=== PATIENT | male | born 1950 | race Caucasian/White ===

== ENCOUNTER → 2020-04-28 10:26 | Outpatient (BNVA) | payer MEDICARE, SELFPAY | PROVIDERS: PCP Internal Medicine; Visit Provider Internal Medicine Cardiovascular Disease | DX: Z76.89 Persons encountering health services in other specified circumstances (principal) ==

== ENCOUNTER 2020-04-28 11:07 | Emergency (ER) | payer MEDICARE, SELFPAY ==
--- NOTE | 2020-04-28 | ECG_ITS ---
Test Reason : REPEAT Blood Pressure : / mmHG Vent. Rate : 051 BPM Atrial Rate : 051 BPM P-R Int : 236 ms QRS Dur : 102 ms QT Int : 494 ms P-R-T Axes : 040 -09 049 degrees QTc Int : 455 ms Sinus bradycardia with 1st degree A-V block Moderate voltage criteria for LVH, may be normal variant ST & T wave abnormality, consider anterior ischemia Abnormal ECG When compared with ECG of 28-APR-2020 11:14, No significant change was found Referred By: Lisa Castellon Electronically Signed By:LOUIS MENON MD
[2020-04-28 11:13] VITALS: BP 152/71; PULSE 58; RESP 15; TEMP 36.4; O2SAT 96; BMI 37.1
--- NOTE | 2020-04-28 11:17 | CA_ITS ---
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 Mildly depressed LV systolic function with distal septal akinesis Findings Procedure Information Contrast agent, definity, is being given per protocol without apparent complications. Left Ventricle Normal left ventricular cavity size. There is normal left ventricular wall thickness. The left ventricular systolic function is mildly decreased. The visually estimated ejection fraction is between 45-50%. There is paradoxical septal motion consistent with post-operative status. Diastolic function is indeterminate on the basis of available data. Wall Motion Rest Echo Findings The apical septum and mid anteroseptal segments are akinetic. All other scored wall segments showed normal motion. Pericardium/Pleural There is no evidence of pericardial effusion. Prior Study Comparison Changes noted compared to prior study dated: 06/26/2019. overall compared to prior study LV systolic function is depressed. Measurements 2D Systolic Function EF 4C: 43.80 >55% Updated in Other Vendor System with Status of Final Gustavo Cano MD electronically signed on 04/28/2020 2:16:35 PM with status of Final
--- NOTE | 2020-04-28 11:38 | ED_ITS ---
HPI - Chest Pain General Chief Complaint: Chest Pain Stated Complaint: chest pain Time Seen by Provider: 04/28/20 11:17 Source: patient Mode of arrival: ambulatory Limitations: no limitations History of Present Illness HPI narrative: patient comes to the emergency room complaining of chest pain. Patient was seen this morning in the cardiology office by Dr. Stephens. patient reports that yesterday he had a 1 time episode of chest pain lasting approximately 2nd, then self resolved. This morning when he was seen in the Cardiology Clinic, new T-wave inversions were noted. At this time, patient denies shortness of breath or chest pain. Per Dr. Stephens, patient needs a stat echocardiogram MD complaint: chest pain Related Data Home Medications Medication Instructions Recorded Confirmed aspirin 81 mg tablet,delayed 81 mg PO DAILY 04/28/20 04/28/20 release atorvastatin 80 mg tablet 80 mg PO BEDTIME 04/28/20 04/28/20 famotidine 20 mg tablet 20 mg PO DAILY 04/28/20 04/28/20 furosemide 40 mg tablet 40 mg PO DAILY 04/28/20 04/28/20 levothyroxine 125 mcg tablet 125 mcg PO DAILY 04/28/20 04/28/20 metoprolol tartrate 25 mg tablet 25 mg PO BID 04/28/20 04/28/20 potassium chloride 20 mEq 20 meq PO DAILY 04/28/20 04/28/20 tablet,extended release Previous Rx's Medication Instructions Recorded clopidogrel [Plavix] 150 mg PO DAILY 6 Days #12 tab 04/28/20 Allergies Allergy/AdvReac Type Severity Reaction Status Date / Time No Known Allergies Allergy Verified 04/28/20 10:35 [No Known Allergies*] Review of Systems Review of Systems: Constitutional : No Weight loss, No Fever, No Chills, No Night Sweats, No Fatigue, No Malaise ENT/Mouth : No Hearing loss, No Ear Pain, No Nasal Congestion, No Sinus Pain, No Hoarseness, No sore throat, No Rhinorrhea, No Swallowing Difficulty Eyes: No Eye Pain, No Swelling, No Redness, No Foreign Body, No Discharge, No Vision Changes Cardiovascular : 1 time episode of chest pain, self resolved at this time no chest pain. No SOB, No Dyspnea on Exertion, No Orthopnea, No Edema, No Palpitations Respiratory : No Cough, No Sputum, No Wheezing, No Smoke Exposure, No Dyspnea Gastrointestinal : No Nausea, No Vomiting, No Diarrhea, No Constipation, No abdominal Pain, No Hematochezia, No Melena Genitourinary : no irregular bleeding, No Dysuria, No Urinary Frequency, No Hematuria, No Urinary Incontinence, No Urgency, No Flank Pain, No Urinary Flow Changes, No Hesitancy Musculoskeletal : No joint pain, No Myalgias, No Joint Swelling Skin : No Skin Lesions, No rash Neuro : No Weakness, No Numbness, No Paresthesias, No Loss of Consciousness, No Dizziness, No Headache Psych : No Anxiety/Panic, No Depression, No SI/HI/AH/VH, No Social Issues, Heme/Lymph: No Bruising, No Bleeding,No Lymphadenopathy Endocrine : No Polyuria, No Polydipsia, No Temperature Intolerance [facility] Past Medical History Medical History CAD (coronary artery disease) Nystagmus Surgical History History of cardiac cath (~06/20/19) History of coronary artery bypass graft x 3 (~07/24/19) History of knee replacement S/P CABG (coronary artery bypass graft) Family History Family History Father Cardiovascular disease Mother Gastrointestinal malignancy Social History Social History Smoking Status: Former smoker Smoked in Last 30 Days: No Use of substances other than those prescribed or required for medical reasons: No Advance Directives: No Advance Directives Information Provided: No Physical Exam Vital Signs: Vital Signs: Vital Signs Temp Pulse Resp BP Pulse Ox 04/28/20 16:07 54 18 144/118 H 96 04/28/20 14:34 97.7 F 51 18 142/66 H 95 04/28/20 12:56 54 18 126/69 95 04/28/20 11:13 97.6 F 58 15 152/71 H 96 Body Mass Index 37.1 Appearance: Alert. Oriented X3. No acute distress. Eyes: Pupils equal, round and reactive to light. horizontal nystagmus ( chronic) ENT: Pharynx normal. Neck: Normal inspection. Neck supple. No lymph nodes noted. No crepitus CVS: Normal heart rate and rhythm. Pulses normal. Normal S1 and S2 Respiratory: No respiratory distress. Breath sounds normal. No Wheezing. No rales Abdomen: Soft and nontender. No rigidity. No distention. good BS x4 Skin: Skin warm and dry. Normal skin color. Normal skin turgor. Extremities: No lower extremity edema. No lower extremity edema. No Lacerations. No Rash Neuro: Oriented X 3. No motor deficit. No sensory deficit. Moving all extermities. No slurred speech. Course Course Course Narrative: at this time, patient is asymptomatic, discussed with the sophy carrillo that he will get lab work at this time, troponin will be repeated in 3 hours, and we will get an echocardiogram as well per Dr. Stephens's request MDM - Chest Pain MDM Narrative Medical decision making narrative: I discussed the EKGs, troponins, and echocardiogram with Dr. Stephens. Patient will need a cardiac catheterization. Per Dr. Stephens recommendations, patient may be admitted to the hospital and transfer to [facility] tomorrow for a cardiac arrest versus discharging the patient on Plavix and planning for a cardiac catheterization on Sunday. I discussed the 2 options with the patient, patient states he wants to go home, because he needs to prepare his for the news of the upcoming cardiac catheterization. As mentioned above, patient remains asymptomatic. patient will be tested for COVID, in house test will be obtained to facilitate the admission for the cardiac catheterization Lab Data Result diagrams: 04/28/20 11:42 04/28/20 11:42 Labs: Lab Results 04/28/20 04/28/20 04/28/20 Range/Units 11:42 11:42 11:42 WBC 7.6 (4.8-10.8) X10*3/uL RBC 5.05 (4.60-5.80) X10*6/uL Hgb 14.2 (14.0-18.0) g/dl Hct 44.4 (42-52) % MCV 87.9 (80-98) fL MCH 28.1 (27.0-33.0) pg MCHC 32.0 (31.0-36.0) g/dl RDW 14.0 (11.0-16.0) % Plt Count 191 (160-400) X10*3/uL MPV 10.1 (9.4-12.4) fL Immature Gran % (Auto) 0.4 (0.0-0.4) % Neut % (Auto) 60.6 (45-73) % Lymph % (Auto) 27.0 (20-40) % [place] % (Auto) 8.7 (2-11) % Eos % (Auto) 3.0 (0-4) % Baso % (Auto) 0.3 (0-2) % Lymph # (Auto) 2.1 (1.2-4.9) X10*3/uL [place] # (Auto) 0.7 (0.1-1.2) X10*3/uL Eos # (Auto) 0.2 (0.0-0.4) X10*3/uL Baso # (Auto) 0.0 (0.0-0.2) X10*3/uL Abs Immat Gran (auto) 0.03 (0.00-0.03) X10*3/uL Absolute Neuts (auto) 4.6 (2.0-8.3) X10*3/uL Absolute Nucleated RBC 0.000 (0.0-0.012) X10*3/uL Nucleated RBC % (auto) 0.0 (0.0-0.2) /100WBC Sodium 140 (135-145) mmol/L Potassium 4.1 (3.3-5.1) mmol/l Chloride 105 (96-108) mmol/L Carbon Dioxide 26 (22-29) mmol/L Anion Gap 13 (12-20) BUN 18 H (9-16) mg/dL Creatinine 1.06 (0.5-1.4) mg/dL Estim Creat Clear Calc 72.3 Estimated GFR > 60 Random Glucose 84 (60-115) mg/dL Calcium 9.1 (8.4-10.2) mg/dL Troponin I High Sens < 3.5 (<3.5-35.0) ng/L B-Natriuretic Peptide 31 (<100) pg/mL 04/28/20 Range/Units 14:46 WBC (4.8-10.8) X10*3/uL RBC (4.60-5.80) X10*6/uL Hgb (14.0-18.0) g/dl Hct (42-52) % MCV (80-98) fL MCH (27.0-33.0) pg MCHC (31.0-36.0) g/dl RDW (11.0-16.0) % Plt Count (160-400) X10*3/uL MPV (9.4-12.4) fL Immature Gran % (Auto) (0.0-0.4) % Neut % (Auto) (45-73) % Lymph % (Auto) (20-40) % [place] % (Auto) (2-11) % Eos % (Auto) (0-4) % Baso % (Auto) (0-2) % Lymph # (Auto) (1.2-4.9) X10*3/uL [place] # (Auto) (0.1-1.2) X10*3/uL Eos # (Auto) (0.0-0.4) X10*3/uL Baso # (Auto) (0.0-0.2) X10*3/uL Abs Immat Gran (auto) (0.00-0.03) X10*3/uL Absolute Neuts (auto) (2.0-8.3) X10*3/uL Absolute Nucleated RBC (0.0-0.012) X10*3/uL Nucleated RBC % (auto) (0.0-0.2) /100WBC Sodium (135-145) mmol/L Potassium (3.3-5.1) mmol/l Chloride (96-108) mmol/L Carbon Dioxide (22-29) mmol/L Anion Gap (12-20) BUN (9-16) mg/dL Creatinine (0.5-1.4) mg/dL Estim Creat Clear Calc Estimated GFR Random Glucose (60-115) mg/dL Calcium (8.4-10.2) mg/dL Troponin I High Sens < 3.5 (<3.5-35.0) ng/L B-Natriuretic Peptide (<100) pg/mL Discharge Plan Discharge Clinical Impression: Abnormal electrocardiography Patient Disposition: Home, Self-Care Additional Instructions: your electrocardiogram on your echocardiogram (heart ultrasound) are both abnormal. Dr. Stephens recommends a cardiac catheterization for this week. Please start taking Plavix. Dr. Stephens will contact you with further information. If you have any chest pain, any new symptoms, please return to the emergency room or call 911 Prescriptions: New clopidogrel [Plavix] 75 mg tablet 150 mg PO DAILY 6 Days Qty: 12 RF: 0 No Action aspirin 81 mg tablet,delayed release (DR/EC) 81 mg PO DAILY RF: 0 atorvastatin 80 mg tablet 80 mg PO BEDTIME RF: 0 metoprolol tartrate 25 mg tablet 25 mg PO BID RF: 0 famotidine [Pepcid] 20 mg tablet 20 mg PO DAILY RF: 0 furosemide [Lasix] 40 mg tablet 40 mg PO DAILY RF: 0 potassium chloride 20 mEq tablet extended release 20 meq PO DAILY RF: 0 levothyroxine 125 mcg tablet 125 mcg PO DAILY RF: 0
[2020-04-28 11:47] LABS: MANUAL DIFF FLAG NO
[2020-04-28 11:49] LABS: Basophils Percent Auto 0.3 % (0-2); Eosinophils Absolute Auto 0.2 X10*3/uL (0.0-0.4); Hematocrit 44.4 % (42-52); Hemoglobin 14.2 g/dl (14.0-18.0); Imm Gran Abs Auto 0.03 X10*3/uL (0.00-0.03); Imm Gran Pct Auto 0.4 % (0.0-0.4); Lymphocytes Absolute Auto 2.1 X10*3/uL (1.2-4.9); Mean Corpuscular Hemoglobin 28.1 pg (27.0-33.0); Mean Corpuscular Volume 87.9 fL (80-98); Mean Platelet Volume 10.1 fL (9.4-12.4); Monocytes Absolute Auto 0.7 X10*3/uL (0.1-1.2); Monocytes Percent Auto 8.7 % (2-11); Neutrophils Absolute Auto 4.6 X10*3/uL (2.0-8.3); Neutrophils Percent Auto 60.6 % (45-73); Platelet Count 191 X10*3/uL (160-400); Red Blood Count 5.05 X10*6/uL (4.60-5.80); White Blood Count 7.6 X10*3/uL (4.8-10.8)
[2020-04-28 12:25] LABS: Anion Gap 13 (12-20); Blood Urea Nitrogen 18 mg/dL (9-16); Calcium 9.1 mg/dL (8.4-10.2); Carbon Dioxide 26 mmol/L (22-29); Chloride 105 mmol/L (96-108); Creatinine Clr Calc Pharmacy 72.3; Estimated Glomerular Filt Rate > 60; Glucose Random 84 mg/dL (60-115); Potassium 4.1 mmol/l (3.3-5.1); Sodium 140 mmol/L (135-145)
[2020-04-28 12:32] LABS: B Type Natriuretic Peptide 31 pg/mL (<100); Troponin-I High Sensitivity < 3.5 ng/L (<3.5-35.0)
[2020-04-28 12:56] VITALS: BP 126/69; PULSE 54; RESP 18; O2SAT 95
--- NOTE | 2020-04-28 14:21 | PC.NURSE ---
pt is currently resting, sinus román on the monitor, denies chest pain/sob at this time. pt awaiting repeat trop
[2020-04-28 14:34] VITALS: BP 142/66; PULSE 51; RESP 18; TEMP 36.5; O2SAT 95
--- NOTE | 2020-04-28 15:02 | ECG_ITS ---
Test Reason : CP Blood Pressure : / mmHG Vent. Rate : 059 BPM Atrial Rate : 059 BPM P-R Int : 250 ms QRS Dur : 106 ms QT Int : 440 ms P-R-T Axes : 056 -08 070 degrees QTc Int : 435 ms Sinus bradycardia with 1st degree A-V block Left axis deviation T wave abnormality, consider anterior ischemia Abnormal ECG When compared with ECG of 28-MAY-2019 09:01, CT interval has increased T wave inversion now evident in Anterior leads Referred By: Lisa Castellon Electronically Signed By:LOUIS MENON MD
[2020-04-28 15:39] LABS: Troponin-I High Sensitivity < 3.5 ng/L (<3.5-35.0)
[2020-04-28 16:07] VITALS: BP 144/118; PULSE 54; RESP 18; O2SAT 96
--- NOTE | 2020-04-28 16:10 | PC.NURSE ---
pt continuous o resting in the stretcher, still denies chest pain/sob, vs stable, sinus román on the monitor
[2020-04-28] MEDS: Clopidogrel Bisulfate 300 MG TABLET PO (17:02)
[2020-04-28 18:31] LABS: SARS COV2 PCR INHOUSE NEGATIVE (Negative)
== END 2020-04-28 17:12 | disposition home or self-care (01) ==
PROVIDERS: Emergency Provider Emergency Medicine; PCP Internal Medicine
DX: R07.89 Other chest pain (principal); I25.10 Atherosclerotic heart disease of native coronary artery without angina pectoris; Z87.891 Personal history of nicotine dependence; Z79.899 Other long term (current) drug therapy; Z20.828 Contact with and (suspected) exposure to other viral communicable diseases
CPT/HCPCS: 36415; 70120; 80048; 83880; 84484; 85025; 87635; 93005; 99212; 99284; 99285; Q9957

== ENCOUNTER → 2020-05-13 12:40 | Outpatient (BNVA) | payer MEDICARE, SELFPAY | PROVIDERS: PCP Internal Medicine; Visit Provider Internal Medicine Cardiovascular Disease | DX: I25.10 Atherosclerotic heart disease of native coronary artery without angina pectoris (principal); G47.30 Sleep apnea, unspecified; Z79.02 Long term (current) use of antithrombotics/antiplatelets; Z79.82 Long term (current) use of aspirin; Z95.1 Presence of aortocoronary bypass graft | CPT/HCPCS: 99212 ==

== ENCOUNTER 2020-06-21 12:37 | Emergency (ER) | payer MEDICARE, SELFPAY ==
[2020-06-21 12:50] VITALS: BP 156/81; PULSE 64; RESP 18; TEMP 36.6; O2SAT 98; BMI 37.4
--- NOTE | 2020-06-21 14:35 | XR_ITS ---
EXAMINATION: XR LUMBOSACRAL SPINE WITH OBLIQUES CLINICAL INFORMATION: Low back pain radiating down left lower extremity. COMPARISON: Thoracic spine 06/21/2020, CT chest 05/28/2019. TECHNIQUE: Lumbar spine is imaged in 5 views: AP, lateral, lateral view coned to lumbosacral junction, and bilateral oblique. FINDINGS: There is normal lumbar segmentation with 5 nonrib-bearing lumbar vertebrae of normal height and normal lumbar lordosis. There is no spondylolysis or spondylolisthesis. The vertebral bodies are normal in height. There is no vertebral compression or destructive process. There are degenerative changes with multilevel partially bridging vertebral osteophytes anteriorly and scattered laterally. Borderline posterior bridging osteophyte present at L4-L5 and L5-S1. There is mild disc narrowing lumbosacral junction and at L1-L2. XR/XR lumbar spine 4V min IMPRESSION: 1. Multilevel vertebral spurring with partially bridging osteophytes. 2. Disc narrowing L1-L2 and L5-S1. 3. No vertebral compression, spondylolisthesis, or spondylolysis.
--- NOTE | 2020-06-21 14:35 | XR_ITS ---
EXAMINATION: XR THORACIC SPINE CLINICAL INFORMATION: Back pain COMPARISON: Chest radiographs 05/28/2019. TECHNIQUE: 3 views of the thoracic spine were obtained. FINDINGS: There is normal thoracic segmentation with 12 rib-bearing thoracic vertebrae of normal height and normal thoracic kyphosis. There are mild multilevel degenerative disc changes thoracic spine again seen with mild disc narrowing and endplate sclerosis and borderline thoracic vertebral spurring. There is no interval thoracic vertebral compression, spondylolisthesis, destructive process. Zero profile implant overlies anterior lower cervical spine from prior fusion. There are postsurgical changes chest with mediastinal clips and anatomy wires and sternal plates. XR/XR thoracic spine 3V IMPRESSION: Mild multilevel degenerative changes thoracic spine similar to chest radiograph 05/28/2019.
--- NOTE | 2020-06-21 14:37 | ED.BACK ---
HPI - Back Pain/Injury General Chief Complaint: Back Pain/Injury Stated Complaint: back pain Time Seen by Provider: 06/21/20 14:35 Source: patient Mode of arrival: ambulatory History of Present Illness HPI Narrative: 70-year-old male with a past medical history of hypothyroid, CAD s/p triple bypass in July, presenting to the ED complaining of left-sided low back pain radiating down left lower extremity x1 week. Denies known injury/trauma or falls. Denies fever, chills, numbness/tingling, urinary incontinence/retention, hematuria/ dysuria, or flank pain MD elicited complaint: back pain Related Data Home Medications Medication Instructions Recorded Confirmed famotidine 20 mg tablet 20 mg PO DAILY 04/28/20 05/13/20 furosemide 40 mg tablet 40 mg PO DAILY 04/28/20 05/13/20 levothyroxine 125 mcg tablet 125 mcg PO DAILY 04/28/20 05/13/20 potassium chloride 20 mEq 20 meq PO DAILY 04/28/20 05/13/20 tablet,extended release metoprolol succinate 50 mg 50 mg PO DAILY 05/13/20 05/13/20 tablet,extended release 24 hr Previous Rx's Medication Instructions Recorded clopidogrel 75 mg tablet 75 mg PO DAILY 90 Days #90 tab 04/28/20 atorvastatin 80 mg tablet 80 mg PO BEDTIME #90 tab 04/29/20 fluticasone propionate 50 2 spray INTRANASAL DAILY #15.8 ml 05/21/20 mcg/actuation nasal spray,suspension aspirin 81 mg tablet,delayed 81 mg PO DAILY #90 tab 06/12/20 release acetaminophen [Tylenol Extra 500 mg PO Q6H PRN #20 tab 06/21/20 Strength] cyclobenzaprine 5 mg PO Q8H PRN 5 Days #14 tab 06/21/20 lidocaine [Lidoderm] 1 patch TOPICAL DAILY PRN #30 ea 06/21/20 MDD remove after 12 hours tramadol 50 mg PO Q6H PRN 3 Days #9 tab 06/21/20 Allergies Allergy/AdvReac Type Severity Reaction Status Date / Time No Known Allergies Allergy Verified 04/28/20 10:35 [No Known Allergies*] Review of Systems Review of Systems: Constitutional: No Weight loss, No Fever, No Chills Genitourinary:, No Dysuria, No Urinary Frequency, No Hematuria, No Urinary Incontinence, No Flank Pain Musculoskeletal: +back pain Skin: No Skin Lesions, No rash Neuro: No Weakness, No Numbness, No Paresthesias Yes all other systems are reviewed and are negative [facility] Past Medical History Attestation statement: The following information was validated with the patient. Medical History (Updated 06/21/20 @ 14:43 by MOHIT Norris) CAD (coronary artery disease) Diabetes Hyperlipidemia Hypothyroidism Nystagmus Surgical History H/O colonoscopy History of cardiac cath (~06/20/19) History of coronary artery bypass graft x 3 (~07/24/19) History of esophagogastroduodenoscopy (EGD) History of knee replacement S/P CABG (coronary artery bypass graft) Family History Family History Father Cardiovascular disease Mother Gastrointestinal malignancy Social History Social History (Updated 05/11/20 @ 09:40 by Tania Falcon MD) Alcohol intake: never Smoking Status: Former smoker Advance Directives: No Advance Directives Information Provided: No Physical Exam Vital Signs: Vital Signs: Last Vital Signs Temp 98 F 06/21/20 12:50 Pulse 64 06/21/20 12:50 Resp 18 06/21/20 12:50 BP 156/81 H 06/21/20 12:50 Pulse Ox 98 06/21/20 12:50 Body Mass Index 37.4 Const: General: cooperative and healthy appearing Orientation/consciousness: patient oriented x3 Limitations: no limitations HENMT: Head: Yes normal to inspection Ears: hearing grossly normal bilaterally General nose exam: Normal external nose present Face and sinus: Yes normal facial exam Eyes: General: appearance normal, both eyes and all related structures EOM: EOMs intact bilaterally Neck: Other: No midline cervical spinous tenderness Neck: Yes normal visual inspection Resp: Effort & Inspection: normal respiratory effort Cardio: Rate: regular rate GI: Inspection: Yes normal to inspection : General: Yes no CVA tenderness Back/Spine/Pelvis: Other: No midline thoracic/lumbar spinous tenderness. + left-sided lower thoracic/upper lumbar MSK tenderness to palpation. No appreciable deformity. Back: no CVA tenderness Skin: Rashes: no rashes Wounds: no wounds Neuro: Other: No saddle anesthesia, VELIZ, ambulating with steady gait General: patient oriented x3, gait normal and tone normal Gait exam (Neuro): Normal gait present Extrem: General: Yes normal to inspection Course Course Course Narrative: Classic spine x-ray showing multilevel or degenerative changes similar to prior chest radiograph in 2019 Lumbar spine x-ray showing multilevel vertebral spurring with partially bridging osteophytes, disc narrowing L1-L2 and L5-S1, no compression, spondylosis or spondylolisthesis Imaging results discussed with patient including worrisome signs and symptoms and strict return precautions. Patient verbalized understanding and feels safe for discharge to follow-up with PCP MDM - Back Pain/Injury MDM Narrative Medical decision making narrative: 70-year-old male with a past medical history of hypothyroid, CAD s/p triple bypass in July, presenting to the ED complaining of left-sided low back pain radiating down left lower extremity x1 week. On exam VSS, NAD/well-appearing, no midline spinous tenderness, no red flag symptoms, ambulating with steady gait. No saddle anesthesia. Likely MSK pain. Lower concern for cauda equina, cord compression, fracture, renal stone or pyelo Plan: X-rays, symptomatic treatment/reassess Discharge Plan Discharge Clinical Impression: Back pain Qualifiers: Back pain location: low back pain Chronicity: acute Back pain laterality: left Sciatica presence: with sciatica Sciatica laterality: sciatica of left side Qualified Code(s): M54.42 - Lumbago with sciatica, left side Patient Disposition: Home, Self-Care Instructions: Sciatica (ED) Additional Instructions: Your pain is likely musculoskeletal Flexeril is a muscle relaxer, take at night as it makes you drowsy, do not drive, drink alcohol, or operate machinery while taking it Lidoderm patches are numbing patches, apply to painful area In addition take Tylenol at home Tramadol is an opiate pain medication, take only when pain is severe for the next 3 days If symptoms persist or worsen, pain becomes unbearable, you developed urinary retention or incontinence, or weakness return to the ED You should follow-up with your doctor for further management/possible MRI or other imaging studies in the future if pain persists Prescriptions: New acetaminophen [Tylenol Extra Strength] 500 mg tablet 500 mg PO Q6H PRN (Reason: pain or fever) Qty: 20 RF: 0 lidocaine [Lidoderm] 5 % adhesive patch,medicated 1 patch topical DAILY MDD remove after 12 hours PRN (Reason: pain) Qty: 30 RF: 0 cyclobenzaprine 5 mg tablet 5 mg PO Q8H PRN (Reason: pain (scale score 7-10)) 5 Days Qty: 14 RF: 0 tramadol 50 mg tablet 50 mg PO Q6H PRN (Reason: pain) 3 Days Qty: 9 RF: 0 No Action atorvastatin 80 mg tablet 80 mg PO BEDTIME Qty: 90 RF: 3 fluticasone propionate [Flonase Allergy Relief] 50 mcg/actuation spray,suspension 2 spray intranasal DAILY Qty: 15.8 RF: 3 aspirin 81 mg tablet,delayed release (DR/EC) 81 mg PO DAILY Qty: 90 RF: 3 famotidine [Pepcid] 20 mg tablet 20 mg PO DAILY RF: 0 furosemide [Lasix] 40 mg tablet 40 mg PO DAILY RF: 0 potassium chloride 20 mEq tablet extended release 20 meq PO DAILY RF: 0 levothyroxine 125 mcg tablet 125 mcg PO DAILY RF: 0 clopidogrel [Plavix] 75 mg tablet 75 mg PO DAILY 90 Days Qty: 90 RF: 4 metoprolol succinate [Toprol XL] 50 mg tablet extended release 24 hr 50 mg PO DAILY RF: 0 Referrals: Tania Falcon MD [Primary Care Provider] - 5 days
[2020-06-21] MEDS: Cyclobenzaprine HCl 10 MG TABLET PO (14:55)
[2020-06-21] MEDS: Acetaminophen 325 MG TABLET 650 MG PO (14:56)
== END 2020-06-21 16:33 | disposition home or self-care (01) ==
PROVIDERS: Emergency Provider Emergency Medicine; PCP Internal Medicine
DX: M54.42 Lumbago with sciatica, left side (principal); E11.9 Type 2 diabetes mellitus without complications; E78.5 Hyperlipidemia, unspecified
CPT/HCPCS: 72072; 72110; 99283; 99284

== ENCOUNTER 2020-07-01 12:50 | Emergency (ER) | payer MEDICARE, SELFPAY ==
[2020-07-01 13:01] VITALS: BP 144/80; PULSE 66; RESP 18; TEMP 36.4; O2SAT 95; BMI 37.4
--- NOTE | 2020-07-01 13:32 | CT_ITS ---
EXAMINATION: CT ABDOMEN AND PELVIS WITHOUT CONTRAST CLINICAL INFORMATION: Lower back pain. Flank pain. COMPARISON: None TECHNIQUE: Multidetector volumetric imaging was performed from the superior aspect of the liver through the pubic symphysis. Sagittal and coronal reformatted images were obtained on the technologist's workstation. This CT examination was performed using dose optimization techniques as appropriate, variously including the following: *Automated exposure control *Adjustment of mA and/or kV according to patient size (this includes techniques or standardized protocols for targeted exams where dose is matched to indication/reason for exam; i.e. extremities or head) *Use of iterative reconstruction technique DLP: 833 mGy-cm FINDINGS: LUNG BASES: The visualized lung bases are unremarkable. Suspect a small hiatal hernia or reflux disease. LIVER, GALLBLADDER, AND BILIARY TREE: The liver is normal in size, shape, and attenuation. No focal hepatic lesion or biliary ductal dilatation is present. There is a punctate radiopaque gallstone without wall thickening. PANCREAS: Unremarkable. SPLEEN: Unremarkable. ADRENAL GLANDS: Unremarkable. KIDNEYS AND URETERS: The kidneys are normal in size, shape, and attenuation. No hydronephrosis, hydroureter, or calculi seen. No perinephric stranding. There is a 2.5 x 2.9 cm cyst lower pole right kidney. BLADDER: Unremarkable. GASTROINTESTINAL TRACT: Scattered stool, diverticuli and gas seen throughout the colon. There is no evidence of diverticulitis or colonic distention. The small bowel loops are normal caliber. Appendix is normal caliber. No free air or free fluid seen. ABDOMINAL WALL: No significant hernia is appreciated. LYMPH NODES: Normal. VASCULAR: Unremarkable. PELVIC VISCERA: The right inguinal hernia containing a fat. OSSEOUS STRUCTURES: There is no lytic or sclerotic process. There is mild ventral spondylosis throughout lumbar spine. The paravertebral soft tissues and unremarkable. CT/CT abdomen pelvis wo con IMPRESSION: Sigmoid and descending colon diverticulosis without diverticulitis. Right inguinal hernia containing intraperitoneal fat. Moderate spine spondylosis without disc herniation or spinal stenosis. Moderate size right renal cyst. No radiopaque urolith or hydroureteronephrosis. Solitary gallstone.
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
[2020-07-01] MEDS: Acetaminophen 325 MG TABLET 975 MG PO (13:37)
[2020-07-01 13:48] LABS: MANUAL DIFF FLAG NO
[2020-07-01 13:49] LABS: Basophils Percent Auto 0.3 % (0-2); Eosinophils Absolute Auto 0.3 X10*3/uL (0.0-0.4); Eosinophils Percent Auto 4.1 % (0-4); Hematocrit 44.9 % (42-52); Hemoglobin 14.2 g/dl (14.0-18.0); Imm Gran Abs Auto 0.03 X10*3/uL (0.00-0.03); Imm Gran Pct Auto 0.5 % (0.0-0.4); Lymphocytes Percent Auto 29.8 % (20-40); Mean Corpuscular HGB Conc 31.6 g/dl (31.0-36.0); Mean Corpuscular Volume 88.6 fL (80-98); Mean Platelet Volume 9.7 fL (9.4-12.4); Monocytes Absolute Auto 0.6 X10*3/uL (0.1-1.2); Monocytes Percent Auto 8.6 % (2-11); Neutrophils Absolute Auto 3.8 X10*3/uL (2.0-8.3); Neutrophils Percent Auto 56.7 % (45-73); Platelet Count 198 X10*3/uL (160-400); Red Blood Count 5.07 X10*6/uL (4.60-5.80); Red Cell Distribution Width 14.7 % (11.0-16.0); White Blood Count 6.6 X10*3/uL (4.8-10.8)
[2020-07-01 13:55] LABS: Glucose Urine UA NEG (NEG); Leukocyte Esterase Urine NEG (NEG); Nitrite Urine NEG (NEG); Urine Blood NEG (NEG); Urine Ketones NEG (NEG); Urine Protein NEG (NEG-TRACE)
[2020-07-01 14:05] LABS: Mucus Urine TRACE /LPF; RBC Urine 0 /HPF (0); Squamous Epithelial Cell Urine TRACE /LPF
[2020-07-01 14:06] LABS: Appearance Urine CLEAR; Color Urine YELLOW
[2020-07-01 14:18] LABS: Alanine Aminotransferase 34 U/L (0-40); Albumin Level 4.2 g/dL (3.5-5.0); Alkaline Phosphatase 131 U/L (39-117); Anion Gap 13 (12-20); Aspartate Amino Transferase 27 U/L (5-37); Bilirubin Total 0.6 mg/dL (0.0-1.0); Blood Urea Nitrogen 17 mg/dL (9-16); Calcium 9.2 mg/dL (8.4-10.2); Carbon Dioxide 29 mmol/L (22-29); Chloride 105 mmol/L (96-108); Creatinine Clr Calc Pharmacy 79.4; Estimated Glomerular Filt Rate > 60; Glucose Random 88 mg/dL (60-115); Potassium 4.6 mmol/l (3.3-5.1); Sodium 142 mmol/L (135-145); Total Protein 7.3 g/dL (6.5-8.0)
== END 2020-07-01 15:14 | disposition home or self-care (01) ==
PROVIDERS: Nurse Practitioner Primary Care; Emergency Provider Emergency Medicine Emergency Medical Services; PCP Internal Medicine
DX: S39.012A Strain of muscle, fascia and tendon of lower back, initial encounter (principal); X58.XXXA Exposure to other specified factors, initial encounter; Y93.9 Activity, unspecified; Y92.9 Unspecified place or not applicable; Y99.9 Unspecified external cause status; Z79.899 Other long term (current) drug therapy; Z87.891 Personal history of nicotine dependence; I25.10 Atherosclerotic heart disease of native coronary artery without angina pectoris
CPT/HCPCS: 36415; 74176; 80053; 81001; 85025; 99283; 99284

== ENCOUNTER → 2020-07-14 20:24 | Outpatient (REF) | payer MEDICARE, SELFPAY | LOC: HO.SL 20:24 | PROVIDERS: Visit Provider Internal Medicine Cardiovascular Disease | DX: G47.33 Obstructive sleep apnea (adult) (pediatric) (principal); R06.83 Snoring | CPT/HCPCS: 95810 ==

== ENCOUNTER 2020-08-25 10:58 | Outpatient (REF) | payer MEDICARE, SELFPAY ==
[2020-08-25 11:50] LABS: Hematocrit 45.5 % (42-52); Hemoglobin 14.3 g/dl (14.0-18.0); Mean Corpuscular HGB Conc 31.4 g/dl (31.0-36.0); Mean Corpuscular Hemoglobin 27.8 pg (27.0-33.0); Mean Corpuscular Volume 88.3 fL (80-98); Platelet Count 218 X10*3/uL (160-400); Red Blood Count 5.15 X10*6/uL (4.60-5.80); Red Cell Distribution Width 14.9 % (11.0-16.0); White Blood Count 7.2 X10*3/uL (4.8-10.8)
[2020-08-25 12:24] LABS: Alanine Aminotransferase 44 U/L (0-40); Albumin Level 4.2 g/dL (3.5-5.0); Alkaline Phosphatase 145 U/L (39-117); Anion Gap 12 (12-20); Aspartate Amino Transferase 28 U/L (5-37); Bilirubin Total 0.6 mg/dL (0.0-1.0); Blood Urea Nitrogen 16 mg/dL (9-16); Calcium 9.6 mg/dL (8.4-10.2); Carbon Dioxide 28 mmol/L (22-29); Chloride 105 mmol/L (96-108); Cholesterol 117 mg/dL; Estimated Glomerular Filt Rate > 60; Glucose Fasting 131 mg/dL (60-99); HDL Cholesterol 30 mg/dL; LDL Cholesterol Calculated 70 mg/dl; Potassium 4.3 mmol/L (3.3-5.1); Sodium 141 mmol/L (135-145); Total Protein 7.4 g/dL (6.5-8.0); Triglycerides 89 mg/dL
[2020-08-25 12:32] LABS: Creatinine Urine 75.92 mg/dL; Microalbumin Urine < 5.0 mg/L
[2020-08-25 12:47] LABS: Prostate Specific Antigen Scr 0.84 ng/mL (<0.05-4.0); TSH reflex Free T4 4.26 uIU/mL (0.32-4.0)
[2020-08-25 13:09] LABS: Estimated Average Glucose 137 mg/dL; Hemoglobin A1c % 6.4 %
[2020-08-25 13:22] LABS: Free T4 (Free Thyroxine) 1.02 ng/dL (0.71-1.85)
== END 2020-08-25 10:59 | disposition home or self-care (01) ==
LOC: HO.LAB 10:58
PROVIDERS: Absent Provider Internal Medicine; PCP Internal Medicine; Visit Provider Internal Medicine
DX: E11.9 Type 2 diabetes mellitus without complications (principal); I25.10 Atherosclerotic heart disease of native coronary artery without angina pectoris; E78.5 Hyperlipidemia, unspecified; E03.9 Hypothyroidism, unspecified; Z95.1 Presence of aortocoronary bypass graft; Z12.5 Encounter for screening for malignant neoplasm of prostate
CPT/HCPCS: 36415; 80053; 80061; 82043; 83036; 84153; 84439; 84443; 85027

== ENCOUNTER → 2020-10-04 09:55 | Outpatient (BNVA) | payer MEDICARE, SELFPAY | PROVIDERS: PCP Internal Medicine; Visit Provider Internal Medicine Cardiovascular Disease | DX: E66.9 Obesity, unspecified (principal); Z95.1 Presence of aortocoronary bypass graft | CPT/HCPCS: 99212 ==

== ENCOUNTER 2020-12-08 09:45 | Outpatient (REF) | payer MEDICARE, SELFPAY ==
--- NOTE | ~2020-12-08 | US_ITS ---
EXAMINATION: US EXTRACRANIAL CAROTID DUPLEX, BILATERAL CLINICAL INFORMATION: Bruit, history of diabetes and hyperlipidemia COMPARISON: Carotid ultrasound on 12/01/2019 TECHNIQUE: Real-time ultrasound and Doppler techniques (integrating B-mode 2-D vascular images, Doppler spectral analysis and color-flow Doppler imaging) were utilized to interrogate the extracranial carotid arteries, the vertebral arteries and proximal subclavian arteries bilaterally. The degree of stenosis is determined by criteria similar to NASCET. FINDINGS: Right Side: 1. There is heterogeneous atherosclerotic plaque seen in the bifurcation/proximal ICA region. 2. The common carotid artery PSV proximally is 62.7 cm/s and distally 55.9 cm/s. 3. The proximal internal carotid artery velocities are 83.1 cm/s systolic and 30.6 cm/s diastolic. 4. The proximal external carotid artery PSV is 75.8 cm/s. 5. The vertebral artery shows antegrade flow. 6. The subclavian artery waveforms are normal. Left Side: 1. There is heterogeneous atherosclerotic plaque seen in the bifurcation/proximal ICA region. 2. The common carotid artery PSV proximally is 61.5 cm/s and distally 51.6 cm/s. 3. The proximal internal carotid artery velocities are 75.2 cm/s systolic and 19.9 cm/s diastolic. 4. The proximal external carotid artery PSV is 82.0 cm/s. 5. The vertebral artery shows antegrade flow. 6. The subclavian artery waveforms are normal. US/US carotid duplex BI IMPRESSION: 1. RIGHT: Minimal, non-hemodynamically significant stenosis of the proximal right internal carotid artery corresponding to a 0-49% stenosis by velocity criteria. 2. LEFT: Minimal, non-hemodynamically significant stenosis of the proximal left internal carotid artery corresponding to a 0-49% stenosis by velocity criteria. 3. There is no change in the category severity of disease when compared to the previous study dated 12/01/2019.
== END 2020-12-08 09:46 | disposition home or self-care (01) ==
LOC: HO.US 09:45
PROVIDERS: Visit Provider Surgery Vascular Surgery
DX: R09.89 Other specified symptoms and signs involving the circulatory and respiratory systems (principal)
CPT/HCPCS: 93880

== ENCOUNTER → 2020-12-09 13:40 | Outpatient (BNVA) | payer MEDICARE, SELFPAY | PROVIDERS: PCP Internal Medicine; Visit Provider Surgery Vascular Surgery | DX: I65.23 Occlusion and stenosis of bilateral carotid arteries (principal); I83.11 Varicose veins of right lower extremity with inflammation | CPT/HCPCS: 99212 ==

== ENCOUNTER 2020-12-10 09:36 | Outpatient (REF) | payer MEDICARE, SELFPAY ==
[2020-12-10 10:36] LABS: Glucose Urine UA NEG (NEG); Leukocyte Esterase Urine NEG (NEG); Nitrite Urine NEG (NEG); Specific Gravity - Urine 1.015 (1.005-1.025); Urine Blood TRACE (NEG); Urine Ketones NEG (NEG); Urine Protein NEG (NEG-TRACE)
[2020-12-10 10:40] LABS: Appearance Urine CLEAR; Color Urine YELLOW
[2020-12-10 11:24] LABS: Squamous Epithelial Cell Urine TRACE /LPF; WBC Urine 0 /HPF (0-4)
[2020-12-10 11:27] LABS: Hemoglobin 13.6 g/dl (14.0-18.0); Mean Corpuscular HGB Conc 30.9 g/dl (31.0-36.0); Mean Corpuscular Hemoglobin 27.8 pg (27.0-33.0); Mean Corpuscular Volume 89.8 fL (80-98); Mean Platelet Volume 10.3 fL (9.4-12.4); Platelet Count 183 X10*3/uL (160-400); Red Cell Distribution Width 15.2 % (11.0-16.0); White Blood Count 5.7 X10*3/uL (4.8-10.8)
[2020-12-10 12:02] LABS: Thyroid Stimulating Hormone 2.48 uIU/mL (0.32-4.0)
[2020-12-10 12:19] LABS: Alanine Aminotransferase 22 U/L (0-40); Alkaline Phosphatase 124 U/L (39-117); Anion Gap 11 (12-20); Aspartate Amino Transferase 20 U/L (5-37); Bilirubin Direct 0.3 mg/dL (0.0-0.5); Bilirubin Total 0.7 mg/dL (0.0-1.0); Blood Urea Nitrogen 17 mg/dL (9-16); Calcium 9.3 mg/dL (8.4-10.2); Carbon Dioxide 29 mmol/L (22-29); Chloride 106 mmol/L (96-108); Cholesterol 99 mg/dL; Estimated Glomerular Filt Rate > 60; Glucose Random 88 mg/dL (60-115); HDL Cholesterol 33 mg/dL; LDL Cholesterol Calculated 52 mg/dl; Potassium 4.4 mmol/L (3.3-5.1); Sodium 142 mmol/L (135-145); Total Protein 6.8 g/dL (6.5-8.0); Triglycerides 70 mg/dL
[2020-12-10 12:23] LABS: Estimated Average Glucose 126 mg/dL
== END 2020-12-10 09:37 | disposition home or self-care (01) ==
LOC: HO.LAB 09:36
PROVIDERS: PCP Internal Medicine; Visit Provider Internal Medicine
DX: E11.59 Type 2 diabetes mellitus with other circulatory complications (principal)
CPT/HCPCS: 36415; 80048; 80061; 80076; 81001; 83036; 84443; 85027

== ENCOUNTER 2020-12-20 12:30 | Outpatient (REF) | payer MEDICARE, SELFPAY ==
[2020-12-24 13:01] LABS: Vitamin D 25-OH, D2 <4 ng/mL; Vitamin D 25-OH, D3 33 ng/mL; Vitamin D 25-OH, Total 33 ng/mL (30-100)
== END 2020-12-20 12:31 | disposition home or self-care (01) ==
LOC: HO.LAB 12:30
PROVIDERS: PCP Internal Medicine; Referring Provider Internal Medicine; Visit Provider Internal Medicine Cardiovascular Disease
DX: R53.83 Other fatigue (principal); I25.5 Ischemic cardiomyopathy; Z95.1 Presence of aortocoronary bypass graft; Z79.899 Other long term (current) drug therapy
CPT/HCPCS: 36415; 82306; 99212

== ENCOUNTER → 2021-04-13 10:19 | Outpatient (BNVA) | payer MEDICARE, SELFPAY | PROVIDERS: PCP Internal Medicine; Referring Provider Internal Medicine; Visit Provider Internal Medicine Cardiovascular Disease | DX: I25.5 Ischemic cardiomyopathy (principal); F32.A Depression, unspecified; Z95.1 Presence of aortocoronary bypass graft | CPT/HCPCS: 93005; 99212 ==

== ENCOUNTER → 2021-05-16 15:00 | Outpatient (BNVA) | payer MEDICARE, SELFPAY | PROVIDERS: PCP Internal Medicine; Referring Provider Internal Medicine; Visit Provider Nurse Practitioner | DX: Z12.11 Encounter for screening for malignant neoplasm of colon (principal) | CPT/HCPCS: 99202 ==

== ENCOUNTER 2021-06-14 14:02 | Outpatient (REF) | payer MEDICARE, SELFPAY ==
[2021-06-14 14:23] LABS: COVID-19 Test Positive (Negative); IDNOW Serial# 16C4AD1C
== END 2021-06-14 14:03 | disposition home or self-care (01) ==
LOC: HO.LAB 14:02
PROVIDERS: Visit Provider Internal Medicine
DX: Z20.822 Contact with and (suspected) exposure to COVID-19 (principal)
CPT/HCPCS: 36415; 87635; C9803

== ENCOUNTER 2021-06-24 18:51 | Inpatient (IN) | payer MEDICARE, SELFPAY ==
--- NOTE | ~2021-06-24 | XR_ITS ---
EXAMINATION: XR CHEST CLINICAL INFORMATION: Status post ET tube replacement. COMPARISON: None TECHNIQUE: Frontal view of the chest was obtained. FINDINGS: The lungs are hypoexpanded with patchy ill-defined opacities seen throughout both lungs suspicious for interstitial disease or underlying infiltrate. No consolidation or pleural effusion seen. Heart size and pulmonary vascularity is within normal limits. There is an enteric tube tip below the stomach in the pylorus. Endotracheal tube tip is approximately 2.8 cm above the klarissa. XR/XR chest 1V IMPRESSION: Support lines and catheters in satisfactory position. Slight increased bilateral ill-defined patchy opacities in hypoexpanded lungs.
--- NOTE | ~2021-06-24 | CT_ITS ---
EXAMINATION: CT HEAD WITHOUT CONTRAST CT CERVICAL SPINE WITHOUT CONTRAST CLINICAL INFORMATION: Falls and altered mental status. COMPARISON: CTA of the neck 06/24/2019. MRI scan of the brain 06/09/2019. CT scan of the head 05/28/2019. TECHNIQUE: Multidetector CT imaging of the head and cervical spine was performed without the use of intravenous contrast. Coronal and sagittal reformatted images were generated at the technologist workstation. This CT examination was performed using dose optimization techniques as appropriate, variously including the following: *Automated exposure control *Adjustment of mA and/or kV according to patient size (this includes techniques or standardized protocols for targeted exams where dose is matched to indication/reason for exam; i.e. extremities or head) *Use of iterative reconstruction technique DLP: 1516 mGy-cm. FINDINGS: CT head: There is no evidence of acute intracranial hemorrhage or territorial infarction. No abnormal mass-effect or midline shift is seen. Erazo to white matter differentiation is well preserved. No extra-axial fluid collections are identified. The ventricles and sulci commensurately prominent consistent with moderate diffuse volume loss. There are extensive areas of low-attenuation the periventricular and subcortical white matter, consistent chronic microvascular ischemic changes. An area of low-attenuation in the anterior right frontal lobe is redemonstrated. There are bilateral basal ganglia lacunar infarcts. There have been bilateral lens extractions. There are atheromatous calcifications of the bilateral vertebral and cavernous internal carotid arteries. There are no acute osseous findings. There are no large scalp contusions or hematomas. The mastoid air cells and visualized portions of the paranasal sinuses are well-aerated. CT cervical spine: There is straightening of the normal cervical lordosis. There are sequelae of an ACDF at C5-C6 with anterior and interbody devices. There is narrowing of intervertebral disc height at C7-T1. There are no compression fractures and vertebral body heights are maintained. The cervicomedullary junction is unremarkable. There are lymph nodes at multiple levels in the neck bilaterally, measuring up to 1 cm in the left supraclavicular region. There has been a left thyroid lobectomy. No pneumothoraces or pleural effusions are demonstrated. The imaged lung apices are clear. CT/CT cervical spine wo con IMPRESSION: 1. There are acute intracranial bleeds or territorial infarcts. No masses are demonstrated. There are no acute osseous or soft tissue abnormalities. 2. There is diffuse volume loss and there are extensive chronic microvascular ischemic changes and lacunar infarcts, demonstrated on prior imaging. 3. There are no acute fractures or subluxations in the cervical spine. There is multilevel spondylosis and facet arthropathy. There are sequelae of an ACDF at C5-C6. 4. There has been a left thyroid lobectomy. There are mildly prominent lymph nodes in the neck, demonstrated on prior imaging.
--- NOTE | ~2021-06-24 | XR_ITS ---
EXAMINATION: XR CHEST CLINICAL INFORMATION: Endotracheal tube and enteric tube placement. COMPARISON: CT chest dated from 06/24/2021. TECHNIQUE: AP view of the chest was obtained. FINDINGS: The endotracheal tube terminates at 3.6 cm above the klarissa. A right IJ CVC projects over the cavoatrial junction. An enteric tube terminates in the distal stomach. Mediastinal surgical clips and sternotomy wire/plates are redemonstrated. Unchanged prominence of the cardiomediastinal silhouette. Multifocal hazy airspace opacities are best appreciated on the most recent CT. No pleural effusions or pneumothorax. No acute osseous abnormalities. XR/XR chest 1V IMPRESSION: 1. Endotracheal tube terminates at 3.6 cm above the klarissa. 2. An enteric tube terminates within the body of the stomach. 3. Redemonstration of multifocal airspace opacities without pleural effusions or pneumothorax.
--- NOTE | ~2021-06-24 | XR_ITS ---
EXAMINATION: XR CHEST CLINICAL INFORMATION: Extubation COMPARISON: 07/13/2021 TECHNIQUE: Frontal view of the chest was obtained. FINDINGS: The ET tube is 2 cm above the klarissa. Right IJ triple-lumen catheter tip is in the mid SVC. NG tube below the diaphragm. Median sternotomy and CABG. The cardiac mediastinal silhouette is stable. Lung volumes are low. Improving bilateral airspace disease. Coarse interstitial markings persist. No sizable effusion. XR/XR chest 1V IMPRESSION: ET tube 2 cm above the klarissa. Improving bilateral airspace disease. Low lung volumes.
--- NOTE | ~2021-06-24 | CT_ITS ---
EXAMINATION: CT CHEST WITHOUT CONTRAST CLINICAL INFORMATION: COVID positive, altered mental status, multiple falls COMPARISON: Chest radiograph 05/28/2019 TECHNIQUE: Multidetector volumetric CT imaging of the chest was done. Axial MIP volume rendering provided. Sagittal and coronal reformatted images were obtained. This CT examination was performed using dose optimization techniques as appropriate, variously including the following: *Automated exposure control *Adjustment of mA and/or kV according to patient size (this includes techniques or standardized protocols for targeted exams where dose is matched to indication/reason for exam; i.e. extremities or head) *Use of iterative reconstruction technique DLP: 621 mGy-cm FINDINGS: LUNGS: Commonly reported imaging features of Covid 19 or viral pneumonia are present. with multifocal groundglass infiltrates present throughout the lungs. Other processes such as influenza pneumonia or organizing pneumonia, as can be seen with drug toxicity and connective tissue disease, can cause a similar imaging pattern. No lung masses are seen. MEDIASTINUM: Patient appears to be status post left hemithyroidectomy. Coronary calcifications are present. Heart size normal. Status post median sternotomy. PLEURA: There is no pleural effusion. No pleural mass or thickening. AXILLA: No lymphadenopathy. UPPER ABDOMEN: Unremarkable. OSSEOUS STRUCTURES: Unremarkable. No bony fractures are seen. CT/CT chest wo con IMPRESSION: Multifocal groundglass infiltrates consistent with Covid related pneumonia. Fleischner guidelines were followed.
--- NOTE | ~2021-06-24 | XR_ITS ---
EXAMINATION: XR CHEST CLINICAL INFORMATION: Intubated COMPARISON: 07/11/2021 TECHNIQUE: Frontal view of the chest was obtained. FINDINGS: Status post median sternotomy. Endotracheal tube tip is 2 cm from the klarissa. Enteric tube is coiled in the stomach. Right IJ approach central venous catheter tip projects over the SVC. Low lung volumes. Diffuse bilateral pulmonary infiltrates are more prominent possibly related to lower lung volumes. The cardiomediastinal silhouette is stable. There may be layering trace effusions. No pneumothorax. XR/XR chest 1V IMPRESSION: Endotracheal tube tip is 2 cm from the klarissa. Low lung volumes with more prominent diffuse bilateral pulmonary infiltrates. There may be layering effusions.
--- NOTE | ~2021-06-24 | XR_ITS ---
EXAMINATION: XR CHEST CLINICAL INFORMATION: Intubated. COMPARISON: Chest 06/30/2021 TECHNIQUE: Frontal view of the chest was obtained. FINDINGS: The lungs are hypoexpanded with scattered patchy opacities in both lungs. The heart size and progress clarities normal. The right jugular central venous catheter tip remains in distal SVC. Endotracheal tube tip is 1.1 cm above the klarissa. Enteric tube is below diaphragm in the stomach. There are median sternotomy sutures and mediastinal jonah from previous intervention. There is mild spondylosis of dorsal spine. XR/XR chest 1V IMPRESSION: Hypoexpanded lungs with patchy airspace disease in both lungs consistent with infiltrates. There are stable. Support lines and catheters are stable.
--- NOTE | ~2021-06-24 | US_ITS ---
EXAMINATION: US EXTRACRANIAL CAROTID DUPLEX, BILATERAL CLINICAL INFORMATION: New focal weakness. COMPARISON: None TECHNIQUE: Real-time ultrasound and Doppler techniques (integrating B-mode 2-D vascular images, Doppler spectral analysis and color-flow Doppler imaging) were utilized to interrogate the extracranial carotid arteries, the vertebral arteries and proximal subclavian arteries bilaterally. The degree of stenosis is determined by criteria similar to NASCET. FINDINGS: Right Side: 1. There is mixed atherosclerotic plaque seen in the bifurcation/proximal ICA region. 2. The common carotid artery PSV proximally is 64 cm/s and distally 49 cm/s. 3. The proximal internal carotid artery velocities are 63 cm/s systolic and 17 cm/s diastolic. 4. The proximal external carotid artery PSV is 108 cm/s. 5. The vertebral artery shows antegrade flow. 6. The subclavian artery waveforms are normal. Left Side: 1. There is mixed atherosclerotic plaque seen in the bifurcation/proximal ICA region. 2. The common carotid artery PSV proximally is 59 cm/s and distally 68 cm/s. 3. The proximal internal carotid artery velocities are 65 cm/s systolic and 10 cm/s diastolic. 4. The proximal external carotid artery PSV is 128 cm/s. 5. The vertebral artery shows antegrade flow. 6. The subclavian artery waveforms are normal. US/US carotid duplex BI IMPRESSION: 1. RIGHT: 0-49% range stenosis right internal carotid artery. 2. LEFT: 0-49% range stenosis left internal carotid artery. 3. Normal antegrade flow seen in both vertebral arteries.
--- NOTE | 2021-06-24 19:03 | ED.WEAKNESS ---
HPI - Weakness General Chief complaint: Weakness Stated complaint: weakness/shakes Source: patient and EMS Mode of arrival: EMS Limitations: no limitations History of Present Illness HPI Narrative: 71-year-old male presents via EMS for weakness, tremors, intermittent altered mental status, was diagnosed positive COVID-19 approximately 9 days ago. Patient had a syncopal episode while at home, at that time he refused care, however patient continued to feel weak, and tremors. Family called 911 to have patient evaluated. MD Complaint: generalized weakness Onset (ago): day(s) Duration: constant Location: generalized Severity: moderate Context: recent illness Associated symptoms: confusion, fever/chills, myalgias, shortness of breath and syncope Related Data Home Medications Medication Instructions Recorded Confirmed [id number]-[id number] acid 300 1 tab PO DAILY 08/31/20 06/24/21 mcg-lycopene 600 mcg-lutein 300 mcg tablet (Centrum Silver Men) Previous Rx's Medication Instructions Recorded acetaminophen 500 mg tablet 500 mg PO Q6H PRN #20 tab 06/21/20 (Tylenol Extra Strength) furosemide 40 mg tablet (Lasix) 40 mg PO DAILY #90 tab 07/09/20 potassium chloride 20 mEq 20 meq PO DAILY #90 tab 08/17/20 tablet,extended release blood-glucose meter (FreeStyle #1 ea 09/08/20 Lite Meter) famotidine 40 mg tablet 40 mg PO DAILY #90 tab 10/04/20 trazodone 50 mg tablet 25 mg PO BEDTIME PRN #30 tab 10/04/20 blood sugar diagnostic #100 ea 12/13/20 atenolol 50 mg tablet 50 mg PO DAILY #60 tab 12/20/20 levothyroxine 125 mcg tablet 125 mcg PO DAILY #90 tab 12/29/20 cetirizine 10 mg tablet 10 mg PO DAILY #90 tab 03/28/21 lancets 33 gauge (BD Ultra Fine #100 ea 03/28/21 Lancets) atorvastatin 80 mg tablet 80 mg PO BEDTIME #90 tab 04/25/21 clopidogrel 75 mg tablet (Plavix) 75 mg PO DAILY 90 Days #90 tab 05/02/21 fluticasone propionate 50 2 spray INTRANASAL DAILY #48 g 05/07/21 mcg/actuation nasal spray,suspension peg 3350-electrolytes 236 240 ml PO Q10M 1 Days #4000 ml 05/16/21 gram-22.74 gram-6.74 gram-5.86 gram solution (Golytely) blood sugar diagnostic (TinTouch #100 ea 05/30/21 Ultra Test) pioglitazone 15 mg tablet 15 mg PO DAILY #90 tab 06/06/21 aspirin 81 mg tablet,delayed 81 mg PO DAILY #90 tab 06/08/21 release Allergies Allergy/AdvReac Type Severity Reaction Status Date / Time No Known Allergies Allergy Verified 06/24/21 19:19 [No Known Allergies*] Review of Systems Review of Systems: Constitutional: positive Fever, positive Chills, positive fatigue, positive Malaise ENT/Mouth: No sore throat, positive runny nose Eyes: No Discharge Cardiovascular: No Chest Pain, positive SOB Respiratory: Positive Cough, No Sputum, No Wheezing, No Smoke Exposure, positive Dyspnea Gastrointestinal: No Nausea, No Vomiting, No Diarrhea Genitourinary: no irregular bleeding, No Dysuria, No Urinary Frequency, No Hematuria, No Urinary Incontinence, No Urgency, No Flank Pain, Musculoskeletal: positive Myalgia Skin: No rash Neuro: Positive syncope, No Headache Yes all other systems are reviewed and are negative [facility] Past Medical History Attestation statement: The following information was validated with the patient. Source: old records reviewed Medical History Atherosclerotic heart disease of [place] coronary artery with unstable angina pectoris CAD (coronary artery disease) Diabetes Hyperlipidemia Hypothyroidism Nystagmus Obstructive sleep apnea Surgical History H/O colonoscopy History of cardiac cath (~06/20/19) History of coronary artery bypass graft x 3 (~07/24/19) History of esophagogastroduodenoscopy (EGD) History of knee replacement S/P CABG (coronary artery bypass graft) Family History Family History Father Cardiovascular disease Mother Gastrointestinal malignancy Social History Social History 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 Oriented X3. Moderate respiratory distress. Fatigued. Eyes: Pupils equal, round and reactive to light. Nystagmus noted per baseline. Sclera nonicteric. ENT: Pharynx normal. Dry mucous membranes. Neck: Normal inspection. Neck supple. CVS: Normal heart rate and rhythm. Pulses normal. Respiratory: No respiratory distress. Lung sounds coarse throughout. Tachypneic. Abdomen: Soft and nontender. Skin: Skin warm and dry. Pale skin color. Normal skin turgor. Extremities: No lower extremity edema. Moves all extremities against resistance. Neuro: No motor deficit. No sensory deficit. Cranial nerves 2-12 intact. Course Course Course Narrative: 71-year-old male presents with collapse with loss of consciousness, weakness, tremors and intermittent altered mental status. Patient collapsed at home with loss of consciousness, refused medical care at that time. Since the fall he has been feeling worse. Patient is on Plavix, has a history of a bypass in 2019. Has not been vaccinated for COVID. Patient is hypoxic upon arrival. 88% on room air. Will rule out sepsis, order CT of head and cervical spine with chest. Rule out ACS. 7:40 p.m. EKGs comparison, no indication of ischemia. No significant changes found upon comparison. 9:00 p.m. discussion with hospitalist regarding plan of care to admit for COVID-[address] scan is still pending. 9:[address] scan of head and cervical spine are negative for acute findings. Please note that inside the body of the description of the CT head, reports that there are no acute findings or infarct. In the impression, it states that there are infarcts. My review of this CT scan supports the body description of no acute infarcts. Call out to [facility] to amend this note. CT scan amended. Impression no acute intracranial bleed or territorial infarct. Updated CT scan reported to hospitalist. MDM - Weakness MDM Narrative Medical decision making narrative: COVID pneumonia Differential Diagnosis Differential diagnosis: Likely anemia, sepsis and dehydration Medical Records Attestation: I reviewed the patient's medical records. Lab Data Attestation: I reviewed the patient's lab results. Result diagrams: 06/24/21 19:30 06/24/21 19:30 Labs: Lab Results 06/24/21 06/24/21 06/24/21 Range/Units 19:30 19:30 19:30 WBC 4.4 L (4.8-10.8) X10*3/uL RBC 5.00 (4.60-5.80) X10*6/uL Hgb 14.2 (14.0-18.0) g/dl Hct 43.6 (42.0-52.0) % MCV 87.2 (80.0-98.0) fL MCH 28.4 (27.0-33.0) pg MCHC 32.6 (31.0-36.0) g/dl RDW 14.9 (11.0-16.0) % Plt Count TNP MPV 10.2 (9.4-12.4) fL Immature Gran % (Auto) 0.2 (0.0-0.4) % Neut % (Auto) 74.1 H (45-73) % Lymph % (Auto) 18.1 L (20-40) % [place] % (Auto) 7.6 (2-11) % Eos % (Auto) 0.0 (0-4) % Baso % (Auto) 0.0 (0-2) % Lymph # (Auto) 0.8 L (1.2-4.9) X10*3/uL [place] # (Auto) 0.3 (0.1-1.2) X10*3/uL Eos # (Auto) 0.0 (0.0-0.4) X10*3/uL Baso # (Auto) 0.0 (0.0-0.2) X10*3/uL Abs Immat Gran (auto) 0.01 (0.00-0.03) X10*3/uL Absolute Neuts (auto) 3.2 (2.0-8.3) x10*3/uL Absolute Nucleated RBC 0.000 (0.0-0.012) X10*3/uL Nucleated RBC % (auto) 0.0 (0.0-0.2) /100WBC Smear Tech's Comments VERIFIED PT 15.3 H (9.9-13.0) SEC INR 1.3 H (0.9-1.1) APTT 38.3 H (24.1-38.0) SEC D-Dimer High Sensitivty 416 NG/ML Sodium 137 (135-145) mmol/L Potassium 4.1 (3.3-5.1) mmol/L Chloride 104 (96-108) mmol/L Carbon Dioxide 22 (22-29) mmol/L Anion Gap 15 (12-20) BUN 20 H (9-16) mg/dL Creatinine 1.12 (0.5-1.4) mg/dL Estim Creat Clear Calc 73.7 Estimated GFR > 60 Random Glucose 107 (60-115) mg/dL Lactic Acid (0.5-2.0) mmol/L Calcium 8.9 (8.4-10.2) mg/dL Magnesium 2.0 (1.6-2.6) mg/dL Total Bilirubin 1.0 (0.0-1.0) mg/dL Direct Bilirubin 0.5 (0.0-0.5) mg/dL AST 66 H (5-37) U/L ALT 67 H (0-40) U/L Alkaline Phosphatase 79 D (39-117) U/L Ammonia (13-55) umol/L Lactate Dehydrogenase 350 H (118-273) U/L Troponin I High Sens (<3.5-35.0) ng/L C-Reactive Protein 4.64 H (< or = 0.50) mg/dL B-Natriuretic Peptide (<100) pg/mL Total Protein 6.5 (6.5-8.0) g/dL Albumin 3.7 (3.5-5.0) g/dL Lipase 280 H (8-78) U/L Procalcitonin ng/mL Influenza Type A (PCR) (Negative) Influenza Type B (PCR) (Negative) RSV RNA Qual (PCR) (Negative) SARS-CoV-2 RNA (RT-PCR) (Negative) 06/24/21 06/24/21 06/24/21 Range/Units 19:30 19:30 19:30 WBC (4.8-10.8) X10*3/uL RBC (4.60-5.80) X10*6/uL Hgb (14.0-18.0) g/dl Hct (42.0-52.0) % MCV (80.0-98.0) fL MCH (27.0-33.0) pg MCHC (31.0-36.0) g/dl RDW (11.0-16.0) % Plt Count MPV (9.4-12.4) fL Immature Gran % (Auto) (0.0-0.4) % Neut % (Auto) (45-73) % Lymph % (Auto) (20-40) % [place] % (Auto) (2-11) % Eos % (Auto) (0-4) % Baso % (Auto) (0-2) % Lymph # (Auto) (1.2-4.9) X10*3/uL [place] # (Auto) (0.1-1.2) X10*3/uL Eos # (Auto) (0.0-0.4) X10*3/uL Baso # (Auto) (0.0-0.2) X10*3/uL Abs Immat Gran (auto) (0.00-0.03) X10*3/uL Absolute Neuts (auto) (2.0-8.3) x10*3/uL Absolute Nucleated RBC (0.0-0.012) X10*3/uL Nucleated RBC % (auto) (0.0-0.2) /100WBC Smear Tech's Comments PT (9.9-13.0) SEC INR (0.9-1.1) APTT (24.1-38.0) SEC D-Dimer High Sensitivty NG/ML Sodium (135-145) mmol/L Potassium (3.3-5.1) mmol/L Chloride (96-108) mmol/L Carbon Dioxide (22-29) mmol/L Anion Gap (12-20) BUN (9-16) mg/dL Creatinine (0.5-1.4) mg/dL Estim Creat Clear Calc Estimated GFR Random Glucose (60-115) mg/dL Lactic Acid 1.6 (0.5-2.0) mmol/L Calcium (8.4-10.2) mg/dL Magnesium (1.6-2.6) mg/dL Total Bilirubin (0.0-1.0) mg/dL Direct Bilirubin (0.0-0.5) mg/dL AST (5-37) U/L ALT (0-40) U/L Alkaline Phosphatase (39-117) U/L Ammonia (13-55) umol/L Lactate Dehydrogenase (118-273) U/L Troponin I High Sens 21.8 (<3.5-35.0) ng/L C-Reactive Protein (< or = 0.50) mg/dL B-Natriuretic Peptide 29 (<100) pg/mL Total Protein (6.5-8.0) g/dL Albumin (3.5-5.0) g/dL Lipase (8-78) U/L Procalcitonin 0.15 ng/mL Influenza Type A (PCR) (Negative) Influenza Type B (PCR) (Negative) RSV RNA Qual (PCR) (Negative) SARS-CoV-2 RNA (RT-PCR) (Negative) 06/24/21 06/24/21 Range/Units 19:40 19:59 WBC (4.8-10.8) X10*3/uL RBC (4.60-5.80) X10*6/uL Hgb (14.0-18.0) g/dl Hct (42.0-52.0) % MCV (80.0-98.0) fL MCH (27.0-33.0) pg MCHC (31.0-36.0) g/dl RDW (11.0-16.0) % Plt Count MPV (9.4-12.4) fL Immature Gran % (Auto) (0.0-0.4) % Neut % (Auto) (45-73) % Lymph % (Auto) (20-40) % [place] % (Auto) (2-11) % Eos % (Auto) (0-4) % Baso % (Auto) (0-2) % Lymph # (Auto) (1.2-4.9) X10*3/uL [place] # (Auto) (0.1-1.2) X10*3/uL Eos # (Auto) (0.0-0.4) X10*3/uL Baso # (Auto) (0.0-0.2) X10*3/uL Abs Immat Gran (auto) (0.00-0.03) X10*3/uL Absolute Neuts (auto) (2.0-8.3) x10*3/uL Absolute Nucleated RBC (0.0-0.012) X10*3/uL Nucleated RBC % (auto) (0.0-0.2) /100WBC Smear Tech's Comments PT (9.9-13.0) SEC INR (0.9-1.1) APTT (24.1-38.0) SEC D-Dimer High Sensitivty NG/ML Sodium (135-145) mmol/L Potassium (3.3-5.1) mmol/L Chloride (96-108) mmol/L Carbon Dioxide (22-29) mmol/L Anion Gap (12-20) BUN (9-16) mg/dL Creatinine (0.5-1.4) mg/dL Estim Creat Clear Calc Estimated GFR Random Glucose (60-115) mg/dL Lactic Acid (0.5-2.0) mmol/L Calcium (8.4-10.2) mg/dL Magnesium (1.6-2.6) mg/dL Total Bilirubin (0.0-1.0) mg/dL Direct Bilirubin (0.0-0.5) mg/dL AST (5-37) U/L ALT (0-40) U/L Alkaline Phosphatase (39-117) U/L Ammonia 53 (13-55) umol/L Lactate Dehydrogenase (118-273) U/L Troponin I High Sens (<3.5-35.0) ng/L C-Reactive Protein (< or = 0.50) mg/dL B-Natriuretic Peptide (<100) pg/mL Total Protein (6.5-8.0) g/dL Albumin (3.5-5.0) g/dL Lipase (8-78) U/L Procalcitonin ng/mL Influenza Type A (PCR) NEGATIVE (Negative) Influenza Type B (PCR) NEGATIVE (Negative) RSV RNA Qual (PCR) NEGATIVE (Negative) SARS-CoV-2 RNA (RT-PCR) POSITIVE A (Negative) Imaging Data CT head, cervical spine: Attestation: I personally reviewed and interpreted this imaging study as follows: Radiologist's impression: FINDINGS: CT head: There is no evidence of acute intracranial hemorrhage or territorial infarction. No abnormal mass-effect or midline shift is seen. Erazo to white matter differentiation is well preserved. No extra-axial fluid collections are identified. The ventricles and sulci commensurately prominent consistent with moderate diffuse volume loss. There are extensive areas of low-attenuation the periventricular and subcortical white matter, consistent chronic microvascular ischemic changes. An area of low-attenuation in the anterior right frontal lobe is redemonstrated. There are bilateral basal ganglia lacunar infarcts. There have been bilateral lens extractions. There are atheromatous calcifications of the bilateral vertebral and cavernous internal carotid arteries. There are no acute osseous findings. There are no large scalp contusions or hematomas. The mastoid air cells and visualized portions of the paranasal sinuses are well-aerated. CT cervical spine: There is straightening of the normal cervical lordosis. There are sequelae of an ACDF at C5-C6 with anterior and interbody devices. There is narrowing of intervertebral disc height at C7-T1. There are no compression fractures and vertebral body heights are maintained. The cervicomedullary junction is unremarkable. There are lymph nodes at multiple levels in the neck bilaterally, measuring up to 1 cm in the left supraclavicular region. There has been a left thyroid lobectomy. No pneumothoraces or pleural effusions are demonstrated. The imaged lung apices are clear. ? CT/CT cervical spine wo con IMPRESSION: 1. There are acute intracranial bleeds or territorial infarcts. No masses are demonstrated. There are no acute osseous or soft tissue abnormalities. ? 2. There is diffuse volume loss and there are extensive chronic microvascular ischemic changes and lacunar infarcts, demonstrated on prior imaging. ? 3. There are no acute fractures or subluxations in the cervical spine. There is multilevel spondylosis and facet arthropathy. There are sequelae of an ACDF at C5-C6. ? 4. There has been a left thyroid lobectomy. There are mildly prominent lymph nodes in the neck, demonstrated on prior imaging. Addendum: There was a customer solutions supervisor air in the original report by Dr. Rodriguez. Impression 1 should read as follows: 1. There are no acute intracranial bleeds or territorial infarcts. No masses are demonstrated. There are no acute osseous or soft tissue abnormalities. CT chest: Attestation: I personally reviewed and interpreted this imaging study as follows: Radiologist's impression: FINDINGS: LUNGS: Commonly reported imaging features of Covid 19 or viral pneumonia are present. with multifocal groundglass infiltrates present throughout the lungs. Other processes such as influenza pneumonia or organizing pneumonia, as can be seen with drug toxicity and connective tissue disease, can cause a similar imaging pattern. No lung masses are seen. MEDIASTINUM: Patient appears to be status post left hemithyroidectomy. Coronary calcifications are present. Heart size normal. Status post median sternotomy. PLEURA: There is no pleural effusion. No pleural mass or thickening.? AXILLA: No lymphadenopathy.? UPPER ABDOMEN: Unremarkable.? OSSEOUS STRUCTURES: Unremarkable. No bony fractures are seen. CT/CT chest wo con IMPRESSION: Multifocal groundglass infiltrates consistent with Covid related pneumonia.? ? Fleischner guidelines were followed. ECG Data Attestation: I personally reviewed and interpreted this ECG as follows: ECG interpretation date: 06/24/21 ECG interpretation time: 19:38 Prior ECG tracings: available for review Interpretation: Vent. rate 65 BPM NC interval 218 ms QRS duration 94 ms QT/QTc 402/418 ms P-R-T axes 34 -14 19 Sinus rhythm with 1st degree A-V block Moderate voltage criteria for LVH, may be normal variant ( R in aVL , [place] product ) ST & T wave abnormality, consider anterior ischemia Abnormal ECG When compared with ECG of 28-APR-2020 16:16, No significant change was found Critical Care Time Critical Care Time Critical Care Time: Yes Total Critical Care Time: 65 Attestation: I have personally provided critical care time exclusive of time spent on separately billable procedures. Time includes review of laboratory data, radiology results, discussion with consultants, and monitoring for potential decompensation. Interventions were performed as documented. Discharge Plan Discharge Clinical Impression: SARS-CoV-2 positive, Hypoxia Patient Disposition: Admitted As Inpatient
--- NOTE | 2021-06-24 19:09 | ECG_ITS ---
Test Reason : WEAKNESS Blood Pressure : / mmHG Vent. Rate : 065 BPM Atrial Rate : 065 BPM P-R Int : 218 ms QRS Dur : 094 ms QT Int : 402 ms P-R-T Axes : 034 -14 019 degrees QTc Int : 418 ms Sinus rhythm with 1st degree A-V block Moderate voltage criteria for LVH, may be normal variant ( R in aVL , [place] product ) ST & T wave abnormality, consider anterior ischemia Abnormal ECG When compared with ECG of 28-APR-2020 16:16, No significant change was found Referred By: Sneha Yarbrough Electronically Signed By:KAMRON KUNZ
[2021-06-24 19:12] VITALS: BP 127/62; BP 154/94; PULSE 66; PULSE 72; RESP 32; TEMP 37.3; O2SAT 89; O2SAT 94; BMI 43.7
[2021-06-24 19:18] VITALS: BP 127/62; PULSE 65; RESP 28; O2SAT 94
[2021-06-24] MEDS: Albuterol Sulfate (0.083%) 2.5 MG/3 ML VIAL.NEB 10 MG INHALE (19:49)
[2021-06-24 19:51] VITALS: PULSE 69; RESP 20; O2SAT 93
[2021-06-24 19:52] LABS: Lactic Acid 1.6 mmol/L (0.5-2.0)
[2021-06-24 19:53] LABS: INTERNATIONAL NORM RATIO 1.3 (0.9-1.1); Prothrombin Time 15.3 SEC (9.9-13.0)
[2021-06-24] MEDS: cefTRIAXone sodium 1 GM in 0.9 % Sodium Chloride 50 ML IV (19:53)
[2021-06-24] MEDS: dexAMETHasone sod phosphate 4 MG/ML VIAL 6 MG IVPUSH (19:53)
[2021-06-24 19:55] LABS: Mean Corpuscular HGB Conc 32.6 g/dl (31.0-36.0); PLT CLUMP 1; Red Cell Distribution Width 14.9 % (11.0-16.0); SCAN SMEAR FLAG 1
[2021-06-24 19:56] LABS: Partial Thromboplastin Time 38.3 SEC (24.1-38.0)
[2021-06-24 19:57] LABS: Hematocrit 43.6 % (42.0-52.0); Hemoglobin 14.2 g/dl (14.0-18.0); Imm Gran Abs Auto 0.01 X10*3/uL (0.00-0.03); Imm Gran Pct Auto 0.2 % (0.0-0.4); Lymphocytes Absolute Auto 0.8 X10*3/uL (1.2-4.9); Lymphocytes Percent Auto 18.1 % (20-40); MANUAL DIFF FLAG SCAN; Mean Corpuscular Hemoglobin 28.4 pg (27.0-33.0); Mean Corpuscular Volume 87.2 fL (80.0-98.0); Mean Platelet Volume 10.2 fL (9.4-12.4); Monocytes Absolute Auto 0.3 X10*3/uL (0.1-1.2); Monocytes Percent Auto 7.6 % (2-11); Neutrophils Absolute Auto 3.2 x10*3/uL (2.0-8.3); Neutrophils Percent Auto 74.1 % (45-73)
[2021-06-24 20:01] LABS: B Type Natriuretic Peptide 29 pg/mL (<100); Troponin-I High Sensitivity 21.8 ng/L (<3.5-35.0)
[2021-06-24 20:09] LABS: Alanine Aminotransferase 67 U/L (0-40); Albumin Level 3.7 g/dL (3.5-5.0); Alkaline Phosphatase 79 U/L (39-117); Anion Gap 15 (12-20); Aspartate Amino Transferase 66 U/L (5-37); Bilirubin Direct 0.5 mg/dL (0.0-0.5); Blood Urea Nitrogen 20 mg/dL (9-16); C Reactive Protein 4.64 mg/dL (< or = 0.50); Calcium 8.9 mg/dL (8.4-10.2); Carbon Dioxide 22 mmol/L (22-29); Chloride 104 mmol/L (96-108); Creatinine Clr Calc Pharmacy 73.7; Estimated Glomerular Filt Rate > 60; Glucose Random 107 mg/dL (60-115); Lipase 280 U/L (8-78); Potassium 4.1 mmol/L (3.3-5.1); Sodium 137 mmol/L (135-145); Total Protein 6.5 g/dL (6.5-8.0)
[2021-06-24 20:21] LABS: Lactate Dehydrogenase 350 U/L (118-273); White Blood Count 4.4 X10*3/uL (4.8-10.8)
[2021-06-24 20:28] LABS: Influenza A PCR NEGATIVE (Negative); Influenza B PCR NEGATIVE (Negative); Resp Syncy Virus RNA Qual PCR NEGATIVE (Negative); SARS COV2 PCR INHOUSE POSITIVE (Negative)
[2021-06-24 20:30] LABS: SLIDE REVIEW VERIFIED
--- NOTE | 2021-06-24 21:17 | P.HPHOSP_ITS ---
History of Present Illness Date of Service: 06/24/21 Chief Complaint: Fall 71-year-old male with a past medical history of hypertension, hyperlipidemia, diabetes, CAD status post CABG, carotid stenosis, varicose veins, depression, obesity, MICHAEL-> not on CPAP; who was tested positive for COVID-19 infection about 9 days ago; presented to the hospital today with a chief complaint of fall about 2 days ago and diarrhea. Patient reports that he has been having generalized weakness and decreased oral intake; about 2 days ago he fell, hit his head, mentions he lost consciousness briefly; denies any numbness tingling or focal weakness. Denies any neck pain back pain or hip pain. Mentions that he has been having loose watery stools. Denies any blood. Denies any abdominal pain. Denies any urinary symptoms. Review of all other systems is negative except mentioned above ER course: Per ER team patient on presentation noted to be hypoxic to 88% on room air; labs were essentially benign; CT scan ordered. Admitted for COVID hypoxia. 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:: , 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 Housing: House Alcohol intake: never Patient Tobacco Use Status: Never used Tobacco Advance Directives: No Advance Directives Information Provided: Yes service: No Current occupational status: retired [employer] Allergies Allergy/AdvReac Type Severity Reaction Status Date / Time No Known Allergies Allergy Verified 06/24/21 19:19 [No Known Allergies*] Active Medications: Current Medications Azithromycin 500 mg/ Sodium (Chloride) 250 mls @ 125 mls/hr IV ONCE ONE Stop: 06/24/21 21:26 Home Medications Medication Instructions Recorded Confirmed Last Taken Type rzhnrivv-bre-xsfqp acid 300 1 tab PO DAILY 08/31/20 06/24/21 06/23/21 History mcg-lycopene 600 mcg-lutein 300 mcg tablet (Centrum Silver Men) Physical Exam Vital Signs and Narrative: Vital Signs: Last Vital Signs Temp 99.2 F 06/24/21 19:12 Pulse 69 06/24/21 19:51 Resp 20 06/24/21 19:51 BP 127/62 06/24/21 19:18 Pulse Ox 94 06/24/21 19:18 BMI result Body Mass Index 43.7 Gen: Appears be in no acute distress HEENT: NCAT, Moist mucosa. Pulmonary: Coarse breath sounds CVS: Normal S1-S2 Abdomen: BS+, Soft, Nontender Extremities: Warm well perfused Neuro: Alert and awake. Results Labs CBC and Chem 7: 06/24/21 19:30 06/24/21 19:30 Labs: Laboratory Results - last 24 hr 06/24/21 06/24/21 06/24/21 19:30 19:30 19:30 MCV 87.2 MCH 28.4 MCHC 32.6 RDW 14.9 Plt Count TNP MPV 10.2 Immature Gran % (Auto) 0.2 Neut % (Auto) 74.1 H Lymph % (Auto) 18.1 L [place] % (Auto) 7.6 Eos % (Auto) 0.0 Baso % (Auto) 0.0 Lymph # (Auto) 0.8 L [place] # (Auto) 0.3 Eos # (Auto) 0.0 Baso # (Auto) 0.0 Abs Immat Gran (auto) 0.01 Absolute Neuts (auto) 3.2 Absolute Nucleated RBC 0.000 Nucleated RBC % (auto) 0.0 Smear Tech's Comments VERIFIED PT 15.3 H INR 1.3 H APTT 38.3 H Anion Gap 15 Estim Creat Clear Calc 73.7 Estimated GFR > 60 Random Glucose 107 Lactic Acid Calcium 8.9 Magnesium 2.0 Total Bilirubin 1.0 Direct Bilirubin 0.5 AST 66 H ALT 67 H Alkaline Phosphatase 79 D Lactate Dehydrogenase 350 H Troponin I High Sens C-Reactive Protein 4.64 H B-Natriuretic Peptide Total Protein 6.5 Albumin 3.7 Lipase 280 H Influenza Type A (PCR) Influenza Type B (PCR) RSV RNA Qual (PCR) SARS-CoV-2 RNA (RT-PCR) 06/24/21 06/24/21 06/24/21 19:30 19:30 19:40 MCV MCH MCHC RDW Plt Count MPV Immature Gran % (Auto) Neut % (Auto) Lymph % (Auto) [place] % (Auto) Eos % (Auto) Baso % (Auto) Lymph # (Auto) [place] # (Auto) Eos # (Auto) Baso # (Auto) Abs Immat Gran (auto) Absolute Neuts (auto) Absolute Nucleated RBC Nucleated RBC % (auto) Smear Tech's Comments PT INR APTT Anion Gap Estim Creat Clear Calc Estimated GFR Random Glucose Lactic Acid 1.6 Calcium Magnesium Total Bilirubin Direct Bilirubin AST ALT Alkaline Phosphatase Lactate Dehydrogenase Troponin I High Sens 21.8 C-Reactive Protein B-Natriuretic Peptide 29 Total Protein Albumin Lipase Influenza Type A (PCR) NEGATIVE Influenza Type B (PCR) NEGATIVE RSV RNA Qual (PCR) NEGATIVE SARS-CoV-2 RNA (RT-PCR) POSITIVE A Assessment and Plan (1) SARS-CoV-2 positive: Status: Acute (2) Diabetes: Qualifiers: Diabetes mellitus complication detail: with other circulatory complications Diabetes mellitus complication status: with circulatory complication Diabetes mellitus nursing home insulin use: without long term acute care registered nurse use Diabetes mellitus type: type 2 Qualified Code(s): E11.59 - Type 2 diabetes mellitus with other circulatory complications Status: Acute 71-year-old male with a past medical history of hypertension, hyperlipidemia, diabetes, CAD status post CABG, carotid stenosis, varicose veins, depression, hypothyroidism, obesity, MICHAEL-> not on CPAP; who was tested positive for COVID-19 infection about 9 days ago; presented to the hospital today with a chief complaint of fall about 2 days ago and diarrhea. Fall/syncope: Likely vasovagal versus dehydration secondary to poor oral intake. Exam grossly nonfocal. CT head showed no acute findings. Fall precautions. PT/OT eventually. EKG showed normal sinus rhythm with first-degree AV block. Cycle cardiac enzymes Telemetry Carotid duplex Echocardiogram Hypoxia: In the setting of COVID-19 infection. Patient not in respiratory distress currently On supplemental oxygen. Reportedly patient tested positive about 9 days ago [id number] (age adjusted negative) Procalcitonin pending Continue Decadron ID consult for further recommendations History of diabetes: Insulin sliding scale. Hold home regimen. History of hypertension/hyperlipidemia/CAD: Continue home medications Hypothyroidism: Continue home levothyroxine DVT prophylaxis: Lovenox Code status: Full code Quality Stroke Does the patient have a stroke diagnosis?: No VTE Prior VTE?: No VTE Risk Level:: Medical - moderate - high VTE Device Contraindication: N/A - Device Ordered VTE Drug Contraindication: Treatment Not Indicated
[2021-06-24 21:54] VITALS: BP 121/61; PULSE 78; RESP 26; TEMP 37.3; O2SAT 93
[2021-06-24 21:57] LABS: D Dimer High Sensitivity 416 NG/ML
[2021-06-24 21:59] LABS: Ammonia 53 umol/L (13-55)
[2021-06-24] MEDS: Azithromycin 500 MG in 0.9 % Sodium Chloride 250 ML 125 MG IV (22:01)
[2021-06-24] MEDS: Enoxaparin Sodium 40 MG/0.4 ML SYRINGE SUBCUT (22:01)
[2021-06-24 22:26] LABS: Procalcitonin 0.15 ng/mL
[2021-06-24 22:29] LABS: Troponin-I High Sensitivity 18.2 ng/L (<3.5-35.0)
[2021-06-24 23:09] LABS: Glucose, Whole Blood 110 mg/dL (60-115)
[2021-06-24 23:10] VITALS: BP 103/67; PULSE 76; RESP 20; TEMP 37.1; O2SAT 96
[2021-06-25] VITALS (10 sets, daily range): BP systolic 98–130; BP diastolic 56–72; PULSE 53–68; RESP 20–32; TEMP 36.5–36.9; O2SAT 86–93
[2021-06-25 01:50] LABS: Appearance Urine CLEAR; Color Urine YELLOW; Glucose Urine UA NEG (NEG); Leukocyte Esterase Urine NEG (NEG); Nitrite Urine NEG (NEG); Specific Gravity - Urine >= 1.030 (1.005-1.025); UACC Culture Trigger NO; Urine Blood NEG (NEG); Urine Ketones 15 MG/DL (NEG); Urine Protein 1+ MG/DL (NEG-TRACE)
[2021-06-25 01:55] LABS: Bacteria Urine 1+ /LPF; Mucus Urine 1+ /LPF; Squamous Epithelial Cell Urine 1+ /LPF
[2021-06-25 02:06] LABS: Amphetamine Screen Urine Not Detected (Not Detect); Barbiturates, Urine Not Detected (Not Detect); Benzodiazepines Screen Urine Not Detected (Not Detect); Cannabinoid Screen Urine Not Detected (Not Detect); Cocaine Screen Urine Not Detected (Not Detect); Fentanyl, urine Not Detected (Not Detect); Opiate Screen Urine Not Detected (Not Detect); Phencyclidine Screen Urine Not Detected (Not Detect)
[2021-06-25] MEDS: Levothyroxine Sodium 125 MCG TABLET PO (06:09)
--- NOTE | 2021-06-25 06:18 | PC.NURSE ---
Pt resting on stretcher in NAD, breathing with ease on supplemental O2 NC. Pt aaox4, denies pain/discomfort. Pt medicated per MAR, VSS. Pt offers no concerns. Pt stretcher in lowest locked position, rails raised, call sung within reach.
[2021-06-25 07:51] LABS: Glucose, Whole Blood 150 mg/dL (60-115)
[2021-06-25] MEDS: dexAMETHasone sod phosphate 4 MG/ML VIAL 6 MG IVPUSH (08:19)
[2021-06-25] MEDS: Aspirin Enteric Coated 81 MG TABLET.DR PO (08:19)
[2021-06-25] MEDS: Clopidogrel Bisulfate 75 MG TABLET PO (08:19)
[2021-06-25] MEDS: Famotidine 20 MG TABLET 40 MG PO (08:20)
[2021-06-25] MEDS: Loratadine 10 MG TABLET PO (08:20)
[2021-06-25] MEDS: Furosemide 40 MG TABLET PO (08:20)
[2021-06-25] MEDS: atenoloL 50 MG TABLET PO (08:20)
[2021-06-25] MEDS: 0.9 % Sodium Chloride Flush 3 ML SYRINGE IVFLUSH ×2 (08:21→18:59)
[2021-06-25] MEDS: Multivitamin TABLET 1 TAB PO (08:21)
--- NOTE | 2021-06-25 08:25 | PC.NURSE ---
patient a&ox3, no c/o pain or discomfort, pt medicated with am meds per order, pt was noted to be mildly sob while speaking in long sentences and o2 sat decreases with speech down to 87-88%will notify hospitalist because patients o2 sat is hanging around 89% with an increase of O2 to 5 Liters support team assoc intact-sinus román 60s-60s
--- NOTE | 2021-06-25 08:41 | PC.NURSE ---
Dr. Fermin notified of patients O2 sat, no new orders given at this time.
[2021-06-25 09:01] LABS: MANUAL DIFF FLAG NO
[2021-06-25 09:07] LABS: Hematocrit 42.9 % (42.0-52.0); Hemoglobin 13.7 g/dl (14.0-18.0); Imm Gran Abs Auto 0.02 X10*3/uL (0.00-0.03); Imm Gran Pct Auto 0.6 % (0.0-0.4); Lymphocytes Absolute Auto 0.5 X10*3/uL (1.2-4.9); Lymphocytes Percent Auto 15.3 % (20-40); Mean Corpuscular HGB Conc 31.9 g/dl (31.0-36.0); Mean Corpuscular Hemoglobin 27.7 pg (27.0-33.0); Mean Corpuscular Volume 86.7 fL (80.0-98.0); Mean Platelet Volume 10.6 fL (9.4-12.4); Monocytes Absolute Auto 0.2 X10*3/uL (0.1-1.2); Monocytes Percent Auto 5.4 % (2-11); Neutrophils Absolute Auto 2.6 x10*3/uL (2.0-8.3); Neutrophils Percent Auto 78.7 % (45-73); Platelet Count 126 X10*3/uL (160-400); Red Blood Count 4.95 X10*6/uL (4.60-5.80); Red Cell Distribution Width 14.8 % (11.0-16.0); White Blood Count 3.3 X10*3/uL (4.8-10.8)
[2021-06-25 09:31] LABS: Anion Gap 15 (12-20); Blood Urea Nitrogen 22 mg/dL (9-16); Calcium 8.5 mg/dL (8.4-10.2); Carbon Dioxide 21 mmol/L (22-29); Chloride 105 mmol/L (96-108); Creatinine Clr Calc Pharmacy 80.9; Estimated Glomerular Filt Rate > 60; Glucose Random 167 mg/dL (60-115); Magnesium 2.2 mg/dL (1.6-2.6); Potassium 3.9 mmol/L (3.3-5.1); Sodium 137 mmol/L (135-145)
--- NOTE | 2021-06-25 10:29 | HO.PM.IMPN ---
Subjective Subjective Date of Service: 06/25/21 Interval History: cc: sob interval history: better today Cardiovascular Cardiovascular: Reports no additional cardiovascular complaints Genitourinary Genitourinary: Reports no additional male genitourinary complaints Physical Exam Vital Signs: Vital Signs: Last Vital Signs Temp 98.5 F 06/25/21 08:05 Pulse 58 06/25/21 08:20 Resp 26 H 06/25/21 08:20 BP 128/65 06/25/21 08:20 Pulse Ox 88 L 06/25/21 08:40 BMI result Body Mass Index 43.7 General: AO X 3, no acute distress Resp: diminished bilateral, no accessory muscles used CVS: S1,S2,RRR GI: soft, non tender, non distended Neuro: motor grossly intact, alert Psych: appropriate affect, appropriate insight Objective Data Active Medications Acetaminophen (Acetaminophen 325 Mg Tablet) 650 mg PO Q6H PRN PRN Reason: Pain, Mild (Pain Scale 1-3) Aspirin (Aspirin Enteric Coated 81 Mg Tablet.) 81 mg PO DAILY [facility] Last Admin: 06/25/21 08:19 Dose: 81 mg Documented by: JULIUS Atenolol (Atenolol 50 Mg Tablet) 50 mg PO DAILY [facility]; Protocol Last Admin: 06/25/21 08:20 Dose: 50 mg Documented by: JULIUS Atorvastatin Calcium (Atorvastatin Calcium 80 Mg Tablet) 80 mg PO BEDTIME [facility] Clopidogrel Bisulfate (Clopidogrel Bisulfate 75 Mg Tablet) 75 mg PO DAILY [facility] Last Admin: 06/25/21 08:19 Dose: 75 mg Documented by: JULIUS Dexamethasone Sodium Phosphate (Dexamethasone Sod Phosphate 4 Mg/Ml Vial) 6 mg IVPUSH DAILY [facility] Last Admin: 06/25/21 08:19 Dose: 6 mg Documented by: JULIUS Dextrose (Dextrose 50 % 25 Gm/50 Ml Vial) 25 gm IVPUSH Q15M PRN; Protocol PRN Reason: per Hypoglycemia Standing Ord. Enoxaparin Sodium (Enoxaparin Sodium 40 Mg/0.4 Ml Syringe) 40 mg SUBCUT Q24H [facility] Last Admin: 06/24/21 22:01 Dose: 40 mg Documented by: DARBY Famotidine (Famotidine 20 Mg Tablet) 40 mg PO DAILY [facility] Last Admin: 06/25/21 08:20 Dose: 40 mg Documented by: JULIUS Fluticasone Propionate (Fluticasone Propionate Nasal 16 Gm [place]) 2 spray NOSTRIL-B DAILY [facility] Last Admin: 06/25/21 09:57 Dose: Not Given Documented by: JULIUS Non-Admin Reason: Patient Refused Furosemide (Furosemide 40 Mg Tablet) 40 mg PO DAILY [facility]; Protocol Last Admin: 06/25/21 08:20 Dose: 40 mg Documented by: JULIUS Glucose (Glucose Gel 15 Gm Gel..Gram.) 15 gm PO Q15M PRN; Protocol PRN Reason: per Hypoglycemia Standing Ord. Insulin Human Lispro (Insulin Lispro 100 Unit/Ml 3 Ml Vial) 0 unit SUBCUT QIDACHS [facility]; Protocol Last Admin: 06/25/21 07:47 Dose: Not Given Documented by: JULIUS Non-Admin Reason: No Insulin Coverage Levothyroxine Sodium (Levothyroxine Sodium 125 Mcg Tablet) 125 mcg PO DAILY@0600 [facility] Last Admin: 06/25/21 06:09 Dose: 125 mcg Documented by: DARBY Loratadine (Loratadine 10 Mg Tablet) 10 mg PO DAILY [facility] Last Admin: 06/25/21 08:20 Dose: 10 mg Documented by: JULIUS Melatonin (Melatonin 3 Mg Tablet) 6 mg PO BEDTIME PRN PRN Reason: Insomnia Morphine Sulfate (Morphine Sulfate 4 Mg/Ml Cartridge) 1 mg IVPUSH Q4H PRN; Protocol PRN Reason: Pain, SOB Multivitamins/Vitamin C (Multivitamin Tablet) 1 tab PO DAILY [facility] Last Admin: 06/25/21 08:21 Dose: 1 tab Documented by: JULIUS Senna (Sennosides 8.6 Mg Tablet) 17.2 mg PO BEDTIME PRN PRN Reason: Constipation Sodium Chloride (0.9 % Sodium Chloride Flush 3 Ml Syringe) 3 ml IVFLUSH QSHIFT [facility] Last Admin: 06/25/21 08:21 Dose: 3 ml Documented by: JULIUS Trazodone HCl (Trazodone Hcl 25 Mg Halftab) 25 mg PO BEDTIME PRN PRN Reason: sleep Labs CBC & Chem 7: 06/25/21 08:43 06/25/21 08:43 Labs: Laboratory Results - last 24 hr 12/06/24/21 06/24/21 19:30 19:30 19:30 MCV 87.2 MCH 28.4 MCHC 32.6 RDW 14.9 Plt Count TNP MPV 10.2 Immature Gran % (Auto) 0.2 Neut % (Auto) 74.1 H Lymph % (Auto) 18.1 L Harnett % (Auto) 7.6 Eos % (Auto) 0.0 Baso % (Auto) 0.0 Lymph # (Auto) 0.8 L [place] # (Auto) 0.3 Eos # (Auto) 0.0 Baso # (Auto) 0.0 Abs Immat Gran (auto) 0.01 Absolute Neuts (auto) 3.2 Absolute Nucleated RBC 0.000 Nucleated RBC % (auto) 0.0 Smear Tech's Comments VERIFIED PT 15.3 H INR 1.3 H APTT 38.3 H D-Dimer High Sensitivty 416 Anion Gap 15 Estim Creat Clear Calc 73.7 Estimated GFR > 60 POC Glucose Random Glucose 107 Lactic Acid Calcium 8.9 Magnesium 2.0 Total Bilirubin 1.0 Direct Bilirubin 0.5 AST 66 H ALT 67 H Alkaline Phosphatase 79 D Ammonia Lactate Dehydrogenase 350 H Troponin I High Sens C-Reactive Protein 4.64 H B-Natriuretic Peptide Total Protein 6.5 Albumin 3.7 Lipase 280 H Procalcitonin Urine Color Urine Appearance Urine pH Ur Specific [place] Urine Protein Urine Glucose (UA) Urine Ketones Urine Blood Urine Nitrite Ur Leukocyte Esterase Urine RBC Urine WBC Ur Squamous Epith Cells Urine Bacteria Urine Mucus Urine Opiates Screen Urine Fentanyl Screen Ur Barbiturates Screen Ur Phencyclidine Scrn Ur Amphetamines Screen U Benzodiazepines Scrn Urine Cocaine Screen U Marijuana (THC) Screen Influenza Type A (PCR) Influenza Type B (PCR) RSV RNA Qual (PCR) SARS-CoV-2 RNA (RT-PCR) 06/24/21 06/24/21 06/24/21 19:30 19:30 19:30 MCV MCH MCHC RDW Plt Count MPV Immature Gran % (Auto) Neut % (Auto) Lymph % (Auto) Harnett % (Auto) Eos % (Auto) Baso % (Auto) Lymph # (Auto) H[place]ett # (Auto) Eos # (Auto) Baso # (Auto) Abs Immat Gran (auto) Absolute Neuts (auto) Absolute Nucleated RBC Nucleated RBC % (auto) Smear Tech's Comments PT INR APTT D-Dimer High Sensitivty Anion Gap Estim Creat Clear Calc Estimated GFR POC Glucose Random Glucose Lactic Acid 1.6 Calcium Magnesium Total Bilirubin Direct Bilirubin AST ALT Alkaline Phosphatase Ammonia Lactate Dehydrogenase Troponin I High Sens 21.8 C-Reactive Protein B-Natriuretic Peptide 29 Total Protein Albumin Lipase Procalcitonin 0.15 Urine Color Urine Appearance Urine pH Ur Specific [place] Urine Protein Urine Glucose (UA) Urine Ketones Urine Blood Urine Nitrite Ur Leukocyte Esterase Urine RBC Urine WBC Ur Squamous Epith Cells Urine Bacteria Urine Mucus Urine Opiates Screen Urine Fentanyl Screen Ur Barbiturates Screen Ur Phencyclidine Scrn Ur Amphetamines Screen U Benzodiazepines Scrn Urine Cocaine Screen U Marijuana (THC) Screen Influenza Type A (PCR) Influenza Type B (PCR) RSV RNA Qual (PCR) SARS-CoV-2 RNA (RT-PCR) 06/24/21 06/24/21 06/24/21 19:40 19:59 22:00 MCV MCH MCHC RDW Plt Count MPV Immature Gran % (Auto) Neut % (Auto) Lymph % (Auto) H[place] % (Auto) Eos % (Auto) Baso % (Auto) Lymph # (Auto) [place] # (Auto) Eos # (Auto) Baso # (Auto) Abs Immat Gran (auto) Absolute Neuts (auto) Absolute Nucleated RBC Nucleated RBC % (auto) Smear Tech's Comments PT INR APTT D-Dimer High Sensitivty Anion Gap Estim Creat Clear Calc Estimated GFR POC Glucose Random Glucose Lactic Acid Calcium Magnesium Total Bilirubin Direct Bilirubin AST ALT Alkaline Phosphatase Ammonia 53 Lactate Dehydrogenase Troponin I High Sens 18.2 C-Reactive Protein B-Natriuretic Peptide Total Protein Albumin Lipase Procalcitonin Urine Color Urine Appearance Urine pH Ur Specific [place] Urine Protein Urine Glucose (UA) Urine Ketones Urine Blood Urine Nitrite Ur Leukocyte Esterase Urine RBC Urine WBC Ur Squamous Epith Cells Urine Bacteria Urine Mucus Urine Opiates Screen Urine Fentanyl Screen Ur Barbiturates Screen Ur Phencyclidine Scrn Ur Amphetamines Screen U Benzodiazepines Scrn Urine Cocaine Screen U Marijuana (THC) Screen Influenza Type A (PCR) NEGATIVE Influenza Type B (PCR) NEGATIVE RSV RNA Qual (PCR) NEGATIVE SARS-CoV-2 RNA (RT-PCR) POSITIVE A 06/24/21 06/25/21 06/25/21 23:03 01:41 01:41 MCV MCH MCHC RDW Plt Count MPV Immature Gran % (Auto) Neut % (Auto) Lymph % (Auto) [place] % (Auto) Eos % (Auto) Baso % (Auto) Lymph # (Auto) [place] # (Auto) Eos # (Auto) Baso # (Auto) Abs Immat Gran (auto) Absolute Neuts (auto) Absolute Nucleated RBC Nucleated RBC % (auto) Smear Tech's Comments PT INR APTT D-Dimer High Sensitivty Anion Gap Estim Creat Clear Calc Estimated GFR POC Glucose 110 Random Glucose Lactic Acid Calcium Magnesium Total Bilirubin Direct Bilirubin AST ALT Alkaline Phosphatase Ammonia Lactate Dehydrogenase Troponin I High Sens C-Reactive Protein B-Natriuretic Peptide Total Protein Albumin Lipase Procalcitonin Urine Color YELLOW Urine Appearance CLEAR Urine pH 6.0 Ur Specific [place] >= 1.030 H Urine Protein 1+ H Urine Glucose (UA) NEG Urine Ketones 15 Urine Blood NEG Urine Nitrite NEG Ur Leukocyte Esterase NEG Urine RBC 1-4 Urine WBC 1-4 Ur Squamous Epith Cells 1+ Urine Bacteria 1+ Urine Mucus 1+ Urine Opiates Screen Not Detected Urine Fentanyl Screen Not Detected Ur Barbiturates Screen Not Detected Ur Phencyclidine Scrn Not Detected Ur Amphetamines Screen Not Detected U Benzodiazepines Scrn Not Detected Urine Cocaine Screen Not Detected U Marijuana (THC) Screen Not Detected Influenza Type A (PCR) Influenza Type B (PCR) RSV RNA Qual (PCR) SARS-CoV-2 RNA (RT-PCR) 06/25/21 06/25/21 06/25/21 07:45 08:43 08:43 MCV 86.7 MCH 27.7 MCHC 31.9 RDW 14.8 Plt Count 126 L MPV 10.6 Immature Gran % (Auto) 0.6 H Neut % (Auto) 78.7 H Lymph % (Auto) 15.3 L [place] % (Auto) 5.4 Eos % (Auto) 0.0 Baso % (Auto) 0.0 Lymph # (Auto) 0.5 L [place] # (Auto) 0.2 Eos # (Auto) 0.0 Baso # (Auto) 0.0 Abs Immat Gran (auto) 0.02 Absolute Neuts (auto) 2.6 Absolute Nucleated RBC 0.000 Nucleated RBC % (auto) 0.0 Smear Tech's Comments PT INR APTT D-Dimer High Sensitivty Anion Gap 15 Estim Creat Clear Calc 80.9 Estimated GFR > 60 POC Glucose 150 H Random Glucose 167 H D Lactic Acid Calcium 8.5 Magnesium 2.2 Total Bilirubin Direct Bilirubin AST ALT Alkaline Phosphatase Ammonia Lactate Dehydrogenase Troponin I High Sens C-Reactive Protein B-Natriuretic Peptide Total Protein Albumin Lipase Procalcitonin Urine Color Urine Appearance Urine pH Ur Specific [place] Urine Protein Urine Glucose (UA) Urine Ketones Urine Blood Urine Nitrite Ur Leukocyte Esterase Urine RBC Urine WBC Ur Squamous Epith Cells Urine Bacteria Urine Mucus Urine Opiates Screen Urine Fentanyl Screen Ur Barbiturates Screen Ur Phencyclidine Scrn Ur Amphetamines Screen U Benzodiazepines Scrn Urine Cocaine Screen U Marijuana (THC) Screen Influenza Type A (PCR) Influenza Type B (PCR) RSV RNA Qual (PCR) SARS-CoV-2 RNA (RT-PCR) Assessment and Plan (1) Hypoxia: Status: Acute (2) SARS-CoV-2 positive: Status: Acute Assessment and Plan: 71M with known covid, presented with syncope, found to be hypoxic acute hypoxic respiratory failure due to covid pneuomnia decadron day 2 wean o2 as tolerated follow up ID monitor prognostic labs syncope monitor on tele check echo no need for carotid duplex, was negative november 2020 DM insulin CAD DAPL, statin hypothyroid synthroid chronic systolic chf ef 45-50%, ischemic continue atenolol, lasix Quality Stroke Does the patient have a stroke diagnosis?: No VTE Prior VTE?: No VTE Risk Level:: Medical - moderate - high VTE Device Contraindication: N/A - Device Ordered VTE Drug Contraindication: Treatment Not Indicated
[2021-06-25 12:12] LABS: Glucose, Whole Blood 158 mg/dL (60-115)
[2021-06-25] MEDS: Insulin Lispro 100 UNIT/ML 3 ML VIAL SUBCUT ×2 (13:42→18:59)
--- NOTE | 2021-06-25 13:43 | PC.NURSE ---
patient medicated per order, pt given lunch, pt states you guys arent sneaking in a covid shot are you? pt went on to state he doesnt ever want it, this nurse told the patient that it is his choice and we wouldnt be giving him the covid shot and if he ever decided to obtain it that he would have to wait a period of time after having covid to get it.
--- NOTE | 2021-06-25 15:26 | MHC.CM.PN ---
IMM 06/25/21 MALE 71 DX COVID+ NO VAXX He lives w his . He is independent with all functional mobility. Requested a copy of HCP. The DP will depend on the pts recovery. At this time Home no services family transport .
--- NOTE | 2021-06-25 17:11 | PC.NURSE ---
patient a&ox3, no c/o pain or discomfort, poc obtained, call sung within reach, will continue to monitor.
[2021-06-25 17:20] LABS: Glucose, Whole Blood 159 mg/dL (60-115)
--- NOTE | 2021-06-25 19:40 | PC.NURSE ---
PT found resting in bed, O2 sat at 80%. PT stated that he just sat up to eat some food. PT monitored for a moment and O2 sat returned to 88%. PT continued to have coughing fits with O2 sat decreasing to 82-83%. PT stated that he felt SOB after eating but not while having coughing fit. RT and hospitalist informed of this activity.
[2021-06-25] MEDS: Enoxaparin Sodium 40 MG/0.4 ML SYRINGE SUBCUT (23:31)
[2021-06-25] MEDS: Atorvastatin Calcium 80 MG TABLET PO (23:31)
[2021-06-25 23:32] LABS: Glucose, Whole Blood 142 mg/dL (60-115)
[2021-06-26 03:04] VITALS: BP 117/69; PULSE 60; RESP 18; TEMP 36.8; O2SAT 94
[2021-06-26] MEDS: 0.9 % Sodium Chloride Flush 3 ML SYRINGE IVFLUSH ×3 (03:09→20:05)
--- NOTE | 2021-06-26 03:17 | PC.NURSE ---
PT asked to use bed side commode. Transferred self with this nurse standing by. Once PT transferred to commode, O2 sat decreased to 88% on 10 L/min with high flow NC. PT back in bed, having cough fits, O2 sat at 86%. Hospitalist notified.
--- NOTE | 2021-06-26 04:10 | PC.NURSE ---
PT O2 sat returned to 90% without intervention, but cough still persists. PT given benzonate to help with cough.
[2021-06-26] MEDS: Benzonatate 100 MG CAPSULE PO (04:12)
[2021-06-26 06:24] VITALS: BP 132/67; PULSE 64; RESP 20; O2SAT 92
[2021-06-26] MEDS: Levothyroxine Sodium 125 MCG TABLET PO (06:26)
[2021-06-26 06:35] LABS: Glucose, Whole Blood 101 mg/dL (60-115)
[2021-06-26] MEDS: Furosemide 40 MG TABLET PO (07:53)
[2021-06-26] MEDS: Fluticasone Propionate Nasal 16 GM SPRAY 2 SPRAY NOSTRIL-B (07:53)
[2021-06-26 07:54] VITALS: BP 131/59; PULSE 66
[2021-06-26] MEDS: dexAMETHasone sod phosphate 4 MG/ML VIAL 6 MG IVPUSH (07:54)
[2021-06-26] MEDS: Clopidogrel Bisulfate 75 MG TABLET PO (07:54)
[2021-06-26] MEDS: atenoloL 50 MG TABLET PO (07:54)
[2021-06-26] MEDS: Aspirin Enteric Coated 81 MG TABLET.DR PO (07:54)
[2021-06-26] MEDS: Famotidine 20 MG TABLET 40 MG PO (07:54)
[2021-06-26] MEDS: Multivitamin TABLET 1 TAB PO (07:54)
[2021-06-26] MEDS: Loratadine 10 MG TABLET PO (07:54)
[2021-06-26 07:57] VITALS: BP 131/59; PULSE 80; RESP 18; TEMP 36.6
--- NOTE | 2021-06-26 08:03 | PC.NURSE ---
pt continually in the 80s on jean at 10. pt placed on nrb flush and rt called. pt continues to sat 85%, sat up in bed.
[2021-06-26 08:05] LABS: Hematocrit 46.6 % (42.0-52.0); Hemoglobin 14.4 g/dl (14.0-18.0); Mean Corpuscular HGB Conc 30.9 g/dl (31.0-36.0); Mean Corpuscular Hemoglobin 27.3 pg (27.0-33.0); Mean Corpuscular Volume 88.4 fL (80.0-98.0); Mean Platelet Volume 11.2 fL (9.4-12.4); Platelet Count 119 X10*3/uL (160-400); Red Blood Count 5.27 X10*6/uL (4.60-5.80); Red Cell Distribution Width 14.7 % (11.0-16.0); White Blood Count 12.9 X10*3/uL (4.8-10.8)
[2021-06-26 08:13] LABS: D Dimer High Sensitivity 428 NG/ML
[2021-06-26 08:22] LABS: Anion Gap 17 (12-20); Blood Urea Nitrogen 30 mg/dL (9-16); C Reactive Protein 3.77 mg/dL (< or = 0.50); Calcium 9.5 mg/dL (8.4-10.2); Carbon Dioxide 19 mmol/L (22-29); Chloride 108 mmol/L (96-108); Creatinine Clr Calc Pharmacy 77.9; Estimated Glomerular Filt Rate > 60; Glucose Fasting 112 mg/dL (60-99); Lactate Dehydrogenase 483 U/L (118-273); Potassium 5.1 mmol/L (3.3-5.1); Sodium 139 mmol/L (135-145)
--- NOTE | 2021-06-26 08:36 | PC.NURSE ---
pt continually taking off nrb. pt re educated.
--- NOTE | 2021-06-26 09:20 | P.PNIM_ITS ---
Subjective Subjective Date of Service: 06/26/21 Interval History: cc:sob interval history: worsening hypoxia, now on nrb, but not feeling that much worse Cardiovascular Cardiovascular: Reports no additional cardiovascular complaints Gastrointestinal Gastrointestinal: Reports no additional gastrointestinal complaints Physical Exam Vital Signs: Vital Signs: Last Vital Signs Temp 97.9 F 06/26/21 07:57 Pulse 80 06/26/21 07:57 Resp 18 06/26/21 07:57 BP 131/59 L 06/26/21 07:57 Pulse Ox 92 06/26/21 06:24 BMI result Body Mass Index 43.7 General: AO X 3, no acute distress Resp:? diminished bilateral, no accessory muscles used CVS: S1,S2,RRR GI: soft, non tender, non distended Neuro:? motor grossly intact, alert Psych: appropriate affect, appropriate insight? Objective Data Active Medications Acetaminophen (Acetaminophen 325 Mg Tablet) 650 mg PO Q6H PRN PRN Reason: Pain, Mild (Pain Scale 1-3) Aspirin (Aspirin Enteric Coated 81 Mg Tablet.) 81 mg PO DAILY [facility] Last Admin: 06/26/21 07:54 Dose: 81 mg Documented by: JENNIFFER Atenolol (Atenolol 50 Mg Tablet) 50 mg PO DAILY [facility]; Protocol Last Admin: 06/26/21 07:54 Dose: 50 mg Documented by: JENNIFFER Atorvastatin Calcium (Atorvastatin Calcium 80 Mg Tablet) 80 mg PO BEDTIME [facility] Last Admin: 06/25/21 23:31 Dose: 80 mg Documented by: JUSTA Benzonatate (Benzonatate 100 Mg Capsule) 100 mg PO TID PRN PRN Reason: Cough Last Admin: 06/26/21 04:12 Dose: 100 mg Documented by: JUSTA Clopidogrel Bisulfate (Clopidogrel Bisulfate 75 Mg Tablet) 75 mg PO DAILY [facility] Last Admin: 06/26/21 07:54 Dose: 75 mg Documented by: JENNIFFER Dexamethasone Sodium Phosphate (Dexamethasone Sod Phosphate 4 Mg/Ml Vial) 6 mg IVPUSH DAILY [facility] Last Admin: 06/26/21 07:54 Dose: 6 mg Documented by: JENNIFFER Dextrose (Dextrose 50 % 25 Gm/50 Ml Vial) 25 gm IVPUSH Q15M PRN; Protocol PRN Reason: per Hypoglycemia Standing Ord. Enoxaparin Sodium (Enoxaparin Sodium 40 Mg/0.4 Ml Syringe) 40 mg SUBCUT Q24H [facility] Last Admin: 06/25/21 23:31 Dose: 40 mg Documented by: JUSTA Famotidine (Famotidine 20 Mg Tablet) 40 mg PO DAILY [facility] Last Admin: 06/26/21 07:54 Dose: 40 mg Documented by: JENNIFFER Fluticasone Propionate (Fluticasone Propionate Nasal 16 Gm [place]) 2 spray NOSTRIL-B DAILY [facility] Last Admin: 06/26/21 07:53 Dose: 2 spray Documented by: JENNIFFER Furosemide (Furosemide 40 Mg Tablet) 40 mg PO DAILY [facility]; Protocol Last Admin: 06/26/21 07:53 Dose: 40 mg Documented by: JENNIFFER Glucose (Glucose Gel 15 Gm Gel..Gram.) 15 gm PO Q15M PRN; Protocol PRN Reason: per Hypoglycemia Standing Ord. Insulin Human Lispro (Insulin Lispro 100 Unit/Ml 3 Ml Vial) 0 unit SUBCUT QIDACHS [facility]; Protocol Last Admin: 06/26/21 07:47 Dose: Not Given Documented by: JENNIFFER Non-Admin Reason: No Insulin Coverage Levothyroxine Sodium (Levothyroxine Sodium 125 Mcg Tablet) 125 mcg PO DAILY@0600 [facility] Last Admin: 06/26/21 06:26 Dose: 125 mcg Documented by: JUSTA Loratadine (Loratadine 10 Mg Tablet) 10 mg PO DAILY [facility] Last Admin: 06/26/21 07:54 Dose: 10 mg Documented by: JENNIFFER Melatonin (Melatonin 3 Mg Tablet) 6 mg PO BEDTIME PRN PRN Reason: Insomnia Morphine Sulfate (Morphine Sulfate 4 Mg/Ml Cartridge) 1 mg IVPUSH Q4H PRN; Protocol PRN Reason: Pain, SOB Multivitamins/Vitamin C (Multivitamin Tablet) 1 tab PO DAILY [facility] Last Admin: 06/26/21 07:54 Dose: 1 tab Documented by: JENNIFFER Senna (Sennosides 8.6 Mg Tablet) 17.2 mg PO BEDTIME PRN PRN Reason: Constipation Sodium Chloride (0.9 % Sodium Chloride Flush 3 Ml Syringe) 3 ml IVFLUSH QSHIFT [facility] Last Admin: 06/26/21 07:56 Dose: 3 ml Documented by: HO.FERSTE Trazodone HCl (Trazodone Hcl 25 Mg Halftab) 25 mg PO BEDTIME PRN PRN Reason: sleep Labs CBC & Chem 7: 06/26/21 07:47 06/26/21 07:47 Labs: Laboratory Results - last 24 hr 06/25/21 06/25/21 06/25/21 08:43 11:58 17:06 MCV MCH MCHC RDW Plt Count MPV Absolute Nucleated RBC Nucleated RBC % (auto) D-Dimer High Sensitivty Anion Gap 15 Estim Creat Clear Calc 80.9 Estimated GFR > 60 POC Glucose 158 H 159 H Random Glucose 167 H D Fasting Glucose Calcium 8.5 Magnesium 2.2 Lactate Dehydrogenase C-Reactive Protein 06/25/21 06/26/21 06/26/21 23:27 06:31 07:47 MCV 88.4 MCH 27.3 MCHC 30.9 L RDW 14.7 Plt Count 119 L MPV 11.2 Absolute Nucleated RBC 0.000 Nucleated RBC % (auto) 0.0 D-Dimer High Sensitivty Anion Gap Estim Creat Clear Calc Estimated GFR POC Glucose 142 H 101 Random Glucose Fasting Glucose Calcium Magnesium Lactate Dehydrogenase C-Reactive Protein 06/26/21 06/26/21 07:47 07:47 MCV MCH MCHC RDW Plt Count MPV Absolute Nucleated RBC Nucleated RBC % (auto) D-Dimer High Sensitivty 428 Anion Gap 17 Estim Creat Clear Calc 77.9 Estimated GFR > 60 POC Glucose Random Glucose Fasting Glucose 112 H Calcium 9.5 D Magnesium Lactate Dehydrogenase 483 H C-Reactive Protein 3.77 H Microbiology Microbiology Results: Microbiology 06/24/21 19:40 Blood Culture - Preliminary Blood - Venous No growth after 24 hours. 06/24/21 19:30 Blood Culture - Preliminary Blood - Venous No growth after 24 hours. Assessment and Plan (1) Hypoxia: Status: Acute (2) SARS-CoV-2 positive: Status: Acute Assessment and Plan: 71M with known covid, presented with syncope, found to be hypoxic acute hypoxic respiratory failure due to covid pneuomnia relatively asymptomatic worsening hypoxia decadron day 3 wean o2 as tolerated follow up ID monitor prognostic labs syncope monitor on tele check echo no need for carotid duplex, was negative november 2020 DM insulin CAD DAPL, statin hypothyroid synthroid chronic systolic chf ef 45-50%, ischemic continue atenolol, lasix Quality Stroke Does the patient have a stroke diagnosis?: No VTE Prior VTE?: No VTE Risk Level:: Medical - moderate - high VTE Device Contraindication: N/A - Device Ordered VTE Drug Contraindication: Treatment Not Indicated
--- NOTE | 2021-06-26 09:48 | PC.NURSE ---
PT BECAME HYPOXIC @79% WHEN TRIALED HIM ON ROOM AIR. PLACED BACK ON A NRB WITH SLOW RECOVERY INTO THE MID 90'S
[2021-06-26 13:24] LABS: Glucose, Whole Blood 112 mg/dL (60-115)
--- NOTE | 2021-06-26 15:19 | PC.NURSE ---
rt called for reassessment and ? hiflow o2 nc. aware. pt not tolerating nrb. sat not maintaining on jean
--- NOTE | 2021-06-26 15:30 | PC.NURSE ---
pt positioned on left side/stomach. on jean sat 90%
[2021-06-26 19:41] LABS: Glucose, Whole Blood 131 mg/dL (60-115)
[2021-06-26] MEDS: Atorvastatin Calcium 80 MG TABLET PO (20:04)
[2021-06-26] MEDS: Enoxaparin Sodium 40 MG/0.4 ML SYRINGE SUBCUT (20:05)
[2021-06-26 20:16] VITALS: PULSE 79; RESP 20; O2SAT 90
[2021-06-26 21:22] VITALS: BP 143/72; PULSE 53; RESP 20; TEMP 35.9; O2SAT 95
[2021-06-27] VITALS (16 sets, daily range): BP systolic 102–159; BP diastolic 65–110; PULSE 48–116; RESP 17–50; TEMP 36.1–37.4; O2SAT 88–96
[2021-06-27] MEDS: Levothyroxine Sodium 125 MCG TABLET PO (06:20)
[2021-06-27 06:51] LABS: Hematocrit 43.9 % (42.0-52.0); Hemoglobin 14.2 g/dl (14.0-18.0); Mean Corpuscular HGB Conc 32.3 g/dl (31.0-36.0); Mean Corpuscular Hemoglobin 27.8 pg (27.0-33.0); Mean Corpuscular Volume 86.1 fL (80.0-98.0); Mean Platelet Volume 11.1 fL (9.4-12.4); Platelet Count 169 X10*3/uL (160-400); Red Cell Distribution Width 14.6 % (11.0-16.0); White Blood Count 10.1 X10*3/uL (4.8-10.8)
[2021-06-27 07:08] LABS: Anion Gap 15 (12-20); Blood Urea Nitrogen 35 mg/dL (9-16); Calcium 9.2 mg/dL (8.4-10.2); Carbon Dioxide 25 mmol/L (22-29); Chloride 105 mmol/L (96-108); Estimated Glomerular Filt Rate > 60; Glucose Fasting 130 mg/dL (60-99); Potassium 4.8 mmol/L (3.3-5.1); Sodium 140 mmol/L (135-145)
[2021-06-27 07:31] LABS: Glucose, Whole Blood 117 mg/dL (60-115)
[2021-06-27] MEDS: Loratadine 10 MG TABLET PO (09:31)
[2021-06-27] MEDS: atenoloL 50 MG TABLET PO (09:31)
[2021-06-27] MEDS: 0.9 % Sodium Chloride Flush 3 ML SYRINGE IVFLUSH ×2 (09:31→15:23)
[2021-06-27] MEDS: Famotidine 20 MG TABLET 40 MG PO (09:32)
[2021-06-27] MEDS: Multivitamin TABLET 1 TAB PO (09:32)
[2021-06-27] MEDS: Clopidogrel Bisulfate 75 MG TABLET PO (09:32)
[2021-06-27] MEDS: Furosemide 40 MG TABLET PO (09:32)
[2021-06-27] MEDS: dexAMETHasone sod phosphate 4 MG/ML VIAL 6 MG IVPUSH (09:33)
--- NOTE | 2021-06-27 09:33 | HO.PM.IMPN ---
Subjective Subjective Date of Service: 06/27/21 Interval History: cc:sob interval history: worsening hypoxia, now on high flow with nrb, but not feeling that much worse Cardiovascular Cardiovascular: Reports no additional cardiovascular complaints Respiratory Respiratory: Reports no additional respiratory complaints Physical Exam Vital Signs: Vital Signs: Last Vital Signs Temp 97.1 F 06/27/21 08:00 Pulse 68 06/27/21 09:27 Resp 24 H 06/27/21 09:27 BP 102/65 06/27/21 08:00 Pulse Ox 91 L 06/27/21 09:27 BMI result Body Mass Index 43.7 General: AO X 3, no acute distress Resp:? diminished bilateral, no accessory muscles used CVS: S1,S2,RRR GI: soft, non tender, non distended Neuro:? motor grossly intact, alert Psych: appropriate affect, appropriate insight? Objective Data Active Medications Acetaminophen (Acetaminophen 325 Mg Tablet) 650 mg PO Q6H PRN PRN Reason: Pain, Mild (Pain Scale 1-3) Aspirin (Aspirin Enteric Coated 81 Mg Tablet.) 81 mg PO DAILY [facility] Last Admin: 06/26/21 07:54 Dose: 81 mg Documented by: JENNIFFER Atenolol (Atenolol 50 Mg Tablet) 50 mg PO DAILY [facility]; Protocol Last Admin: 06/26/21 07:54 Dose: 50 mg Documented by: JENNIFFER Atorvastatin Calcium (Atorvastatin Calcium 80 Mg Tablet) 80 mg PO BEDTIME [facility] Last Admin: 06/26/21 20:04 Dose: 80 mg Documented by: JOSE Baricitinib (Baricitinib 2 Mg Tablet) 4 mg PO Q24H [facility] Stop: 07/09/21 14:01 Last Admin: 06/26/21 14:58 Dose: 4 mg Documented by: JENNIFFER Benzonatate (Benzonatate 100 Mg Capsule) 100 mg PO TID PRN PRN Reason: Cough Last Admin: 06/26/21 04:12 Dose: 100 mg Documented by: JUSTA Clopidogrel Bisulfate (Clopidogrel Bisulfate 75 Mg Tablet) 75 mg PO DAILY [facility] Last Admin: 06/26/21 07:54 Dose: 75 mg Documented by: JENNIFFER Dexamethasone Sodium Phosphate (Dexamethasone Sod Phosphate 4 Mg/Ml Vial) 6 mg IVPUSH DAILY [facility] Last Admin: 06/26/21 07:54 Dose: 6 mg Documented by: JENNIFFER Dextrose (Dextrose 50 % 25 Gm/50 Ml Vial) 25 gm IVPUSH Q15M PRN; Protocol PRN Reason: per Hypoglycemia Standing Ord. Enoxaparin Sodium (Enoxaparin Sodium 40 Mg/0.4 Ml Syringe) 40 mg SUBCUT Q24H [facility] Last Admin: 06/26/21 20:05 Dose: 40 mg Documented by: JOSE Famotidine (Famotidine 20 Mg Tablet) 40 mg PO DAILY [facility] Last Admin: 06/26/21 07:54 Dose: 40 mg Documented by: JENNIFFER Fluticasone Propionate (Fluticasone Propionate Nasal 16 Gm [place]) 2 spray NOSTRIL-B DAILY [facility] Last Admin: 06/26/21 07:53 Dose: 2 spray Documented by: JENNIFFER Furosemide (Furosemide 40 Mg Tablet) 40 mg PO DAILY [facility]; Protocol Last Admin: 06/26/21 07:53 Dose: 40 mg Documented by: JENNIFFER Glucose (Glucose Gel 15 Gm Gel..Gram.) 15 gm PO Q15M PRN; Protocol PRN Reason: per Hypoglycemia Standing Ord. Insulin Human Lispro (Insulin Lispro 100 Unit/Ml 3 Ml Vial) 0 unit SUBCUT QIDACHS [facility]; Protocol Last Admin: 06/26/21 19:49 Dose: Not Given Documented by: JOSE Non-Admin Reason: No Insulin Coverage Levothyroxine Sodium (Levothyroxine Sodium 125 Mcg Tablet) 125 mcg PO DAILY@0600 [facility] Last Admin: 06/27/21 06:20 Dose: 125 mcg Documented by: JOSE Loratadine (Loratadine 10 Mg Tablet) 10 mg PO DAILY [facility] Last Admin: 06/26/21 07:54 Dose: 10 mg Documented by: JENNIFFER Melatonin (Melatonin 3 Mg Tablet) 6 mg PO BEDTIME PRN PRN Reason: Insomnia Morphine Sulfate (Morphine Sulfate 4 Mg/Ml Cartridge) 1 mg IVPUSH Q4H PRN; Protocol PRN Reason: Pain, SOB Multivitamins/Vitamin C (Multivitamin Tablet) 1 tab PO DAILY [facility] Last Admin: 06/26/21 07:54 Dose: 1 tab Documented by: JENNIFFER Senna (Sennosides 8.6 Mg Tablet) 17.2 mg PO BEDTIME PRN PRN Reason: Constipation Sodium Chloride (0.9 % Sodium Chloride Flush 3 Ml Syringe) 3 ml IVFLUSH QSHIFT [facility] Last Admin: 06/26/21 20:05 Dose: 3 ml Documented by: ANTOIC Trazodone HCl (Trazodone Hcl 25 Mg Halftab) 25 mg PO BEDTIME PRN PRN Reason: sleep Labs CBC & Chem 7: 06/27/21 06:18 06/27/21 06:18 Labs: Laboratory Results - last 24 hr 06/26/21 06/26/21 06/27/21 13:19 19:35 06:18 MCV 86.1 MCH 27.8 MCHC 32.3 RDW 14.6 Plt Count 169 D MPV 11.1 Absolute Nucleated RBC 0.000 Nucleated RBC % (auto) 0.0 Anion Gap Estim Creat Clear Calc Estimated GFR POC Glucose 112 131 H Fasting Glucose Calcium 06/27/21 06/27/21 06:18 07:23 MCV MCH MCHC RDW Plt Count MPV Absolute Nucleated RBC Nucleated RBC % (auto) Anion Gap 15 Estim Creat Clear Calc 86.0 Estimated GFR > 60 POC Glucose 117 H Fasting Glucose 130 H Calcium 9.2 Microbiology Microbiology Results: Microbiology 06/24/21 19:40 Blood Culture - Preliminary Blood - Venous No growth after 48 hours. 06/24/21 19:30 Blood Culture - Preliminary Blood - Venous No growth after 48 hours. Assessment and Plan (1) Hypoxia: Status: Acute (2) SARS-CoV-2 positive: Status: Acute Assessment and Plan: 71M with known covid, presented with syncope, found to be hypoxic acute hypoxic respiratory failure due to covid pneuomnia relatively asymptomatic worsening hypoxia decadron day 4 started on baricitinib day 08/15 wean o2 as tolerated follow up ID monitor prognostic labs syncope monitor on tele no need for carotid duplex, was negative november 2020 had echo 04/2020, will hold off for now DM insulin CAD DAPL, statin hypothyroid synthroid chronic systolic chf ef 45-50%, ischemic continue atenolol, lasix Quality Stroke Does the patient have a stroke diagnosis?: No VTE Prior VTE?: No VTE Risk Level:: Medical - moderate - high VTE Device Contraindication: N/A - Device Ordered VTE Drug Contraindication: Treatment Not Indicated
[2021-06-27] MEDS: Aspirin Enteric Coated 81 MG TABLET.DR PO (09:38)
[2021-06-27 11:15] LABS: Glucose, Whole Blood 128 mg/dL (60-115)
--- NOTE | 2021-06-27 15:55 | MHC.CM.PN ---
Male 71 DX Covid+ DP Home with family support and transportation. He is requiring HF and NRB SPO2 low 90%s.
[2021-06-27 16:15] LABS: Glucose, Whole Blood 147 mg/dL (60-115)
--- NOTE | 2021-06-27 16:40 | P.CNID_ITS ---
History of Present Illness Data of Consult Service Date: 06/27/21 Requesting physician: Jg Fermin Primary Care Provider: Unknown Physician HPI Reason for consult: shortness of breath He presents with shortness of breath for last 8-10 days He is on 100% HFNC. He has great degree of weakness. Review of Systems Review of Systems: Yes all other systems are reviewed and are negative [facility] Past Medical History Medical History Atherosclerotic heart disease of [place] coronary artery with unstable angina pectoris CAD (coronary artery disease) Diabetes Hyperlipidemia Hypothyroidism Nystagmus Obstructive sleep apnea Family History Family History Father Cardiovascular disease Mother Gastrointestinal malignancy Surgical History Surgical History H/O colonoscopy History of cardiac cath (~06/20/19) History of coronary artery bypass graft x 3 (~07/24/19) History of esophagogastroduodenoscopy (EGD) History of knee replacement S/P CABG (coronary artery bypass graft) Social History Social History Household Members: Spouse 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:: , retired [employer] Housing: House Do you presently have visiting nurse or other home services: No Alcohol intake: never Patient Tobacco Use Status: Never used Tobacco service: No Current occupational status: retired Meds Allergies Allergy/AdvReac Type Severity Reaction Status Date / Time No Known Allergies Allergy Verified 06/24/21 19:19 [No Known Allergies*] Active Medications: Current Medications Acetaminophen (Acetaminophen 325 Mg Tablet) 650 mg PO Q6H PRN PRN Reason: Pain, Mild (Pain Scale 1-3) Aspirin (Aspirin Enteric Coated 81 Mg Tablet.) 81 mg PO DAILY [facility] Last Admin: 06/27/21 09:38 Dose: 81 mg Documented by: Atenolol (Atenolol 50 Mg Tablet) 50 mg PO DAILY [facility]; Protocol Last Admin: 06/27/21 09:31 Dose: 50 mg Documented by: Atorvastatin Calcium (Atorvastatin Calcium 80 Mg Tablet) 80 mg PO BEDTIME [facility] Last Admin: 06/26/21 20:04 Dose: 80 mg Documented by: Baricitinib (Baricitinib 2 Mg Tablet) 4 mg PO Q24H [facility] Stop: 07/09/21 14:01 Last Admin: 06/27/21 14:13 Dose: 4 mg Documented by: Benzonatate (Benzonatate 100 Mg Capsule) 100 mg PO TID PRN PRN Reason: Cough Last Admin: 06/26/21 04:12 Dose: 100 mg Documented by: Clopidogrel Bisulfate (Clopidogrel Bisulfate 75 Mg Tablet) 75 mg PO DAILY [facility] Last Admin: 06/27/21 09:32 Dose: 75 mg Documented by: Dexamethasone Sodium Phosphate (Dexamethasone Sod Phosphate 4 Mg/Ml Vial) 6 mg IVPUSH DAILY [facility] Last Admin: 06/27/21 09:33 Dose: 6 mg Documented by: Dextrose (Dextrose 50 % 25 Gm/50 Ml Vial) 25 gm IVPUSH Q15M PRN; Protocol PRN Reason: per Hypoglycemia Standing Ord. Enoxaparin Sodium (Enoxaparin Sodium 40 Mg/0.4 Ml Syringe) 40 mg SUBCUT Q24H [facility] Last Admin: 06/26/21 20:05 Dose: 40 mg Documented by: Famotidine (Famotidine 20 Mg Tablet) 40 mg PO DAILY [facility] Last Admin: 06/27/21 09:32 Dose: 40 mg Documented by: Fluticasone Propionate (Fluticasone Propionate Nasal 16 Gm [place]) 2 spray NOSTRIL-B DAILY [facility] Last Admin: 06/27/21 12:05 Dose: Not Given Documented by: Furosemide (Furosemide 40 Mg Tablet) 40 mg PO DAILY [facility]; Protocol Last Admin: 06/27/21 09:32 Dose: 40 mg Documented by: Glucose (Glucose Gel 15 Gm Gel..Gram.) 15 gm PO Q15M PRN; Protocol PRN Reason: per Hypoglycemia Standing Ord. Insulin Human Lispro (Insulin Lispro 100 Unit/Ml 3 Ml Vial) 0 unit SUBCUT QIDACHS [facility]; Protocol Last Admin: 06/27/21 12:06 Dose: Not Given Documented by: Levothyroxine Sodium (Levothyroxine Sodium 125 Mcg Tablet) 125 mcg PO DAILY@0600 [facility] Last Admin: 06/27/21 06:20 Dose: 125 mcg Documented by: Loratadine (Loratadine 10 Mg Tablet) 10 mg PO DAILY [facility] Last Admin: 06/27/21 09:31 Dose: 10 mg Documented by: Melatonin (Melatonin 3 Mg Tablet) 6 mg PO BEDTIME PRN PRN Reason: Insomnia Morphine Sulfate (Morphine Sulfate 4 Mg/Ml Cartridge) 1 mg IVPUSH Q4H PRN; Protocol PRN Reason: Pain, SOB Multivitamins/Vitamin C (Multivitamin Tablet) 1 tab PO DAILY [facility] Last Admin: 06/27/21 09:32 Dose: 1 tab Documented by: Senna (Sennosides 8.6 Mg Tablet) 17.2 mg PO BEDTIME PRN PRN Reason: Constipation Sodium Chloride (0.9 % Sodium Chloride Flush 3 Ml Syringe) 3 ml IVFLUSH QSHIFT [facility] Last Admin: 06/27/21 15:23 Dose: 3 ml Documented by: Trazodone HCl (Trazodone Hcl 25 Mg Halftab) 25 mg PO BEDTIME PRN PRN Reason: sleep Home Medications Medication Instructions Recorded Confirmed Last Taken Type [id number] acid 300 1 tab PO DAILY 08/31/20 06/24/21 06/23/21 History mcg-lycopene 600 mcg-lutein 300 mcg tablet (Centrum Silver Men) Physical Exam Vital Signs: Vital Signs: Last Vital Signs Temp 97.0 F 06/27/21 14:53 Pulse 55 06/27/21 14:53 Resp 22 H 06/27/21 15:58 BP 151/73 H 06/27/21 14:53 Pulse Ox 90 L 06/27/21 14:53 BMI result Body Mass Index 43.7 Const: General: cooperative Eyes: General: appearance normal, both eyes and all related structures Resp: Effort & Inspection: abnormal respiratory pattern Cardio: Rate: regular rate Rhythm: regular rhythm GI: Palpation (GI): nontender Extrem: General: Yes normal to inspection Results Labs CBC & Chem 7: 06/27/21 06:18 06/27/21 06:18 Labs: Short CBC 06/27/21 Range/Units 06:18 WBC 10.1 (4.8-10.8) X10*3/uL Hgb 14.2 (14.0-18.0) g/dl Hct 43.9 (42.0-52.0) % Plt Count 169 D (160-400) X10*3/uL BMP 06/27/21 06:18 Sodium 140 Potassium 4.8 Chloride 105 Carbon Dioxide 25 BUN 35 H Creatinine 0.96 Calcium 9.2 Microbiology Microbiology Results: Microbiology 12/24/21 19:40 Blood - Venous Blood Culture - Preliminary No growth after 48 hours. 06/24/21 19:30 Blood - Venous Blood Culture - Preliminary No growth after 48 hours. Assessment and Plan (1) Hypoxia: Status: Acute He has moderate to severe hypoxia He has symptoms over a week (2) SARS-CoV-2 positive: Status: Acute Would give Baricitinib Oxygen as needed
[2021-06-27 20:28] LABS: Glucose, Whole Blood 151 mg/dL (60-115)
[2021-06-27] MEDS: Enoxaparin Sodium 40 MG/0.4 ML SYRINGE SUBCUT (21:05)
[2021-06-27] MEDS: Atorvastatin Calcium 80 MG TABLET PO (21:05)
[2021-06-28] VITALS (13 sets, daily range): BP systolic 141–166; BP diastolic 69–90; PULSE 46–59; RESP 18–22; TEMP 36.3–36.8; O2SAT 89–94
[2021-06-28] MEDS: 0.9 % Sodium Chloride Flush 3 ML SYRINGE IVFLUSH ×4 (00:44→21:15)
[2021-06-28] MEDS: Levothyroxine Sodium 125 MCG TABLET PO (05:49)
[2021-06-28 07:07] LABS: Hematocrit 43.1 % (42.0-52.0); Hemoglobin 14.1 g/dl (14.0-18.0); Mean Corpuscular HGB Conc 32.7 g/dl (31.0-36.0); Mean Corpuscular Hemoglobin 28.3 pg (27.0-33.0); Mean Corpuscular Volume 86.4 fL (80.0-98.0); Mean Platelet Volume 10.2 fL (9.4-12.4); Platelet Count 188 X10*3/uL (160-400); Red Blood Count 4.99 X10*6/uL (4.60-5.80); Red Cell Distribution Width 14.7 % (11.0-16.0); White Blood Count 9.4 X10*3/uL (4.8-10.8)
[2021-06-28 07:17] LABS: D Dimer High Sensitivity 233 NG/ML
[2021-06-28 07:26] LABS: Glucose, Whole Blood 119 mg/dL (60-115)
[2021-06-28 08:09] LABS: Anion Gap 12 (12-20); Blood Urea Nitrogen 33 mg/dL (9-16); C Reactive Protein 4.38 mg/dL (< or = 0.50); Calcium 9.5 mg/dL (8.4-10.2); Carbon Dioxide 30 mmol/L (22-29); Chloride 105 mmol/L (96-108); Creatinine Clr Calc Pharmacy 84.2; Estimated Glomerular Filt Rate > 60; Glucose Fasting 120 mg/dL (60-99); Lactate Dehydrogenase 408 U/L (118-273); Potassium 4.5 mmol/L (3.3-5.1); Sodium 142 mmol/L (135-145)
[2021-06-28] MEDS: dexAMETHasone sod phosphate 4 MG/ML VIAL 6 MG IVPUSH (08:32)
[2021-06-28] MEDS: Multivitamin TABLET 1 TAB PO (08:32)
[2021-06-28] MEDS: Famotidine 20 MG TABLET 40 MG PO (08:32)
[2021-06-28] MEDS: Furosemide 40 MG TABLET PO (08:35)
[2021-06-28] MEDS: Aspirin Enteric Coated 81 MG TABLET.DR PO (08:35)
[2021-06-28] MEDS: Loratadine 10 MG TABLET PO (08:35)
[2021-06-28] MEDS: atenoloL 50 MG TABLET PO (08:35)
[2021-06-28] MEDS: Clopidogrel Bisulfate 75 MG TABLET PO (08:35)
--- NOTE | 2021-06-28 10:12 | HO.PM.IMPN ---
Subjective Subjective Date of Service: 06/28/21 Interval History: cc:sob interval history: continues to require high flow with nrb, but not feeling that much worse, does get very sob on minimal exertion Cardiovascular Cardiovascular: Reports no additional cardiovascular complaints Gastrointestinal Gastrointestinal: Reports no additional gastrointestinal complaints Physical Exam Vital Signs: Vital Signs: Last Vital Signs Temp 97.4 F 06/28/21 07:02 Pulse 59 06/28/21 08:35 Resp 22 H 06/28/21 07:59 BP 147/69 H 06/28/21 08:35 Pulse Ox 92 06/28/21 07:02 BMI result Body Mass Index 43.7 General: AO X 3, no acute distress, frail Resp:? diminished bilateral, no accessory muscles used CVS: S1,S2,RRR GI: soft, non tender, non distended Neuro:? motor grossly intact, alert Psych: appropriate affect, appropriate insight? Objective Data Active Medications Acetaminophen (Acetaminophen 325 Mg Tablet) 650 mg PO Q6H PRN PRN Reason: Pain, Mild (Pain Scale 1-3) Aspirin (Aspirin Enteric Coated 81 Mg Tablet.) 81 mg PO DAILY [facility] Last Admin: 06/28/21 08:35 Dose: 81 mg Documented by: MAMI Atenolol (Atenolol 50 Mg Tablet) 50 mg PO DAILY [facility]; Protocol Last Admin: 06/28/21 08:35 Dose: 50 mg Documented by: MAMI Atorvastatin Calcium (Atorvastatin Calcium 80 Mg Tablet) 80 mg PO BEDTIME [facility] Last Admin: 06/27/21 21:05 Dose: 80 mg Documented by: SHWETHA Baricitinib (Baricitinib 2 Mg Tablet) 4 mg PO Q24H [facility] Stop: 07/09/21 14:01 Last Admin: 06/27/21 14:13 Dose: 4 mg Documented by: MAMI Benzonatate (Benzonatate 100 Mg Capsule) 100 mg PO TID PRN PRN Reason: Cough Last Admin: 06/26/21 04:12 Dose: 100 mg Documented by: JUSTA Clopidogrel Bisulfate (Clopidogrel Bisulfate 75 Mg Tablet) 75 mg PO DAILY [facility] Last Admin: 06/28/21 08:35 Dose: 75 mg Documented by: MAMI Dexamethasone Sodium Phosphate (Dexamethasone Sod Phosphate 4 Mg/Ml Vial) 6 mg IVPUSH DAILY [facility] Last Admin: 06/28/21 08:32 Dose: 6 mg Documented by: MAMI Dextrose (Dextrose 50 % 25 Gm/50 Ml Vial) 25 gm IVPUSH Q15M PRN; Protocol PRN Reason: per Hypoglycemia Standing Ord. Enoxaparin Sodium (Enoxaparin Sodium 40 Mg/0.4 Ml Syringe) 40 mg SUBCUT Q24H [facility] Last Admin: 06/27/21 21:05 Dose: 40 mg Documented by: SHWETHA Famotidine (Famotidine 20 Mg Tablet) 40 mg PO DAILY [facility] Last Admin: 06/28/21 08:32 Dose: 40 mg Documented by: MAMI Fluticasone Propionate (Fluticasone Propionate Nasal 16 Gm Jackson) 2 spray NOSTRIL-B DAILY [facility] Last Admin: 06/27/21 12:05 Dose: Not Given Documented by: MAMI Non-Admin Reason: Med Not Available Furosemide (Furosemide 40 Mg Tablet) 40 mg PO DAILY [facility]; Protocol Last Admin: 06/28/21 08:35 Dose: 40 mg Documented by: MAMI Glucose (Glucose Gel 15 Gm Gel..Gram.) 15 gm PO Q15M PRN; Protocol PRN Reason: per Hypoglycemia Standing Ord. Insulin Human Lispro (Insulin Lispro 100 Unit/Ml 3 Ml Vial) 0 unit SUBCUT QIDACHS [facility]; Protocol Last Admin: 06/28/21 08:39 Dose: Not Given Documented by: MAMI Non-Admin Reason: No Insulin Coverage Levothyroxine Sodium (Levothyroxine Sodium 125 Mcg Tablet) 125 mcg PO DAILY@0600 [facility] Last Admin: 06/28/21 05:49 Dose: 125 mcg Documented by: MONSERRAT Loratadine (Loratadine 10 Mg Tablet) 10 mg PO DAILY [facility] Last Admin: 06/28/21 08:35 Dose: 10 mg Documented by: MAMI Melatonin (Melatonin 3 Mg Tablet) 6 mg PO BEDTIME PRN PRN Reason: Insomnia Morphine Sulfate (Morphine Sulfate 4 Mg/Ml Cartridge) 1 mg IVPUSH Q4H PRN; Protocol PRN Reason: Pain, SOB Multivitamins/Vitamin C (Multivitamin Tablet) 1 tab PO DAILY [facility] Last Admin: 06/28/21 08:32 Dose: 1 tab Documented by: MAMI Senna (Sennosides 8.6 Mg Tablet) 17.2 mg PO BEDTIME PRN PRN Reason: Constipation Sodium Chloride (0.9 % Sodium Chloride Flush 3 Ml Syringe) 3 ml IVFLUSH QSHIFT REBEKAH Last Admin: 06/28/21 08:32 Dose: 3 ml Documented by: MAMI Trazodone HCl (Trazodone Hcl 25 Mg Halftab) 25 mg PO BEDTIME PRN PRN Reason: sleep Labs CBC & Chem 7: 06/28/21 06:41 06/28/21 06:41 Labs: Laboratory Results - last 24 hr 06/27/21 06/27/21 06/27/21 11:07 16:09 20:23 MCV MCH MCHC RDW Plt Count MPV Absolute Nucleated RBC Nucleated RBC % (auto) D-Dimer High Sensitivty Anion Gap Estim Creat Clear Calc Estimated GFR POC Glucose 128 H 147 H 151 H Fasting Glucose Calcium Lactate Dehydrogenase C-Reactive Protein 06/28/21 06/28/21 06/28/21 06:41 06:41 06:41 MCV 86.4 MCH 28.3 MCHC 32.7 RDW 14.7 Plt Count 188 MPV 10.2 Absolute Nucleated RBC 0.000 Nucleated RBC % (auto) 0.0 D-Dimer High Sensitivty 233 Anion Gap 12 Estim Creat Clear Calc 84.2 Estimated GFR > 60 POC Glucose Fasting Glucose 120 H Calcium 9.5 Lactate Dehydrogenase 408 H C-Reactive Protein 4.38 H 06/28/21 07:22 MCV MCH MCHC RDW Plt Count MPV Absolute Nucleated RBC Nucleated RBC % (auto) D-Dimer High Sensitivty Anion Gap Estim Creat Clear Calc Estimated GFR POC Glucose 119 H Fasting Glucose Calcium Lactate Dehydrogenase C-Reactive Protein Assessment and Plan (1) Hypoxia: Status: Acute (2) SARS-CoV-2 positive: Status: Acute Assessment and Plan: 71M with known covid, presented with syncope, found to be hypoxic acute hypoxic respiratory failure due to covid pneuomnia continues to require max high flow and NRB, symptomatic on exertion only decadron day 5 started on baricitinib day 3/ wean o2 as tolerated monitor prognostic labs syncope monitor on tele no need for carotid duplex, was negative november 2020 had echo 04/2020, will hold off for now DM insulin CAD DAPL, statin hypothyroid synthroid chronic systolic chf ef 45-50%, ischemic continue atenolol, lasix dvt prophylaxis - lovenox full code Quality Stroke Does the patient have a stroke diagnosis?: No VTE Prior VTE?: No VTE Risk Level:: Medical - moderate - high VTE Device Contraindication: N/A - Device Ordered VTE Drug Contraindication: Treatment Not Indicated
[2021-06-28] MEDS: Fluticasone Propionate Nasal 16 GM SPRAY 2 SPRAY NOSTRIL-B (10:56)
[2021-06-28] MEDS: Benzonatate 100 MG CAPSULE PO ×2 (10:56→21:14)
[2021-06-28 11:26] LABS: Glucose, Whole Blood 126 mg/dL (60-115)
[2021-06-28 16:42] LABS: Glucose, Whole Blood 144 mg/dL (60-115)
[2021-06-28 20:58] LABS: Glucose, Whole Blood 127 mg/dL (60-115)
[2021-06-28] MEDS: Atorvastatin Calcium 80 MG TABLET PO (21:14)
[2021-06-28] MEDS: Enoxaparin Sodium 40 MG/0.4 ML SYRINGE SUBCUT (21:14)
--- NOTE | 2021-06-28 23:45 | PC.NURSE ---
Pt HR dipped to 37 briefly. Pt rhythm appears to be bradycardic in the 40's at baseline according to telemetry records. notified. VSS, asymptomatic. No new orders at this time
[2021-06-29] VITALS (25 sets, daily range): BP systolic 104–181; BP diastolic 51–77; PULSE 41–64; RESP 12–51; TEMP 35.3–37.2; O2SAT 91–99
[2021-06-29] MEDS: Levothyroxine Sodium 125 MCG TABLET PO (05:29)
[2021-06-29] MEDS: Morphine Sulfate 4 MG/ML CARTRIDGE 1 MG IVPUSH (05:36)
--- NOTE | 2021-06-29 05:41 | PC.NURSE ---
pt respirations increased to 22 with o2 sat sitting at 84%. PRN morphine given for increased work of breathing. While giving the medication pt started holding his breath while IV was being flished. IV flushed with ease and has no signs of infiltration or swelling. Pt stated he had a low pain tolerance and doesn't like the feeling of the IV being flushed. Pt educated that he needs to breathe through any pain and holding his breath is dangerous to his health especially with the amount of oxygen he is currently on. Pt understood, and is in agreement. O2 sat now up to 93%
[2021-06-29 06:25] LABS: Hematocrit 43.6 % (42.0-52.0); Hemoglobin 14.2 g/dl (14.0-18.0); Mean Corpuscular HGB Conc 32.6 g/dl (31.0-36.0); Mean Corpuscular Hemoglobin 28.1 pg (27.0-33.0); Mean Corpuscular Volume 86.2 fL (80.0-98.0); Mean Platelet Volume 10.8 fL (9.4-12.4); Platelet Count 193 X10*3/uL (160-400); Red Blood Count 5.06 X10*6/uL (4.60-5.80); Red Cell Distribution Width 14.4 % (11.0-16.0); White Blood Count 8.4 X10*3/uL (4.8-10.8)
[2021-06-29 06:41] LABS: D Dimer High Sensitivity 224 NG/ML
[2021-06-29 07:00] LABS: Anion Gap 13 (12-20); Blood Urea Nitrogen 33 mg/dL (9-16); C Reactive Protein 2.18 mg/dL (< or = 0.50); Calcium 9.4 mg/dL (8.4-10.2); Carbon Dioxide 28 mmol/L (22-29); Chloride 106 mmol/L (96-108); Creatinine Clr Calc Pharmacy 92.7; Estimated Glomerular Filt Rate > 60; Glucose Fasting 123 mg/dL (60-99); Lactate Dehydrogenase 434 U/L (118-273); Potassium 4.7 mmol/L (3.3-5.1); Sodium 142 mmol/L (135-145)
[2021-06-29 07:20] LABS: Glucose, Whole Blood 113 mg/dL (60-115)
[2021-06-29] MEDS: Famotidine 20 MG TABLET 40 MG PO (09:50)
[2021-06-29] MEDS: Benzonatate 100 MG CAPSULE PO ×2 (09:50→16:44)
[2021-06-29] MEDS: Aspirin Enteric Coated 81 MG TABLET.DR PO (09:51)
[2021-06-29] MEDS: Multivitamin TABLET 1 TAB PO (09:51)
[2021-06-29] MEDS: Clopidogrel Bisulfate 75 MG TABLET PO (09:52)
[2021-06-29] MEDS: Loratadine 10 MG TABLET PO (09:52)
[2021-06-29] MEDS: Furosemide 40 MG TABLET PO (09:52)
[2021-06-29] MEDS: atenoloL 50 MG TABLET PO (09:53)
[2021-06-29] MEDS: 0.9 % Sodium Chloride Flush 3 ML SYRINGE IVFLUSH ×3 (09:53→20:22)
[2021-06-29] MEDS: Fluticasone Propionate Nasal 16 GM SPRAY 2 SPRAY NOSTRIL-B (10:04)
[2021-06-29] MEDS: dexAMETHasone sod phosphate 4 MG/ML VIAL 6 MG IVPUSH (10:07)
--- NOTE | 2021-06-29 10:42 | P.EN_ITS ---
Event Note Date of Service: 06/29/21 Event Note: patient Maxed out on oxygen supplement with high-flow and NRB m ask but still having episodes of hypoxemia. To get ICU consult for evaluation and possible transfer to ICU for BiPAP.
[2021-06-29 11:20] LABS: Glucose, Whole Blood 93 mg/dL (60-115)
--- NOTE | 2021-06-29 12:36 | PM.CCPN ---
Subjective Subjective Date of Service: 06/29/21 Interval History: 71-year-old gentleman with underlying history of obesity, MICHAEL, CAD status post CABG, carotid stenosis, hypertension, hypothyroidism admitted on 06/24/2021 with mechanical fall, weakness, and diarrhea. Patient was COVID positive 1 06/13/2021. He has been started on dexamethasone. Hospital course significant for progressive hypoxemia now failing high-flow and non-rebreather oxygen support , requiring initiation of noninvasive positive pressure ventilation support and transfer to intensive care unit. Critical Care Time (minutes): 45 Physical Exam Vital Signs: Vital Signs: Last Vital Signs Temp 97.4 F 06/29/21 11:07 Pulse 44 L 06/29/21 11:07 Resp 51 H 06/29/21 12:18 BP 149/60 H 06/29/21 11:07 Pulse Ox 92 06/29/21 11:07 BMI result Body Mass Index 43.7 Const: General: no acute distress, alert and awake Nutritional Appearance: obese Eyes: Sclerae: sclerae normal EOM: EOMs intact bilaterally Neck: Neck: Yes no lymphadenopathy, Yes trachea midline and Yes supple Resp: Effort & Inspection: normal respiratory effort ( On BiPAP) and no respiratory distress Auscultation: crackles ( diffuse bilateral) Cardio: Rate: bradycardic Rhythm: regular rhythm Heart sounds: no gallops, no murmurs and no rubs GI: Palpation (GI): Soft to palpation and Other GI palpation findings present ( Nontender) Auscultation: normal bowel sounds Extrem: General: No clubbing, No cyanosis and Yes pedal edema ( 1+ bilateral) Objective Data Labs CBC & Chem 7: 06/29/21 05:58 06/29/21 05:58 Labs: Laboratory Results - last 24 hr 06/28/21 06/28/21 06/29/21 16:23 20:48 05:58 WBC 8.4 RBC 5.06 Hgb 14.2 Hct 43.6 MCV 86.2 MCH 28.1 MCHC 32.6 RDW 14.4 Plt Count 193 MPV 10.8 Absolute Nucleated RBC 0.000 Nucleated RBC % (auto) 0.0 D-Dimer High Sensitivty Sodium Potassium Chloride Carbon Dioxide Anion Gap BUN Creatinine Estim Creat Clear Calc Estimated GFR POC Glucose 144 H 127 H Fasting Glucose Calcium Lactate Dehydrogenase C-Reactive Protein 06/29/21 06/29/21 06/29/21 05:58 05:58 07:15 WBC RBC Hgb Hct MCV MCH MCHC RDW Plt Count MPV Absolute Nucleated RBC Nucleated RBC % (auto) D-Dimer High Sensitivty 224 Sodium 142 Potassium 4.7 Chloride 106 Carbon Dioxide 28 Anion Gap 13 BUN 33 H Creatinine 0.89 Estim Creat Clear Calc 92.7 Estimated GFR > 60 POC Glucose 113 Fasting Glucose 123 H Calcium 9.4 Lactate Dehydrogenase 434 H C-Reactive Protein 2.18 H 06/29/21 11:16 WBC RBC Hgb Hct MCV MCH MCHC RDW Plt Count MPV Absolute Nucleated RBC Nucleated RBC % (auto) D-Dimer High Sensitivty Sodium Potassium Chloride Carbon Dioxide Anion Gap BUN Creatinine Estim Creat Clear Calc Estimated GFR POC Glucose 93 Fasting Glucose Calcium Lactate Dehydrogenase C-Reactive Protein Microbiology Microbiology Results: Microbiology 06/24/21 19:40 Blood - Venous Blood Culture - Preliminary No growth after 48 hours. 06/24/21 19:30 Blood - Venous Blood Culture - Preliminary No growth after 48 hours. Progress Note: A&P Assessment and plan (1) Acute respiratory distress syndrome (ARDS) due to COVID-19 virus: Status: Acute (2) Acute respiratory failure with hypoxia: Status: Acute (3) Obstructive sleep apnea: Status: Acute (4) Morbid obesity with BMI of 40.0-44.9, adult: Status: Acute (5) Ischemic cardiomyopathy: Status: Acute (6) Diabetes: Status: Acute (7) Hypothyroidism: Status: Acute (8) CAD (coronary artery disease): Status: Acute Assessment and Plan: Assessment: 71-year-old gentleman with underlying CAD, MICHAEL, obesity, diabetes mellitus admitted with COVID-19 with hospital course significant for progressive hypoxemia and now requiring noninvasive positive pressure ventilatory support Plan: Neuro: No acute issues. Cardiac: No acute issues. underlying history of CAD status post CABG and hypertension. Pulmonary: Acute hypoxic respiratory failure secondary to COVID-19 ARDS now requiring noninvasive positive pressure ventilatory support. Continue to titrate off as tolerated. Renal: No acute issues. Endo: No acute issues. underlying diabetes mellitus. GI: No acute issues. ID: COVID 19, continue with dexamethasone and baricitinib. Heme/Onc: No acute issues. Psych: No acute issues. Miscellaneous: No acute issues. Prophylaxis: Lovenox, famotidine Diet: diabetic Critical care time spent: 45 minutes Quality Stroke Does the patient have a stroke diagnosis?: No VTE Prior VTE?: No VTE Risk Level:: Medical - moderate - high VTE Device Contraindication: N/A - Device Ordered VTE Drug Contraindication: Treatment Not Indicated
[2021-06-29] MEDS: Midazolam HCl/PF 2 MG/2 ML VIAL IVPUSH (12:40)
[2021-06-29 16:54] LABS: Glucose, Whole Blood 131 mg/dL (60-115)
--- NOTE | 2021-06-29 19:49 | PC.NURSE ---
pt transfered from im[facility] to ICU with bipap 10/5 100%. This RN in room to assess pt, pt agitated, yelling out stating he doesnt want to wear mask and that he will rip it off, education given on importance of wearing mask. Pt still agitated, notified , order for 22mg IVP versed given with good effect. Pt apologized and stated he was just scared. This RN reassured pt that he was in good hands and that we are keeping a close eye on him. Pt transitioned to HF/NRB and satting well. Pt able to eat, occasionally desats but recovers well.
[2021-06-29 20:14] LABS: Glucose, Whole Blood 134 mg/dL (60-115)
[2021-06-29] MEDS: Atorvastatin Calcium 80 MG TABLET PO (20:16)
[2021-06-29] MEDS: Enoxaparin Sodium 40 MG/0.4 ML SYRINGE SUBCUT (20:17)
[2021-06-29] MEDS: traZODone HCL 25 MG HALFTAB PO (20:32)
[2021-06-29] MEDS: guaiFENesin 200 MG/10 ML 10 ML LIQUID PO (21:37)
--- NOTE | 2021-06-29 23:16 | PC.RT ---
Pt refusing BIPAP at this time; states Im going home, tonight . Pt remains on HFNC at this time 100% 55L +NRB. RN aware
[2021-06-30] VITALS (33 sets, daily range): BP systolic 76–186; BP diastolic 48–87; PULSE 32–71; RESP 11–25; TEMP 34.9–37.3; O2SAT 80–97; BMI 37.5
--- NOTE | 2021-06-30 | ECG_ITS ---
Test Reason : T wave inversion Blood Pressure : / mmHG Vent. Rate : 038 BPM Atrial Rate : 038 BPM P-R Int : 224 ms QRS Dur : 102 ms QT Int : 600 ms P-R-T Axes : -12 038 130 degrees QTc Int : 477 ms Marked sinus bradycardia with 1st degree A-V block T-wave inversion in Anterior leads and Inferior leads Abnormal ECG When compared with ECG of 24-JUN-2021 19:38, Vent. rate has decreased Ischemic T wave changes in anterior and inferior leads Referred By: Tyrell Salvador Electronically Signed By:DAWSON PATEL MD
[2021-06-30] MEDS: guaiFENesin 200 MG/10 ML 10 ML LIQUID PO ×2 (04:15→08:15)
[2021-06-30 05:22] LABS: VBG Base Excess 3.5 mmol/L; VBG HCO3 25 mmol/L (22-26); VBG pCO2 31 mmHg; VBG pH 7.51 (7.32-7.43); VBG pO2 62 mmHg
[2021-06-30 05:28] LABS: Venous Blood Gas Refer to POC result
[2021-06-30 05:41] LABS: MANUAL DIFF FLAG NO
[2021-06-30 05:52] LABS: Eosinophils Percent Auto 0.1 % (0-4); Hemoglobin 13.4 g/dl (14.0-18.0); Imm Gran Abs Auto 0.07 X10*3/uL (0.00-0.03); Imm Gran Pct Auto 0.8 % (0.0-0.4); Lymphocytes Absolute Auto 0.8 X10*3/uL (1.2-4.9); Mean Corpuscular HGB Conc 32.7 g/dl (31.0-36.0); Mean Corpuscular Volume 85.8 fL (80.0-98.0); Mean Platelet Volume 10.7 fL (9.4-12.4); Monocytes Absolute Auto 0.7 X10*3/uL (0.1-1.2); Monocytes Percent Auto 7.9 % (2-11); Neutrophils Percent Auto 82.2 % (45-73); Platelet Count 203 X10*3/uL (160-400); Red Blood Count 4.78 X10*6/uL (4.60-5.80); Red Cell Distribution Width 14.2 % (11.0-16.0); White Blood Count 8.5 X10*3/uL (4.8-10.8)
[2021-06-30 06:15] LABS: Anion Gap 14 (12-20); Blood Urea Nitrogen 28 mg/dL (9-16); Calcium 8.6 mg/dL (8.4-10.2); Carbon Dioxide 23 mmol/L (22-29); Chloride 107 mmol/L (96-108); Creatinine Clr Calc Pharmacy 94.9; Estimated Glomerular Filt Rate > 60; Glucose Random 99 mg/dL (60-115); Magnesium 2.3 mg/dL (1.6-2.6); Phosphorus 3.1 mg/dL (2.7-4.5); Potassium 4.5 mmol/L (3.3-5.1); Sodium 139 mmol/L (135-145)
[2021-06-30] MEDS: Levothyroxine Sodium 125 MCG TABLET PO (06:46)
[2021-06-30 07:27] LABS: Glucose, Whole Blood 91 mg/dL (60-115)
[2021-06-30] MEDS: 0.9 % Sodium Chloride Flush 3 ML SYRINGE IVFLUSH ×2 (07:59→17:15)
[2021-06-30] MEDS: Furosemide 40 MG/4 ML VIAL IVPUSH (08:02)
[2021-06-30] MEDS: dexAMETHasone sod phosphate 4 MG/ML VIAL 6 MG IVPUSH (08:02)
[2021-06-30] MEDS: Aspirin Enteric Coated 81 MG TABLET.DR PO (08:03)
[2021-06-30] MEDS: Famotidine 20 MG TABLET 40 MG PO (08:03)
[2021-06-30] MEDS: Clopidogrel Bisulfate 75 MG TABLET PO (08:03)
[2021-06-30] MEDS: Fluticasone Propionate Nasal 16 GM SPRAY 2 SPRAY NOSTRIL-B (08:08)
--- NOTE | 2021-06-30 08:20 | MHC.CM.PN ---
pt is now in the icu, at this time dc plan is home c family support and transportation. cm to cont. to follow.
[2021-06-30] MEDS: chlordiazePOXIDE HCl 5 MG CAPSULE 10 MG PO (09:11)
[2021-06-30] MEDS: LORazepam 2 MG/ML VIAL 1 MG IVPUSH (09:11)
[2021-06-30] MEDS: Midazolam HCl/PF 2 MG/2 ML VIAL IVPUSH (09:56)
[2021-06-30] MEDS: propofoL 200 MG/20 ML VIAL IVPUSH (09:57)
[2021-06-30] MEDS: propofoL 1,000 MG/100 ML VIAL 18.97 MG IVCONT ×3 (09:59→18:42)
[2021-06-30] MEDS: fentaNYL citrate/NS 1,000 MCG/100 ML PLAST..BAG 10 MCG IVCONT ×2 (10:02→18:42)
--- NOTE | 2021-06-30 10:38 | W.PM.CCHP ---
Procedures Date of Service Date of Service: 06/30/21 Central Line Placement Right IJ: Central Line Comments: Right internal jugular triple-lumen central venous catheter emergently placed for appropriate vascular access under ultrasound guidance and usual sterile conditions with no immediate complications. Line position verified on chest x-ray.
[2021-06-30 11:07] LABS: VBG Base Excess 3.5 mmol/L; VBG HCO3 27 mmol/L (22-26); VBG pCO2 37 mmHg; VBG pH 7.46 (7.32-7.43); VBG pO2 41 mmHg
[2021-06-30 11:14] LABS: Glucose, Whole Blood 132 mg/dL (60-115)
--- NOTE | 2021-06-30 11:14 | PC.NURSE ---
AT INITAL ASSESSMENT PT ALERT TO SELF, VAGUE TO SITUATION, UNSURE OF DATE/TIME AND COULDN'T TELL THIS RN WHERE HE WAS. MD NOTIFIED. PT CONTINUOUSLY REMOVING NRB, RESISTANT TO CARE. PT STARTED MAKING COMMENTS IF I I TO THIS RN AND RT. THIS RN ASKED PT TO EXPLAIN WHAT THEY MEANT BY THAT AND PT REFUSED TO RESPOND. NOTIFIED. 02 DROPPING AND MAINTAINING 60S/70S. MD CALLED FAMILY TO DISCUSS INTUBATION. FAMILY GAVE CONSENT. SEDATION FOR INTUBATION: PROPOFOL 200 MG IVP (TOTAL) AND VERSED 2MG IVP. INTUBATED 7.5/23 @ LIP, ADVANCED TO 25 @ LIP PER CXR. VENT SETTINGS AC 20/450/12/100% AND CURRENT 02 96%. SEDATION GTTS: PROPOFOL AND FENTANYL - SEE EMAR. TLC TO RIJ PLACED. OG PLACED AND CLAMPED. MÁRQUEZ 16F W/ TEMP SENSOR PLACED. NON-BEHAVIORAL RESTRAINTS APPLIED. PREVALON MATTRESS, WEDGES, AND HEELBOS UTILIZED. FAMILY CALLED AND UPDATED BY .
[2021-06-30] MEDS: Chlorhexidine Gluc Oral Rinse 15 ML MOUTHWASH BUCCAL ×2 (13:04→20:49)
--- NOTE | 2021-06-30 13:19 | MHC.CLN ---
NUTRITION CONSULT PATIENT INTUBATED 06/30/21. RD RECOMMENDS START TUBE FEEDING WHEN ABLE. POOR INTAKE PRIOR TO INTUBATION. RD RECOMMENDS TUBE FEEDING: PROMOTE AT MAX GOAL RATE OF 50 ML PER HOUR AND FLUSH 120 ML WATER EVERY 6 HOURS. PROVIDES 1200 ML FORMULA;1200 KCAL PLUS [id number] KCAL (22.8 KCAL/KG CMW); 76 G PROTEIN (1.02 G/KG CMW); FREE WATER FROM FORMULA AND [id number] ML (19.8 ML/KG CMW). MONITOR TOLERANCE, RESIDUALS AND LYTES.
--- NOTE | 2021-06-30 13:39 | W.PM.CCHP ---
Procedures Date of Service Date of Service: 06/30/21 Intubation Intubation Comments: Patient emergently intubated for refractory hypoxic respiratory failure with 7.5 cuffed ET tube under glide scope guidance with no immediate complications. ET tube position verified on chest x-ray.
--- NOTE | 2021-06-30 13:41 | PM.CCPN ---
Subjective Subjective Date of Service: 06/30/21 Interval History: 71-year-old gentleman with underlying history of obesity, MICHAEL, CAD status post CABG, carotid stenosis, hypertension, hypothyroidism admitted on 06/24/2021 with mechanical fall, weakness, and diarrhea. Patient was initially COVID positive on 06/14/2021. He has been treated with dexamethasone and baricitinib. Hospital course significant for progressive hypoxemia failing high-flow and non-rebreather oxygen support, requiring initiation of noninvasive positive pressure ventilation support and transfer to intensive care unit on 06/29/2021 and intubation and ventilatory support on 06/30/2021. No events overnight. Critical Care Time (minutes): 60 Physical Exam Vital Signs: Vital Signs: Last Vital Signs Temp 99.0 F 06/30/21 13:00 Pulse 32 L 06/30/21 13:18 Resp 20 06/30/21 13:00 BP 186/82 H 06/30/21 13:18 Pulse Ox 97 06/30/21 13:00 BMI result Body Mass Index 37.5 Const: General: no acute distress and other (Sedated on the vent) Eyes: Sclerae: sclerae normal EOM: EOMs intact bilaterally Neck: Neck: Yes no lymphadenopathy, Yes trachea midline and Yes supple Resp: Auscultation: crackles (Diffuse bilateral) Cardio: Rate: regular rate Rhythm: regular rhythm Heart sounds: no gallops, no murmurs and no rubs GI: Palpation (GI): Soft to palpation and Other GI palpation findings present ( Nontender) Auscultation: normal bowel sounds Extrem: General: No clubbing, No cyanosis and Yes pedal edema (Trace bilateral) Objective Data Labs CBC & Chem 7: 06/30/21 05:15 06/30/21 05:15 Labs: Laboratory Results - last 24 hr 06/29/21 06/29/21 06/30/21 16:40 20:10 05:15 WBC 8.5 RBC 4.78 Hgb 13.4 L Hct 41.0 L MCV 85.8 MCH 28.0 MCHC 32.7 RDW 14.2 Plt Count 203 MPV 10.7 Immature Gran % (Auto) 0.8 H Neut % (Auto) 82.2 H Lymph % (Auto) 9.0 L Floyd % (Auto) 7.9 Eos % (Auto) 0.1 Baso % (Auto) 0.0 Lymph # (Auto) 0.8 L Floyd # (Auto) 0.7 Eos # (Auto) 0.0 Baso # (Auto) 0.0 Abs Immat Gran (auto) 0.07 H Absolute Neuts (auto) 7.0 Absolute Nucleated RBC 0.000 Nucleated RBC % (auto) 0.0 VBG pH VBG pCO2 VBG pO2 VBG HCO3 VBG O2 Saturation VBG Base Excess Sodium Potassium Chloride Carbon Dioxide Anion Gap BUN Creatinine Estim Creat Clear Calc Estimated GFR POC Glucose 131 H 134 H Random Glucose Calcium Phosphorus Magnesium Albumin 06/30/21 06/30/21 06/30/21 05:15 05:15 07:23 WBC RBC Hgb Hct MCV MCH MCHC RDW Plt Count MPV Immature Gran % (Auto) Neut % (Auto) Lymph % (Auto) Floyd % (Auto) Eos % (Auto) Baso % (Auto) Lymph # (Auto) Floyd # (Auto) Eos # (Auto) Baso # (Auto) Abs Immat Gran (auto) Absolute Neuts (auto) Absolute Nucleated RBC Nucleated RBC % (auto) VBG pH 7.51 H VBG pCO2 31 VBG pO2 62 VBG HCO3 25 VBG O2 Saturation 87.0 VBG Base Excess 3.5 Sodium 139 Potassium 4.5 Chloride 107 Carbon Dioxide 23 Anion Gap 14 BUN 28 H Creatinine 0.87 Estim Creat Clear Calc 94.9 Estimated GFR > 60 POC Glucose 91 Random Glucose 99 D Calcium 8.6 D Phosphorus 3.1 Magnesium 2.3 Albumin 3.0 L 06/30/21 06/30/21 11:00 11:09 WBC RBC Hgb Hct MCV MCH MCHC RDW Plt Count MPV Immature Gran % (Auto) Neut % (Auto) Lymph % (Auto) Floyd % (Auto) Eos % (Auto) Baso % (Auto) Lymph # (Auto) Floyd # (Auto) Eos # (Auto) Baso # (Auto) Abs Immat Gran (auto) Absolute Neuts (auto) Absolute Nucleated RBC Nucleated RBC % (auto) VBG pH 7.46 H VBG pCO2 37 VBG pO2 41 VBG HCO3 27 H VBG O2 Saturation 59.0 VBG Base Excess 3.5 Sodium Potassium Chloride Carbon Dioxide Anion Gap BUN Creatinine Estim Creat Clear Calc Estimated GFR POC Glucose 132 H Random Glucose Calcium Phosphorus Magnesium Albumin Microbiology Microbiology Results: Microbiology 06/24/21 19:40 Blood - Venous Blood Culture - Final No growth after 5 days. 06/24/21 19:30 Blood - Venous Blood Culture - Final No growth after 5 days. Progress Note: A&P Assessment and plan (1) Acute respiratory failure with hypoxia: Status: Acute (2) Acute respiratory distress syndrome (ARDS) due to COVID-19 virus: Status: Acute (3) Obstructive sleep apnea: Status: Acute (4) Morbid obesity with BMI of 40.0-44.9, adult: Status: Acute (5) Carotid stenosis, bilateral: Status: Acute (6) Ischemic cardiomyopathy: Status: Acute (7) S/P CABG (coronary artery bypass graft): Status: Acute Assessment and Plan: Assessment: 71-year-old gentleman with underlying CAD, MICHAEL, obesity, diabetes mellitus admitted with COVID-19 with hospital course significant for progressive hypoxemia and now requiring ventilatory support Plan: Neuro: No acute issues. Cardiac: No acute issues. underlying history of CAD status post CABG and hypertension. Pulmonary: Acute hypoxic respiratory failure secondary to COVID-19 ARDS now requiring ventilatory support. Continue to titrate off as tolerated. Renal: No acute issues. Endo: No acute issues. underlying diabetes mellitus. GI: No acute issues. ID: COVID 19, continue with dexamethasone and baricitinib. Heme/Onc: No acute issues. Psych: No acute issues. Miscellaneous: No acute issues. Prophylaxis: Lovenox, famotidine Diet: Tube feeds Critical care time spent: 45 minutes Quality Stroke Does the patient have a stroke diagnosis?: No VTE Prior VTE?: No VTE Risk Level:: Medical - moderate - high VTE Device Contraindication: N/A - Device Ordered VTE Drug Contraindication: Treatment Not Indicated
[2021-06-30] MEDS: Insulin Lispro 100 UNIT/ML 3 ML VIAL SUBCUT ×2 (16:40→20:56)
[2021-06-30 16:43] LABS: Glucose, Whole Blood 181 mg/dL (60-115)
[2021-06-30] MEDS: Enoxaparin Sodium 40 MG/0.4 ML SYRINGE SUBCUT (20:49)
[2021-06-30] MEDS: Atorvastatin Calcium 80 MG TABLET PO (20:49)
[2021-06-30 21:16] LABS: Troponin-I High Sensitivity 9.1 ng/L (<3.5-35.0)
[2021-06-30 21:23] LABS: Anion Gap 13 (12-20); Blood Urea Nitrogen 34 mg/dL (9-16); Calcium 8.7 mg/dL (8.4-10.2); Carbon Dioxide 27 mmol/L (22-29); Chloride 104 mmol/L (96-108); Creatinine Clr Calc Pharmacy 69.6; Estimated Glomerular Filt Rate > 60; Glucose Random 168 mg/dL (60-115); Magnesium 2.4 mg/dL (1.6-2.6); Phosphorus 3.9 mg/dL (2.7-4.5); Potassium 3.8 mmol/L (3.3-5.1); Sodium 140 mmol/L (135-145)
[2021-06-30 21:49] LABS: Glucose, Whole Blood 170 mg/dL (60-115)
[2021-07-01] VITALS (30 sets, daily range): BP systolic 90–132; BP diastolic 53–72; PULSE 49–59; RESP 20–38; TEMP 34.5–37.8; O2SAT 1–97; BMI 35.5
[2021-07-01] MEDS: propofoL 1,000 MG/100 ML VIAL 15.81 MG IVCONT ×5 (00:46→21:06)
[2021-07-01 00:56] LABS: Glucose, Whole Blood 142 mg/dL (60-115)
[2021-07-01] MEDS: fentaNYL citrate/NS 1,000 MCG/100 ML PLAST..BAG 7.5 MCG IVCONT ×2 (01:04→13:59)
[2021-07-01] MEDS: 0.9 % Sodium Chloride Flush 3 ML SYRINGE IVFLUSH ×3 (01:04→13:59)
[2021-07-01 01:36] LABS: Troponin-I High Sensitivity 10.4 ng/L (<3.5-35.0)
--- NOTE | 2021-07-01 03:22 | PC.NURSE ---
Assumed care from ZAY Rodriguez at 19:00. Patient sedate on fentanyl and propofol, which were both weaned down successfully, as patient was tolerating ventilator, pupils sluggish at 2-3 mm, positive cough and gag, not moving any extremities, slighly rigid to passive ROM, not overbreathing at all, fentanyl gtt now at 75, and propofol at 25, and patient tolerating. Patient afebrile. Remains on ventilator with #7.5 ETT 25 cm at the lip, AC settings rate is 20; TV 450; Peep 10 (titrated down from 12); FiO2 35% (titrated down from 90%). SpO2 has been mid to high 90's. Patient is synchronous with ventilator and not breathing over. LS diminished throughout, scant secretions, does have clear/cream colored oral secretions. Patient with distant heart sounds, and soft BP. Levophed at 0.02 (was titrated up from 0.01). Patient is very sensitive to slight titrations of levophed. Sinus bradycardia in 40's-50's with 1st degree AVB. No edema. Patient with about 30-40 cc/hour of urine with cloudy/sediment at times and slightly pink-tinged at times. Patient Skin is intact with reddened buttocks and scars and spider veins scattered throughout.
[2021-07-01] MEDS: Levothyroxine Sodium 125 MCG TABLET PO (05:29)
[2021-07-01 05:34] LABS: VBG HCO3 26 mmol/L (22-26); VBG pCO2 34 mmHg; VBG pH 7.48 (7.32-7.43); VBG pO2 43 mmHg
[2021-07-01 05:37] LABS: MANUAL DIFF FLAG NO
[2021-07-01 05:41] LABS: Glucose, Whole Blood 130 mg/dL (60-115)
[2021-07-01 05:50] LABS: Venous Blood Gas Refer to POC result
[2021-07-01 05:53] LABS: Eosinophils Percent Auto 0.3 % (0-4); Hematocrit 40.3 % (42.0-52.0); Hemoglobin 13.5 g/dl (14.0-18.0); Imm Gran Abs Auto 0.17 X10*3/uL (0.00-0.03); Imm Gran Pct Auto 1.5 % (0.0-0.4); Lymphocytes Absolute Auto 1.2 X10*3/uL (1.2-4.9); Lymphocytes Percent Auto 10.6 % (20-40); Mean Corpuscular HGB Conc 33.5 g/dl (31.0-36.0); Mean Corpuscular Hemoglobin 28.3 pg (27.0-33.0); Mean Corpuscular Volume 84.5 fL (80.0-98.0); Mean Platelet Volume 10.7 fL (9.4-12.4); Monocytes Absolute Auto 0.8 X10*3/uL (0.1-1.2); Monocytes Percent Auto 7.1 % (2-11); Neutrophils Absolute Auto 8.9 x10*3/uL (2.0-8.3); Neutrophils Percent Auto 80.5 % (45-73); Platelet Count 285 X10*3/uL (160-400); Red Blood Count 4.77 X10*6/uL (4.60-5.80); Red Cell Distribution Width 14.2 % (11.0-16.0)
[2021-07-01 06:07] LABS: Albumin Level 3.1 g/dL (3.5-5.0); Anion Gap 13 (12-20); Blood Urea Nitrogen 36 mg/dL (9-16); Calcium 8.9 mg/dL (8.4-10.2); Carbon Dioxide 27 mmol/L (22-29); Chloride 104 mmol/L (96-108); Creatinine Clr Calc Pharmacy 65.9; Estimated Glomerular Filt Rate > 60; Glucose Random 123 mg/dL (60-115); Magnesium 2.4 mg/dL (1.6-2.6); Phosphorus 3.3 mg/dL (2.7-4.5); Potassium 3.5 mmol/L (3.3-5.1); Sodium 140 mmol/L (135-145)
[2021-07-01 06:49] LABS: Venous Blood Gas Refer to POC result
[2021-07-01] MEDS: Furosemide 40 MG/4 ML VIAL IVPUSH (08:23)
[2021-07-01] MEDS: dexAMETHasone sod phosphate 4 MG/ML VIAL 6 MG IVPUSH (08:23)
[2021-07-01] MEDS: Famotidine 20 MG TABLET 40 MG PO (08:23)
[2021-07-01] MEDS: Clopidogrel Bisulfate 75 MG TABLET PO (08:23)
[2021-07-01] MEDS: Chlorhexidine Gluc Oral Rinse 15 ML MOUTHWASH BUCCAL ×3 (08:23→21:06)
[2021-07-01] MEDS: Aspirin Enteric Coated 81 MG TABLET.DR PO (08:23)
--- NOTE | 2021-07-01 10:12 | MHC.CLN ---
F/U NUTRITION CONSULT PATIENT INTUBATED AND SEDATED 06/30/21. TUBE FEEDING STARTED 06/30/21. RECOMMEND TUBE FEEDING: PROMOTE AT MAX GOAL RATE OF 50 ML PER HOUR AND FLUSH 120 ML WATER EVERY 6 HOURS. PROVIDES 1200 ML FORMULA; 1200 KCAL WITH [id number] KCAL (22.4 KCAL/KG CMW); 76 G PROTEIN (1.02 G/KG CMW); FREE WATER FROM FORMULA AND [id number] ML (19.8 ML/KG CMW). MONITOR TOLERANCE, RESIDUALS AND LYTES.
--- NOTE | 2021-07-01 10:32 | P.PNCC_ITS ---
Subjective Subjective Date of Service: 07/01/21 Interval History: 71-year-old gentleman with underlying history of obesity, MICHAEL, CAD status post CABG, carotid stenosis, hypertension, hypothyroidism admitted on 06/24/2021 with mechanical fall, weakness, and diarrhea. Patient was initially COVID positive on 06/14/2021. He has been treated with dexamethasone and baricitinib. Hospital course significant for progressive hypoxemia failing high-flow and non-rebreather oxygen support, requiring initiation of noninvasive positive pressure ventilation support and transfer to intensive care unit on 06/29/2021 and intubation and ventilatory support on 06/30/2021. No events overnight. FiO2 requirements have improved significantly. Critical Care Time (minutes): 45 Physical Exam Vital Signs: Vital Signs: Last Vital Signs Temp 99.3 F 07/01/21 10:00 Pulse 51 07/01/21 10:00 Resp 20 07/01/21 10:00 BP 132/72 07/01/21 10:00 Pulse Ox 93 07/01/21 10:00 BMI result Body Mass Index 35.5 Const: General: no acute distress and other ( Sedated on the vent) Nutritional Appearance: obese Eyes: Sclerae: sclerae normal Neck: Neck: Yes no lymphadenopathy, Yes trachea midline and Yes supple Resp: Effort & Inspection: normal respiratory effort Auscultation: crackles ( bibasilar) Cardio: Rate: regular rate Rhythm: regular rhythm Heart sounds: no gallops, no murmurs and no rubs GI: Palpation (GI): Soft to palpation and Other GI palpation findings present ( Nontender) Auscultation: normal bowel sounds Extrem: General: No clubbing, No cyanosis and Yes pedal edema ( trace bilateral) Objective Data Labs CBC & Chem 7: 07/01/21 05:25 07/01/21 05:25 Labs: Laboratory Results - last 24 hr 06/30/21 06/30/21 06/30/21 11:00 11:09 16:38 WBC RBC Hgb Hct MCV MCH MCHC RDW Plt Count MPV Immature Gran % (Auto) Neut % (Auto) Lymph % (Auto) [place] % (Auto) Eos % (Auto) Baso % (Auto) Lymph # (Auto) [place] # (Auto) Eos # (Auto) Baso # (Auto) Abs Immat Gran (auto) Absolute Neuts (auto) Absolute Nucleated RBC Nucleated RBC % (auto) VBG pH 7.46 H VBG pCO2 37 VBG pO2 41 VBG HCO3 27 H VBG O2 Saturation 59.0 VBG Base Excess 3.5 Sodium Potassium Chloride Carbon Dioxide Anion Gap BUN Creatinine Estim Creat Clear Calc Estimated GFR POC Glucose 132 H 181 H Random Glucose Calcium Phosphorus Magnesium Troponin I High Sens Albumin 06/30/21 06/30/21 06/30/21 20:50 20:50 20:53 WBC RBC Hgb Hct MCV MCH MCHC RDW Plt Count MPV Immature Gran % (Auto) Neut % (Auto) Lymph % (Auto) [place] % (Auto) Eos % (Auto) Baso % (Auto) Lymph # (Auto) [place] # (Auto) Eos # (Auto) Baso # (Auto) Abs Immat Gran (auto) Absolute Neuts (auto) Absolute Nucleated RBC Nucleated RBC % (auto) VBG pH VBG pCO2 VBG pO2 VBG HCO3 VBG O2 Saturation VBG Base Excess Sodium 140 Potassium 3.8 Chloride 104 Carbon Dioxide 27 Anion Gap 13 BUN 34 H Creatinine 1.09 Estim Creat Clear Calc 69.6 Estimated GFR > 60 POC Glucose 170 H Random Glucose 168 H D Calcium 8.7 Phosphorus 3.9 Magnesium 2.4 Troponin I High Sens 9.1 Albumin 07/01/21 07/01/21 07/01/21 00:50 01:08 05:25 WBC 11.0 H RBC 4.77 Hgb 13.5 L Hct 40.3 L MCV 84.5 MCH 28.3 MCHC 33.5 RDW 14.2 Plt Count 285 D MPV 10.7 Immature Gran % (Auto) 1.5 H Neut % (Auto) 80.5 H Lymph % (Auto) 10.6 L [place] % (Auto) 7.1 Eos % (Auto) 0.3 Baso % (Auto) 0.0 Lymph # (Auto) 1.2 [place] # (Auto) 0.8 Eos # (Auto) 0.0 Baso # (Auto) 0.0 Abs Immat Gran (auto) 0.17 H Absolute Neuts (auto) 8.9 H Absolute Nucleated RBC 0.000 Nucleated RBC % (auto) 0.0 VBG pH VBG pCO2 VBG pO2 VBG HCO3 VBG O2 Saturation VBG Base Excess Sodium Potassium Chloride Carbon Dioxide Anion Gap BUN Creatinine Estim Creat Clear Calc Estimated GFR POC Glucose 142 H Random Glucose Calcium Phosphorus Magnesium Troponin I High Sens 10.4 Albumin 07/01/21 07/01/21 07/01/21 05:25 05:27 05:38 WBC RBC Hgb Hct MCV MCH MCHC RDW Plt Count MPV Immature Gran % (Auto) Neut % (Auto) Lymph % (Auto) [place] % (Auto) Eos % (Auto) Baso % (Auto) Lymph # (Auto) [place] # (Auto) Eos # (Auto) Baso # (Auto) Abs Immat Gran (auto) Absolute Neuts (auto) Absolute Nucleated RBC Nucleated RBC % (auto) VBG pH 7.48 H VBG pCO2 34 VBG pO2 43 VBG HCO3 26 VBG O2 Saturation 67.0 VBG Base Excess 3.0 Sodium 140 Potassium 3.5 Chloride 104 Carbon Dioxide 27 Anion Gap 13 BUN 36 H Creatinine 1.12 Estim Creat Clear Calc 65.9 Estimated GFR > 60 POC Glucose 130 H Random Glucose 123 H Calcium 8.9 Phosphorus 3.3 Magnesium 2.4 Troponin I High Sens Albumin 3.1 L Microbiology Microbiology Results: Microbiology 06/24/21 19:40 Blood - Venous Blood Culture - Final No growth after 5 days. 06/24/21 19:30 Blood - Venous Blood Culture - Final No growth after 5 days. Progress Note: A&P Assessment and plan (1) Acute respiratory failure with hypoxia: Status: Acute (2) Acute respiratory distress syndrome (ARDS) due to COVID-19 virus: Status: Acute (3) Obstructive sleep apnea: Status: Acute (4) Morbid obesity with BMI of 40.0-44.9, adult: Status: Acute (5) Ischemic cardiomyopathy: Status: Acute (6) Hypothyroidism: Status: Acute (7) S/P CABG (coronary artery bypass graft): Status: Acute Assessment and Plan: Assessment: 71-year-old gentleman with underlying CAD, MICHAEL, obesity, diabetes mellitus admitted with COVID-19 with hospital course significant for progressive hypoxemia and now requiring ventilatory support Plan: Neuro: No acute issues. Cardiac: No acute issues. underlying history of CAD status post CABG and hypertension. Pulmonary: Acute hypoxic respiratory failure secondary to COVID-19 ARDS now requiring ventilatory support. Continue to titrate off as tolerated. Renal: No acute issues. Endo: No acute issues. Underlying diabetes mellitus. GI: No acute issues. ID: COVID 19, continue with dexamethasone and baricitinib. Heme/Onc: No acute issues. Psych: No acute issues. Miscellaneous: No acute issues. Prophylaxis: Lovenox, famotidine Diet: Tube feeds Critical care time spent: 45 minutes Quality Stroke Does the patient have a stroke diagnosis?: No VTE Prior VTE?: No VTE Risk Level:: Medical - moderate - high VTE Device Contraindication: N/A - Device Ordered VTE Drug Contraindication: Treatment Not Indicated
[2021-07-01] MEDS: Insulin Lispro 100 UNIT/ML 3 ML VIAL SUBCUT ×2 (12:09→17:13)
[2021-07-01 12:15] LABS: Glucose, Whole Blood 176 mg/dL (60-115)
[2021-07-01 17:18] LABS: Glucose, Whole Blood 172 mg/dL (60-115)
[2021-07-01] MEDS: Atorvastatin Calcium 80 MG TABLET PO (21:06)
[2021-07-01] MEDS: Enoxaparin Sodium 40 MG/0.4 ML SYRINGE SUBCUT (21:06)
[2021-07-02] VITALS (32 sets, daily range): BP systolic 94–164; BP diastolic 50–87; PULSE 46–63; RESP 20–50; TEMP 34.8–37.7; O2SAT 82–97; BMI 36.7
[2021-07-02 00:45] LABS: Glucose, Whole Blood 144 mg/dL (60-115)
[2021-07-02] MEDS: propofoL 1,000 MG/100 ML VIAL 15.81 MG IVCONT (02:03)
[2021-07-02] MEDS: fentaNYL citrate/NS 1,000 MCG/100 ML PLAST..BAG 7.5 MCG IVCONT (02:08)
[2021-07-02] MEDS: Levothyroxine Sodium 125 MCG TABLET PO (05:27)
[2021-07-02 05:41] LABS: VBG Base Excess 4.8 mmol/L; VBG HCO3 27 mmol/L (22-26); VBG pCO2 31 mmHg; VBG pH 7.53 (7.32-7.43); VBG pO2 43 mmHg
[2021-07-02 05:43] LABS: Venous Blood Gas Refer to POC result
[2021-07-02 06:00] LABS: MANUAL DIFF FLAG NO
[2021-07-02 06:03] LABS: Basophils Percent Auto 0.1 % (0-2); Eosinophils Absolute Auto 0.1 X10*3/uL (0.0-0.4); Eosinophils Percent Auto 1.1 % (0-4); Hematocrit 37.5 % (42.0-52.0); Hemoglobin 12.4 g/dl (14.0-18.0); Imm Gran Pct Auto 3.8 % (0.0-0.4); Lymphocytes Percent Auto 12.8 % (20-40); Mean Corpuscular HGB Conc 33.1 g/dl (31.0-36.0); Mean Corpuscular Volume 84.7 fL (80.0-98.0); Mean Platelet Volume 11.3 fL (9.4-12.4); Monocytes Absolute Auto 0.4 X10*3/uL (0.1-1.2); Neutrophils Absolute Auto 6.1 x10*3/uL (2.0-8.3); Neutrophils Percent Auto 77.2 % (45-73); Platelet Count 221 X10*3/uL (160-400); Red Blood Count 4.43 X10*6/uL (4.60-5.80); Red Cell Distribution Width 14.4 % (11.0-16.0); White Blood Count 7.8 X10*3/uL (4.8-10.8)
[2021-07-02 06:11] LABS: Glucose, Whole Blood 145 mg/dL (60-115)
[2021-07-02 06:26] LABS: Albumin Level 2.8 g/dL (3.5-5.0); Anion Gap 12 (12-20); Blood Urea Nitrogen 35 mg/dL (9-16); Calcium 8.6 mg/dL (8.4-10.2); Carbon Dioxide 27 mmol/L (22-29); Chloride 104 mmol/L (96-108); Creatinine Clr Calc Pharmacy 75.8; Estimated Glomerular Filt Rate > 60; Glucose Random 134 mg/dL (60-115); Magnesium 2.4 mg/dL (1.6-2.6); Phosphorus 2.8 mg/dL (2.7-4.5); Potassium 3.3 mmol/L (3.3-5.1); Sodium 140 mmol/L (135-145)
[2021-07-02] MEDS: Potassium Chloride/H20 40 MEQ/100 ML PIGGYBACK 100 MEQ IV (06:48)
[2021-07-02] MEDS: Famotidine 20 MG TABLET 40 MG PO (08:23)
[2021-07-02] MEDS: Clopidogrel Bisulfate 75 MG TABLET PO (08:23)
[2021-07-02] MEDS: Aspirin Enteric Coated 81 MG TABLET.DR PO (08:23)
[2021-07-02] MEDS: Chlorhexidine Gluc Oral Rinse 15 ML MOUTHWASH BUCCAL ×3 (08:23→19:45)
[2021-07-02] MEDS: Furosemide 40 MG/4 ML VIAL IVPUSH (08:24)
[2021-07-02] MEDS: dexAMETHasone sod phosphate 4 MG/ML VIAL 6 MG IVPUSH (08:24)
[2021-07-02] MEDS: propofoL 1,000 MG/100 ML VIAL 18.97 MG IVCONT ×4 (08:47→22:46)
[2021-07-02] MEDS: Albumin Human 25 % 100 ML IV ×3 (09:57→21:15)
[2021-07-02] MEDS: Insulin Lispro 100 UNIT/ML 3 ML VIAL SUBCUT ×2 (10:59→17:20)
[2021-07-02 11:04] LABS: Glucose, Whole Blood 165 mg/dL (60-115)
--- NOTE | 2021-07-02 12:51 | P.PNCC_ITS ---
Subjective Subjective Date of Service: 07/02/21 Interval History: 71-year-old gentleman with underlying history of obesity, MICHAEL, CAD status post CABG, carotid stenosis, hypertension, hypothyroidism admitted on 06/24/2021 with mechanical fall, weakness, and diarrhea. Patient was initially COVID positive on 06/14/2021. He has been treated with dexamethasone and baricitinib. Hospital course significant for progressive hypoxemia failing high-flow and non-rebreather oxygen support, requiring initiation of noninvasive positive pressure ventilation support and transfer to intensive care unit on 06/29/2021 and intubation and ventilatory support on 06/30/2021. No events overnight. Critical Care Time (minutes): 30 Physical Exam Vital Signs: Vital Signs: Last Vital Signs Temp 99.7 F 07/02/21 12:00 Pulse 63 07/02/21 12:00 Resp 20 07/02/21 12:00 BP 162/72 H 07/02/21 12:00 Pulse Ox 93 07/02/21 12:00 BMI result Body Mass Index 36.7 Const: General: no acute distress and other ( sedated on the vent, arousable with sedation vacation) Eyes: Sclerae: sclerae normal EOM: EOMs intact bilaterally Neck: Neck: Yes no lymphadenopathy, Yes trachea midline and Yes supple Resp: Auscultation: crackles ( diffuse bilateral) Cardio: Rate: regular rate Rhythm: regular rhythm Heart sounds: no gallops, no murmurs and no rubs GI: Palpation (GI): Soft to palpation and Other GI palpation findings present ( Nontender) Auscultation: normal bowel sounds Extrem: General: No clubbing, No cyanosis and Yes pedal edema ( trace bilater al) Objective Data Labs CBC & Chem 7: 07/02/21 05:27 07/02/21 05:27 Labs: Laboratory Results - last 24 hr 07/01/21 07/02/21 07/02/21 17:11 00:37 05:27 WBC 7.8 RBC 4.43 L Hgb 12.4 L Hct 37.5 L MCV 84.7 MCH 28.0 MCHC 33.1 RDW 14.4 Plt Count 221 MPV 11.3 Immature Gran % (Auto) 3.8 H Neut % (Auto) 77.2 H Lymph % (Auto) 12.8 L [place] % (Auto) 5.0 Eos % (Auto) 1.1 Baso % (Auto) 0.1 Lymph # (Auto) 1.0 L [place] # (Auto) 0.4 Eos # (Auto) 0.1 Baso # (Auto) 0.0 Abs Immat Gran (auto) 0.30 H Absolute Neuts (auto) 6.1 Absolute Nucleated RBC 0.000 Nucleated RBC % (auto) 0.0 VBG pH VBG pCO2 VBG pO2 VBG HCO3 VBG O2 Saturation VBG Base Excess Sodium Potassium Chloride Carbon Dioxide Anion Gap BUN Creatinine Estim Creat Clear Calc Estimated GFR POC Glucose 172 H 144 H Random Glucose Calcium Phosphorus Magnesium Albumin 07/02/21 07/02/21 07/02/21 05:27 05:35 06:01 WBC RBC Hgb Hct MCV MCH MCHC RDW Plt Count MPV Immature Gran % (Auto) Neut % (Auto) Lymph % (Auto) [place] % (Auto) Eos % (Auto) Baso % (Auto) Lymph # (Auto) [place] # (Auto) Eos # (Auto) Baso # (Auto) Abs Immat Gran (auto) Absolute Neuts (auto) Absolute Nucleated RBC Nucleated RBC % (auto) VBG pH 7.53 H VBG pCO2 31 VBG pO2 43 VBG HCO3 27 H VBG O2 Saturation 66.0 VBG Base Excess 4.8 Sodium 140 Potassium 3.3 Chloride 104 Carbon Dioxide 27 Anion Gap 12 BUN 35 H Creatinine 0.99 Estim Creat Clear Calc 75.8 Estimated GFR > 60 POC Glucose 145 H Random Glucose 134 H Calcium 8.6 Phosphorus 2.8 Magnesium 2.4 Albumin 2.8 L 07/02/21 10:58 WBC RBC Hgb Hct MCV MCH MCHC RDW Plt Count MPV Immature Gran % (Auto) Neut % (Auto) Lymph % (Auto) [place] % (Auto) Eos % (Auto) Baso % (Auto) Lymph # (Auto) [place] # (Auto) Eos # (Auto) Baso # (Auto) Abs Immat Gran (auto) Absolute Neuts (auto) Absolute Nucleated RBC Nucleated RBC % (auto) VBG pH VBG pCO2 VBG pO2 VBG HCO3 VBG O2 Saturation VBG Base Excess Sodium Potassium Chloride Carbon Dioxide Anion Gap BUN Creatinine Estim Creat Clear Calc Estimated GFR POC Glucose 165 H Random Glucose Calcium Phosphorus Magnesium Albumin Microbiology Microbiology Results: Microbiology 06/24/21 19:40 Blood - Venous Blood Culture - Final No growth after 5 days. 06/24/21 19:30 Blood - Venous Blood Culture - Final No growth after 5 days. Progress Note: A&P Assessment and plan (1) Acute respiratory failure with hypoxia: Status: Acute (2) Acute respiratory distress syndrome (ARDS) due to COVID-19 virus: Status: Acute (3) Obstructive sleep apnea: Status: Acute (4) Morbid obesity with BMI of 40.0-44.9, adult: Status: Acute (5) Carotid stenosis, bilateral: Status: Acute (6) Ischemic cardiomyopathy: Status: Acute (7) Diabetes: Status: Acute (8) S/P CABG (coronary artery bypass graft): Status: Acute Assessment and Plan: Assessment: 71-year-old gentleman with underlying CAD, MICHAEL, obesity, diabetes mellitus admitted with COVID-19 with hospital course significant for progressive hypoxemia and now requiring ventilatory support Plan: Neuro: No acute issues. Cardiac: No acute issues. underlying history of CAD status post CABG and hypertension. Pulmonary: Acute hypoxic respiratory failure secondary to COVID-19 ARDS now requiring ventilatory support. Continue to titrate off as tolerated. Renal: No acute issues. Endo: No acute issues. Underlying diabetes mellitus. GI: No acute issues. ID: COVID 19, continue with dexamethasone and baricitinib. Heme/Onc: No acute issues. Psych: No acute issues. Miscellaneous: No acute issues. Prophylaxis: Lovenox, famotidine Diet: Tube feeds Critical care time spent: 30 minutes Quality Stroke Does the patient have a stroke diagnosis?: No VTE Prior VTE?: No VTE Risk Level:: Medical - moderate - high VTE Device Contraindication: N/A - Device Ordered VTE Drug Contraindication: Treatment Not Indicated
[2021-07-02] MEDS: fentaNYL citrate/NS 1,000 MCG/100 ML PLAST..BAG 5 MCG IVCONT (14:57)
--- NOTE | 2021-07-02 15:23 | MHC.CM.PN ---
Call placed to spouse, Ngozi to inquire on HCP location: Ngozi states there is one on record at [facility]. Call placed to medical records at [facility]: HCP to be faxed to [phone] by Kendall from [facility]. Pt remains in ICU on ventilatory support secondary to COVID (no vax) Pt was independent prior to admission - d/c plans are dependent on pt's ability to vent wean. CM to follow
[2021-07-02 17:17] LABS: Glucose, Whole Blood 189 mg/dL (60-115)
[2021-07-02] MEDS: Atorvastatin Calcium 80 MG TABLET PO (19:45)
[2021-07-02] MEDS: Enoxaparin Sodium 40 MG/0.4 ML SYRINGE SUBCUT (21:15)
[2021-07-03] VITALS (29 sets, daily range): BP systolic 107–165; BP diastolic 45–80; PULSE 41–79; RESP 20–23; TEMP 36.9–37.8; O2SAT 61–95; BMI 37.3
[2021-07-03 00:37] LABS: Glucose, Whole Blood 151 mg/dL (60-115)
[2021-07-03] MEDS: propofoL 1,000 MG/100 ML VIAL 18.97 MG IVCONT ×2 (03:50→07:57)
[2021-07-03] MEDS: Albumin Human 25 % 100 ML IV (03:58)
[2021-07-03 05:38] LABS: Glucose, Whole Blood 125 mg/dL (60-115)
[2021-07-03 05:41] LABS: VBG Base Excess 4.4 mmol/L; VBG HCO3 26 mmol/L (22-26); VBG pCO2 32 mmHg; VBG pH 7.52 (7.32-7.43); VBG pO2 62 mmHg
[2021-07-03] MEDS: Levothyroxine Sodium 125 MCG TABLET PO (06:01)
[2021-07-03 06:13] LABS: MANUAL DIFF FLAG NO
[2021-07-03 06:15] LABS: Basophils Percent Auto 0.1 % (0-2); Eosinophils Absolute Auto 0.2 X10*3/uL (0.0-0.4); Hematocrit 31.5 % (42.0-52.0); Hemoglobin 10.3 g/dl (14.0-18.0); Imm Gran Abs Auto 0.22 X10*3/uL (0.00-0.03); Imm Gran Pct Auto 2.9 % (0.0-0.4); Lymphocytes Percent Auto 12.8 % (20-40); Mean Corpuscular HGB Conc 32.7 g/dl (31.0-36.0); Mean Corpuscular Hemoglobin 28.1 pg (27.0-33.0); Mean Corpuscular Volume 85.8 fL (80.0-98.0); Mean Platelet Volume 10.9 fL (9.4-12.4); Monocytes Absolute Auto 0.4 X10*3/uL (0.1-1.2); Monocytes Percent Auto 5.2 % (2-11); Neutrophils Absolute Auto 5.8 x10*3/uL (2.0-8.3); Platelet Count 187 X10*3/uL (160-400); Red Blood Count 3.67 X10*6/uL (4.60-5.80); Red Cell Distribution Width 14.6 % (11.0-16.0); White Blood Count 7.5 X10*3/uL (4.8-10.8)
[2021-07-03 06:36] LABS: Albumin Level 3.9 g/dL (3.5-5.0); Anion Gap 13 (12-20); Blood Urea Nitrogen 32 mg/dL (9-16); Calcium 9.2 mg/dL (8.4-10.2); Carbon Dioxide 26 mmol/L (22-29); Chloride 107 mmol/L (96-108); Creatinine Clr Calc Pharmacy 80.6; Estimated Glomerular Filt Rate > 60; Glucose Random 133 mg/dL (60-115); Magnesium 2.5 mg/dL (1.6-2.6); Phosphorus 2.4 mg/dL (2.7-4.5); Potassium 3.6 mmol/L (3.3-5.1); Sodium 142 mmol/L (135-145)
[2021-07-03] MEDS: 0.9 % Sodium Chloride Flush 3 ML SYRINGE IVFLUSH ×2 (07:42→14:52)
[2021-07-03] MEDS: Aspirin Enteric Coated 81 MG TABLET.DR PO (07:42)
[2021-07-03] MEDS: dexAMETHasone sod phosphate 4 MG/ML VIAL 6 MG IVPUSH (07:42)
[2021-07-03] MEDS: Clopidogrel Bisulfate 75 MG TABLET PO (07:42)
[2021-07-03] MEDS: Chlorhexidine Gluc Oral Rinse 15 ML MOUTHWASH BUCCAL ×3 (07:42→21:26)
[2021-07-03] MEDS: Furosemide 40 MG/4 ML VIAL IVPUSH (07:42)
[2021-07-03] MEDS: Famotidine 20 MG TABLET 40 MG PO (07:42)
[2021-07-03 08:56] LABS: Venous Blood Gas Refer to POC result
[2021-07-03] MEDS: fentaNYL citrate/NS 1,000 MCG/100 ML PLAST..BAG 5 MCG IVCONT (11:03)
[2021-07-03] MEDS: Potassium Phosphate/NS 15 MMOL/250 ML PLAST..BAG 62.5 MMOL IV ×2 (11:03→15:03)
[2021-07-03 12:15] LABS: Glucose, Whole Blood 206 mg/dL (60-115)
[2021-07-03] MEDS: Insulin Lispro 100 UNIT/ML 3 ML VIAL SUBCUT ×2 (12:21→18:04)
[2021-07-03] MEDS: Alteplase Cath Clear 2 MG VIAL 1 MG INTRACATH (12:30)
[2021-07-03] MEDS: propofoL 1,000 MG/100 ML VIAL 22.13 MG IVCONT ×3 (12:31→21:26)
--- NOTE | 2021-07-03 12:48 | P.PNCC_ITS ---
Subjective Subjective Date of Service: 07/03/21 Interval History: ICU day 5 for acute hypoxic respiratory failure/COVID-19 ARDS. 71-year-old gentleman with underlying history of obesity, MICHAEL, CAD status post CABG, carotid stenosis, hypertension, hypothyroidism admitted on 06/24/2021 with mechanical fall, weakness, and diarrhea. Patient was initially COVID positive on 06/14/2021. He has been treated with dexamethasone and baricitinib. Hospital course significant for progressive hypoxemia failing high-flow and non-rebreather oxygen support, requiring initiation of noninvasive positive pressure ventilation support and transfer to intensive care unit on 06/29/2021 and intubation and ventilatory support on 06/30/2021. No events overnight. Critical Care Time (minutes): 30 Physical Exam Vital Signs: Vital Signs: Last Vital Signs Temp 99.7 F 07/03/21 12:00 Pulse 69 07/03/21 12:00 Resp 20 07/03/21 12:00 BP 117/52 L 07/03/21 12:00 Pulse Ox 89 L 07/03/21 12:00 BMI result Body Mass Index 37.3 Const: General: no acute distress and other (Sedated on the vent, arousable with sedation vacation) Eyes: Sclerae: sclerae normal EOM: EOMs intact bilaterally Neck: Neck: Yes no lymphadenopathy, Yes trachea midline and Yes supple Resp: Auscultation: crackles (Bibasilar) Cardio: Rate: regular rate Rhythm: regular rhythm Heart sounds: no gallops, no murmurs and no rubs GI: Palpation (GI): Soft to palpation and Other GI palpation findings present ( Nontender) Auscultation: normal bowel sounds Extrem: General: No clubbing, No cyanosis and Yes pedal edema (Trace bilateral) Objective Data Labs CBC & Chem 7: 07/03/21 05:58 07/03/21 05:35 Labs: Laboratory Results - last 24 hr 07/02/21 07/03/21 07/03/21 17:14 00:31 05:32 WBC RBC Hgb Hct MCV MCH MCHC RDW Plt Count MPV Immature Gran % (Auto) Neut % (Auto) Lymph % (Auto) [place] % (Auto) Eos % (Auto) Baso % (Auto) Lymph # (Auto) [place] # (Auto) Eos # (Auto) Baso # (Auto) Abs Immat Gran (auto) Absolute Neuts (auto) Absolute Nucleated RBC Nucleated RBC % (auto) VBG pH VBG pCO2 VBG pO2 VBG HCO3 VBG O2 Saturation VBG Base Excess Sodium Potassium Chloride Carbon Dioxide Anion Gap BUN Creatinine Estim Creat Clear Calc Estimated GFR POC Glucose 189 H 151 H 125 H Random Glucose Calcium Phosphorus Magnesium Albumin 07/03/21 07/03/21 07/03/21 05:34 05:35 05:58 WBC 7.5 RBC 3.67 L Hgb 10.3 L Hct 31.5 L MCV 85.8 MCH 28.1 MCHC 32.7 RDW 14.6 Plt Count 187 MPV 10.9 Immature Gran % (Auto) 2.9 H Neut % (Auto) 77.0 H Lymph % (Auto) 12.8 L [place] % (Auto) 5.2 Eos % (Auto) 2.0 Baso % (Auto) 0.1 Lymph # (Auto) 1.0 L [place] # (Auto) 0.4 Eos # (Auto) 0.2 Baso # (Auto) 0.0 Abs Immat Gran (auto) 0.22 H Absolute Neuts (auto) 5.8 Absolute Nucleated RBC 0.000 Nucleated RBC % (auto) 0.0 VBG pH 7.52 H VBG pCO2 32 VBG pO2 62 VBG HCO3 26 VBG O2 Saturation 88.0 VBG Base Excess 4.4 Sodium 142 Potassium 3.6 Chloride 107 Carbon Dioxide 26 Anion Gap 13 BUN 32 H Creatinine 0.94 Estim Creat Clear Calc 80.6 Estimated GFR > 60 POC Glucose Random Glucose 133 H Calcium 9.2 D Phosphorus 2.4 L Magnesium 2.5 Albumin 3.9 D 07/03/21 12:11 WBC RBC Hgb Hct MCV MCH MCHC RDW Plt Count MPV Immature Gran % (Auto) Neut % (Auto) Lymph % (Auto) [place] % (Auto) Eos % (Auto) Baso % (Auto) Lymph # (Auto) [place] # (Auto) Eos # (Auto) Baso # (Auto) Abs Immat Gran (auto) Absolute Neuts (auto) Absolute Nucleated RBC Nucleated RBC % (auto) VBG pH VBG pCO2 VBG pO2 VBG HCO3 VBG O2 Saturation VBG Base Excess Sodium Potassium Chloride Carbon Dioxide Anion Gap BUN Creatinine Estim Creat Clear Calc Estimated GFR POC Glucose 206 H Random Glucose Calcium Phosphorus Magnesium Albumin Microbiology Microbiology Results: Microbiology 12/24/21 19:40 Blood - Venous Blood Culture - Final No growth after 5 days. 06/24/21 19:30 Blood - Venous Blood Culture - Final No growth after 5 days. Progress Note: A&P Assessment and plan (1) Acute respiratory failure with hypoxia: Status: Acute (2) Acute respiratory distress syndrome (ARDS) due to COVID-19 virus: Status: Acute (3) Obstructive sleep apnea: Status: Acute (4) Morbid obesity with BMI of 40.0-44.9, adult: Status: Acute (5) Diabetes: Status: Acute (6) S/P CABG (coronary artery bypass graft): Status: Acute (7) Carotid stenosis, bilateral: Status: Acute Assessment and Plan: Assessment: 71-year-old gentleman with underlying CAD, MICHAEL, obesity, diabetes mellitus admitted with COVID-19 with hospital course significant for progressive hypoxemia and now requiring ventilatory support Plan: Neuro: No acute issues. Cardiac: No acute issues. Underlying history of CAD status post CABG and hypertension. Pulmonary: Acute hypoxic respiratory failure secondary to COVID-19 ARDS now requiring ventilatory support. Continue to titrate off as tolerated. Renal: No acute issues. Endo: No acute issues. Underlying diabetes mellitus. GI: No acute issues. ID: COVID 19, continue with dexamethasone and baricitinib. Heme/Onc: No acute issues. Psych: No acute issues. Miscellaneous: No acute issues. Prophylaxis: Lovenox, famotidine Diet: Tube feeds Critical care time spent: 30 minutes Quality Stroke Does the patient have a stroke diagnosis?: No VTE Prior VTE?: No VTE Risk Level:: Medical - moderate - high VTE Device Contraindication: N/A - Device Ordered VTE Drug Contraindication: Treatment Not Indicated
--- NOTE | 2021-07-03 15:46 | PC.NURSE ---
TLC BLUE PORT UNABLE TO FLUSH/DRAW BACK ON. MD NOTIFIED AND ORDERED CATH FLOW X 1. ADMINISTERED AT 1230 WITH POSITIVE EFFECT.
[2021-07-03 18:05] LABS: Glucose, Whole Blood 192 mg/dL (60-115)
[2021-07-03] MEDS: Atorvastatin Calcium 80 MG TABLET PO (21:27)
[2021-07-03] MEDS: Enoxaparin Sodium 40 MG/0.4 ML SYRINGE SUBCUT (21:28)
[2021-07-03] MEDS: DOPamine HCL/D5W 400 MG/250 ML PLAST..BAG 19.67 MG IVCONT (21:36)
[2021-07-03] MEDS: fentaNYL citrate/NS 1,000 MCG/100 ML PLAST..BAG 10 MCG IVCONT (21:47)
[2021-07-03] MEDS: fentaNYL citrate/NS 1,000 MCG/100 ML PLAST..BAG 15 MCG IVCONT (22:30)
[2021-07-04] VITALS (30 sets, daily range): BP systolic 96–159; BP diastolic 52–84; PULSE 46–87; RESP 14–22; TEMP 37–37.6; O2SAT 88–94; BMI 36.4
[2021-07-04] MEDS: 0.9 % Sodium Chloride Flush 3 ML SYRINGE IVFLUSH ×4 (00:02→21:52)
[2021-07-04] MEDS: Insulin Lispro 100 UNIT/ML 3 ML VIAL SUBCUT ×4 (00:02→18:26)
[2021-07-04 00:15] LABS: Glucose, Whole Blood 153 mg/dL (60-115)
[2021-07-04] MEDS: propofoL 1,000 MG/100 ML VIAL 25.3 MG IVCONT ×3 (00:45→06:31)
--- NOTE | 2021-07-04 03:46 | PC.NURSE ---
Assumed care at 19:00 from ZAY Rodriguez. Patient sedated on propofol and fentanyl. Was found to be awake and dysynchronous with vent, LEATHERSMITH assessed patient in conjunction with RN and sedation up-titrated per LEATHERSMITH, now on gtts: propofol 40 and fentanyl 150. Patient continues on the ventilator with #7.5 ETT 26 cm mikki, AC settings Rate 20 (now synchronous); TV 450; PEEP 5; FiO2 40%; Te about 7.5-8.8. SpO2 87-89%, and LEATHERSMITH aware, later, after increased sedation and adding dopamine, patient SpO2 90-92%. Patient in Sinus bradycardia, had a first degree AV block, which resolved after Dopamine was started per LEATHERSMITH after rate was staying 37-39. Patient was hypertensive before starting low dose dopamine SBP 130's, after starting dopamine was 150's, ok per LEATHERSMITH. Patient HR is now in 50's. Urine outputs are in 50's. No BM. TF tolerated well. Skin is intact, pink blanchable buttocks.
[2021-07-04] MEDS: fentaNYL citrate/NS 1,000 MCG/100 ML PLAST..BAG 15 MCG IVCONT ×3 (05:19→18:53)
[2021-07-04] MEDS: Levothyroxine Sodium 125 MCG TABLET PO (05:23)
[2021-07-04 05:37] LABS: Glucose, Whole Blood 155 mg/dL (60-115)
[2021-07-04 05:38] LABS: VBG Base Excess 4.1 mmol/L; VBG HCO3 26 mmol/L (22-26); VBG pCO2 34 mmHg; VBG pO2 47 mmHg
[2021-07-04 05:39] LABS: Venous Blood Gas Refer to POC result
[2021-07-04 05:45] LABS: MANUAL DIFF FLAG NO
[2021-07-04 05:49] LABS: Basophils Percent Auto 0.2 % (0-2); Eosinophils Absolute Auto 0.2 X10*3/uL (0.0-0.4); Eosinophils Percent Auto 1.8 % (0-4); Hematocrit 37.5 % (42.0-52.0); Hemoglobin 12.3 g/dl (14.0-18.0); Imm Gran Abs Auto 0.44 X10*3/uL (0.00-0.03); Imm Gran Pct Auto 3.5 % (0.0-0.4); Lymphocytes Absolute Auto 1.3 X10*3/uL (1.2-4.9); Lymphocytes Percent Auto 10.4 % (20-40); Mean Corpuscular HGB Conc 32.8 g/dl (31.0-36.0); Mean Corpuscular Hemoglobin 28.3 pg (27.0-33.0); Mean Corpuscular Volume 86.4 fL (80.0-98.0); Mean Platelet Volume 10.5 fL (9.4-12.4); Monocytes Absolute Auto 0.8 X10*3/uL (0.1-1.2); Monocytes Percent Auto 6.6 % (2-11); Neutrophils Absolute Auto 9.7 x10*3/uL (2.0-8.3); Neutrophils Percent Auto 77.5 % (45-73); Platelet Count 265 X10*3/uL (160-400); Red Blood Count 4.34 X10*6/uL (4.60-5.80); Red Cell Distribution Width 14.5 % (11.0-16.0); White Blood Count 12.5 X10*3/uL (4.8-10.8)
[2021-07-04 06:05] LABS: Albumin Level 3.9 g/dL (3.5-5.0); Anion Gap 13 (12-20); Blood Urea Nitrogen 25 mg/dL (9-16); Calcium 9.3 mg/dL (8.4-10.2); Carbon Dioxide 27 mmol/L (22-29); Chloride 106 mmol/L (96-108); Creatinine Clr Calc Pharmacy 94.7; Estimated Glomerular Filt Rate > 60; Glucose Random 159 mg/dL (60-115); Magnesium 2.3 mg/dL (1.6-2.6); Phosphorus 2.4 mg/dL (2.7-4.5); Sodium 142 mmol/L (135-145)
[2021-07-04] MEDS: Famotidine 20 MG TABLET 40 MG PO (08:50)
[2021-07-04] MEDS: dexAMETHasone sod phosphate 4 MG/ML VIAL 6 MG IVPUSH (08:50)
[2021-07-04] MEDS: Chlorhexidine Gluc Oral Rinse 15 ML MOUTHWASH BUCCAL ×3 (08:50→21:50)
[2021-07-04] MEDS: Sodium,Potassium Phosphates POWD.PACK 2 PACKET PO (08:50)
[2021-07-04] MEDS: Clopidogrel Bisulfate 75 MG TABLET PO (08:51)
[2021-07-04] MEDS: Aspirin Enteric Coated 81 MG TABLET.DR PO (08:51)
[2021-07-04] MEDS: Furosemide 40 MG/4 ML VIAL IVPUSH (08:53)
[2021-07-04] MEDS: DOPamine HCL/D5W 400 MG/250 ML PLAST..BAG 19.67 MG IVCONT (09:27)
[2021-07-04] MEDS: Insulin Glargine,Hum.rec.anlog 100 UNIT/ML 10 ML VIAL 10 UNIT SUBCUT (10:09)
--- NOTE | 2021-07-04 10:41 | MHC.CLN ---
F/U PT RECEIVING PROMOTE AT MAX GOAL RATE OF 50 ML PER HOUR WITH FREE WATER FLUSH 120 ML WATER EVERY 6 HOURS PROVIDES 1200 KCAL ([id number] WITH SEDATION; 25 KCAL/KG CMW); 76 G PROTEIN (1.02 G/KG CMW); FREE WATER FROM FORMULA AND [id number] ML (19.8 ML/KG CMW). CONTINUE TO MONITOR TOLERANCE, RESIDUALS AND LYTES.
[2021-07-04] MEDS: propofoL 1,000 MG/100 ML VIAL 18.97 MG IVCONT ×3 (10:43→18:26)
[2021-07-04 11:27] LABS: Glucose, Whole Blood 181 mg/dL (60-115)
--- NOTE | 2021-07-04 11:57 | MHC.CM.PN ---
Pt continues care in ICU with COVID: he is intubated and on 40% FiO2. No plans to extubate today: Initial d/c plan was for a return to home with family however, he may require placement depending on his ability to vent wean. CM to follow at this time for finalization of d/c plans
[2021-07-04] MEDS: fentaNYL citrate/PF 100 MCG/2 ML VIAL IVPUSH (12:45)
[2021-07-04 19:17] LABS: Glucose, Whole Blood 238 mg/dL (60-115)
--- NOTE | 2021-07-04 20:28 | PM.CCPN ---
Subjective Subjective Date of Service: 07/04/21 Interval History: Mr. Kwan was transferred to the ICU on June 29 with acute respiratory failure secondary to COVID pneumonia. The patient is a 71-year-old man with past medical history of obesity, MICHAEL not on CPAP, hypertension, hyperlipidemia, diabetes, CAD status post CABG, carotid stenosis, varicose veins, and depression. Limited ECHO done 04/28/20 was notable for normal left ventricular cavity size, normal left ventricular wall thickness, mildly decreased LV systolic function with EF 45-50% with some regional wall motion abnormalities.? RV and IVC were not assessed. The patient lives at home with his .? He is functionally independent.? HCP?s are his two daughters. The patient tested positive for COVID-19 on Jun 14.? Was seen in the ED for back pain on June 21, with Sat 98% on room air. ?He presented to the ED on Jun 24 c/o generalized weakness, decreased po intake, and a fall about 2 days prior during which he had brief LOC, and diarrhea. In ED had Sat 88% on room air.? Labs notable for WBC 4.4, plat 126K (baseline normal), DDimer 416, BUN/creat 20/1.1 (baseline 17/1.0), normal lactate, normal trop and BNP, positive COVID.? Chest CT showed bilat mild-mod multifocal groundglass infiltrates consistent with COVID pneumonia.? Head CT negative. Admitted to Medicine and started on Decadron and then baricitinab.? Oxygenation deteriorated and the patient was transferred to ICU for BiPAP on June 29.? He was intubated the next day.? Postop chest x-ray showed mild multifocal disease (no recent film for comparison). ?FiO2 rapidly came down to 40%. Last night started on dopamine for heart rates in the 30s, although was not hypotensive. ?Had problems with ventilator dyssynchrony, so fentanyl was increased. ?Today he?s sedated on propofol 30ug, fentanyl 150 ug, and he is on dopamine at 5 mcg.? With a sedation holiday today, the patient clearly woke up and became agitated, moved around, grabbing at things, although he was not purposefully interactive.? HR 57, sinus rhythm.? BP 147/70.? On AC 20/450/40/+5, RR was 20, Ve 9L, PIP 35, Sat 94%.? CVBG this morning showed 7.50/34/+4.? He?s been afebrile his entire hospital stay.? Pupils equal round, about 3-4 mm. ?No jugular venous distention with the head of the 3rd degrees.? Chest clear to auscultation, with normal expiratory phase.? Regular rate and rhythm, with normal-sounding S1 and S2, with no murmur or gallops.? Abdomen is obese and benign.? No peripheral edema. LABORATORY DATA:? As below.? Notably, white count is bump to 12.? BUN/creatinine down to 25/0.8.? Point of care is running 100s.? Phos 2.4. IMPRESSION: 1. Underlying obesity, DM 2. Underlying CAD.? Currently on aspirin, statin, Plavix.? 3. Bilat COVID pneumonia.? Currently on Decadron 6 mg daily, baricitinib, Pepcid, plus Lovenox 40 mg daily.? Continue current regimen. 4. Hypoxemic respiratory failure.? 2? above.? Also on Lasix 40 mg daily.? Wean as tolerated.? Would bump steroids if he worsens. 5. Bradycardia.? Wean dopamine off.? Check trop in AM. 6. DM.? Started Lantus 10 u qAM. 7. ID.? No indication for abx. Critical care time (including d/w Dr. Ramos, full chart review, and hosp course summary):? 80+ min. Critical Care Time (minutes): 80 Physical Exam Vital Signs: Vital Signs: Last Vital Signs Temp 99 F 07/04/21 20:00 Pulse 54 07/04/21 20:00 Resp 20 07/04/21 20:00 BP 133/67 07/04/21 20:00 Pulse Ox 94 07/04/21 20:00 BMI result Body Mass Index 36.4 Objective Data Labs CBC & Chem 7: 07/04/21 05:30 07/04/21 05:30 Labs: Laboratory Results - last 24 hr 07/03/21 07/04/21 07/04/21 23:58 05:19 05:30 WBC 12.5 H RBC 4.34 L Hgb 12.3 L Hct 37.5 L MCV 86.4 MCH 28.3 MCHC 32.8 RDW 14.5 Plt Count 265 D MPV 10.5 Immature Gran % (Auto) 3.5 H Neut % (Auto) 77.5 H Lymph % (Auto) 10.4 L [place] % (Auto) 6.6 Eos % (Auto) 1.8 Baso % (Auto) 0.2 Lymph # (Auto) 1.3 [place] # (Auto) 0.8 Eos # (Auto) 0.2 Baso # (Auto) 0.0 Abs Immat Gran (auto) 0.44 H Absolute Neuts (auto) 9.7 H Absolute Nucleated RBC 0.000 Nucleated RBC % (auto) 0.0 VBG pH VBG pCO2 VBG pO2 VBG HCO3 VBG O2 Saturation VBG Base Excess Sodium Potassium Chloride Carbon Dioxide Anion Gap BUN Creatinine Estim Creat Clear Calc Estimated GFR POC Glucose 153 H 155 H Random Glucose Calcium Phosphorus Magnesium Albumin 07/04/21 07/04/21 07/04/21 05:30 05:32 11:18 WBC RBC Hgb Hct MCV MCH MCHC RDW Plt Count MPV Immature Gran % (Auto) Neut % (Auto) Lymph % (Auto) [place] % (Auto) Eos % (Auto) Baso % (Auto) Lymph # (Auto) [place] # (Auto) Eos # (Auto) Baso # (Auto) Abs Immat Gran (auto) Absolute Neuts (auto) Absolute Nucleated RBC Nucleated RBC % (auto) VBG pH 7.50 H VBG pCO2 34 VBG pO2 47 VBG HCO3 26 VBG O2 Saturation 73.0 VBG Base Excess 4.1 Sodium 142 Potassium 4.0 Chloride 106 Carbon Dioxide 27 Anion Gap 13 BUN 25 H Creatinine 0.80 Estim Creat Clear Calc 94.7 Estimated GFR > 60 POC Glucose 181 H Random Glucose 159 H Calcium 9.3 Phosphorus 2.4 L Magnesium 2.3 Albumin 3.9 07/04/21 18:22 WBC RBC Hgb Hct MCV MCH MCHC RDW Plt Count MPV Immature Gran % (Auto) Neut % (Auto) Lymph % (Auto) [place] % (Auto) Eos % (Auto) Baso % (Auto) Lymph # (Auto) [place] # (Auto) Eos # (Auto) Baso # (Auto) Abs Immat Gran (auto) Absolute Neuts (auto) Absolute Nucleated RBC Nucleated RBC % (auto) VBG pH VBG pCO2 VBG pO2 VBG HCO3 VBG O2 Saturation VBG Base Excess Sodium Potassium Chloride Carbon Dioxide Anion Gap BUN Creatinine Estim Creat Clear Calc Estimated GFR POC Glucose 238 H Random Glucose Calcium Phosphorus Magnesium Albumin Microbiology Microbiology Results: Microbiology 06/24/21 19:40 Blood - Venous Blood Culture - Final No growth after 5 days. 06/24/21 19:30 Blood - Venous Blood Culture - Final No growth after 5 days. Quality Stroke Does the patient have a stroke diagnosis?: No VTE Prior VTE?: No VTE Risk Level:: Medical - moderate - high VTE Device Contraindication: N/A - Device Ordered VTE Drug Contraindication: Treatment Not Indicated Critical Care Time Critical Care Time (minutes): 90
[2021-07-04] MEDS: DOPamine HCL/D5W 400 MG/250 ML PLAST..BAG 7.87 MG IVCONT (21:50)
[2021-07-04] MEDS: Atorvastatin Calcium 80 MG TABLET PO (21:50)
[2021-07-04] MEDS: Enoxaparin Sodium 40 MG/0.4 ML SYRINGE SUBCUT (21:51)
[2021-07-05] VITALS (29 sets, daily range): BP systolic 96–178; BP diastolic 50–92; PULSE 49–131; RESP 14–30; TEMP 33.9–37.9; O2SAT 2–94; BMI 36.3
[2021-07-05] MEDS: propofoL 1,000 MG/100 ML VIAL 15.81 MG IVCONT ×4 (01:13→22:21)
[2021-07-05] MEDS: Sodium,Potassium Phosphates POWD.PACK 2 PACKET PO (01:13)
[2021-07-05 01:32] LABS: Glucose, Whole Blood 150 mg/dL (60-115)
[2021-07-05] MEDS: fentaNYL citrate/NS 1,000 MCG/100 ML PLAST..BAG 7.5 MCG IVCONT (04:31)
[2021-07-05] MEDS: Levothyroxine Sodium 125 MCG TABLET PO (05:13)
[2021-07-05 05:31] LABS: Glucose, Whole Blood 122 mg/dL (60-115)
[2021-07-05 05:40] LABS: VBG Base Excess 4.1 mmol/L; VBG HCO3 28 mmol/L (22-26); VBG pCO2 40 mmHg; VBG pH 7.45 (7.32-7.43); VBG pO2 39 mmHg
[2021-07-05 05:42] LABS: Venous Blood Gas Refer to POC result
[2021-07-05 06:09] LABS: Hematocrit 38.9 % (42.0-52.0); Hemoglobin 12.4 g/dl (14.0-18.0); Mean Corpuscular HGB Conc 31.9 g/dl (31.0-36.0); Mean Corpuscular Hemoglobin 27.7 pg (27.0-33.0); Mean Platelet Volume 10.8 fL (9.4-12.4); Platelet Count 254 X10*3/uL (160-400); Red Blood Count 4.47 X10*6/uL (4.60-5.80); Red Cell Distribution Width 14.5 % (11.0-16.0); White Blood Count 10.6 X10*3/uL (4.8-10.8)
[2021-07-05 06:34] LABS: D Dimer High Sensitivity 3388 NG/ML
[2021-07-05 06:35] LABS: Alanine Aminotransferase 47 U/L (0-40); Albumin Level 3.5 g/dL (3.5-5.0); Alkaline Phosphatase 52 U/L (39-117); Anion Gap 12 (12-20); Aspartate Amino Transferase 20 U/L (5-37); Bilirubin Total 0.8 mg/dL (0.0-1.0); Blood Urea Nitrogen 31 mg/dL (9-16); C Reactive Protein 5.54 mg/dL (< or = 0.50); Calcium 9.4 mg/dL (8.4-10.2); Carbon Dioxide 29 mmol/L (22-29); Chloride 104 mmol/L (96-108); Creatinine Clr Calc Pharmacy 92.3; Estimated Glomerular Filt Rate > 60; Glucose Random 135 mg/dL (60-115); Lactate Dehydrogenase 302 U/L (118-273); Magnesium 2.3 mg/dL (1.6-2.6); Phosphorus 3.7 mg/dL (2.7-4.5); Potassium 4.4 mmol/L (3.3-5.1); Sodium 141 mmol/L (135-145); Total Protein 6.1 g/dL (6.5-8.0)
[2021-07-05 07:37] LABS: Ferritin 1608 ng/mL (20-250)
[2021-07-05] MEDS: 0.9 % Sodium Chloride Flush 3 ML SYRINGE IVFLUSH (08:57)
[2021-07-05] MEDS: dexAMETHasone sod phosphate 4 MG/ML VIAL 6 MG IVPUSH (08:57)
[2021-07-05] MEDS: Insulin Glargine,Hum.rec.anlog 100 UNIT/ML 10 ML VIAL 10 UNIT SUBCUT (08:57)
[2021-07-05] MEDS: Aspirin Enteric Coated 81 MG TABLET.DR PO (08:58)
[2021-07-05] MEDS: Chlorhexidine Gluc Oral Rinse 15 ML MOUTHWASH BUCCAL ×3 (08:58→21:01)
[2021-07-05] MEDS: Famotidine 20 MG TABLET 40 MG PO (08:58)
[2021-07-05] MEDS: Clopidogrel Bisulfate 75 MG TABLET PO (08:58)
[2021-07-05] MEDS: Furosemide 40 MG/4 ML VIAL IVPUSH (08:58)
[2021-07-05] MEDS: fentaNYL citrate/PF 100 MCG/2 ML VIAL IVPUSH ×2 (11:59→14:08)
[2021-07-05 12:08] LABS: Glucose, Whole Blood 196 mg/dL (60-115)
[2021-07-05] MEDS: Insulin Lispro 100 UNIT/ML 3 ML VIAL SUBCUT ×2 (12:08→18:16)
--- NOTE | 2021-07-05 12:30 | MHC.CM.PN ---
Pt continues care in ICU: vented but plan of care is to trial a sedation vacation. D/C plan is dependent on pt's ability to vent wean and his functional ability. CM to wait for improvement in condition before initiating STR referrals.
[2021-07-05] MEDS: fentaNYL citrate/NS 1,000 MCG/100 ML PLAST..BAG 10 MCG IVCONT (15:05)
[2021-07-05 18:15] LABS: Glucose, Whole Blood 182 mg/dL (60-115)
--- NOTE | 2021-07-05 19:58 | P.PNCC_ITS ---
Subjective Subjective Date of Service: 07/05/21 Interval History: Mr. Kwan was transferred to the ICU on June 29 with acute respiratory failure secondary to COVID pneumonia. The patient is a 71-year-old man with past medical history of obesity, MICHAEL not on CPAP, hypertension, hyperlipidemia, diabetes, CAD status post CABG, carotid stenosis, varicose veins, and depression. Limited ECHO done 04/28/20 was notable for normal left ventricular cavity size, normal left ventricular wall thickness, mildly decreased LV systolic function with EF 45-50% with some regional wall motion abnormalities.? RV and IVC were not assessed. The patient lives at home with his .? He is functionally independent.? HCP?s are his two daughters. The patient tested positive for COVID-19 on Jun 14.? Was seen in the ED for back pain on June 21, with Sat 98% on room air.? He presented to the ED on Jun 24 c/o generalized weakness, decreased po intake, and a fall about 2 days prior during which he had brief LOC, and diarrhea. In ED had Sat 88% on room air.? Labs notable for WBC 4.4, plat 126K (baseline normal), DDimer 416, BUN/creat 20/1.1 (baseline 17/1.0), normal lactate, normal trop and BNP, positive COVID.? Chest CT showed bilat mild-mod multifocal groundg lass infiltrates consistent with COVID pneumonia.? Head CT negative. Admitted to Medicine and started on Decadron and then baricitinab.? Oxygenation deteriorated and the patient was transferred to ICU for BiPAP on June 29.? He was intubated the next day.? Postop chest x-ray showed mild multifocal disease (no recent film for comparison). ?FiO2 rapidly came down to 40%.? Had been started on dopamine for heart rates in the 30s, although he was not hypotensive.? Dopamine is now off. Today was sedated on propofol 30ug, fentanyl 100 ug.? With a sedation holiday today, the patient clearly woke up, was reasonably calm, and was definitely purposefully interactive, consistently responding to my commands to give me a thumbs up or let go of my hand. ?Did not track however.? Also did fairly well with PSV trial.? Currently, HR 70 SR.? BP120/70.? On AC 14/450/40/+5, RR is 15, Ve 6.5L, PIP 20, ETCO2 35, Sat 93%.? CVBG this morning showed 7.45/40/+4.? Tmax 100.2 today.? Normal expiratory phase. LABORATORY DATA:? As below.? Notablyh, DDimer and Ferritin up significantly. IMPRESSION: 1. Underlying obesity, DM 2. Underlying CAD.? Currently on aspirin, statin, Plavix.? 3. Bilat COVID pneumonia.? Currently on Decadron 6 mg daily, baricitinib, Pepcid, plus Lovenox 40 mg daily.? Continue current regimen. 4. Hypoxemic respiratory failure.? 2? above.? Also on Lasix 40 mg daily.? Wean as tolerated.? Would bump steroids if he worsens.? Did well with weaning trial today. 5. Bradycardia.? Dopamine is off.? Check troponin. 6. DM.? Started Lantus 10 u qAM.? POCs are now within the 100s. 7. ID.? No indication for abx. 8. Neuro/psych.? Good interaction today during the propofol holiday, but he acted almost as if he were blind.? Could be either delirium or a stroke.? There?s no need to mills to determine which.? We?ll further evaluate over the next few days. Critical Care Time (minutes): 60 Physical Exam Vital Signs: Vital Signs: Last Vital Signs Temp 99.5 F 07/05/21 18:49 Pulse 64 07/05/21 18:49 Resp 15 07/05/21 18:49 BP 99/60 07/05/21 18:49 Pulse Ox 94 07/05/21 18:49 BMI result Body Mass Index 36.3 Objective Data Labs CBC & Chem 7: 07/05/21 05:33 07/05/21 05:33 Labs: Laboratory Results - last 24 hr 07/05/21 07/05/21 07/05/21 01:16 05:21 05:33 WBC 10.6 RBC 4.47 L Hgb 12.4 L Hct 38.9 L MCV 87.0 MCH 27.7 MCHC 31.9 RDW 14.5 Plt Count 254 MPV 10.8 Absolute Nucleated RBC 0.000 Nucleated RBC % (auto) 0.0 D-Dimer High Sensitivty VBG pH VBG pCO2 VBG pO2 VBG HCO3 VBG O2 Saturation VBG Base Excess Sodium Potassium Chloride Carbon Dioxide Anion Gap BUN Creatinine Estim Creat Clear Calc Estimated GFR POC Glucose 150 H 122 H Random Glucose Calcium Phosphorus Magnesium Ferritin Total Bilirubin AST ALT Alkaline Phosphatase Lactate Dehydrogenase C-Reactive Protein Total Protein Albumin 07/05/21 07/05/21 07/05/21 05:33 05:33 05:33 WBC RBC Hgb Hct MCV MCH MCHC RDW Plt Count MPV Absolute Nucleated RBC Nucleated RBC % (auto) D-Dimer High Sensitivty 3388 VBG pH 7.45 H VBG pCO2 40 VBG pO2 39 VBG HCO3 28 H VBG O2 Saturation 59.0 VBG Base Excess 4.1 Sodium 141 Potassium 4.4 Chloride 104 Carbon Dioxide 29 Anion Gap 12 BUN 31 H Creatinine 0.81 Estim Creat Clear Calc 92.3 Estimated GFR > 60 POC Glucose Random Glucose 135 H Calcium 9.4 Phosphorus 3.7 Magnesium 2.3 Ferritin 1608 H Total Bilirubin 0.8 AST 20 D ALT 47 H Alkaline Phosphatase 52 D Lactate Dehydrogenase 302 H C-Reactive Protein 5.54 H Total Protein 6.1 L Albumin 3.5 07/05/21 07/05/21 12:03 18:09 WBC RBC Hgb Hct MCV MCH MCHC RDW Plt Count MPV Absolute Nucleated RBC Nucleated RBC % (auto) D-Dimer High Sensitivty VBG pH VBG pCO2 VBG pO2 VBG HCO3 VBG O2 Saturation VBG Base Excess Sodium Potassium Chloride Carbon Dioxide Anion Gap BUN Creatinine Estim Creat Clear Calc Estimated GFR POC Glucose 196 H 182 H Random Glucose Calcium Phosphorus Magnesium Ferritin Total Bilirubin AST ALT Alkaline Phosphatase Lactate Dehydrogenase C-Reactive Protein Total Protein Albumin Microbiology Microbiology Results: Microbiology 07/05/21 06:00 Sputum - Suctioned Gram Stain - Final 06/24/21 19:40 Blood - Venous Blood Culture - Final No growth after 5 days. 06/24/21 19:30 Blood - Venous Blood Culture - Final No growth after 5 days. Quality Stroke Does the patient have a stroke diagnosis?: No VTE Prior VTE?: No VTE Risk Level:: Medical - moderate - high VTE Device Contraindication: N/A - Device Ordered VTE Drug Contraindication: Treatment Not Indicated Critical Care Time Critical Care Time (minutes): 60
[2021-07-05] MEDS: Enoxaparin Sodium 40 MG/0.4 ML SYRINGE SUBCUT (21:01)
[2021-07-05] MEDS: Atorvastatin Calcium 80 MG TABLET PO (21:01)
[2021-07-06] VITALS (31 sets, daily range): BP systolic 76–163; BP diastolic 45–82; PULSE 47–84; RESP 14–28; TEMP 34.5–37.7; O2SAT 9–95; BMI 36.9
[2021-07-06 00:11] LABS: Glucose, Whole Blood 151 mg/dL (60-115)
[2021-07-06] MEDS: Insulin Lispro 100 UNIT/ML 3 ML VIAL SUBCUT ×3 (01:03→18:04)
[2021-07-06] MEDS: 0.9 % Sodium Chloride Flush 3 ML SYRINGE IVFLUSH ×3 (01:04→14:00)
[2021-07-06] MEDS: fentaNYL citrate/NS 1,000 MCG/100 ML PLAST..BAG 10 MCG IVCONT (02:29)
[2021-07-06] MEDS: propofoL 1,000 MG/100 ML VIAL 15.81 MG IVCONT ×3 (04:32→17:03)
[2021-07-06 05:27] LABS: VBG HCO3 29 mmol/L (22-26); VBG pCO2 40 mmHg; VBG pH 7.47 (7.32-7.43); VBG pO2 42 mmHg
[2021-07-06 05:29] LABS: Venous Blood Gas Refer to POC result
[2021-07-06 05:39] LABS: Hematocrit 38.8 % (42.0-52.0); Hemoglobin 12.5 g/dl (14.0-18.0); Mean Corpuscular HGB Conc 32.2 g/dl (31.0-36.0); Mean Corpuscular Hemoglobin 28.2 pg (27.0-33.0); Mean Corpuscular Volume 87.6 fL (80.0-98.0); Mean Platelet Volume 11.3 fL (9.4-12.4); Platelet Count 244 X10*3/uL (160-400); Red Blood Count 4.43 X10*6/uL (4.60-5.80); Red Cell Distribution Width 14.6 % (11.0-16.0); White Blood Count 10.2 X10*3/uL (4.8-10.8)
[2021-07-06 05:58] LABS: Anion Gap 12 (12-20); Blood Urea Nitrogen 41 mg/dL (9-16); Calcium 9.3 mg/dL (8.4-10.2); Carbon Dioxide 29 mmol/L (22-29); Chloride 103 mmol/L (96-108); Estimated Glomerular Filt Rate > 60; Glucose Random 147 mg/dL (60-115); Magnesium 2.4 mg/dL (1.6-2.6); Phosphorus 3.2 mg/dL (2.7-4.5); Potassium 4.4 mmol/L (3.3-5.1); Sodium 140 mmol/L (135-145)
[2021-07-06 06:00] LABS: Troponin-I High Sensitivity 16.8 ng/L (<3.5-35.0)
[2021-07-06] MEDS: Levothyroxine Sodium 125 MCG TABLET PO (06:20)
[2021-07-06 06:21] LABS: Glucose, Whole Blood 130 mg/dL (60-115)
[2021-07-06] MEDS: Clopidogrel Bisulfate 75 MG TABLET PO (08:18)
[2021-07-06] MEDS: Chlorhexidine Gluc Oral Rinse 15 ML MOUTHWASH BUCCAL ×3 (08:18→22:06)
[2021-07-06] MEDS: Aspirin Enteric Coated 81 MG TABLET.DR PO (08:19)
[2021-07-06] MEDS: Famotidine 20 MG TABLET 40 MG PO (08:19)
[2021-07-06] MEDS: Insulin Glargine,Hum.rec.anlog 100 UNIT/ML 10 ML VIAL 10 UNIT SUBCUT (08:19)
[2021-07-06] MEDS: dexAMETHasone sod phosphate 4 MG/ML VIAL 6 MG IVPUSH (08:19)
--- NOTE | 2021-07-06 09:37 | MHC.CLN ---
F/U NOTED BUN TRENDING UP PT RECEIVING PROMOTE AT MAX GOAL RATE OF 50 ML PER HOUR WITH FREE WATER FLUSH 120 ML WATER EVERY 6 HOURS PROVIDES 1200 KCAL (1617KCALS WITH SEDATION; 22 KCAL/KG CMW); 76 G PROTEIN (1.02 G/KG CMW); 1480 ML TOTAL WATER FROM FORMULA AND FLUSHES (19.8 ML/KG CMW). CONTINUE TO MONITOR TOLERANCE, RESIDUALS AND LYTES.
[2021-07-06 12:04] LABS: Glucose, Whole Blood 191 mg/dL (60-115)
--- NOTE | 2021-07-06 14:28 | PM.CCPN ---
Subjective Subjective Date of Service: 07/06/21 Interval History: Mr. Kwan was transferred to the ICU on June 29 with acute respiratory failure secondary to COVID pneumonia. The patient is a 71-year-old man with past medical history of obesity, MICHAEL not on CPAP, hypertension, hyperlipidemia, diabetes, CAD status post CABG, carotid stenosis, varicose veins, and depression. Limited ECHO done 04/28/20 was notable for normal left ventricular cavity size, normal left ventricular wall thickness, mildly decreased LV systolic function with EF 45-50% with some regional wall motion abnormalities.? RV and IVC were not assessed. The patient lives at home with his .? He is functionally independent.? HCP?s are his two daughters. The patient tested positive for COVID-19 on Jun 14.? [Estimated sx onset date Jun 12.]? Was seen in the ED for back pain on June 21, with Sat 98% on room air.? He presented to the ED on Jun 24 c/o generalized weakness, decreased po intake, and a fall about 2 days prior during which he had brief LOC, and diarrhea. In ED had Sat 88% on room air.? Labs notable for WBC 4.4, plat 126K (baseline normal), DDimer 416, BUN/creat 20/1.1 (baseline 17/1.0), normal lactate, normal trop and BNP, positive COVID.? Chest CT showed bilat mild-mod multifocal groundglass infiltrates consistent with COVID pneumonia.? Head CT negative. Admitted to Medicine and started on Decadron and then baricitinab.? Oxygenation deteriorated and the patient was transferred to ICU for BiPAP on June 29.? He was intubated the next day.? Postop chest x-ray showed mild multifocal disease (no recent film for comparison). ?FiO2 rapidly came down to 40%.? Yesterday during a wake-up test, the patient was mostly purposefully responsive to simple commands, but did not track, did not respond to confrontation. With a sedation holiday today, the patient became agitated, tachypneic and dyssynchronous, and tachycardic. ?He was put back on propofol. Currently sedated on propofol 25ug, fentanyl 75 ug.? He is afebrile.? Heart 62, blood pressure 126/71.? Calm and breathing easy on the vent.? On AC 14/450/40/+5, RR is 16, Ve 7.2L, PIP 24, ETCO2 34, Sat 93%.? CVBG this morning showed 7.47/40/+6.? Normal expiratory phase. LABORATORY DATA:? As below. MICROBIOLOGY:? Sputum Gram stain from yesterday showed 3+ polys, 2+ epithelial cells, 4+ GPC/pairs and short chains. IMPRESSION: 1. Underlying obesity, DM 2. Underlying CAD.? Currently on aspirin, statin, Plavix.? 3. Bilat COVID pneumonia.? Estimated sx onset date Jun 12-.? Currently on Decadron 6 mg daily, baricitinib, Pepcid, plus Lovenox 40 mg daily.? Continue current regimen. 4. Hypoxemic respiratory failure.? 2? above.? Wean as tolerated.? Would bump steroids if he worsens.? Did well with weaning trial today. 5. OSCAR.? We?ve had him on Lasix to keep his lungs dry.? The renal ratio is rising.? Time to D/C the diuretics. 6. DM.? Started Lantus 10 u qAM.? POCs are now within the 100s. 7. ID.? Clinically, there is no evidence of pneumonia.? His oxygenation has not worsened, he does not have a white count, and he is not febrile.? Ie, no indication of pneumonia. ?No indication for abx, despite the sputum Gram stain. 8. Neuro/psych.? Good interaction during the propofol holiday, but he acted almost as if he were blind.? Could be either delirium or a stroke.? No need to mills to determine which.? We?ll further evaluate over the next few days.? I?m going to switch him to Precedex tonight, and we?ll see how he does neurologically tomorrow. Critical Care Time (minutes): 50 Physical Exam Vital Signs: Vital Signs: Last Vital Signs Temp 99.5 F 07/06/21 14:00 Pulse 68 07/06/21 14:00 Resp 19 07/06/21 14:00 BP 126/71 07/06/21 14:00 Pulse Ox 92 07/06/21 14:00 BMI result Body Mass Index 36.9 Objective Data Labs CBC & Chem 7: 07/06/21 05:15 07/06/21 05:15 Labs: Laboratory Results - last 24 hr 07/05/21 07/06/21 07/06/21 18:09 00:07 05:15 WBC RBC Hgb Hct MCV MCH MCHC RDW Plt Count MPV Absolute Nucleated RBC Nucleated RBC % (auto) VBG pH VBG pCO2 VBG pO2 VBG HCO3 VBG O2 Saturation VBG Base Excess Sodium Potassium Chloride Carbon Dioxide Anion Gap BUN Creatinine Estim Creat Clear Calc Estimated GFR POC Glucose 182 H 151 H Random Glucose Calcium Phosphorus Magnesium Troponin I High Sens 16.8 D 07/06/21 07/06/21 07/06/21 05:15 05:15 05:19 WBC 10.2 RBC 4.43 L Hgb 12.5 L Hct 38.8 L MCV 87.6 MCH 28.2 MCHC 32.2 RDW 14.6 Plt Count 244 MPV 11.3 Absolute Nucleated RBC 0.000 Nucleated RBC % (auto) 0.0 VBG pH 7.47 H VBG pCO2 40 VBG pO2 42 VBG HCO3 29 H VBG O2 Saturation 65.0 VBG Base Excess 6.0 Sodium 140 Potassium 4.4 Chloride 103 Carbon Dioxide 29 Anion Gap 12 BUN 41 H Creatinine 0.89 Estim Creat Clear Calc 84.0 Estimated GFR > 60 POC Glucose Random Glucose 147 H Calcium 9.3 Phosphorus 3.2 Magnesium 2.4 Troponin I High Sens 07/06/21 07/06/21 06:14 11:59 WBC RBC Hgb Hct MCV MCH MCHC RDW Plt Count MPV Absolute Nucleated RBC Nucleated RBC % (auto) VBG pH VBG pCO2 VBG pO2 VBG HCO3 VBG O2 Saturation VBG Base Excess Sodium Potassium Chloride Carbon Dioxide Anion Gap BUN Creatinine Estim Creat Clear Calc Estimated GFR POC Glucose 130 H 191 H Random Glucose Calcium Phosphorus Magnesium Troponin I High Sens Microbiology Microbiology Results: Microbiology 07/05/21 06:00 Sputum - Suctioned Gram Stain - Final 07/05/21 06:00 Sputum - Suctioned Sputum Culture - Preliminary Culture in progress. 06/24/21 19:40 Blood - Venous Blood Culture - Final No growth after 5 days. 06/24/21 19:30 Blood - Venous Blood Culture - Final No growth after 5 days. Quality Stroke Does the patient have a stroke diagnosis?: No VTE Prior VTE?: No VTE Risk Level:: Medical - moderate - high VTE Device Contraindication: N/A - Device Ordered VTE Drug Contraindication: Treatment Not Indicated Critical Care Time Critical Care Time (minutes): 60
[2021-07-06] MEDS: fentaNYL citrate/NS 1,000 MCG/100 ML PLAST..BAG 5 MCG IVCONT (15:21)
--- NOTE | 2021-07-06 15:47 | MHC.CM.PN ---
Pt remains in ICU intubated with COVID: trials of reduced support initiated. D/C remains pended at this time until pt's needs can be better determined. Pt was independent at home with spouse prior to admission
[2021-07-06 18:05] LABS: Glucose, Whole Blood 188 mg/dL (60-115)
[2021-07-06] MEDS: dexmedeTOMIDidine HCL/NS 400 MCG/100 ML INFUS..BTL 12.99 MCG IVCONT (18:18)
[2021-07-06] MEDS: Atorvastatin Calcium 80 MG TABLET PO (22:06)
[2021-07-06] MEDS: Enoxaparin Sodium 40 MG/0.4 ML SYRINGE SUBCUT (22:06)
[2021-07-06] MEDS: dexmedeTOMIDidine HCL/NS 400 MCG/100 ML INFUS..BTL 20.78 MCG IVCONT (22:08)
[2021-07-07] VITALS (29 sets, daily range): BP systolic 84–157; BP diastolic 53–73; PULSE 43–93; RESP 15–30; TEMP 35–38; O2SAT 88–96; BMI 37.2
[2021-07-07 00:29] LABS: Glucose, Whole Blood 164 mg/dL (60-115)
[2021-07-07] MEDS: 0.9 % Sodium Chloride Flush 3 ML SYRINGE IVFLUSH ×3 (00:30→15:05)
[2021-07-07] MEDS: Insulin Lispro 100 UNIT/ML 3 ML VIAL SUBCUT ×4 (00:30→18:26)
[2021-07-07] MEDS: dexmedeTOMIDidine HCL/NS 400 MCG/100 ML INFUS..BTL 20.78 MCG IVCONT (02:45)
--- NOTE | 2021-07-07 04:08 | PC.NURSE ---
ET tube noted to be 21-23 cm at lip. Tube tamer changed with RT and adjusted to original position 25 cm at lip.
[2021-07-07] MEDS: Levothyroxine Sodium 125 MCG TABLET PO (05:19)
[2021-07-07 05:33] LABS: Glucose, Whole Blood 165 mg/dL (60-115)
[2021-07-07 05:45] LABS: VBG Base Excess 5.1 mmol/L; VBG HCO3 28 mmol/L (22-26); VBG pCO2 35 mmHg; VBG pO2 51 mmHg
[2021-07-07 05:47] LABS: Venous Blood Gas Refer to POC result
[2021-07-07 06:15] LABS: Alanine Aminotransferase 39 U/L (0-40); Albumin Level 3.1 g/dL (3.5-5.0); Alkaline Phosphatase 49 U/L (39-117); Anion Gap 11 (12-20); Aspartate Amino Transferase 21 U/L (5-37); Bilirubin Total 0.9 mg/dL (0.0-1.0); Blood Urea Nitrogen 33 mg/dL (9-16); C Reactive Protein 3.26 mg/dL (< or = 0.50); Calcium 8.9 mg/dL (8.4-10.2); Carbon Dioxide 29 mmol/L (22-29); Chloride 103 mmol/L (96-108); Creatinine Clr Calc Pharmacy 95.7; Estimated Glomerular Filt Rate > 60; Glucose Random 162 mg/dL (60-115); Magnesium 2.3 mg/dL (1.6-2.6); Phosphorus 2.9 mg/dL (2.7-4.5); Potassium 4.5 mmol/L (3.3-5.1); Sodium 138 mmol/L (135-145); Total Protein 5.6 g/dL (6.5-8.0)
[2021-07-07 06:37] LABS: D Dimer High Sensitivity 2144 NG/ML
[2021-07-07 06:58] LABS: Ferritin 2040 ng/mL (20-250)
[2021-07-07] MEDS: Aspirin Enteric Coated 81 MG TABLET.DR PO (07:58)
[2021-07-07] MEDS: Clopidogrel Bisulfate 75 MG TABLET PO (07:58)
[2021-07-07] MEDS: dexAMETHasone sod phosphate 4 MG/ML VIAL 6 MG IVPUSH (07:58)
[2021-07-07] MEDS: Chlorhexidine Gluc Oral Rinse 15 ML MOUTHWASH BUCCAL ×3 (07:58→20:07)
[2021-07-07] MEDS: Famotidine 20 MG TABLET 40 MG PO (07:58)
[2021-07-07] MEDS: Insulin Glargine,Hum.rec.anlog 100 UNIT/ML 10 ML VIAL 10 UNIT SUBCUT (07:59)
[2021-07-07] MEDS: fentaNYL citrate/NS 1,000 MCG/100 ML PLAST..BAG 5 MCG IVCONT (10:10)
[2021-07-07] MEDS: dexmedeTOMIDidine HCL/NS 400 MCG/100 ML INFUS..BTL 5.2 MCG IVCONT (10:10)
--- NOTE | 2021-07-07 10:14 | MHC.CLN ---
F/U PROPOFOL TURNED OFF RECOMMEND INCREASING PROMOTE AT MAX GOAL RATE OF 70 ML PER HOUR WITH FREE WATER FLUSH 120 ML WATER EVERY 6 HOURS PROVIDES 1680 KCAL (22 KCAL/KG CMW); 105 G PROTEIN (1.4 G/KG CMW); 1889 ML TOTAL WATER FROM FORMULA AND FLUSHES (25 ML/KG CMW). MONITOR TOLERANCE, RESIDUALS AND LYTES.
--- NOTE | 2021-07-07 10:32 | MHC.CM.PN ---
Patient remains intubated/vented in ICU. Patient originally tested positive for Covid on 06/19.. Sedation vacations have been attempted. Head CT will be ordered by Dr Roberts today. Patient is from home with . Will need physical therapy eval for home safety when medically stable. Patient has not received any Covid vaccines. Continue to monitor for d/c needs.
[2021-07-07 12:13] LABS: Glucose, Whole Blood 180 mg/dL (60-115)
[2021-07-07] MEDS: propofoL 1,000 MG/100 ML VIAL 31.62 MG IVCONT (13:00)
--- NOTE | 2021-07-07 13:28 | PC.NURSE ---
AFTER ROUNDS PRECEDEX GTT LOWERED TO 2 MCG/KG/HR PER MD. AT NOON ASSESSMENT PT RESTLESS, PULLING ON RESTRAINTS, OPEN EYES - BUT NOT TRACKING. NODS YES OR NO AND FOLLOWS SIMPLE COMMANDS. MD CALLED BEDSIDE TO ASSESS. RESTART SEDATION PER MD. HIGH RR IN 40S AND HIGH PEAK PRESSURES NOTED. INCREASES SEDATION - SEE EMAR. RT CALLED BEDSIDE TO CHANGE VENT SETTINGS. RT IS BEDSIDE PINK, FROTHY INLINE SECRETIONS NOTED. MD CALLED BEDSIDE. PER MD D/C PRECEDEX GTT AND CHANGE TO PROPOFOL GTT. SEE EMAR. TROPONIN ORDERED AND AWAITING PHLEBOTOMY. WILL CONTINUE TO MONITOR.
--- NOTE | 2021-07-07 13:47 | P.PNCC_ITS ---
Subjective Subjective Date of Service: 07/07/21 Interval History: Mr. Kwan was transferred to the ICU on June 29 with acute respiratory failure secondary to COVID pneumonia. The patient is a 71-year-old man with past medical history of obesity, MICHAEL not on CPAP, hypertension, hyperlipidemia, diabetes, CAD status post CABG, carotid stenosis, varicose veins, and depression. Limited ECHO done 04/28/20 was notable for normal left ventricular cavity size, normal left ventricular wall thickness, mildly decreased LV systolic function with EF 45-50% with some regional wall motion abnormalities.? RV and IVC were not assessed. The patient lives at home with his .? He is functionally independent.? HCP?s are his two daughters. The patient tested positive for COVID-19 on Jun 14.? [Estimated sx onset date Jun 12.]? Was seen in the ED for back pain on June 21, with Sat 98% on room air.? He presented to the ED on Jun 24 c/o generalized weakness, decreas ed po intake, and a fall about 2 days prior during which he had brief LOC, and diarrhea. In ED had Sat 88% on room air.? Labs notable for WBC 4.4, plat 126K (baseline normal), DDimer 416, BUN/creat 20/1.1 (baseline 17/1.0), normal lactate, normal trop and BNP, positive COVID.? Chest CT showed bilat mild-mod multifocal groundglass infiltrates consistent with COVID pneumonia.? Head CT negative. Admitted to Medicine and started on Decadron and then baricitinab.? Oxygenation deteriorated and the patient was transferred to ICU for BiPAP on June 29.? He was intubated the next day.? Postop chest x-ray showed mild multifocal disease (no recent film for comparison). ?FiO2 rapidly came down to 40%.? During wake-up tests on Jul 05 and today, the patient opened his eyes and had purposeful response to simple commands, but did not track, did not respond to confrontation.? Last night, we changed him from Precedex to propofol.? At low- dose Precedex today he was agitated and appeared delirious.? I?m calling that a Precedex failure (failed to keep him calm during low dose infusion) and we switched him back to propofol. During nursing maneuvers this afternoon, the patient was agitated and coughing vigorously.? Subsequently developed copious pink frothy secretions in his endotracheal tube and ventilator circuit.? Auscultation showed diffuse coarse crackles, presumably pulmonary edema, associated with a decrease in his sat.? Temp also roseann slightly.? We increased his FiO2 and increased his PEEP, SpO2 came back up to 94% Currently sedated on propofol 50ug, fentanyl 150 ug.? Temp is 100.4?.? HR 59, SR, blood pressure 106/64.? Calm and breathing easy now on the vent.? On AC 15/450/50/+10, RR is 15, Ve 7L, PIP up to 33, Sat 94%.? CVBG this morning showed 7.50/35/+5.? No JVD, normal expiratory phase, no M or G.? Abd benign.? Trivial edema, if any. LABORATORY DATA:? As below.? Renal indices down after stopping the Lasix. MICROBIOLOGY:? Sputum Gram stain from yesterday showed 3+ polys, 2+ epithelial cells, 4+ GPC/pairs and short chains.? DDimer and CRP are down, Ferritin is up. IMPRESSION: 1. Underlying obesity, DM 2. Underlying CAD.? Currently on aspirin, statin, Plavix. 3. Bilat COVID pneumonia.? Estimated sx onset date Jun 12-.? Currently on Decadron 6 mg daily, baricitinib, Pepcid, plus Lovenox 40 mg daily.? Continue current regimen. 4. Hypoxemic respiratory failure.? 2? above.? Wean as tolerated.? Would bump steroids if he worsens.? Did well with weaning trial yesterday. 5. Acute pulmonary edema episode today.? Likely negative pressure pulmonary edema.? Resolving quickly.? I will check a troponin. 6. OSCAR.? Renal indices improving after stopping the Lasix. 7. DM.? On Lantus 10 u qAM.? POCs are now in a perfect range. 8. ID.? Clinically, there is no evidence of pneumonia.? His oxygenation has not worsened, he does not have a white count, and until the episode this afternoon, he was not febrile.? Ie, no indication of pneumonia.? No indication for abx, despite the sputum Gram stain. 9. Neuro/psych.? Good interaction during the propofol holiday the other day, but he acted almost as if he were blind.? Could be either delirium or a stroke.? No need to mills to determine which.? We?ll further evaluate over the next few days once he does well on PSV.? Precedex didn?t advance his progress, so we?re back to propofol for now. 10. Nutrtition.? On goal rate Promote. Critical Care Time (minutes): 60 Physical Exam Vital Signs: Vital Signs: Last Vital Signs Temp 100.4 F 07/07/21 13:00 Pulse 67 07/07/21 13:00 Resp 27 H 07/07/21 13:00 BP 84/54 L 07/07/21 13:00 Pulse Ox 90 L 07/07/21 13:00 BMI result Body Mass Index 37.2 Objective Data Labs CBC & Chem 7: 07/06/21 05:15 07/07/21 05:28 Labs: Laboratory Results - last 24 hr 07/06/21 07/07/21 07/07/21 18:02 00:25 05:22 D-Dimer High Sensitivty VBG pH VBG pCO2 VBG pO2 VBG HCO3 VBG O2 Saturation VBG Base Excess Sodium Potassium Chloride Carbon Dioxide Anion Gap BUN Creatinine Estim Creat Clear Calc Estimated GFR POC Glucose 188 H 164 H 165 H Random Glucose Calcium Phosphorus Magnesium Ferritin Total Bilirubin AST ALT Alkaline Phosphatase C-Reactive Protein Total Protein Albumin 07/07/21 07/07/21 07/07/21 05:28 05:28 05:38 D-Dimer High Sensitivty 2144 VBG pH 7.50 H VBG pCO2 35 VBG pO2 51 VBG HCO3 28 H VBG O2 Saturation 78.0 VBG Base Excess 5.1 Sodium 138 Potassium 4.5 Chloride 103 Carbon Dioxide 29 Anion Gap 11 L BUN 33 H Creatinine 0.79 Estim Creat Clear Calc 95.7 Estimated GFR > 60 POC Glucose Random Glucose 162 H Calcium 8.9 Phosphorus 2.9 Magnesium 2.3 Ferritin 2040 H Total Bilirubin 0.9 AST 21 ALT 39 Alkaline Phosphatase 49 C-Reactive Protein 3.26 H Total Protein 5.6 L Albumin 3.1 L 07/07/21 12:08 D-Dimer High Sensitivty VBG pH VBG pCO2 VBG pO2 VBG HCO3 VBG O2 Saturation VBG Base Excess Sodium Potassium Chloride Carbon Dioxide Anion Gap BUN Creatinine Estim Creat Clear Calc Estimated GFR POC Glucose 180 H Random Glucose Calcium Phosphorus Magnesium Ferritin Total Bilirubin AST ALT Alkaline Phosphatase C-Reactive Protein Total Protein Albumin Microbiology Microbiology Results: Microbiology 07/05/21 06:00 Sputum - Suctioned Gram Stain - Final 07/05/21 06:00 Sputum - Suctioned Sputum Culture - Final 06/24/21 19:40 Blood - Venous Blood Culture - Final No growth after 5 days. 06/24/21 19:30 Blood - Venous Blood Culture - Final No growth after 5 days. Quality Stroke Does the patient have a stroke diagnosis?: No VTE Prior VTE?: No VTE Risk Level:: Medical - moderate - high VTE Device Contraindication: N/A - Device Ordered VTE Drug Contraindication: Treatment Not Indicated Critical Care Time Critical Care Time (minutes): 60
[2021-07-07 14:34] LABS: Troponin-I High Sensitivity 10.5 ng/L (<3.5-35.0)
[2021-07-07] MEDS: propofoL 1,000 MG/100 ML VIAL 18.97 MG IVCONT ×2 (16:51→20:07)
[2021-07-07 18:27] LABS: Glucose, Whole Blood 176 mg/dL (60-115)
[2021-07-07] MEDS: Enoxaparin Sodium 40 MG/0.4 ML SYRINGE SUBCUT (20:07)
[2021-07-07] MEDS: Atorvastatin Calcium 80 MG TABLET PO (20:07)
[2021-07-08] VITALS (29 sets, daily range): BP systolic 85–138; BP diastolic 47–80; PULSE 53–93; RESP 11–21; TEMP 34.2–37.8; O2SAT 93–98; BMI 37.4
[2021-07-08 00:48] LABS: Glucose, Whole Blood 145 mg/dL (60-115)
[2021-07-08] MEDS: 0.9 % Sodium Chloride Flush 3 ML SYRINGE IVFLUSH ×4 (00:48→23:27)
[2021-07-08] MEDS: propofoL 1,000 MG/100 ML VIAL 18.97 MG IVCONT (02:20)
[2021-07-08] MEDS: fentaNYL citrate/NS 1,000 MCG/100 ML PLAST..BAG 5 MCG IVCONT ×2 (03:45→21:57)
[2021-07-08 05:49] LABS: VBG Base Excess 6.1 mmol/L; VBG HCO3 29 mmol/L (22-26); VBG pCO2 38 mmHg; VBG pH 7.49 (7.32-7.43); VBG pO2 51 mmHg
[2021-07-08] MEDS: Levothyroxine Sodium 125 MCG TABLET PO (06:02)
[2021-07-08 06:03] LABS: Hemoglobin 11.5 g/dl (14.0-18.0); Mean Corpuscular HGB Conc 31.9 g/dl (31.0-36.0); Mean Corpuscular Volume 87.8 fL (80.0-98.0); Platelet Count 214 X10*3/uL (160-400); Red Cell Distribution Width 14.5 % (11.0-16.0); White Blood Count 10.3 X10*3/uL (4.8-10.8)
[2021-07-08] MEDS: propofoL 1,000 MG/100 ML VIAL 25.3 MG IVCONT ×5 (06:30→21:57)
[2021-07-08 06:32] LABS: B Type Natriuretic Peptide 105 pg/mL (<100)
[2021-07-08 06:34] LABS: Anion Gap 10 (12-20); Blood Urea Nitrogen 31 mg/dL (9-16); Calcium 8.9 mg/dL (8.4-10.2); Carbon Dioxide 31 mmol/L (22-29); Chloride 102 mmol/L (96-108); Estimated Glomerular Filt Rate > 60; Glucose Random 145 mg/dL (60-115); Magnesium 2.3 mg/dL (1.6-2.6); Phosphorus 2.6 mg/dL (2.7-4.5); Potassium 4.6 mmol/L (3.3-5.1); Sodium 138 mmol/L (135-145)
[2021-07-08 06:39] LABS: Glucose, Whole Blood 149 mg/dL (60-115)
[2021-07-08 07:16] LABS: Venous Blood Gas Refer to POC result
[2021-07-08] MEDS: dexAMETHasone sod phosphate 4 MG/ML VIAL 6 MG IVPUSH (08:35)
[2021-07-08] MEDS: Famotidine 20 MG TABLET 40 MG PO (08:35)
[2021-07-08] MEDS: Aspirin Enteric Coated 81 MG TABLET.DR PO (08:35)
[2021-07-08] MEDS: Insulin Glargine,Hum.rec.anlog 100 UNIT/ML 10 ML VIAL 10 UNIT SUBCUT (08:35)
[2021-07-08] MEDS: Chlorhexidine Gluc Oral Rinse 15 ML MOUTHWASH BUCCAL ×3 (08:35→21:25)
[2021-07-08] MEDS: Clopidogrel Bisulfate 75 MG TABLET PO (08:35)
--- NOTE | 2021-07-08 09:51 | MHC.CLN ---
F/U PT BACK ON SEDATION RECOMMEND DECREASING PROMOTE TO MAX GOAL RATE OF 50 ML PER HOUR WITH FREE WATER FLUSH 120 ML WATER EVERY 6 HOURS TO PROVIDE 1200 KCAL (1868KCALS WITH SEDATION; 25 KCAL/KG CMW); 76 G PROTEIN (1.02 G/KG CMW); 1480 ML TOTAL WATER FROM FORMULA AND FLUSHES (19.8 ML/KG CMW). DISCUSSED WITH NSG CONTINUE TO MONITOR TOLERANCE, RESIDUALS AND LYTES.
[2021-07-08 11:51] LABS: Glucose, Whole Blood 174 mg/dL (60-115)
[2021-07-08] MEDS: Insulin Lispro 100 UNIT/ML 3 ML VIAL SUBCUT ×2 (12:01→18:34)
--- NOTE | 2021-07-08 13:39 | MHC.CM.PN ---
Patient remains intubated/vented. Patient was a failed sedation vacation. Patient could potentially require a trach. Patient is from home without services. Continue to monitor for d/c needs.
[2021-07-08 17:34] LABS: Glucose, Whole Blood 187 mg/dL (60-115)
--- NOTE | 2021-07-08 19:23 | PM.CCPN ---
Subjective Subjective Date of Service: 07/08/21 Interval History: Mr. Kwan was transferred to the ICU on June 29 with acute respiratory failure secondary to COVID pneumonia. The patient is a 71-year-old man with past medical history of obesity, MICHAEL not on CPAP, hypertension, hyperlipidemia, diabetes, CAD status post CABG, carotid stenosis, varicose veins, and depression. Limited ECHO done 04/28/20 was notable for normal left ventricular cavity size, normal left ventricular wall thickness, mildly decreased LV systolic function with EF 45-50% with some regional wall motion abnormalities.? RV and IVC were not assessed. The patient lives at home with his .? He is functionally independent.? HCP?s are his two daughters. The patient tested positive for COVID-19 on Jun 14.? [Estimated sx onset date Jun 12.]? Was seen in the ED for back pain on June 21, with Sat 98% on room air.? He presented to the ED on Jun 24 c/o generalized weakness, decreased po intake, and a fall about 2 days prior during which he had brief LOC, and diarrhea. In ED had Sat 88% on room air.? Labs notable for WBC 4.4, plat 126K (baseline normal), DDimer 416, BUN/creat 20/1.1 (baseline 17/1.0), normal lactate, normal trop and BNP, positive COVID.? Chest CT showed bilat mild-mod multifocal groundglass infiltrates consistent with COVID pneumonia.? Head CT negative. Admitted to Medicine and started on Decadron and then baricitinab.? Oxygenation deteriorated and the patient was transferred to ICU for BiPAP on June 29.? He was intubated the next day.? Postop chest x-ray showed mild multifocal disease (no recent film for comparison). ?FiO2 rapidly came down to 40%. During wake-up tests on Jul 05 and yesterday, the patient opened his eyes and had purposeful response to simple commands, but did not track, did not respond to confrontation.? We changed him from propofol to Precedex.? At low-dose Precedex he was agitated and appeared delirious.? I?m calling that a Precedex failure (failed to keep him calm during low dose infusion) and we switched him back to propofol. During nursing maneuvers yesterday, the patient was agitated and coughing vigorously.? Subsequently developed copious pink frothy secretions in his endotracheal tube and ventilator circuit.? Auscultation showed diffuse coarse crackles, presumably pulmonary edema, associated with a decrease in his sat.? Temp also roseann slightly.? We increased his FiO2 and increased his PEEP, SpO2 came back up to 94%? The pulmonary edema resolved and he?s back on 40% FiO2 today. Currently sedated on propofol 40ug, fentanyl 50 ug.? Afebrile.? HR 69, SR, blood pressure 130/67.? Calm and breathing easy.? On AC 15/450/40/+10, RR is 16, Ve 7L, PIP 2, ETCO2 37, Sat 97%.? CVBG this morning showed 7.49/38/+6.? No JVD, normal expiratory phase, no M or G.? Abd benign.? Trivial edema, if any. LABORATORY DATA:? As below.? Renal indices down after stopping the Lasix. MICROBIOLOGY:? Sputum Gram stain from yesterday showed 3+ polys, 2+ epithelial cells, 4+ GPC/pairs and short chains.? DDimer and CRP are down, Ferritin is up. IMPRESSION: 1. Underlying obesity, DM 2. Underlying CAD.? Currently on aspirin, statin, Plavix. 3. Bilat COVID pneumonia.? Estimated sx onset date Jun 12-.? Currently on Decadron 6 mg daily, baricitinib (day 13), Pepcid, plus Lovenox 40 mg daily.? Continue current regimen. 4. Hypoxemic respiratory failure.? 2? above.? Wean as tolerated.? Would bump steroids if he worsens.? Generally did well with weaning trials so far. 5. Acute pulmonary edema episode yesterday.? Likely negative pressure pulmonary edema.? Resolved.? Did not bump his troponin. 6. OSCAR.? Renal indices improved after stopping the Lasix. 7. DM.? On Lantus 10 u qAM.? POCs are now in a perfect range. 8. ID.? Clinically, there is no evidence of pneumonia.? No indication for abx, despite the sputum Gram stain. 9. Neuro/psych.? Good interaction during the propofol holiday the other day, but he acted almost as if he were blind.? Could be either delirium or a stroke.? No need to mills to determine which.? We?ll further evaluate over the next few days once he does well on PSV.? Precedex didn?t advance his progress, so we?re back to propofol for now. 10. Nutrtition.? On goal rate Promote. Critical Care Time (minutes): 45 Physical Exam Vital Signs: Vital Signs: Last Vital Signs Temp 97.7 F 07/08/21 19:00 Pulse 69 07/08/21 19:00 Resp 16 07/08/21 19:00 BP 130/67 07/08/21 19:00 Pulse Ox 96 07/08/21 19:00 BMI result Body Mass Index 37.4 Objective Data Labs CBC & Chem 7: 07/08/21 05:40 07/08/21 05:40 Labs: Laboratory Results - last 24 hr 07/08/21 07/08/21 07/08/21 00:31 05:38 05:40 WBC 10.3 RBC 4.10 L Hgb 11.5 L Hct 36.0 L MCV 87.8 MCH 28.0 MCHC 31.9 RDW 14.5 Plt Count 214 MPV 11.0 Absolute Nucleated RBC 0.000 Nucleated RBC % (auto) 0.0 VBG pH VBG pCO2 VBG pO2 VBG HCO3 VBG O2 Saturation VBG Base Excess Sodium Potassium Chloride Carbon Dioxide Anion Gap BUN Creatinine Estim Creat Clear Calc Estimated GFR POC Glucose 145 H 149 H Random Glucose Calcium Phosphorus Magnesium B-Natriuretic Peptide 07/08/21 07/08/21 07/08/21 05:40 05:40 05:42 WBC RBC Hgb Hct MCV MCH MCHC RDW Plt Count MPV Absolute Nucleated RBC Nucleated RBC % (auto) VBG pH 7.49 H VBG pCO2 38 VBG pO2 51 VBG HCO3 29 H VBG O2 Saturation 75.0 VBG Base Excess 6.1 Sodium 138 Potassium 4.6 Chloride 102 Carbon Dioxide 31 H Anion Gap 10 L BUN 31 H Creatinine 0.79 Estim Creat Clear Calc 96.0 Estimated GFR > 60 POC Glucose Random Glucose 145 H Calcium 8.9 Phosphorus 2.6 L Magnesium 2.3 B-Natriuretic Peptide 105 H 07/08/21 07/08/21 11:47 17:30 WBC RBC Hgb Hct MCV MCH MCHC RDW Plt Count MPV Absolute Nucleated RBC Nucleated RBC % (auto) VBG pH VBG pCO2 VBG pO2 VBG HCO3 VBG O2 Saturation VBG Base Excess Sodium Potassium Chloride Carbon Dioxide Anion Gap BUN Creatinine Estim Creat Clear Calc Estimated GFR POC Glucose 174 H 187 H Random Glucose Calcium Phosphorus Magnesium B-Natriuretic Peptide Microbiology Microbiology Results: Microbiology 07/05/21 06:00 Sputum - Suctioned Gram Stain - Final 07/05/21 06:00 Sputum - Suctioned Sputum Culture - Final 06/24/21 19:40 Blood - Venous Blood Culture - Final No growth after 5 days. 06/24/21 19:30 Blood - Venous Blood Culture - Final No growth after 5 days. Quality Stroke Does the patient have a stroke diagnosis?: No VTE Prior VTE?: No VTE Risk Level:: Medical - moderate - high VTE Device Contraindication: N/A - Device Ordered VTE Drug Contraindication: Treatment Not Indicated Critical Care Time Critical Care Time (minutes): 60
[2021-07-08] MEDS: Atorvastatin Calcium 80 MG TABLET PO (21:25)
[2021-07-08] MEDS: Enoxaparin Sodium 40 MG/0.4 ML SYRINGE SUBCUT (21:25)
--- NOTE | 2021-07-08 22:40 | PC.NURSE ---
VENT SETTINGS CHANGED TO AC 15/450/5/35% - TOLERATING WELL. FACETIMED MULTIPLE TIMES AND UPDATED VIA PHONE BY THIS RN.
[2021-07-08] MEDS: Sodium,Potassium Phosphates POWD.PACK 2 PACKET PO (23:27)
[2021-07-08 23:54] LABS: Glucose, Whole Blood 133 mg/dL (60-115)
[2021-07-09] VITALS (33 sets, daily range): BP systolic 88–147; BP diastolic 44–85; PULSE 47–96; RESP 15–35; TEMP 33–37.4; O2SAT 91–97; BMI 37.8
[2021-07-09] MEDS: propofoL 1,000 MG/100 ML VIAL 25.3 MG IVCONT (01:01)
[2021-07-09] MEDS: Levothyroxine Sodium 125 MCG TABLET PO (05:36)
[2021-07-09] MEDS: propofoL 1,000 MG/100 ML VIAL 18.97 MG IVCONT ×4 (05:36→21:24)
[2021-07-09 05:50] LABS: Glucose, Whole Blood 134 mg/dL (60-115)
[2021-07-09] MEDS: dexAMETHasone sod phosphate 4 MG/ML VIAL 6 MG IVPUSH (09:29)
[2021-07-09] MEDS: Chlorhexidine Gluc Oral Rinse 15 ML MOUTHWASH BUCCAL ×3 (09:29→20:06)
[2021-07-09] MEDS: Clopidogrel Bisulfate 75 MG TABLET PO (09:29)
[2021-07-09] MEDS: 0.9 % Sodium Chloride Flush 3 ML SYRINGE IVFLUSH ×3 (09:29→21:24)
[2021-07-09] MEDS: Aspirin Enteric Coated 81 MG TABLET.DR PO (09:29)
[2021-07-09] MEDS: Insulin Glargine,Hum.rec.anlog 100 UNIT/ML 10 ML VIAL 10 UNIT SUBCUT (09:30)
[2021-07-09 11:06] LABS: Glucose, Whole Blood 139 mg/dL (60-115)
--- NOTE | 2021-07-09 12:37 | PM.CCPN ---
Subjective Subjective Date of Service: 07/09/21 Interval History: Mr. Kwan was transferred to the ICU on June 29 with acute respiratory failure secondary to COVID pneumonia. The patient is a 71-year-old man with past medical history of obesity, MICHAEL not on CPAP, hypertension, hyperlipidemia, diabetes, CAD status post CABG, carotid stenosis, varicose veins, and depression. Limited ECHO done 04/28/20 was notable for normal left ventricular cavity size, normal left ventricular wall thickness, mildly decreased LV systolic function with EF 45-50% with some regional wall motion abnormalities.? RV and IVC were not assessed. The patient lives at home with his .? He is functionally independent.? HCP?s are his two daughters. The patient tested positive for COVID-19 on Jun 14.? [Estimated sx onset date Jun 12.]? Was seen in the ED for back pain on June 21, with Sat 98% on room air.? He presented to the ED on Jun 24 c/o generalized weakness, decreased po intake, and a fall about 2 days prior during which he had brief LOC, and diarrhea. In ED had Sat 88% on room air.? Labs notable for WBC 4.4, plat 126K (baseline normal), DDimer 416, BUN/creat 20/1.1 (baseline 17/1.0), normal lactate, normal trop and BNP, positive COVID.? Chest CT showed bilat mild-mod multifocal groundglass infiltrates consistent with COVID pneumonia.? Head CT negative. Admitted to Medicine and started on Decadron and then baricitinab.? Oxygenation deteriorated and the patient was transferred to ICU for BiPAP on June 29.? He was intubated the next day.? Postop chest x-ray showed mild multifocal disease (no recent film for comparison). ?FiO2 rapidly came down to 40%. This week we?ve been doing sedation holidays and PSV trials.? During earlier wake-up tests, the patient opened his eyes and had purposeful response to simple commands, but did not track, did not respond to confrontation -- almost as if he was blind.? We changed him from propofol to Precedex but at low-dose Precedex he was agitated and appeared delirious, so that wasn?t helpful.? We switched him back to propofol. Today, we had him off propofol and on fentanyl 50 ug.? He was calm, and readily albeit slowly interactive to simple commands.? Was very weak.? Could hardly life up his hands. ?I changed him to PSV 15/30%/+5.? RR was 19, VT 450, Ve 7.6L, ETCO2 39, Sat 94%.? After about half an hour, he said that he needed more air, Vt was down to 400cc.? I upped the PSV to 20cm, Vt hardly roseann above 480cc.? HR 66, SR, blood pressure 108/58.? Afebrile.? PER, about 4-5mm.? No JVD at 30?, Chest CTA w normal expiratory phase, no M or G.? Abd benign.? Trivial edema, if any.? LABORATORY DATA:? None today. MICROBIOLOGY:? No recent data. IMPRESSION: 1. Underlying obesity, DM 2. Underlying CAD.? Currently on aspirin, statin, Plavix. 3. Bilat COVID pneumonia.? Estimated sx onset date Jun 12-.? Currently on Decadron 6 mg daily, baricitinib (day 13), Pepcid, plus Lovenox 40 mg daily.? Continue current regimen. 4. Hypoxemic respiratory failure.? 2? above.? From a pulmonary parenchymal standpoint, he?s doing well.? 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 I?ll reevaluate tomorrow. 5. OSCAR.? Renal indices improved after stopping the Lasix. 6. DM.? On Lantus 10 u qAM.? POCs are now in a perfect range. 7. ID.? Clinically, there is no evidence of pneumonia.? No indication for abx. 8. Neuro/psych.? Good interaction last few days.? Not sure what?s going on with his vision.? No urgency to do a CT scan. 9. Nutrtition.? On goal rate Promote. Critical care time (including multiple visits to the bedside):? 60 min. Critical Care Time (minutes): 60 Physical Exam Vital Signs: Vital Signs: Last Vital Signs Temp 99.0 F 07/09/21 12:00 Pulse 65 07/09/21 12:00 Resp 16 07/09/21 12:00 BP 108/58 L 07/09/21 12:00 Pulse Ox 96 07/09/21 12:00 BMI result Body Mass Index 37.8 Objective Data Labs CBC & Chem 7: 07/08/21 05:40 07/08/21 05:40 Labs: Laboratory Results - last 24 hr 07/08/21 07/08/21 07/09/21 17:30 23:33 05:39 POC Glucose 187 H 133 H 134 H 07/09/21 10:43 POC Glucose 139 H Microbiology Microbiology Results: Microbiology 07/05/21 06:00 Sputum - Suctioned Gram Stain - Final 07/05/21 06:00 Sputum - Suctioned Sputum Culture - Final 06/24/21 19:40 Blood - Venous Blood Culture - Final No growth after 5 days. 06/24/21 19:30 Blood - Venous Blood Culture - Final No growth after 5 days. Quality Stroke Does the patient have a stroke diagnosis?: No VTE Prior VTE?: No VTE Risk Level:: Medical - moderate - high VTE Device Contraindication: N/A - Device Ordered VTE Drug Contraindication: Treatment Not Indicated Critical Care Time Critical Care Time (minutes): 60
[2021-07-09 16:33] LABS: Glucose, Whole Blood 206 mg/dL (60-115)
[2021-07-09] MEDS: Insulin Lispro 100 UNIT/ML 3 ML VIAL SUBCUT (16:48)
[2021-07-09] MEDS: fentaNYL citrate/NS 1,000 MCG/100 ML PLAST..BAG 5 MCG IVCONT (16:49)
[2021-07-09] MEDS: Atorvastatin Calcium 80 MG TABLET PO (20:07)
[2021-07-09] MEDS: Enoxaparin Sodium 40 MG/0.4 ML SYRINGE SUBCUT (21:24)
[2021-07-10] VITALS (31 sets, daily range): BP systolic 96–161; BP diastolic 48–83; PULSE 48–85; RESP 14–58; TEMP 33–37.6; O2SAT 93–98; BMI 37.5
[2021-07-10 00:25] LABS: Glucose, Whole Blood 95 mg/dL (60-115)
[2021-07-10] MEDS: propofoL 1,000 MG/100 ML VIAL 18.97 MG IVCONT ×3 (01:26→10:16)
[2021-07-10 05:24] LABS: VBG HCO3 30 mmol/L (22-26); VBG pCO2 40 mmHg; VBG pH 7.48 (7.32-7.43); VBG pO2 51 mmHg
[2021-07-10] MEDS: Levothyroxine Sodium 125 MCG TABLET PO (05:24)
[2021-07-10 05:35] LABS: Venous Blood Gas Refer to POC result
[2021-07-10 05:56] LABS: Hematocrit 35.8 % (42.0-52.0); Hemoglobin 11.3 g/dl (14.0-18.0); Mean Corpuscular HGB Conc 31.6 g/dl (31.0-36.0); Mean Corpuscular Hemoglobin 27.6 pg (27.0-33.0); Mean Corpuscular Volume 87.5 fL (80.0-98.0); Mean Platelet Volume 11.4 fL (9.4-12.4); Platelet Count 195 X10*3/uL (160-400); Red Blood Count 4.09 X10*6/uL (4.60-5.80); Red Cell Distribution Width 14.6 % (11.0-16.0)
[2021-07-10 06:02] LABS: D Dimer High Sensitivity 2965 NG/ML
[2021-07-10 06:10] LABS: Glucose, Whole Blood 126 mg/dL (60-115)
[2021-07-10 06:11] LABS: Albumin Level 2.9 g/dL (3.5-5.0); Anion Gap 11 (12-20); Blood Urea Nitrogen 27 mg/dL (9-16); C Reactive Protein 1.25 mg/dL (< or = 0.50); Calcium 8.9 mg/dL (8.4-10.2); Carbon Dioxide 29 mmol/L (22-29); Chloride 103 mmol/L (96-108); Creatinine Clr Calc Pharmacy 103.1; Estimated Glomerular Filt Rate > 60; Glucose Random 122 mg/dL (60-115); Lactate Dehydrogenase 226 U/L (118-273); Magnesium 2.3 mg/dL (1.6-2.6); Phosphorus 3.5 mg/dL (2.7-4.5); Potassium 4.5 mmol/L (3.3-5.1); Sodium 138 mmol/L (135-145)
[2021-07-10 06:35] LABS: Ferritin 1217 ng/mL (20-250)
[2021-07-10] MEDS: 0.9 % Sodium Chloride Flush 3 ML SYRINGE IVFLUSH ×2 (07:22→14:34)
[2021-07-10] MEDS: Famotidine 20 MG TABLET 40 MG PO (09:33)
[2021-07-10] MEDS: Aspirin Enteric Coated 81 MG TABLET.DR PO (09:33)
[2021-07-10] MEDS: Insulin Glargine,Hum.rec.anlog 100 UNIT/ML 10 ML VIAL 10 UNIT SUBCUT (09:33)
[2021-07-10] MEDS: Clopidogrel Bisulfate 75 MG TABLET PO (09:33)
[2021-07-10] MEDS: dexAMETHasone sod phosphate 4 MG/ML VIAL 6 MG IVPUSH (09:33)
[2021-07-10] MEDS: Chlorhexidine Gluc Oral Rinse 15 ML MOUTHWASH BUCCAL ×3 (09:33→21:39)
[2021-07-10 12:01] LABS: Glucose, Whole Blood 129 mg/dL (60-115)
[2021-07-10] MEDS: fentaNYL citrate/NS 1,000 MCG/100 ML PLAST..BAG 5 MCG IVCONT (12:28)
[2021-07-10] MEDS: propofoL 1,000 MG/100 ML VIAL 12.65 MG IVCONT ×2 (14:57→21:39)
[2021-07-10 17:47] LABS: Glucose, Whole Blood 166 mg/dL (60-115)
[2021-07-10] MEDS: Insulin Lispro 100 UNIT/ML 3 ML VIAL SUBCUT (17:47)
--- NOTE | 2021-07-10 21:09 | P.PNCC_ITS ---
Subjective Subjective Date of Service: 07/10/21 Interval History: Mr. Kwan was transferred to the ICU on June 29 with acute respiratory failure secondary to COVID pneumonia. The patient is a 71-year-old man with past medical history of obesity, MICHAEL not on CPAP, hypertension, hyperlipidemia, diabetes, CAD status post CABG, carotid stenosis, varicose veins, and depression. Limited ECHO done 04/28/20 was notable for normal left ventricular cavity size, normal left ventricular wall thickness, mildly decreased LV systolic function with EF 45-50% with some regional wall motion abnormalities.? RV and IVC were not assessed. The patient lives at home with his .? He is functionally independent.? HCP?s are his two daughters. The patient tested positive for COVID-19 on Jun 14.? Estimated sx onset date Jun 12.? Was seen in the ED for back pain on June 21, with Sat 98% on room air.? He presented to the ED on Jun 24 c/o generalized weakness, decreased po intake, and a fall about 2 days prior during which he had brief LOC, and diarrhea. In ED had Sat 88% on room air.? Labs notable for WBC 4.4, plat 126K (baseline normal), DDimer 416, BUN/creat 20/1.1 (baseline 17/1.0), normal lactate, normal trop and BNP, positive COVID.? Chest CT showed bilat mild-mod multifocal groundglass infiltrates consistent with COVID pneumonia.? Head CT negative. Admitted to Medicine and started on Decadron and then baricitinab.? Oxygenation deteriorated and the patient was transferred to ICU for BiPAP on June 29.? He was intubated the next day.? Postop chest x-ray showed mild multifocal disease (no recent film for comparison). ?FiO2 rapidly came down to 40%. This week we?ve been doing sedation holidays and PSV trials.? During earlier wake-up tests, the patient opened his eyes and had purposeful response to simple commands, but did not track, did not respond to confrontation -- almost as if he was blind.? We changed him from propofol to Precedex but at low-dose Precedex he was agitated and appeared delirious, so that wasn?t helpful.? We switched him back to propofol. Today, we had him off propofol and on fentanyl 50 ug.? He was calm, and readily albeit slowly interactive to simple commands.? Was very weak.? Does a little better than antigravity, about 1-2/5 in his upper extrems. ?CVBG this morning 7.48/40/+7.? He did fine with PSV 20/30%/+5.? RR was 14, VT 450, Ve 7L, ETCO2 34, Sat 96%.? But after I turned his PSV down to 15, his RR roseann, Ve roseann to 8- 10L.? HR 60, SR, blood pressure 132/63.? Afebrile.? PER, about 4mm.? No JVD at 30?, Chest CTA w normal expiratory phase, no M or G.? Abd benign.? Trivial edema, if any.? LABORATORY DATA:? Below.? MICROBIOLOGY: ?No recent data. IMPRESSION: 1. Underlying obesity, DM 2. Underlying CAD.? Currently on aspirin, statin, Plavix. 3. Bilat COVID pneumonia.? Estimated sx onset date Jun 12-.? Currently on Decadron 6 mg daily, baricitinib (day 14), Pepcid, plus Lovenox 40 mg daily.? Continue current regimen. 4. Hypoxemic respiratory failure.? 2? above.? From a pulmonary parenchymal standpoint, he?s doing well.? 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 I discussed that with the HCP today (one of his daughters).? The family is okay with that.? Also discussed with thoracic. 5. OSCAR.? Renal indices improved after stopping the Lasix. 6. DM.? On Lantus 10 u qAM.? POCs are now in a perfect range. 7. ID.? Clinically, there is no evidence of pneumonia.? No indication for abx. 8. Neuro/psych.? Good interaction last few days.? Not sure what?s going on with his vision.? No urgency to do a CT scan. 9. Nutrtition.? On goal rate Promote. Critical care time:? 70+ min. Critical Care Time (minutes): 70 Physical Exam Vital Signs: Vital Signs: Last Vital Signs Temp 99.1 F 07/10/21 20:00 Pulse 68 07/10/21 20:00 Resp 17 07/10/21 20:00 BP 135/73 07/10/21 20:00 Pulse Ox 95 07/10/21 20:00 BMI result Body Mass Index 37.5 Objective Data Labs CBC & Chem 7: 07/10/21 05:15 07/10/21 05:15 Labs: Laboratory Results - last 24 hr 07/10/21 07/10/21 07/10/21 00:16 05:15 05:15 WBC 8.0 RBC 4.09 L Hgb 11.3 L Hct 35.8 L MCV 87.5 MCH 27.6 MCHC 31.6 RDW 14.6 Plt Count 195 MPV 11.4 Absolute Nucleated RBC 0.000 Nucleated RBC % (auto) 0.0 D-Dimer High Sensitivty 2965 VBG pH VBG pCO2 VBG pO2 VBG HCO3 VBG O2 Saturation VBG Base Excess Sodium Potassium Chloride Carbon Dioxide Anion Gap BUN Creatinine Estim Creat Clear Calc Estimated GFR POC Glucose 95 Random Glucose Calcium Phosphorus Magnesium Ferritin Lactate Dehydrogenase C-Reactive Protein Albumin 07/10/21 07/10/21 07/10/21 05:15 05:18 06:02 WBC RBC Hgb Hct MCV MCH MCHC RDW Plt Count MPV Absolute Nucleated RBC Nucleated RBC % (auto) D-Dimer High Sensitivty VBG pH 7.48 H VBG pCO2 40 VBG pO2 51 VBG HCO3 30 H VBG O2 Saturation 76.0 VBG Base Excess 7.0 Sodium 138 Potassium 4.5 Chloride 103 Carbon Dioxide 29 Anion Gap 11 L BUN 27 H Creatinine 0.74 Estim Creat Clear Calc 103.1 Estimated GFR > 60 POC Glucose 126 H Random Glucose 122 H Calcium 8.9 Phosphorus 3.5 Magnesium 2.3 Ferritin 1217 H Lactate Dehydrogenase 226 C-Reactive Protein 1.25 H Albumin 2.9 L 07/10/21 07/10/21 11:57 17:39 WBC RBC Hgb Hct MCV MCH MCHC RDW Plt Count MPV Absolute Nucleated RBC Nucleated RBC % (auto) D-Dimer High Sensitivty VBG pH VBG pCO2 VBG pO2 VBG HCO3 VBG O2 Saturation VBG Base Excess Sodium Potassium Chloride Carbon Dioxide Anion Gap BUN Creatinine Estim Creat Clear Calc Estimated GFR POC Glucose 129 H 166 H Random Glucose Calcium Phosphorus Magnesium Ferritin Lactate Dehydrogenase C-Reactive Protein Albumin Microbiology Microbiology Results: Microbiology 07/05/21 06:00 Sputum - Suctioned Gram Stain - Final 07/05/21 06:00 Sputum - Suctioned Sputum Culture - Final 06/24/21 19:40 Blood - Venous Blood Culture - Final No growth after 5 days. 06/24/21 19:30 Blood - Venous Blood Culture - Final No growth after 5 days. Quality Stroke Does the patient have a stroke diagnosis?: No VTE Prior VTE?: No VTE Risk Level:: Medical - moderate - high VTE Device Contraindication: N/A - Device Ordered VTE Drug Contraindication: Treatment Not Indicated Critical Care Time Critical Care Time (minutes): 60
[2021-07-10] MEDS: Atorvastatin Calcium 80 MG TABLET PO (21:39)
[2021-07-10] MEDS: Enoxaparin Sodium 40 MG/0.4 ML SYRINGE SUBCUT (21:39)
[2021-07-11] VITALS (31 sets, daily range): BP systolic 91–141; BP diastolic 50–87; PULSE 47–75; RESP 11–30; TEMP 35–37.3; O2SAT 93–100; BMI 37.9
[2021-07-11 00:23] LABS: Glucose, Whole Blood 126 mg/dL (60-115)
[2021-07-11] MEDS: 0.9 % Sodium Chloride Flush 3 ML SYRINGE IVFLUSH ×3 (02:54→16:13)
[2021-07-11] MEDS: propofoL 1,000 MG/100 ML VIAL 18.97 MG IVCONT ×5 (02:55→19:31)
[2021-07-11] MEDS: fentaNYL citrate/NS 1,000 MCG/100 ML PLAST..BAG 7.5 MCG IVCONT (06:39)
[2021-07-11 06:58] LABS: Glucose, Whole Blood 102 mg/dL (60-115)
[2021-07-11] MEDS: Levothyroxine Sodium 125 MCG TABLET PO (07:24)
--- NOTE | 2021-07-11 07:44 | PC.NURSE ---
Assumed care from Lavinia COLLAZO at 19:00. Patient sedated lightly at start of shift and on Propofol and fentanyl for sedation. Patient is intubated with #7.5 ETT at 25 cm at the lip; is on PSV settings, and had been for this entire shift; but these were titrated due to a coughing fit and dysynchrony patient was demonstrating about 22:00--patient had frequent coughing and frothy white sputum; RT called and PA assessed patient and per PA sedation was increased and vent settings titrated per PA by RT, now PSV 15/6 FiO2 35%; aside from this episode, patient was mostly synchronous. He also was trialed on AC settings at this time and did not tolerate AC. Sedation titrated back down to 30 propofol and 75 fentanyl. Patient with sinus bradycardia and first degree AV block with known inverted T-waves on monitor. Patient with distant heart sounds, BP well controlled. Patient with mild peripheral edema and sacral edema. Patient with protuberant abdomen, soft, hypoactive bowel sounds, no BM this shift. Pena catheter with about 50 cc per hour yellow urine with occasional orange hue.
[2021-07-11] MEDS: Chlorhexidine Gluc Oral Rinse 15 ML MOUTHWASH BUCCAL ×3 (08:11→19:31)
[2021-07-11] MEDS: Aspirin Enteric Coated 81 MG TABLET.DR PO (08:11)
[2021-07-11] MEDS: Clopidogrel Bisulfate 75 MG TABLET PO (08:11)
[2021-07-11] MEDS: predniSONE 10 MG TABLET 30 MG PO (08:11)
[2021-07-11] MEDS: Famotidine 20 MG TABLET 40 MG PO (08:11)
[2021-07-11 08:15] LABS: Glucose, Whole Blood 113 mg/dL (60-115)
--- NOTE | 2021-07-11 10:00 | MHC.CLN ---
F/U PT REMAINS INTUBATED AND SEDATED PT RECEIVING PROMOTE TO MAX GOAL RATE OF 50 ML PER HOUR WITH FREE WATER FLUSH 120 ML WATER EVERY 6 HOURS PROVIDES 1200 KCAL (1701KCALS WITH SEDATION; 23 KCAL/KG CMW); 76 G PROTEIN (1.02 G/KG CMW); 1480 ML TOTAL WATER FROM FORMULA AND FLUSHES (19.8 ML/KG CMW). CONTINUE TO MONITOR TOLERANCE, RESIDUALS AND LYTES.
[2021-07-11 11:31] LABS: Glucose, Whole Blood 165 mg/dL (60-115)
[2021-07-11] MEDS: Insulin Lispro 100 UNIT/ML 3 ML VIAL SUBCUT (11:42)
--- NOTE | 2021-07-11 17:57 | P.PNCC_ITS ---
Subjective Subjective Date of Service: 07/11/21 Interval History: 71-year-old status post coronary bypass grafting with morbid obesity and untreated of obstructive sleep apnea with underlying diabetes and hypertension and presumably ischemic cardiomyopathy with ejection fraction 45- 50% and I believe on my bedside echo close to 50% with mild LVH but no primary valve or pericardial disease and IVC definitely close to maximum diameter on the ventilato r but he is currently on sedation comfortable on the ventilator but tidal volumes in the high 300s in stable with stable end-tidal CO2 of 40 and minimal minute ventilatory requirements and FiO2 actually now 35% and this is on pressure support ventilation there is no cardiothoracic surgery available for tracheostomy this week and he has now been intubated for about 12 days at this point so we have time to attempt weaning by tomorrow from the sedation and if appropriate once again it attempt to wean from the ventilator Critical Care Time (minutes): 60 Physical Exam Vital Signs: Vital Signs: Last Vital Signs Temp 98.2 F 07/11/21 17:00 Pulse 50 07/11/21 17:00 Resp 16 07/11/21 17:00 BP 96/57 L 07/11/21 17:00 Pulse Ox 96 07/11/21 17:00 BMI result Body Mass Index 37.9 sedated and intubated and nonfocal neurologically cardiovascular by bedside echo lungs without adventitious sounds abdomen benign with no organome britton no at acrocyanosis and no edema Objective Data Labs CBC & Chem 7: 07/10/21 05:15 07/10/21 05:15 Labs: Laboratory Results - last 24 hr 07/11/21 07/11/21 07/11/21 00:17 06:41 08:11 POC Glucose 126 H 102 113 07/11/21 11:27 POC Glucose 165 H Microbiology Microbiology Results: Microbiology 07/05/21 06:00 Sputum - Suctioned Gram Stain - Final 07/05/21 06:00 Sputum - Suctioned Sputum Culture - Final 06/24/21 19:40 Blood - Venous Blood Culture - Final No growth after 5 days. 06/24/21 19:30 Blood - Venous Blood Culture - Final No growth after 5 days. Progress Note: A&P Assessment and plan (1) Acute respiratory failure with hypoxia: Status: Acute (2) Acute respiratory distress syndrome (ARDS) due to COVID-19 virus: Status: Acute (3) SARS-CoV-2 positive: Status: Acute (4) Depression: Status: Acute (5) Obstructive sleep apnea: Status: Acute (6) Morbid obesity with BMI of 40.0-44.9, adult: Status: Acute (7) Atherosclerotic heart disease of [place] coronary artery with unstable angina pectoris: Status: Acute (8) Carotid stenosis, bilateral: Status: Acute (9) Ischemic cardiomyopathy: Status: Acute (10) Diabetes: Status: Acute (11) Sleep disorder breathing: Status: Acute (12) Hypothyroidism: Status: Acute (13) S/P CABG (coronary artery bypass graft): Status: Acute Assessment and Plan: will try to wean the fentanyl tonight and in the morning will work on the propofol and if mental status is appropriate will will try to wean the pressure support Quality Stroke Does the patient have a stroke diagnosis?: No VTE Prior VTE?: No VTE Risk Level:: Medical - moderate - high VTE Device Contraindication: N/A - Device Ordered VTE Drug Contraindication: Treatment Not Indicated
[2021-07-11 18:21] LABS: Glucose, Whole Blood 141 mg/dL (60-115)
--- NOTE | 2021-07-11 18:39 | PC.NURSE ---
afebrile, VSS, SR/SB with 1st degree. Sedated on propofol and fentanyl, opens eyes to noxious stimuli. LS clear, vent settings remain the same. U/O wnl, nccvg2no, bath given, family facetimed with pt.
[2021-07-11] MEDS: Atorvastatin Calcium 80 MG TABLET PO (19:31)
[2021-07-11] MEDS: fentaNYL citrate/NS 1,000 MCG/100 ML PLAST..BAG 2.5 MCG IVCONT (19:31)
[2021-07-11] MEDS: Enoxaparin Sodium 40 MG/0.4 ML SYRINGE SUBCUT (22:04)
[2021-07-11 23:48] LABS: Glucose, Whole Blood 105 mg/dL (60-115)
[2021-07-12] VITALS (28 sets, daily range): BP systolic 96–156; BP diastolic 54–84; PULSE 65–92; RESP 14–28; TEMP 34–37.7; O2SAT 93–98; BMI 37.7
[2021-07-12] MEDS: propofoL 1,000 MG/100 ML VIAL 25.3 MG IVCONT ×2 (01:31→05:24)
[2021-07-12] MEDS: Levothyroxine Sodium 125 MCG TABLET PO (05:24)
[2021-07-12 05:33] LABS: VBG Base Excess 4.2 mmol/L; VBG HCO3 27 mmol/L (22-26); VBG pCO2 36 mmHg; VBG pH 7.48 (7.32-7.43); VBG pO2 52 mmHg
[2021-07-12 05:40] LABS: Venous Blood Gas Refer to POC result
[2021-07-12 05:46] LABS: Glucose, Whole Blood 103 mg/dL (60-115)
[2021-07-12 05:52] LABS: MANUAL DIFF FLAG NO
[2021-07-12 05:56] LABS: Basophils Percent Auto 0.1 % (0-2); Eosinophils Absolute Auto 0.2 X10*3/uL (0.0-0.4); Eosinophils Percent Auto 3.2 % (0-4); Hematocrit 35.9 % (42.0-52.0); Hemoglobin 11.2 g/dl (14.0-18.0); Imm Gran Abs Auto 0.17 X10*3/uL (0.00-0.03); Imm Gran Pct Auto 2.2 % (0.0-0.4); Lymphocytes Absolute Auto 1.4 X10*3/uL (1.2-4.9); Lymphocytes Percent Auto 18.7 % (20-40); Mean Corpuscular HGB Conc 31.2 g/dl (31.0-36.0); Mean Corpuscular Hemoglobin 27.9 pg (27.0-33.0); Mean Corpuscular Volume 89.3 fL (80.0-98.0); Monocytes Absolute Auto 0.4 X10*3/uL (0.1-1.2); Monocytes Percent Auto 5.8 % (2-11); Neutrophils Absolute Auto 5.3 x10*3/uL (2.0-8.3); Platelet Count 163 X10*3/uL (160-400); Red Blood Count 4.02 X10*6/uL (4.60-5.80); Red Cell Distribution Width 15.5 % (11.0-16.0); White Blood Count 7.6 X10*3/uL (4.8-10.8)
[2021-07-12 06:14] LABS: Alanine Aminotransferase 42 U/L (0-40); Albumin Level 2.8 g/dL (3.5-5.0); Alkaline Phosphatase 53 U/L (39-117); Anion Gap 11 (12-20); Aspartate Amino Transferase 25 U/L (5-37); Bilirubin Total 0.7 mg/dL (0.0-1.0); Blood Urea Nitrogen 24 mg/dL (9-16); Calcium 8.8 mg/dL (8.4-10.2); Carbon Dioxide 28 mmol/L (22-29); Chloride 103 mmol/L (96-108); Creatinine Clr Calc Pharmacy 104.3; Estimated Glomerular Filt Rate > 60; Glucose Random 119 mg/dL (60-115); Potassium 4.1 mmol/L (3.3-5.1); Sodium 138 mmol/L (135-145); Total Protein 5.3 g/dL (6.5-8.0)
[2021-07-12] MEDS: predniSONE 10 MG TABLET 30 MG PO (07:37)
[2021-07-12] MEDS: Chlorhexidine Gluc Oral Rinse 15 ML MOUTHWASH BUCCAL ×3 (07:37→20:34)
[2021-07-12] MEDS: Famotidine 20 MG TABLET 40 MG PO (07:38)
[2021-07-12] MEDS: Clopidogrel Bisulfate 75 MG TABLET PO (07:38)
[2021-07-12] MEDS: Aspirin Enteric Coated 81 MG TABLET.DR PO (07:38)
[2021-07-12] MEDS: 0.9 % Sodium Chloride Flush 3 ML SYRINGE IVFLUSH ×3 (07:38→23:28)
[2021-07-12 09:00] LABS: Glucose, Whole Blood 93 mg/dL (60-115)
[2021-07-12] MEDS: Insulin Lispro 100 UNIT/ML 3 ML VIAL SUBCUT (12:09)
[2021-07-12] MEDS: LORazepam 2 MG/ML VIAL 0.5 MG IVPUSH (12:12)
[2021-07-12 13:15] LABS: Glucose, Whole Blood 165 mg/dL (60-115)
--- NOTE | 2021-07-12 13:26 | MHC.CM.PN ---
Pt continues in ICU on vent support secondary to COVID. Call placed to dtr Marychuy to review possible trach/peg placement and pt's need for LTAC transfer. Pt's spouse very anxious with medical information - dtr prefers we update her first and she will give info to Mrs. Kwan. Dtr aware pt will need to transfer to [facility] after trach for at least 30 days when the trach will then be considered matured. After this time, pt can transfer locally to a facility that accepts matured trachs. Unknown when procedure will occur d/t temporary cessation of surgical procedures. CM to follow. Referral placed to [facility].
[2021-07-12] MEDS: propofoL 1,000 MG/100 ML VIAL 12.72 MG IVCONT ×2 (15:49→20:34)
--- NOTE | 2021-07-12 17:56 | PM.CCPN ---
Subjective Subjective Date of Service: 07/12/21 Interval History: 71-year-old morbidly obese male type 2 diabetic and hypertensive untreated hypothyroid with ischemic cardiomyopathy and now intubated for 2 weeks for acute hypoxemic respiratory failure from COVID-19 pneumonitis/ARDS and currently although he awakens with cognitive function he still gets anxious and somewhat agitated is on a lower dose of propofol but remains on a pressure support trial with a total pressure of 20 and very trivial low-grade temperature oxygen saturation on FiO2 of 35% is now 95% normal sinus rhythm just diffuse nonspecific ST-T changes blood pressure 117/68 and intake and output just mildly positive looking over the last few days and with the central line will obtain a CVP in a follow-up BNP and I might do an empiric dose of 20 mg Lasix because chest x-ray appears to be increasingly plus Thorek and in addition I will send off a sputum studies and just cover him with an empiric dose of vancomycin and Unasyn and fluconazole for tonight Critical Care Time (minutes): 45 Physical Exam Vital Signs: Vital Signs: Last Vital Signs Temp 99.7 F 07/12/21 17:00 Pulse 78 07/12/21 17:00 Resp 16 07/12/21 17:00 BP 131/79 07/12/21 17:00 Pulse Ox 95 07/12/21 17:00 BMI result Body Mass Index 37.7 he does awaken with cognitive function and nonfocal neurologically cardiac exam by bedside echo 45-50% ejection fraction abdomen is benign tolerating feedings no organomegaly chest without adventitious sounds no accessory muscle or diaphragmatic effort Objective Data Labs CBC & Chem 7: 07/13/21 05:25 07/13/21 05:25 Labs: Laboratory Results - last 24 hr 07/11/21 07/11/21 07/12/21 18:17 23:22 05:27 WBC 7.6 RBC 4.02 L Hgb 11.2 L Hct 35.9 L MCV 89.3 MCH 27.9 MCHC 31.2 RDW 15.5 Plt Count 163 MPV 11.0 Immature Gran % (Auto) 2.2 H Neut % (Auto) 70.0 Lymph % (Auto) 18.7 L [place] % (Auto) 5.8 Eos % (Auto) 3.2 Baso % (Auto) 0.1 Lymph # (Auto) 1.4 [place] # (Auto) 0.4 Eos # (Auto) 0.2 Baso # (Auto) 0.0 Abs Immat Gran (auto) 0.17 H Absolute Neuts (auto) 5.3 Absolute Nucleated RBC 0.000 Nucleated RBC % (auto) 0.0 VBG pH VBG pCO2 VBG pO2 VBG HCO3 VBG O2 Saturation VBG Base Excess Sodium Potassium Chloride Carbon Dioxide Anion Gap BUN Creatinine Estim Creat Clear Calc Estimated GFR POC Glucose 141 H 105 Random Glucose Calcium Total Bilirubin AST ALT Alkaline Phosphatase Total Protein Albumin 07/12/21 07/12/21 07/12/21 05:27 05:27 05:41 WBC RBC Hgb Hct MCV MCH MCHC RDW Plt Count MPV Immature Gran % (Auto) Neut % (Auto) Lymph % (Auto) [place] % (Auto) Eos % (Auto) Baso % (Auto) Lymph # (Auto) [place] # (Auto) Eos # (Auto) Baso # (Auto) Abs Immat Gran (auto) Absolute Neuts (auto) Absolute Nucleated RBC Nucleated RBC % (auto) VBG pH 7.48 H VBG pCO2 36 VBG pO2 52 VBG HCO3 27 H VBG O2 Saturation 81.0 VBG Base Excess 4.2 Sodium 138 Potassium 4.1 Chloride 103 Carbon Dioxide 28 Anion Gap 11 L BUN 24 H Creatinine 0.73 Estim Creat Clear Calc 104.3 Estimated GFR > 60 POC Glucose 103 Random Glucose 119 H Calcium 8.8 Total Bilirubin 0.7 AST 25 ALT 42 H Alkaline Phosphatase 53 Total Protein 5.3 L Albumin 2.8 L 07/12/21 07/12/21 08:57 11:41 WBC RBC Hgb Hct MCV MCH MCHC RDW Plt Count MPV Immature Gran % (Auto) Neut % (Auto) Lymph % (Auto) [place] % (Auto) Eos % (Auto) Baso % (Auto) Lymph # (Auto) [place] # (Auto) Eos # (Auto) Baso # (Auto) Abs Immat Gran (auto) Absolute Neuts (auto) Absolute Nucleated RBC Nucleated RBC % (auto) VBG pH VBG pCO2 VBG pO2 VBG HCO3 VBG O2 Saturation VBG Base Excess Sodium Potassium Chloride Carbon Dioxide Anion Gap BUN Creatinine Estim Creat Clear Calc Estimated GFR POC Glucose 93 165 H Random Glucose Calcium Total Bilirubin AST ALT Alkaline Phosphatase Total Protein Albumin Microbiology Microbiology Results: Microbiology 07/05/21 06:00 Sputum - Suctioned Gram Stain - Final 07/05/21 06:00 Sputum - Suctioned Sputum Culture - Final 06/24/21 19:40 Blood - Venous Blood Culture - Final No growth after 5 days. 06/24/21 19:30 Blood - Venous Blood Culture - Final No growth after 5 days. Progress Note: A&P Assessment and plan (1) Acute respiratory failure with hypoxia: Status: Acute (2) Acute respiratory distress syndrome (ARDS) due to COVID-19 virus: Status: Acute (3) Hypoxia: Status: Acute (4) SARS-CoV-2 positive: Status: Acute (5) Depression: Status: Acute (6) Obstructive sleep apnea: Status: Acute (7) Morbid obesity with BMI of 40.0-44.9, adult: Status: Acute (8) Carotid stenosis, bilateral: Status: Acute (9) Ischemic cardiomyopathy: Status: Acute (10) Diabetes: Status: Acute (11) Sleep disorder breathing: Status: Acute (12) Hypothyroidism: Status: Acute (13) Abnormal electrocardiography: Status: Acute (14) S/P CABG (coronary artery bypass graft): Status: Acute Assessment and Plan: so it at this point being that he started to become somewhat agitated and increasingly tachypneic with dropping tidal volumes we decided to rest him again overnight and reestablish the propofol and make another attempt in the morning on the to wean 1st the propofol and if cognitive function is appropriate attempt pressure support trial once more Quality Stroke Does the patient have a stroke diagnosis?: No VTE Prior VTE?: No VTE Risk Level:: Medical - moderate - high VTE Device Contraindication: N/A - Device Ordered VTE Drug Contraindication: Treatment Not Indicated
[2021-07-12 18:04] LABS: Glucose, Whole Blood 127 mg/dL (60-115)
--- NOTE | 2021-07-12 18:25 | PC.NURSE ---
tmax 99.7, VSS, Sr/ sr with 1st degree on tele. Sedation vacation from 1000-about 1500, pt able to follow commands, nod yes/no to questions. Increased respiratory rate so pt was placed back on sedation. vent settings remain the same. u/o wnl, pt repo q2hr, bath given, prevalon mattress, Family facetimes pt.
[2021-07-12] MEDS: Enoxaparin Sodium 40 MG/0.4 ML SYRINGE SUBCUT (20:34)
[2021-07-12] MEDS: Atorvastatin Calcium 80 MG TABLET PO (20:34)
[2021-07-12 23:45] LABS: Glucose, Whole Blood 110 mg/dL (60-115)
[2021-07-13] VITALS (31 sets, daily range): BP systolic 107–162; BP diastolic 6–87; PULSE 67–87; RESP 10–31; TEMP 33–37.7; O2SAT 92–97; BMI 37.4
[2021-07-13] MEDS: propofoL 1,000 MG/100 ML VIAL 12.72 MG IVCONT ×3 (02:27→22:29)
[2021-07-13] MEDS: Levothyroxine Sodium 125 MCG TABLET PO (05:24)
[2021-07-13 05:40] LABS: VBG Base Excess 5.5 mmol/L; VBG HCO3 30 mmol/L (22-26); VBG pCO2 43 mmHg; VBG pH 7.44 (7.32-7.43); VBG pO2 49 mmHg
[2021-07-13 05:49] LABS: MANUAL DIFF FLAG NO
[2021-07-13 05:53] LABS: Basophils Percent Auto 0.1 % (0-2); Eosinophils Absolute Auto 0.2 X10*3/uL (0.0-0.4); Eosinophils Percent Auto 3.2 % (0-4); Hematocrit 36.4 % (42.0-52.0); Hemoglobin 11.4 g/dl (14.0-18.0); Imm Gran Abs Auto 0.14 X10*3/uL (0.00-0.03); Imm Gran Pct Auto 1.9 % (0.0-0.4); Lymphocytes Absolute Auto 1.8 X10*3/uL (1.2-4.9); Lymphocytes Percent Auto 23.6 % (20-40); Mean Corpuscular HGB Conc 31.3 g/dl (31.0-36.0); Mean Corpuscular Hemoglobin 28.1 pg (27.0-33.0); Mean Corpuscular Volume 89.7 fL (80.0-98.0); Mean Platelet Volume 10.8 fL (9.4-12.4); Monocytes Absolute Auto 0.4 X10*3/uL (0.1-1.2); Monocytes Percent Auto 5.4 % (2-11); Neutrophils Absolute Auto 4.9 x10*3/uL (2.0-8.3); Neutrophils Percent Auto 65.8 % (45-73); Platelet Count 156 X10*3/uL (160-400); Red Blood Count 4.06 X10*6/uL (4.60-5.80); Red Cell Distribution Width 15.8 % (11.0-16.0); White Blood Count 7.4 X10*3/uL (4.8-10.8)
[2021-07-13 06:11] LABS: Alanine Aminotransferase 42 U/L (0-40); Albumin Level 2.8 g/dL (3.5-5.0); Alkaline Phosphatase 54 U/L (39-117); Anion Gap 13 (12-20); Aspartate Amino Transferase 25 U/L (5-37); Bilirubin Total 0.7 mg/dL (0.0-1.0); Blood Urea Nitrogen 22 mg/dL (9-16); Calcium 8.8 mg/dL (8.4-10.2); Carbon Dioxide 27 mmol/L (22-29); Chloride 106 mmol/L (96-108); Creatinine Clr Calc Pharmacy 99.9; Estimated Glomerular Filt Rate > 60; Glucose Random 128 mg/dL (60-115); Potassium 3.8 mmol/L (3.3-5.1); Sodium 142 mmol/L (135-145); Total Protein 5.3 g/dL (6.5-8.0)
[2021-07-13 07:31] LABS: Venous Blood Gas Refer to POC result
[2021-07-13] MEDS: Chlorhexidine Gluc Oral Rinse 15 ML MOUTHWASH BUCCAL ×3 (08:29→21:01)
[2021-07-13] MEDS: Insulin Glargine,Hum.rec.anlog 100 UNIT/ML 10 ML VIAL 10 UNIT SUBCUT (08:29)
[2021-07-13] MEDS: Aspirin Enteric Coated 81 MG TABLET.DR PO (08:30)
[2021-07-13] MEDS: 0.9 % Sodium Chloride Flush 3 ML SYRINGE IVFLUSH ×3 (08:30→21:01)
[2021-07-13] MEDS: Famotidine 20 MG TABLET 40 MG PO (08:30)
[2021-07-13] MEDS: Clopidogrel Bisulfate 75 MG TABLET PO (08:30)
[2021-07-13] MEDS: predniSONE 5 MG TABLET 25 MG PO (08:30)
--- NOTE | 2021-07-13 09:33 | MHC.CLN ---
F/U PROPOFOL ON HOLD IF PROPOFOL TO REMAIN OFF; RECOMMEND INCREASING PROMOTE AT MAX GOAL RATE OF 70 ML PER HOUR WITH FREE WATER FLUSH 120 ML WATER EVERY 6 HOURS TO PROVIDE 1680 KCAL (22 KCAL/KG CMW); 105 G PROTEIN (1.4 G/KG CMW); 1889 ML TOTAL WATER FROM FORMULA AND FLUSHES (25 ML/KG CMW). MONITOR TOLERANCE, RESIDUALS AND LYTES.
[2021-07-13] MEDS: propofoL 1,000 MG/100 ML VIAL 15.9 MG IVCONT (10:15)
[2021-07-13 12:14] LABS: Glucose, Whole Blood 169 mg/dL (60-115)
[2021-07-13] MEDS: Insulin Lispro 100 UNIT/ML 3 ML VIAL SUBCUT (12:38)
--- NOTE | 2021-07-13 16:28 | P.PNCC_ITS ---
Subjective Subjective Date of Service: 07/13/21 Interval History: 71-year-old morbidly obese type 2 diabetic status post coronary bypass grafting with ischemic cardiomyopathy approximately 45-50% ejection fraction who who has a chest x-ray looks a little more dense bilaterally with acute hypoxemic respiratory failure due to COVID-19 pneumonitis and ARDS and with slightly positive intake and output and a pending CVP reading and pending BNP I will empirically give him 20 mg of Lasix IV and probably a KCL to follow and will send off sputum studies and given empiric dose of antifungal and antibacterial medication and the repeat imaging in the morning but he is currently tolerating with propofol being restored a stable degree of pressure support at 15/5 probably rest him overnight at 20/5 Critical Care Time (minutes): 45 Physical Exam Vital Signs: Vital Signs: Last Vital Signs Temp 99.3 F 07/13/21 16:00 Pulse 76 07/13/21 16:00 Resp 20 07/13/21 16:00 BP 117/68 07/13/21 16:00 Pulse Ox 95 07/13/21 16:00 BMI result Body Mass Index 37.4 preserve cognitive function and nonfocal neurologic stable cardiovascular exam no gallop lungs with no adventitious sounds and no accessory muscle use benign abdomen tolerating feedings Objective Data Labs CBC & Chem 7: 07/13/21 05:25 07/13/21 05:25 Labs: Laboratory Results - last 24 hr 07/12/21 07/12/21 07/13/21 17:32 23:37 05:25 WBC 7.4 RBC 4.06 L Hgb 11.4 L Hct 36.4 L MCV 89.7 MCH 28.1 MCHC 31.3 RDW 15.8 Plt Count 156 L MPV 10.8 Immature Gran % (Auto) 1.9 H Neut % (Auto) 65.8 Lymph % (Auto) 23.6 [place] % (Auto) 5.4 Eos % (Auto) 3.2 Baso % (Auto) 0.1 Lymph # (Auto) 1.8 [place] # (Auto) 0.4 Eos # (Auto) 0.2 Baso # (Auto) 0.0 Abs Immat Gran (auto) 0.14 H Absolute Neuts (auto) 4.9 Absolute Nucleated RBC 0.000 Nucleated RBC % (auto) 0.0 VBG pH VBG pCO2 VBG pO2 VBG HCO3 VBG O2 Saturation VBG Base Excess Sodium Potassium Chloride Carbon Dioxide Anion Gap BUN Creatinine Estim Creat Clear Calc Estimated GFR POC Glucose 127 H 110 Random Glucose Calcium Total Bilirubin AST ALT Alkaline Phosphatase Total Protein Albumin 07/13/21 07/13/21 07/13/21 05:25 05:34 12:09 WBC RBC Hgb Hct MCV MCH MCHC RDW Plt Count MPV Immature Gran % (Auto) Neut % (Auto) Lymph % (Auto) [place] % (Auto) Eos % (Auto) Baso % (Auto) Lymph # (Auto) [place] # (Auto) Eos # (Auto) Baso # (Auto) Abs Immat Gran (auto) Absolute Neuts (auto) Absolute Nucleated RBC Nucleated RBC % (auto) VBG pH 7.44 H VBG pCO2 43 VBG pO2 49 VBG HCO3 30 H VBG O2 Saturation 76.0 VBG Base Excess 5.5 Sodium 142 Potassium 3.8 Chloride 106 Carbon Dioxide 27 Anion Gap 13 BUN 22 H Creatinine 0.76 Estim Creat Clear Calc 99.9 Estimated GFR > 60 POC Glucose 169 H Random Glucose 128 H Calcium 8.8 Total Bilirubin 0.7 AST 25 ALT 42 H Alkaline Phosphatase 54 Total Protein 5.3 L Albumin 2.8 L Microbiology Microbiology Results: Microbiology 07/05/21 06:00 Sputum - Suctioned Gram Stain - Final 07/05/21 06:00 Sputum - Suctioned Sputum Culture - Final 06/24/21 19:40 Blood - Venous Blood Culture - Final No growth after 5 days. 06/24/21 19:30 Blood - Venous Blood Culture - Final No growth after 5 days. Progress Note: A&P Assessment and plan (1) Acute respiratory failure with hypoxia: Status: Acute (2) Acute respiratory distress syndrome (ARDS) due to COVID-19 virus: Status: Acute (3) Hypoxia: Status: Acute (4) SARS-CoV-2 positive: Status: Acute (5) Depression: Status: Acute (6) Obstructive sleep apnea: Status: Acute (7) Morbid obesity with BMI of 40.0-44.9, adult: Status: Acute (8) Screening for colon cancer: Status: Acute (9) Atherosclerotic heart disease of [place] coronary artery with unstable angina pectoris: Status: Acute (10) Fatigue: Status: Acute (11) Varicose veins of right lower extremity with inflammation: Status: Acute (12) Carotid stenosis, bilateral: Status: Acute (13) Ischemic cardiomyopathy: Status: Acute (14) Annual physical exam: Status: Acute (15) Diabetes: Status: Acute (16) Sleep disorder breathing: Status: Acute (17) Hypothyroidism: Status: Acute (18) Abnormal electrocardiography: Status: Acute (19) S/P CABG (coronary artery bypass graft): Status: Acute (20) CAD (coronary artery disease): Status: Acute Assessment and Plan: so I will enhance is inspiratory pressure to rest him overnight continue to allow him to use his own respiratory effort and see if the 20 of Lasix and the antimicrobials help make a difference Quality Stroke Does the patient have a stroke diagnosis?: No VTE Prior VTE?: No VTE Risk Level:: Medical - moderate - high VTE Device Contraindication: N/A - Device Ordered VTE Drug Contraindication: Treatment Not Indicated
[2021-07-13] MEDS: Furosemide 20 MG/2 ML VIAL IVPUSH (16:30)
[2021-07-13 17:19] LABS: B Type Natriuretic Peptide 34 pg/mL (<100)
[2021-07-13] MEDS: Ampicillin Sodium/Sulbactam Na 3 GM in 0.9 % Sodium Chloride 100 ML IV (17:47)
[2021-07-13 17:54] LABS: Glucose, Whole Blood 133 mg/dL (60-115)
[2021-07-13] MEDS: Fluconazole in NaCl,Iso-Osm 200 MG/100 ML PIGGYBACK 100 MG IV (18:04)
[2021-07-13] MEDS: vancomycin HCL 1,500 MG in 0.9 % Sodium Chloride 500 ML 333.33 MG IV (18:12)
[2021-07-13] MEDS: Atorvastatin Calcium 80 MG TABLET PO (21:01)
[2021-07-13] MEDS: Enoxaparin Sodium 40 MG/0.4 ML SYRINGE SUBCUT (21:01)
[2021-07-13 23:51] LABS: Glucose, Whole Blood 96 mg/dL (60-115)
[2021-07-14] VITALS (30 sets, daily range): BP systolic 96–160; BP diastolic 58–88; PULSE 71–100; RESP 14–32; TEMP 33.3–37.8; O2SAT 88–97; BMI 37.5
[2021-07-14] MEDS: propofoL 1,000 MG/100 ML VIAL 12.72 MG IVCONT (04:39)
[2021-07-14] MEDS: Levothyroxine Sodium 125 MCG TABLET PO (05:11)
[2021-07-14 05:21] LABS: Glucose, Whole Blood 101 mg/dL (60-115)
[2021-07-14 05:37] LABS: MANUAL DIFF FLAG NO
[2021-07-14 05:39] LABS: Venous Blood Gas Refer to POC result
[2021-07-14 05:43] LABS: VBG Base Excess 6.7 mmol/L; VBG HCO3 31 mmol/L (22-26); VBG pCO2 45 mmHg; VBG pH 7.45 (7.32-7.43); VBG pO2 55 mmHg
[2021-07-14 05:59] LABS: Alanine Aminotransferase 40 U/L (0-40); Albumin Level 2.8 g/dL (3.5-5.0); Alkaline Phosphatase 54 U/L (39-117); Anion Gap 9 (12-20); Aspartate Amino Transferase 22 U/L (5-37); Bilirubin Total 0.7 mg/dL (0.0-1.0); Blood Urea Nitrogen 23 mg/dL (9-16); Calcium 8.5 mg/dL (8.4-10.2); Carbon Dioxide 30 mmol/L (22-29); Chloride 106 mmol/L (96-108); Creatinine Clr Calc Pharmacy 102.8; Estimated Glomerular Filt Rate > 60; Glucose Random 109 mg/dL (60-115); Sodium 141 mmol/L (135-145); Total Protein 5.3 g/dL (6.5-8.0)
[2021-07-14] MEDS: Aspirin Enteric Coated 81 MG TABLET.DR PO (07:35)
[2021-07-14] MEDS: 0.9 % Sodium Chloride Flush 3 ML SYRINGE IVFLUSH ×2 (07:35→19:58)
[2021-07-14] MEDS: Famotidine 20 MG TABLET 40 MG PO (07:35)
[2021-07-14] MEDS: predniSONE 5 MG TABLET 25 MG PO (07:35)
[2021-07-14] MEDS: Clopidogrel Bisulfate 75 MG TABLET PO (07:35)
[2021-07-14] MEDS: Chlorhexidine Gluc Oral Rinse 15 ML MOUTHWASH BUCCAL ×2 (07:35→19:58)
[2021-07-14] MEDS: Insulin Glargine,Hum.rec.anlog 100 UNIT/ML 10 ML VIAL 10 UNIT SUBCUT (07:36)
[2021-07-14 08:41] LABS: Eosinophils Absolute Auto 0.3 X10*3/uL (0.0-0.4); Eosinophils Percent Auto 4.1 % (0-4); Hematocrit 35.8 % (42.0-52.0); Hemoglobin 11.4 g/dl (14.0-18.0); Imm Gran Abs Auto 0.08 X10*3/uL (0.00-0.03); Imm Gran Pct Auto 1.1 % (0.0-0.4); Lymphocytes Absolute Auto 1.8 X10*3/uL (1.2-4.9); Lymphocytes Percent Auto 24.6 % (20-40); Mean Corpuscular HGB Conc 31.8 g/dl (31.0-36.0); Mean Corpuscular Hemoglobin 28.6 pg (27.0-33.0); Mean Corpuscular Volume 89.9 fL (80.0-98.0); Mean Platelet Volume 11.6 fL (9.4-12.4); Monocytes Absolute Auto 0.4 X10*3/uL (0.1-1.2); Neutrophils Absolute Auto 4.6 x10*3/uL (2.0-8.3); Neutrophils Percent Auto 64.2 % (45-73); Platelet Count 153 X10*3/uL (160-400); Red Blood Count 3.98 X10*6/uL (4.60-5.80); Red Cell Distribution Width 16.1 % (11.0-16.0); White Blood Count 7.1 X10*3/uL (4.8-10.8)
[2021-07-14] MEDS: Midazolam HCl/PF 2 MG/2 ML VIAL 4 MG IVPUSH (11:04)
[2021-07-14] MEDS: propofoL 1,000 MG/100 ML VIAL 19.08 MG IVCONT ×3 (11:40→21:10)
[2021-07-14] MEDS: Insulin Lispro 100 UNIT/ML 3 ML VIAL SUBCUT (11:45)
[2021-07-14 12:08] LABS: Glucose, Whole Blood 155 mg/dL (60-115)
--- NOTE | 2021-07-14 12:41 | PC.NURSE ---
Addendum entered by Juan C Miller RN 07/14/21 12:42: Pt was on PSV, however, pt RR up to 45br/min SaO2 86-88%, did calm down when facetiming with , however, RR back up to 45 br/min. 4mg IVP versed was given 1140 prior to intubation. notified of nystagmus when pt attempts to track with eyes to his left when i say his name from the left. Pt prefers looking right, MD Mallory aware. Original Note: ET tube replaced #7.5 25cm lip per MD Mallory at 1200, 30mg IVP prop given and 50mg IVP kaleb given. CXR ordered.
--- NOTE | 2021-07-14 16:11 | MHC.CM.PN ---
Pt remains in ICU intubated with goals of care today to maximize respiratory efforts. Pt will likely need a trach and peg: MD to revisit in 1-2 more days. CM to follow: Pt has been referred to [facility] in anticipation of above needs
[2021-07-14 16:37] LABS: Glucose, Whole Blood 139 mg/dL (60-115)
--- NOTE | 2021-07-14 16:37 | P.PNCC_ITS ---
Subjective Subjective Date of Service: 07/14/21 Interval History: 71-year-old male with COVID-19 pneumonitis and history of coronary disease status post coronary bypass grafting came in with acute hypoxemic respiratory failure due to ARDS also morbidly obese a and has untreated sleep apnea in type 2 diabetes who developed respiratory distress with drop in his delivered expiratory volume as well as inability to pass a suction catheter through the ET tube so I emergently had to change it and clearly at it and there was a long obstruction due to a little E concretions of his but the no sputum but we sent off again and other repeat set of cultures and Gram stain Critical Care Time (minutes): 60 Physical Exam Vital Signs: Vital Signs: Last Vital Signs Temp 98.8 F 07/14/21 16:00 Pulse 72 07/14/21 16:00 Resp 16 07/14/21 16:00 BP 96/58 L 07/14/21 16:00 Pulse Ox 95 07/14/21 16:00 BMI result Body Mass Index 37.5 he moves all 4 extremities bedside cardiac echo does show some segmental wall motion abnormality with mild hypertrophy no primary valve or pericardial disease I placed ejection fraction in the 40-45% range at best increase diaphragmatic effort with diminishing tidal volumes on pressure support requiring replenishing his volume control and sedation on propofol Objective Data Labs CBC & Chem 7: 07/15/21 05:00 07/15/21 05:10 Labs: Laboratory Results - last 24 hr 07/13/21 07/13/21 07/13/21 16:50 17:45 23:38 WBC RBC Hgb Hct MCV MCH MCHC RDW Plt Count MPV Immature Gran % (Auto) Neut % (Auto) Lymph % (Auto) [place] % (Auto) Eos % (Auto) Baso % (Auto) Lymph # (Auto) [place] # (Auto) Eos # (Auto) Baso # (Auto) Abs Immat Gran (auto) Absolute Neuts (auto) Absolute Nucleated RBC Nucleated RBC % (auto) VBG pH VBG pCO2 VBG pO2 VBG HCO3 VBG O2 Saturation VBG Base Excess Sodium Potassium Chloride Carbon Dioxide Anion Gap BUN Creatinine Estim Creat Clear Calc Estimated GFR POC Glucose 133 H 96 Random Glucose Calcium Total Bilirubin AST ALT Alkaline Phosphatase B-Natriuretic Peptide 34 Total Protein Albumin 07/14/21 07/14/21 07/14/21 05:13 05:33 05:33 WBC 7.1 RBC 3.98 L Hgb 11.4 L Hct 35.8 L MCV 89.9 MCH 28.6 MCHC 31.8 RDW 16.1 H Plt Count 153 L MPV 11.6 Immature Gran % (Auto) 1.1 H Neut % (Auto) 64.2 Lymph % (Auto) 24.6 [place] % (Auto) 6.0 Eos % (Auto) 4.1 H Baso % (Auto) 0.0 Lymph # (Auto) 1.8 [place] # (Auto) 0.4 Eos # (Auto) 0.3 Baso # (Auto) 0.0 Abs Immat Gran (auto) 0.08 H Absolute Neuts (auto) 4.6 Absolute Nucleated RBC 0.000 Nucleated RBC % (auto) 0.0 VBG pH VBG pCO2 VBG pO2 VBG HCO3 VBG O2 Saturation VBG Base Excess Sodium 141 Potassium 4.0 Chloride 106 Carbon Dioxide 30 H Anion Gap 9 L BUN 23 H Creatinine 0.74 Estim Creat Clear Calc 102.8 Estimated GFR > 60 POC Glucose 101 Random Glucose 109 Calcium 8.5 Total Bilirubin 0.7 AST 22 ALT 40 Alkaline Phosphatase 54 B-Natriuretic Peptide Total Protein 5.3 L Albumin 2.8 L 07/14/21 07/14/21 05:35 11:10 WBC RBC Hgb Hct MCV MCH MCHC RDW Plt Count MPV Immature Gran % (Auto) Neut % (Auto) Lymph % (Auto) [place] % (Auto) Eos % (Auto) Baso % (Auto) Lymph # (Auto) [place] # (Auto) Eos # (Auto) Baso # (Auto) Abs Immat Gran (auto) Absolute Neuts (auto) Absolute Nucleated RBC Nucleated RBC % (auto) VBG pH 7.45 H VBG pCO2 45 VBG pO2 55 VBG HCO3 31 H VBG O2 Saturation 82.0 VBG Base Excess 6.7 Sodium Potassium Chloride Carbon Dioxide Anion Gap BUN Creatinine Estim Creat Clear Calc Estimated GFR POC Glucose 155 H Random Glucose Calcium Total Bilirubin AST ALT Alkaline Phosphatase B-Natriuretic Peptide Total Protein Albumin Microbiology Microbiology Results: Microbiology 07/13/21 19:34 Sputum - Suctioned Gram Stain - Final 07/13/21 19:34 Sputum - Suctioned Sputum Culture - Preliminary Culture too young to evaluate. 07/05/21 06:00 Sputum - Suctioned Gram Stain - Final 07/05/21 06:00 Sputum - Suctioned Sputum Culture - Final 06/24/21 19:40 Blood - Venous Blood Culture - Final No growth after 5 days. 06/24/21 19:30 Blood - Venous Blood Culture - Final No growth after 5 days. Progress Note: A&P Assessment and plan (1) Acute respiratory failure with hypoxia: Status: Acute (2) Acute respiratory distress syndrome (ARDS) due to COVID-19 virus: Status: Acute (3) Depression: Status: Acute (4) Obstructive sleep apnea: Status: Acute (5) Morbid obesity with BMI of 40.0-44.9, adult: Status: Acute (6) Atherosclerotic heart disease of [place] coronary artery with unstable angina pectoris: Status: Acute (7) Ischemic cardiomyopathy: Status: Acute (8) Diabetes: Status: Acute (9) Sleep disorder breathing: Status: Acute (10) Hypothyroidism: Status: Acute (11) Abnormal electrocardiography: Status: Acute (12) S/P CABG (coronary artery bypass graft): Status: Acute (13) CAD (coronary artery disease): Status: Acute Assessment and Plan: will try again tomorrow sedation holiday but because there was some questions about lesser strength on the left side and some nystagmoid movement of his eye all of which sounds potentially metabolic my it ordered a carotid duplex scan all of which showed nonobstructive disease of his carotid system and so therefore again sedation holiday in the morning and wait for the sputum cultures to the no to come back Quality Stroke Does the patient have a stroke diagnosis?: No VTE Prior VTE?: No VTE Risk Level:: Medical - moderate - high VTE Device Contraindication: N/A - Device Ordered VTE Drug Contraindication: Treatment Not Indicated
--- NOTE | 2021-07-14 16:38 | W.PM.CCHP ---
Procedures Date of Service Date of Service: 07/14/21 Intubation Intubation Comments: and unable to suction through his existing ET tube with increasing respiratory distress and unable to return normal volumes I was concerned that there was a ball valving obstruction in the endotracheal tube and with the use of IV propofol and ultimately 50 mg of rocuronium I removed the old tube which was nearly totally occluded from concretions within it and replaced another 7-1/2 endotracheal tube utilizing a glide scope visualization of the vocal cords excellent end-tidal CO2 response and good bilateral breath sounds and confirmation by chest x-ray of its position Consent for Procedure: Emergent-no informed consent obtained Time out performed: Yes Sedative: propofol Paralytic: rocuronium Laryngoscope: fiber optic video scope ET tube size: 7.5 ET tube uncuffed: No Tube secured depth (cm): 23 Tube secured location: lips Tube placement confirmation: visualized tube passing through cords, equal breath sounds bilaterally and no breath sounds over epigastrium Patient tolerated procedure: well Intubation complications: none
[2021-07-14] MEDS: Atorvastatin Calcium 80 MG TABLET PO (19:58)
[2021-07-14] MEDS: Enoxaparin Sodium 40 MG/0.4 ML SYRINGE SUBCUT (21:10)
[2021-07-14 23:37] LABS: Glucose, Whole Blood 115 mg/dL (60-115)
[2021-07-15] VITALS (31 sets, daily range): BP systolic 99–173; BP diastolic 59–93; PULSE 7–92; RESP 8–27; TEMP 34.7–37.7; O2SAT 4–98; BMI 37.9
[2021-07-15] MEDS: propofoL 1,000 MG/100 ML VIAL 25.44 MG IVCONT (00:30)
[2021-07-15] MEDS: Levothyroxine Sodium 125 MCG TABLET PO (05:00)
[2021-07-15] MEDS: propofoL 1,000 MG/100 ML VIAL 19.08 MG IVCONT (05:12)
[2021-07-15 05:18] LABS: VBG Base Excess 3.8 mmol/L; VBG HCO3 26 mmol/L (22-26); VBG pCO2 34 mmHg; VBG pH 7.49 (7.32-7.43); VBG pO2 51 mmHg
[2021-07-15 05:50] LABS: MANUAL DIFF FLAG NO
[2021-07-15 05:54] LABS: Glucose, Whole Blood 131 mg/dL (60-115)
[2021-07-15 05:56] LABS: Basophils Percent Auto 0.1 % (0-2); Eosinophils Absolute Auto 0.4 X10*3/uL (0.0-0.4); Eosinophils Percent Auto 5.1 % (0-4); Hematocrit 36.1 % (42.0-52.0); Hemoglobin 11.4 g/dl (14.0-18.0); Imm Gran Abs Auto 0.09 X10*3/uL (0.00-0.03); Imm Gran Pct Auto 1.2 % (0.0-0.4); Lymphocytes Absolute Auto 2.2 X10*3/uL (1.2-4.9); Lymphocytes Percent Auto 28.6 % (20-40); Mean Corpuscular HGB Conc 31.6 g/dl (31.0-36.0); Mean Corpuscular Hemoglobin 28.3 pg (27.0-33.0); Mean Corpuscular Volume 89.6 fL (80.0-98.0); Mean Platelet Volume 11.4 fL (9.4-12.4); Monocytes Absolute Auto 0.4 X10*3/uL (0.1-1.2); Monocytes Percent Auto 5.8 % (2-11); Neutrophils Absolute Auto 4.5 x10*3/uL (2.0-8.3); Neutrophils Percent Auto 59.2 % (45-73); Platelet Count 146 X10*3/uL (160-400); Red Blood Count 4.03 X10*6/uL (4.60-5.80); Red Cell Distribution Width 16.2 % (11.0-16.0); White Blood Count 7.6 X10*3/uL (4.8-10.8)
[2021-07-15 06:42] LABS: Venous Blood Gas Refer to POC result
[2021-07-15 06:51] LABS: Alanine Aminotransferase 36 U/L (0-40); Albumin Level 2.8 g/dL (3.5-5.0); Alkaline Phosphatase 57 U/L (39-117); Anion Gap 8 (12-20); Aspartate Amino Transferase 22 U/L (5-37); Bilirubin Total 0.6 mg/dL (0.0-1.0); Blood Urea Nitrogen 25 mg/dL (9-16); Calcium 8.6 mg/dL (8.4-10.2); Carbon Dioxide 31 mmol/L (22-29); Chloride 101 mmol/L (96-108); Creatinine Clr Calc Pharmacy 104.6; Estimated Glomerular Filt Rate > 60; Glucose Random 141 mg/dL (60-115); Potassium 3.7 mmol/L (3.3-5.1); Sodium 136 mmol/L (135-145); Total Protein 5.3 g/dL (6.5-8.0)
[2021-07-15] MEDS: predniSONE 5 MG TABLET 25 MG PO (07:27)
[2021-07-15] MEDS: Chlorhexidine Gluc Oral Rinse 15 ML MOUTHWASH BUCCAL ×2 (07:27→21:03)
[2021-07-15] MEDS: Aspirin Enteric Coated 81 MG TABLET.DR PO (07:28)
[2021-07-15] MEDS: Clopidogrel Bisulfate 75 MG TABLET PO (07:28)
[2021-07-15] MEDS: 0.9 % Sodium Chloride Flush 3 ML SYRINGE IVFLUSH ×2 (07:28→16:15)
[2021-07-15] MEDS: Famotidine 20 MG TABLET 40 MG PO (07:28)
[2021-07-15 08:51] LABS: Glucose, Whole Blood 150 mg/dL (60-115)
[2021-07-15] MEDS: Insulin Glargine,Hum.rec.anlog 100 UNIT/ML 10 ML VIAL 10 UNIT SUBCUT (08:53)
--- NOTE | 2021-07-15 10:41 | MHC.CLN ---
F/U PT REMAINS INTUBATED AND SEDATED PT RECEIVING PROMOTE AT MAX GOAL RATE OF 70 ML PER HOUR WITH FREE WATER FLUSH 120 ML WATER EVERY 6 HOURS PROVIDES 1680 KCAL (1932KCALS WITH SEDATION; 26 KCAL/KG CMW); 105 G PROTEIN (1.4 G/KG CMW); 1889 ML TOTAL WATER FROM FORMULA AND FLUSHES (25 ML/KG CMW). CONTINUE TO MONITOR TOLERANCE, RESIDUALS AND LYTES.
[2021-07-15 11:56] LABS: Glucose, Whole Blood 176 mg/dL (60-115)
[2021-07-15] MEDS: Insulin Lispro 100 UNIT/ML 3 ML VIAL SUBCUT (11:58)
--- NOTE | 2021-07-15 15:22 | P.PNCC_ITS ---
Subjective Subjective Date of Service: 07/15/21 Interval History: 71-year-old moderately obese male type 2 diabetic status post coronary bypass grafting parent infarct in the past ejection fraction 40-45% remains intubated for 2 weeks now because of COVID-19 pneumonitis and ARDS with acute hypoxic respiratory failure sedation holiday today he woke up without any focal neurologic issues and with the best cognitive function since he has been here on FiO2 of 30% with bedside echo demonstrably unchanged and on 15/5 pressure support the system still maintained tidal volumes in the 400 cc range and will check his vital capacities CV gated least increased by 50% but his respiratory rate is low 20s VAC it is hanging between 16 and 20 most of the time so I think were ready for extubation and I probably would would wean him onto nasal high-flow at 40-60 liters/minute for the CPAP sputum growing klarissa bacterial species as well as yeast so I will add micafungin and probably add Unasyn because we are probably dealing with a polymicrobial issue in all likelihood still colonization but this still residual infiltrates on chest x-ray so Critical Care Time (minutes): 60 Physical Exam Vital Signs: Vital Signs: Last Vital Signs Temp 99 F 07/15/21 15:00 Pulse 73 07/15/21 15:00 Resp 22 H 07/15/21 15:00 BP 144/83 H 07/15/21 15:00 Pulse Ox 97 07/15/21 15:00 BMI result Body Mass Index 37.9 awake with excellent cognitive function and nonfocal neurologic bedside echo shows status quo cardiac function no accessory muscle or diaphragmatic effort comfortable respiratory rate low minute ventilatory requirements of 6.5 L abdomen benign soft tolerating feedings no organomegaly no acrocyanosis no peripheral edema Objective Data Labs CBC & Chem 7: 07/15/21 05:00 07/15/21 05:10 Labs: Laboratory Results - last 24 hr 07/14/21 07/14/21 07/15/21 16:32 23:31 05:00 WBC 7.6 RBC 4.03 L Hgb 11.4 L Hct 36.1 L MCV 89.6 MCH 28.3 MCHC 31.6 RDW 16.2 H Plt Count 146 L MPV 11.4 Immature Gran % (Auto) 1.2 H Neut % (Auto) 59.2 Lymph % (Auto) 28.6 [place] % (Auto) 5.8 Eos % (Auto) 5.1 H Baso % (Auto) 0.1 Lymph # (Auto) 2.2 [place] # (Auto) 0.4 Eos # (Auto) 0.4 Baso # (Auto) 0.0 Abs Immat Gran (auto) 0.09 H Absolute Neuts (auto) 4.5 Absolute Nucleated RBC 0.000 Nucleated RBC % (auto) 0.0 VBG pH VBG pCO2 VBG pO2 VBG HCO3 VBG O2 Saturation VBG Base Excess Sodium Potassium Chloride Carbon Dioxide Anion Gap BUN Creatinine Estim Creat Clear Calc Estimated GFR POC Glucose 139 H 115 Random Glucose Calcium Total Bilirubin AST ALT Alkaline Phosphatase Total Protein Albumin 07/15/21 07/15/21 07/15/21 05:10 05:10 05:50 WBC RBC Hgb Hct MCV MCH MCHC RDW Plt Count MPV Immature Gran % (Auto) Neut % (Auto) Lymph % (Auto) [place] % (Auto) Eos % (Auto) Baso % (Auto) Lymph # (Auto) [place] # (Auto) Eos # (Auto) Baso # (Auto) Abs Immat Gran (auto) Absolute Neuts (auto) Absolute Nucleated RBC Nucleated RBC % (auto) VBG pH 7.49 H VBG pCO2 34 VBG pO2 51 VBG HCO3 26 VBG O2 Saturation 75.0 VBG Base Excess 3.8 Sodium 136 Potassium 3.7 Chloride 101 Carbon Dioxide 31 H Anion Gap 8 L BUN 25 H Creatinine 0.73 Estim Creat Clear Calc 104.6 Estimated GFR > 60 POC Glucose 131 H Random Glucose 141 H Calcium 8.6 Total Bilirubin 0.6 AST 22 ALT 36 Alkaline Phosphatase 57 Total Protein 5.3 L Albumin 2.8 L 07/15/21 07/15/21 08:47 11:51 WBC RBC Hgb Hct MCV MCH MCHC RDW Plt Count MPV Immature Gran % (Auto) Neut % (Auto) Lymph % (Auto) [place] % (Auto) Eos % (Auto) Baso % (Auto) Lymph # (Auto) [place] # (Auto) Eos # (Auto) Baso # (Auto) Abs Immat Gran (auto) Absolute Neuts (auto) Absolute Nucleated RBC Nucleated RBC % (auto) VBG pH VBG pCO2 VBG pO2 VBG HCO3 VBG O2 Saturation VBG Base Excess Sodium Potassium Chloride Carbon Dioxide Anion Gap BUN Creatinine Estim Creat Clear Calc Estimated GFR POC Glucose 150 H 176 H Random Glucose Calcium Total Bilirubin AST ALT Alkaline Phosphatase Total Protein Albumin Microbiology Microbiology Results: Microbiology 07/13/21 19:34 Sputum - Suctioned Gram Stain - Final 07/13/21 19:34 Sputum - Suctioned Sputum Culture - Preliminary Corynebacterium species Yeast 07/05/21 06:00 Sputum - Suctioned Gram Stain - Final 07/05/21 06:00 Sputum - Suctioned Sputum Culture - Final 06/24/21 19:40 Blood - Venous Blood Culture - Final No growth after 5 days. 06/24/21 19:30 Blood - Venous Blood Culture - Final No growth after 5 days. Progress Note: A&P Assessment and plan (1) Acute respiratory failure with hypoxia: Status: Acute (2) Acute respiratory distress syndrome (ARDS) due to COVID-19 virus: Status: Acute (3) SARS-CoV-2 positive: Status: Acute (4) Depression: Status: Acute (5) Obstructive sleep apnea: Status: Acute (6) Morbid obesity with BMI of 40.0-44.9, adult: Status: Acute (7) Atherosclerotic heart disease of [place] coronary artery with unstable angina pectoris: Status: Acute (8) Carotid stenosis, bilateral: Status: Acute (9) Ischemic cardiomyopathy: Status: Acute (10) Sleep disorder breathing: Status: Acute (11) Hypothyroidism: Status: Acute (12) S/P CABG (coronary artery bypass graft): Status: Acute Assessment and Plan: if vital capacity is adequate will going to extubate to nasal high-flow between 40 and 60 liters/minute for the for the CPAP benefit and add micafungin and Unasyn the no to cover what is growing secondarily especially at being a diabetic on steroids Quality Stroke Does the patient have a stroke diagnosis?: No VTE Prior VTE?: No VTE Risk Level:: Medical - moderate - high VTE Device Contraindication: N/A - Device Ordered VTE Drug Contraindication: Treatment Not Indicated
[2021-07-15] MEDS: Ampicillin Sodium/Sulbactam Na 3 GM in 0.9 % Sodium Chloride 100 ML IV ×2 (17:15→21:03)
[2021-07-15] MEDS: Caspofungin Acetate 70 MG in 0.9 % Sodium Chloride 250 ML 250 MG IV (18:17)
[2021-07-15 18:19] LABS: Glucose, Whole Blood 101 mg/dL (60-115)
--- NOTE | 2021-07-15 18:38 | PC.NURSE ---
pt extubated 1555 onto [place] NC 45L 35%, tolerating well
[2021-07-15] MEDS: Enoxaparin Sodium 40 MG/0.4 ML SYRINGE SUBCUT (21:03)
[2021-07-16] VITALS (28 sets, daily range): BP systolic 117–173; BP diastolic 67–105; PULSE 57–94; RESP 12–24; TEMP 36.1–37.5; O2SAT 92–98; BMI 37.0
[2021-07-16] MEDS: 0.9 % Sodium Chloride Flush 3 ML SYRINGE IVFLUSH ×4 (00:20→23:51)
[2021-07-16 00:26] LABS: Glucose, Whole Blood 83 mg/dL (60-115)
[2021-07-16] MEDS: Ampicillin Sodium/Sulbactam Na 3 GM in 0.9 % Sodium Chloride 100 ML IV (03:19)
[2021-07-16 05:32] LABS: VBG Base Excess 2.6 mmol/L; VBG HCO3 26 mmol/L (22-26); VBG pCO2 38 mmHg; VBG pH 7.45 (7.32-7.43); VBG pO2 54 mmHg
[2021-07-16] MEDS: Dextrose 50 % 25 GM/50 ML SYRINGE IVPUSH (05:35)
[2021-07-16 05:36] LABS: Glucose, Whole Blood 55 mg/dL (60-115)
[2021-07-16 05:42] LABS: MANUAL DIFF FLAG NO
[2021-07-16 06:01] LABS: Basophils Percent Auto 0.1 % (0-2); Eosinophils Absolute Auto 0.3 X10*3/uL (0.0-0.4); Eosinophils Percent Auto 4.6 % (0-4); Hematocrit 36.7 % (42.0-52.0); Hemoglobin 11.3 g/dl (14.0-18.0); Imm Gran Abs Auto 0.08 X10*3/uL (0.00-0.03); Imm Gran Pct Auto 1.1 % (0.0-0.4); Lymphocytes Absolute Auto 1.9 X10*3/uL (1.2-4.9); Mean Corpuscular HGB Conc 30.8 g/dl (31.0-36.0); Mean Corpuscular Hemoglobin 27.5 pg (27.0-33.0); Mean Corpuscular Volume 89.3 fL (80.0-98.0); Mean Platelet Volume 11.1 fL (9.4-12.4); Monocytes Absolute Auto 0.5 X10*3/uL (0.1-1.2); Monocytes Percent Auto 7.1 % (2-11); Neutrophils Absolute Auto 4.2 x10*3/uL (2.0-8.3); Neutrophils Percent Auto 60.1 % (45-73); Platelet Count 143 X10*3/uL (160-400); Red Blood Count 4.11 X10*6/uL (4.60-5.80); Red Cell Distribution Width 16.2 % (11.0-16.0)
[2021-07-16 06:07] LABS: Glucose, Whole Blood 144 mg/dL (60-115)
[2021-07-16 06:10] LABS: Alanine Aminotransferase 37 U/L (0-40); Albumin Level 2.8 g/dL (3.5-5.0); Alkaline Phosphatase 58 U/L (39-117); Anion Gap 12 (12-20); Aspartate Amino Transferase 24 U/L (5-37); Bilirubin Total 0.8 mg/dL (0.0-1.0); Blood Urea Nitrogen 18 mg/dL (9-16); Calcium 8.6 mg/dL (8.4-10.2); Carbon Dioxide 27 mmol/L (22-29); Chloride 108 mmol/L (96-108); Creatinine Clr Calc Pharmacy 110.9; Estimated Glomerular Filt Rate > 60; Glucose Random 84 mg/dL (60-115); Potassium 3.6 mmol/L (3.3-5.1); Sodium 143 mmol/L (135-145); Total Protein 5.4 g/dL (6.5-8.0)
[2021-07-16 06:19] LABS: Venous Blood Gas Refer to POC result
[2021-07-16] MEDS: Insulin Glargine,Hum.rec.anlog 100 UNIT/ML 10 ML VIAL 10 UNIT SUBCUT (07:53)
[2021-07-16] MEDS: Chlorhexidine Gluc Oral Rinse 15 ML MOUTHWASH BUCCAL ×2 (07:54→15:16)
--- NOTE | 2021-07-16 09:03 | P.PNCC_ITS ---
Subjective Subjective Date of Service: 07/16/21 Interval History: 71-year-old moderately obese male who is hypertensive hyperlipidemic and a type 2 diabetic who is 2 years status post coronary bypass grafting procedure presented with some increasing confusion falling and weakness diagnosed 1 month ago COVID-19 positive admitted 5 days later after outpatient Decadron and baricitinib had been instituted and another 5 days later and he was already failing on full noninvasive oxygenation requiring intubation and he was intubated for 2 weeks and I extubated him 24 hours ago at that time his minute ventilatory requirements and FiO2 came down substantially he was very comfortable and was placed on nasal high-flow on his blood gas he has pCO2 of 38 so he does not have chronic CO2 retention this is now on nasal high-flow opens cardiac exam he does have some segmental wall motion abnormality consistent with in a with the infarct overall ejection fraction in the range of of moderate reduction probably in the 40s no primary valve or pericardial disease and and basically his skin is intact we have no area of breakdown or infection is no acrocyanosis but he has not had a swallow evaluation yet and his OG tube was pulled with the endotracheal tube cognitively he did follow commands but in terms of following things and and hand strength etc. and with underlying hypertension and compromised left ventricle and right now current inability to swallow I am starting him on a [place] patch of 0.1 just to take the edge off of some of his hypertension and he is and does remain in in normal sinus rhythm with no signs of failure or recurrent ischemia in addition he has a treated hypothyroid in we have been keeping up with his levothyroxine treatments and we never had a documented secondary infection but sputum was growing diphtheroids and yeast I gave him 1 dose of micafungin yes terday he got 3 doses of Unasyn from yesterday to today and I am going to discontinue both at this point and I am going to initiate physical therapy and occupational therapy and a consult for a swallow evaluation and then hopefully we can start to work on getting him towards the door and I am putting him on incentive spirometry if he can follow obstructed instructions but if he cannot then I would consider just simply giving him nebulized treatment Critical Care Time (minutes): 45 Physical Exam Vital Signs: Vital Signs: Last Vital Signs Temp 98.8 F 07/16/21 08:00 Pulse 69 07/16/21 08:00 Resp 16 07/16/21 08:00 BP 173/90 H 01/15/22 08:00 Pulse Ox 93 07/16/21 08:00 BMI result Body Mass Index 37.0 he is awake and is tracking and he is nonfocal cardiac exam by bedside echo 40-45% ejection fraction probable infarct of undated age the no with some wall motion abnormality chest without accessory muscle use without diaphragmatic effort no wheezing abdomen soft with no organomegaly no peripheral edema Objective Data Labs CBC & Chem 7: 07/16/21 05:20 07/16/21 05:20 Labs: Laboratory Results - last 24 hr 07/15/21 07/15/21 07/15/21 11:51 18:15 23:44 WBC RBC Hgb Hct MCV MCH MCHC RDW Plt Count MPV Immature Gran % (Auto) Neut % (Auto) Lymph % (Auto) [place] % (Auto) Eos % (Auto) Baso % (Auto) Lymph # (Auto) [place] # (Auto) Eos # (Auto) Baso # (Auto) Abs Immat Gran (auto) Absolute Neuts (auto) Absolute Nucleated RBC Nucleated RBC % (auto) VBG pH VBG pCO2 VBG pO2 VBG HCO3 VBG O2 Saturation VBG Base Excess Sodium Potassium Chloride Carbon Dioxide Anion Gap BUN Creatinine Estim Creat Clear Calc Estimated GFR POC Glucose 176 H 101 83 Random Glucose Calcium Total Bilirubin AST ALT Alkaline Phosphatase Total Protein Albumin 07/16/21 07/16/21 07/16/21 05:20 05:20 05:22 WBC 7.0 RBC 4.11 L Hgb 11.3 L Hct 36.7 L MCV 89.3 MCH 27.5 MCHC 30.8 L RDW 16.2 H Plt Count 143 L MPV 11.1 Immature Gran % (Auto) 1.1 H Neut % (Auto) 60.1 Lymph % (Auto) 27.0 [place] % (Auto) 7.1 Eos % (Auto) 4.6 H Baso % (Auto) 0.1 Lymph # (Auto) 1.9 [place] # (Auto) 0.5 Eos # (Auto) 0.3 Baso # (Auto) 0.0 Abs Immat Gran (auto) 0.08 H Absolute Neuts (auto) 4.2 Absolute Nucleated RBC 0.000 Nucleated RBC % (auto) 0.0 VBG pH VBG pCO2 VBG pO2 VBG HCO3 VBG O2 Saturation VBG Base Excess Sodium 143 Potassium 3.6 Chloride 108 Carbon Dioxide 27 Anion Gap 12 BUN 18 H Creatinine 0.68 Estim Creat Clear Calc 110.9 Estimated GFR > 60 POC Glucose 55 L* Random Glucose 84 D Calcium 8.6 Total Bilirubin 0.8 AST 24 ALT 37 Alkaline Phosphatase 58 Total Protein 5.4 L Albumin 2.8 L 07/16/21 07/16/21 05:26 06:02 WBC RBC Hgb Hct MCV MCH MCHC RDW Plt Count MPV Immature Gran % (Auto) Neut % (Auto) Lymph % (Auto) [place] % (Auto) Eos % (Auto) Baso % (Auto) Lymph # (Auto) [place] # (Auto) Eos # (Auto) Baso # (Auto) Abs Immat Gran (auto) Absolute Neuts (auto) Absolute Nucleated RBC Nucleated RBC % (auto) VBG pH 7.45 H VBG pCO2 38 VBG pO2 54 VBG HCO3 26 VBG O2 Saturation 77.0 VBG Base Excess 2.6 Sodium Potassium Chloride Carbon Dioxide Anion Gap BUN Creatinine Estim Creat Clear Calc Estimated GFR POC Glucose 144 H Random Glucose Calcium Total Bilirubin AST ALT Alkaline Phosphatase Total Protein Albumin Microbiology Microbiology Results: Microbiology 07/13/21 19:34 Sputum - Suctioned Gram Stain - Final 07/13/21 19:34 Sputum - Suctioned Sputum Culture - Preliminary Corynebacterium species Yeast 07/05/21 06:00 Sputum - Suctioned Gram Stain - Final 07/05/21 06:00 Sputum - Suctioned Sputum Culture - Final 06/24/21 19:40 Blood - Venous Blood Culture - Final No growth after 5 days. 06/24/21 19:30 Blood - Venous Blood Culture - Final No growth after 5 days. Progress Note: A&P Assessment and plan (1) Acute respiratory failure with hypoxia: Status: Acute (2) Acute respiratory distress syndrome (ARDS) due to COVID-19 virus: Status: Acute (3) Hypoxia: Status: Acute (4) SARS-CoV-2 positive: Status: Acute (5) Depression: Status: Acute (6) Obstructive sleep apnea: Status: Acute (7) Morbid obesity with BMI of 40.0-44.9, adult: Status: Acute (8) Screening for colon cancer: Status: Acute (9) Atherosclerotic heart disease of [place] coronary artery with unstable angina pectoris: Status: Acute (10) Fatigue: Status: Acute (11) Varicose veins of right lower extremity with inflammation: Status: Acute (12) Carotid stenosis, bilateral: Status: Acute (13) Ischemic cardiomyopathy: Status: Acute (14) Annual physical exam: Status: Acute (15) Diabetes: Status: Acute (16) Sleep disorder breathing: Status: Acute (17) Hypothyroidism: Status: Acute (18) Abnormal electrocardiography: Status: Acute (19) S/P CABG (coronary artery bypass graft): Status: Acute (20) CAD (coronary artery disease): Status: Acute Assessment and Plan: at this point he looks stable he is going to have a ways to go to repair himself for independence but we will initiate the swallow and the physical in occupational therapy on the floor will do a quick bedside swallow with some water if he can negotiate that we might consider starting him may be on the liquid diet but with maybe with nectar or putting thickening Quality Stroke Does the patient have a stroke diagnosis?: No VTE Prior VTE?: No VTE Risk Level:: Medical - moderate - high VTE Device Contraindication: N/A - Device Ordered VTE Drug Contraindication: Treatment Not Indicated
[2021-07-16] MEDS: NeoMY/Polymyx/Dexameth Oph Oin 3.5 GM TUBE 0.5 INCH EYE-BOTH ×3 (09:17→21:55)
[2021-07-16] MEDS: cloNIDine 0.1 MG PATCH.TDWK TRANSDERMA (09:17)
[2021-07-16 11:58] LABS: Glucose, Whole Blood 100 mg/dL (60-115)
[2021-07-16 18:05] LABS: Glucose, Whole Blood 91 mg/dL (60-115)
[2021-07-16 21:41] LABS: Glucose, Whole Blood 87 mg/dL (60-115)
[2021-07-16] MEDS: Enoxaparin Sodium 40 MG/0.4 ML SYRINGE SUBCUT (21:55)
[2021-07-17] VITALS (7 sets, daily range): BP systolic 150–176; BP diastolic 80–98; PULSE 66–73; RESP 18–24; TEMP 35.6–36.1; O2SAT 94–100
[2021-07-17 00:08] LABS: Glucose, Whole Blood 88 mg/dL (60-115)
[2021-07-17 06:02] LABS: Glucose, Whole Blood 96 mg/dL (60-115)
[2021-07-17 06:42] LABS: MANUAL DIFF FLAG NO
[2021-07-17 06:53] LABS: Basophils Percent Auto 0.3 % (0-2); Eosinophils Absolute Auto 0.2 X10*3/uL (0.0-0.4); Eosinophils Percent Auto 3.4 % (0-4); Hematocrit 38.5 % (42.0-52.0); Hemoglobin 12.1 g/dl (14.0-18.0); Imm Gran Abs Auto 0.08 X10*3/uL (0.00-0.03); Imm Gran Pct Auto 1.1 % (0.0-0.4); Lymphocytes Absolute Auto 1.5 X10*3/uL (1.2-4.9); Mean Corpuscular HGB Conc 31.4 g/dl (31.0-36.0); Mean Corpuscular Hemoglobin 28.2 pg (27.0-33.0); Mean Corpuscular Volume 89.7 fL (80.0-98.0); Mean Platelet Volume 11.4 fL (9.4-12.4); Monocytes Absolute Auto 0.5 X10*3/uL (0.1-1.2); Monocytes Percent Auto 6.8 % (2-11); Neutrophils Absolute Auto 4.8 x10*3/uL (2.0-8.3); Neutrophils Percent Auto 67.4 % (45-73); Platelet Count 152 X10*3/uL (160-400); Red Blood Count 4.29 X10*6/uL (4.60-5.80); Red Cell Distribution Width 16.2 % (11.0-16.0); White Blood Count 7.1 X10*3/uL (4.8-10.8)
[2021-07-17 07:17] LABS: Alanine Aminotransferase 35 U/L (0-40); Alkaline Phosphatase 64 U/L (39-117); Anion Gap 9 (12-20); Aspartate Amino Transferase 22 U/L (5-37); Bilirubin Total 1.1 mg/dL (0.0-1.0); Blood Urea Nitrogen 15 mg/dL (9-16); Calcium 8.9 mg/dL (8.4-10.2); Carbon Dioxide 29 mmol/L (22-29); Chloride 106 mmol/L (96-108); Creatinine Clr Calc Pharmacy 117.8; Estimated Glomerular Filt Rate > 60; Glucose Fasting 92 mg/dL (60-99); Potassium 3.4 mmol/L (3.3-5.1); Sodium 141 mmol/L (135-145); Total Protein 5.8 g/dL (6.5-8.0)
[2021-07-17] MEDS: predniSONE 20 MG TABLET PO (09:38)
[2021-07-17] MEDS: NeoMY/Polymyx/Dexameth Oph Oin 3.5 GM TUBE 0.5 INCH EYE-BOTH ×3 (09:39→20:24)
[2021-07-17] MEDS: 0.9 % Sodium Chloride Flush 3 ML SYRINGE IVFLUSH ×3 (09:39→20:27)
[2021-07-17 11:27] LABS: Glucose, Whole Blood 82 mg/dL (60-115)
--- NOTE | 2021-07-17 16:57 | HO.PM.IMPN ---
Subjective Subjective Date of Service: 07/17/21 Interval History: no acute issues overnight Review of Systems denies chest pain denies SOB denies N/V/D Physical Exam Vital Signs: Vital Signs: Last Vital Signs Temp 97 F 07/17/21 15:19 Pulse 73 07/17/21 15:19 Resp 18 07/17/21 15:19 BP 150/82 H 07/17/21 11:08 Pulse Ox 94 07/17/21 15:19 BMI result Body Mass Index 37.0 Objective Data Active Medications Aspirin (Aspirin Enteric Coated 81 Mg Tablet.Dr) 81 mg PO DAILY [facility] Last Admin: 07/16/21 08:37 Dose: Not Given Documented by: MATTHEW Non-Admin Reason: NPO Atorvastatin Calcium (Atorvastatin Calcium 80 Mg Tablet) 80 mg PO BEDTIME [facility] Last Admin: 07/15/21 20:59 Dose: Not Given Documented by: RAJESH Non-Admin Reason: Patient Condition Contraindication Clopidogrel Bisulfate (Clopidogrel Bisulfate 75 Mg Tablet) 75 mg PO DAILY [facility] Last Admin: 07/16/21 08:37 Dose: Not Given Documented by: MATTHEW Non-Admin Reason: NPO Enoxaparin Sodium (Enoxaparin Sodium 40 Mg/0.4 Ml Syringe) 40 mg SUBCUT Q24H [facility] Last Admin: 07/16/21 21:55 Dose: 40 mg Documented by: SHWETHA Famotidine (Famotidine 20 Mg Tablet) 40 mg PO DAILY [facility] Last Admin: 07/16/21 08:37 Dose: Not Given Documented by: MATTHEW Non-Admin Reason: NPO Insulin Glargine (Insulin Glargine,Hum.Rec.Anlog 100 Unit/Ml 10 Ml Vial) 10 unit SUBCUT DAILY [facility] Last Admin: 07/17/21 09:35 Dose: Not Given Documented by: AYLA Non-Admin Reason: NPO Insulin Human Lispro (Insulin Lispro 100 Unit/Ml 3 Ml Vial) 0 unit SUBCUT Q6H [facility]; Protocol Last Admin: 07/17/21 12:03 Dose: Not Given Documented by: AYLA Non-Admin Reason: No Insulin Coverage Levothyroxine Sodium (Levothyroxine Sodium 125 Mcg Tablet) 125 mcg PO DAILY@0600 [facility] Last Admin: 07/17/21 06:05 Dose: Not Given Documented by: HO.LAI Non-Admin Reason: NPO Neomycin/Polymyxin/Dexamethasone (Neomy/Polymyx/Dexameth Oph Oin 3.5 Gm Tube) 0.5 inch EYE-BOTH TID [facility] Last Admin: 07/17/21 09:39 Dose: 0.5 inch Documented by: AYLA Prednisone (Prednisone 20 Mg Tablet) 20 mg PO DAILY [facility] Last Admin: 07/17/21 09:38 Dose: 20 mg Documented by: AYLA Sodium Chloride (0.9 % Sodium Chloride Flush 3 Ml Syringe) 3 ml IVFLUSH QSHIFT [facility] Last Admin: 07/17/21 09:39 Dose: 3 ml Documented by: AYLA Labs CBC & Chem 7: 07/17/21 06:09 07/17/21 06:09 Labs: Laboratory Results - last 24 hr 07/16/21 07/16/21 07/17/21 17:57 21:37 00:02 MCV MCH MCHC RDW Plt Count MPV Immature Gran % (Auto) Neut % (Auto) Lymph % (Auto) [place] % (Auto) Eos % (Auto) Baso % (Auto) Lymph # (Auto) [place] # (Auto) Eos # (Auto) Baso # (Auto) Abs Immat Gran (auto) Absolute Neuts (auto) Absolute Nucleated RBC Nucleated RBC % (auto) Anion Gap Estim Creat Clear Calc Estimated GFR POC Glucose 91 87 88 Fasting Glucose Calcium Total Bilirubin AST ALT Alkaline Phosphatase Total Protein Albumin 07/17/21 07/17/21 07/17/21 05:58 06:09 06:09 MCV 89.7 MCH 28.2 MCHC 31.4 RDW 16.2 H Plt Count 152 L MPV 11.4 Immature Gran % (Auto) 1.1 H Neut % (Auto) 67.4 Lymph % (Auto) 21.0 [place] % (Auto) 6.8 Eos % (Auto) 3.4 Baso % (Auto) 0.3 Lymph # (Auto) 1.5 [place] # (Auto) 0.5 Eos # (Auto) 0.2 Baso # (Auto) 0.0 Abs Immat Gran (auto) 0.08 H Absolute Neuts (auto) 4.8 Absolute Nucleated RBC 0.000 Nucleated RBC % (auto) 0.0 Anion Gap 9 L Estim Creat Clear Calc 117.8 Estimated GFR > 60 POC Glucose 96 Fasting Glucose 92 Calcium 8.9 Total Bilirubin 1.1 H AST 22 ALT 35 Alkaline Phosphatase 64 Total Protein 5.8 L Albumin 3.0 L 07/17/21 11:14 MCV MCH MCHC RDW Plt Count MPV Immature Gran % (Auto) Neut % (Auto) Lymph % (Auto) [place] % (Auto) Eos % (Auto) Baso % (Auto) Lymph # (Auto) [place] # (Auto) Eos # (Auto) Baso # (Auto) Abs Immat Gran (auto) Absolute Neuts (auto) Absolute Nucleated RBC Nucleated RBC % (auto) Anion Gap Estim Creat Clear Calc Estimated GFR POC Glucose 82 Fasting Glucose Calcium Total Bilirubin AST ALT Alkaline Phosphatase Total Protein Albumin Microbiology Microbiology Results: Microbiology 07/13/21 19:34 Gram Stain - Final Sputum - Suctioned Sputum Culture - Final Narcisa tropicalis Corynebacterium species Assessment and Plan (1) Acute respiratory failure with hypoxia: Status: Acute (2) SARS-CoV-2 positive: Status: Acute (3) (HFpEF) heart failure with preserved ejection fraction: Status: Acute Assessment and Plan: 71M with known covid, presented with syncope, found to be hypoxic;intubated short term..now extubated and continues to improve 1.Acute hypoxic respiratory failure due to covid pneuomnia..improving -Prednisone taper -wean O2 as tolerated 2.DM -Continue Lantus as ordered -Lispro sliding scale 3.CAD - ASA/BB/Plavix/Statin 4.Hypothyroidism -Continue current supplements 5. Chronic Systolic CHF with preserved EF - continue current therapies dvt prophylaxis - lovenox full code Quality Stroke Does the patient have a stroke diagnosis?: No VTE Prior VTE?: No VTE Risk Level:: Medical - moderate - high VTE Device Contraindication: N/A - Device Ordered VTE Drug Contraindication: Treatment Not Indicated
[2021-07-17 17:42] LABS: Glucose, Whole Blood 108 mg/dL (60-115)
[2021-07-17] MEDS: Enoxaparin Sodium 40 MG/0.4 ML SYRINGE SUBCUT (20:24)
[2021-07-17 21:02] LABS: Glucose, Whole Blood 76 mg/dL (60-115)
[2021-07-17 23:19] LABS: Glucose, Whole Blood 76 mg/dL (60-115)
[2021-07-18] VITALS (7 sets, daily range): BP systolic 119–183; BP diastolic 59–115; PULSE 71–80; RESP 16–20; TEMP 36–36.2; O2SAT 92–99; BMI 35.6
[2021-07-18 07:09] LABS: MANUAL DIFF FLAG NO
[2021-07-18 07:14] LABS: Basophils Percent Auto 0.1 % (0-2); Eosinophils Absolute Auto 0.3 X10*3/uL (0.0-0.4); Eosinophils Percent Auto 4.2 % (0-4); Hematocrit 43.1 % (42.0-52.0); Hemoglobin 13.4 g/dl (14.0-18.0); Imm Gran Abs Auto 0.07 X10*3/uL (0.00-0.03); Lymphocytes Absolute Auto 1.7 X10*3/uL (1.2-4.9); Lymphocytes Percent Auto 23.5 % (20-40); Mean Corpuscular HGB Conc 31.1 g/dl (31.0-36.0); Mean Corpuscular Hemoglobin 27.9 pg (27.0-33.0); Mean Corpuscular Volume 89.8 fL (80.0-98.0); Mean Platelet Volume 10.8 fL (9.4-12.4); Monocytes Absolute Auto 0.7 X10*3/uL (0.1-1.2); Monocytes Percent Auto 9.1 % (2-11); Neutrophils Absolute Auto 4.4 x10*3/uL (2.0-8.3); Neutrophils Percent Auto 62.1 % (45-73); Platelet Count 136 X10*3/uL (160-400); Red Cell Distribution Width 16.3 % (11.0-16.0); White Blood Count 7.1 X10*3/uL (4.8-10.8)
[2021-07-18 07:16] LABS: Glucose, Whole Blood 75 mg/dL (60-115)
[2021-07-18 07:38] LABS: Alanine Aminotransferase 45 U/L (0-40); Albumin Level 3.1 g/dL (3.5-5.0); Alkaline Phosphatase 69 U/L (39-117); Anion Gap 13 (12-20); Aspartate Amino Transferase 31 U/L (5-37); Blood Urea Nitrogen 18 mg/dL (9-16); Calcium 9.2 mg/dL (8.4-10.2); Carbon Dioxide 27 mmol/L (22-29); Chloride 106 mmol/L (96-108); Creatinine Clr Calc Pharmacy 105.6; Estimated Glomerular Filt Rate > 60; Glucose Fasting 86 mg/dL (60-99); Potassium 3.9 mmol/L (3.3-5.1); Sodium 142 mmol/L (135-145); Total Protein 6.4 g/dL (6.5-8.0)
[2021-07-18] MEDS: NeoMY/Polymyx/Dexameth Oph Oin 3.5 GM TUBE 0.5 INCH EYE-BOTH ×3 (10:18→21:23)
[2021-07-18] MEDS: 0.9 % Sodium Chloride Flush 3 ML SYRINGE IVFLUSH ×3 (10:20→21:23)
[2021-07-18 11:57] LABS: Glucose, Whole Blood 73 mg/dL (60-115)
--- NOTE | 2021-07-18 13:12 | P.PNIM_ITS ---
Subjective Subjective Date of Service: 07/18/21 Interval History: no acute events overnight. Will answer questions appropriately slowly. Review of Systems denies chest pain Denies shortness of breath Denies nausea vomiting diarrhea Physical Exam Vital Signs: Vital Signs: Last Vital Signs Temp 97 F 07/18/21 11:05 Pulse 73 07/18/21 11:05 Resp 18 07/18/21 11:05 BP 183/81 H 07/18/21 11:05 Pulse Ox 93 07/18/21 11:05 BMI result Body Mass Index 35.6 Const: Other: alert slow to respond but no acute distress Resp: Other: clear to auscultation bilaterally no rales rhonchi wheezes Cardio: Other: no S4; positive S1-S2; no S3 murmurs rubs or gallops GI: Other: soft nontender nondistended with normoactive bowel sounds Extrem: Other: no edema bilaterally Objective Data Active Medications Aspirin (Aspirin Enteric Coated 81 Mg Tablet.) 81 mg PO DAILY [facility] Last Admin: 07/16/21 08:37 Dose: Not Given Documented by: MATTHEW Non-Admin Reason: NPO Atorvastatin Calcium (Atorvastatin Calcium 80 Mg Tablet) 80 mg PO BEDTIME [facility] Last Admin: 07/15/21 20:59 Dose: Not Given Documented by: RAJESH Non-Admin Reason: Patient Condition Contraindication Clopidogrel Bisulfate (Clopidogrel Bisulfate 75 Mg Tablet) 75 mg PO DAILY [facility] Last Admin: 07/16/21 08:37 Dose: Not Given Documented by: MATTHEW Non-Admin Reason: NPO Enoxaparin Sodium (Enoxaparin Sodium 40 Mg/0.4 Ml Syringe) 40 mg SUBCUT Q24H [facility] Last Admin: 07/17/21 20:24 Dose: 40 mg Documented by: CEDRIC Famotidine (Famotidine 20 Mg Tablet) 40 mg PO DAILY [facility] Last Admin: 07/16/21 08:37 Dose: Not Given Documented by: MATTHEW Non-Admin Reason: NPO Insulin Glargine (Insulin Glargine,Hum.Rec.Anlog 100 Unit/Ml 10 Ml Vial) 10 unit SUBCUT DAILY [facility] Last Admin: 07/18/21 09:34 Dose: Not Given Documented by: GUY Non-Admin Reason: NPO Insulin Human Lispro (Insulin Lispro 100 Unit/Ml 3 Ml Vial) 0 unit SUBCUT Q6H [facility]; Protocol Last Admin: 07/18/21 11:58 Dose: Not Given Documented by: GUY Non-Admin Reason: No Insulin Coverage Levothyroxine Sodium (Levothyroxine Sodium 125 Mcg Tablet) 125 mcg PO DAILY@0600 [facility] Last Admin: 07/18/21 06:01 Dose: Not Given Documented by: CEDRIC Non-Admin Reason: NPO Neomycin/Polymyxin/Dexamethasone (Neomy/Polymyx/Dexameth Oph Oin 3.5 Gm Tube) 0.5 inch EYE-BOTH TID [facility] Last Admin: 07/18/21 10:18 Dose: 0.5 inch Documented by: GUY Prednisone (Prednisone 20 Mg Tablet) 20 mg PO DAILY [facility] Last Admin: 07/18/21 09:35 Dose: Not Given Documented by: GUY Non-Admin Reason: NPO Sodium Chloride (0.9 % Sodium Chloride Flush 3 Ml Syringe) 3 ml IVFLUSH QSHIFT [facility] Last Admin: 07/18/21 10:20 Dose: 3 ml Documented by: GUY Labs CBC & Chem 7: 07/18/21 06:48 07/18/21 06:48 Labs: Laboratory Results - last 24 hr 07/17/21 07/17/21 07/17/21 17:32 20:58 23:15 MCV MCH MCHC RDW Plt Count MPV Immature Gran % (Auto) Neut % (Auto) Lymph % (Auto) [place] % (Auto) Eos % (Auto) Baso % (Auto) Lymph # (Auto) [place] # (Auto) Eos # (Auto) Baso # (Auto) Abs Immat Gran (auto) Absolute Neuts (auto) Absolute Nucleated RBC Nucleated RBC % (auto) Anion Gap Estim Creat Clear Calc Estimated GFR POC Glucose 108 76 76 Fasting Glucose Calcium Total Bilirubin AST ALT Alkaline Phosphatase Total Protein Albumin 07/18/21 07/18/21 07/18/21 06:48 06:48 07:08 MCV 89.8 MCH 27.9 MCHC 31.1 RDW 16.3 H Plt Count 136 L MPV 10.8 Immature Gran % (Auto) 1.0 H Neut % (Auto) 62.1 Lymph % (Auto) 23.5 [place] % (Auto) 9.1 Eos % (Auto) 4.2 H Baso % (Auto) 0.1 Lymph # (Auto) 1.7 [place] # (Auto) 0.7 Eos # (Auto) 0.3 Baso # (Auto) 0.0 Abs Immat Gran (auto) 0.07 H Absolute Neuts (auto) 4.4 Absolute Nucleated RBC 0.000 Nucleated RBC % (auto) 0.0 Anion Gap 13 Estim Creat Clear Calc 105.6 Estimated GFR > 60 POC Glucose 75 Fasting Glucose 86 Calcium 9.2 Total Bilirubin 1.0 AST 31 D ALT 45 H Alkaline Phosphatase 69 Total Protein 6.4 L Albumin 3.1 L 07/18/21 11:52 MCV MCH MCHC RDW Plt Count MPV Immature Gran % (Auto) Neut % (Auto) Lymph % (Auto) [place] % (Auto) Eos % (Auto) Baso % (Auto) Lymph # (Auto) [place] # (Auto) Eos # (Auto) Baso # (Auto) Abs Immat Gran (auto) Absolute Neuts (auto) Absolute Nucleated RBC Nucleated RBC % (auto) Anion Gap Estim Creat Clear Calc Estimated GFR POC Glucose 73 Fasting Glucose Calcium Total Bilirubin AST ALT Alkaline Phosphatase Total Protein Albumin Microbiology Microbiology Results: Microbiology 07/13/21 19:34 Gram Stain - Final Sputum - Suctioned Sputum Culture - Final Narcisa tropicalis Corynebacterium species Assessment and Plan (1) Acute respiratory failure with hypoxia: Status: Acute (2) SARS-CoV-2 positive: Status: Acute Assessment and Plan: 71M with known covid, presented with syncope, found to be hypoxic;intubated short term..now extubated and continues to improve 1.Acute hypoxic respiratory failure due to covid pneuomnia..improving -Prednisone taper -wean O2 as tolerated 2.DM - acceptable control -Continue Lantus as ordered -Lispro sliding scale 3.CAD - ASA/BB/Plavix/Statin 4.Hypothyroidism -Continue current supplements 5. Chronic Systolic CHF with preserved EF - continue current therapies - no acute issues dvt prophylaxis - lovenox full code Quality Stroke Does the patient have a stroke diagnosis?: No VTE Prior VTE?: No VTE Risk Level:: Medical - moderate - high VTE Device Contraindication: N/A - Device Ordered VTE Drug Contraindication: Treatment Not Indicated
--- NOTE | 2021-07-18 15:43 | MHC.SL.SWA ---
Speech Pathologist Impression: Risk of Aspiration Oral Phase Dysphagia Risk of Aspiration Due to: Hx of Recent Extubation Dysphasia Diet Status: Upgrade Liquid Consistency and Strategies for Safe Swallow: Liquid Intake Recommendation: Thin Liquid Intake Strategies: Small Sips No Straws Solid Food Consistency: Dietary Recommendations: Pureed (NDD1) Additional Modifications to Solid Foods: Recommend PUREED (NDD1) solids and THIN liquids with pills CRUSHED in PUREE. 1:1 assistance feeding and strict aspiration precautions. MONUMENT SETTER will continue to follow to monitor tolerance and potential for upgrade. Oral Medication Intake: Crushed with Puree Compensatory Strategies and Precautions to be Taken for Safe Swallow: Sitting Upright (90 deg) No Straw Small Bites and Sips Alternate Liquids/Solids Rate of Ingestion Change Oral Check Supervision While Eating and Drinking for Safe Swallow: Total Assistance Swallowing Recommended Treatments: Compens. Strategy Educat. Recommendation for Speech: Inpatient Speech Therapy Comment: Recommend PUREED (NDD1) solids and THIN liquids with pills CRUSHED in PUREE. 1:1 assistance feeding and strict aspiration precautions. MONUMENT SETTER will continue to follow to monitor tolerance and potential for upgrade. Frequency/Duration: M-F Date Range for Service Req: Timeline to reassess: Field Case Manager Clinican/Clinical Fellow: No Supervisory Statement: I have reviewed and agree with the student/clinical fellow's documentation: N/A Speech Language Pathologist: Vinita Appiah M.A., CCC-MONUMENT SETTER
--- NOTE | 2021-07-18 15:49 | MHC.CLN ---
Addendum entered by Mila Cohn RD 07/18/21 15:52: DIET INCLUDES THERAPEUTIC DIABETIC 2000 KCAL. Original Note: F/U EXTUBATED 07/15 AND TUBE FEEDING DISCONTINUED AT THAT TIME. SEEN BY TANK WELDER TODAY WITH RECOMMENDATION FOR PUREE CONSISTENCY WITH THIN LIQUIDS. 1:1 ASSISTANCE AND STRICT ASPIRATION PRECAUTIONS. MONITOR DIET ADVANCEMENT AND INTAKE.
[2021-07-18 16:32] LABS: Glucose, Whole Blood 84 mg/dL (60-115)
[2021-07-18 20:30] LABS: Glucose, Whole Blood 78 mg/dL (60-115)
[2021-07-18] MEDS: Enoxaparin Sodium 40 MG/0.4 ML SYRINGE SUBCUT (21:22)
[2021-07-18 23:43] LABS: Glucose, Whole Blood 73 mg/dL (60-115)
[2021-07-19] VITALS (7 sets, daily range): BP systolic 116–174; BP diastolic 66–91; PULSE 68–84; RESP 16–18; TEMP 36–36.6; O2SAT 91–100; BMI 35.4
[2021-07-19 05:58] LABS: Glucose, Whole Blood 61 mg/dL (60-115)
[2021-07-19 06:23] LABS: MANUAL DIFF FLAG NO
[2021-07-19] MEDS: Levothyroxine Sodium 125 MCG TABLET PO (06:32)
[2021-07-19 06:43] LABS: Basophils Percent Auto 0.2 % (0-2); Eosinophils Absolute Auto 0.4 X10*3/uL (0.0-0.4); Eosinophils Percent Auto 6.5 % (0-4); Hematocrit 40.2 % (42.0-52.0); Hemoglobin 12.5 g/dl (14.0-18.0); Imm Gran Abs Auto 0.06 X10*3/uL (0.00-0.03); Lymphocytes Absolute Auto 1.4 X10*3/uL (1.2-4.9); Lymphocytes Percent Auto 24.2 % (20-40); Mean Corpuscular HGB Conc 31.1 g/dl (31.0-36.0); Mean Corpuscular Hemoglobin 28.2 pg (27.0-33.0); Mean Corpuscular Volume 90.7 fL (80.0-98.0); Mean Platelet Volume 11.1 fL (9.4-12.4); Monocytes Absolute Auto 0.5 X10*3/uL (0.1-1.2); Monocytes Percent Auto 8.6 % (2-11); Neutrophils Absolute Auto 3.5 x10*3/uL (2.0-8.3); Neutrophils Percent Auto 59.5 % (45-73); Platelet Count 148 X10*3/uL (160-400); Red Blood Count 4.43 X10*6/uL (4.60-5.80); Red Cell Distribution Width 16.5 % (11.0-16.0); White Blood Count 5.8 X10*3/uL (4.8-10.8)
[2021-07-19 06:47] LABS: Alanine Aminotransferase 42 U/L (0-40); Albumin Level 2.9 g/dL (3.5-5.0); Alkaline Phosphatase 66 U/L (39-117); Anion Gap 14 (12-20); Aspartate Amino Transferase 36 U/L (5-37); Bilirubin Total 1.1 mg/dL (0.0-1.0); Blood Urea Nitrogen 22 mg/dL (9-16); Calcium 8.8 mg/dL (8.4-10.2); Carbon Dioxide 24 mmol/L (22-29); Chloride 107 mmol/L (96-108); Creatinine Clr Calc Pharmacy 106.9; Estimated Glomerular Filt Rate > 60; Glucose Fasting 75 mg/dL (60-99); Potassium 4.2 mmol/L (3.3-5.1); Sodium 141 mmol/L (135-145)
[2021-07-19] MEDS: NeoMY/Polymyx/Dexameth Oph Oin 3.5 GM TUBE 0.5 INCH EYE-BOTH ×2 (08:55→23:25)
[2021-07-19] MEDS: 0.9 % Sodium Chloride Flush 3 ML SYRINGE IVFLUSH ×2 (08:55→23:25)
[2021-07-19] MEDS: predniSONE 20 MG TABLET PO (08:56)
[2021-07-19 11:13] LABS: Glucose, Whole Blood 110 mg/dL (60-115)
--- NOTE | 2021-07-19 11:58 | P.PNIM_ITS ---
Subjective Subjective Date of Service: 07/19/21 Interval History: cc: sob interval history: very weak Cardiovascular Cardiovascular: Reports no additional cardiovascular complaints Respiratory Respiratory: Reports no additional respiratory complaints Physical Exam Vital Signs: Vital Signs: Last Vital Signs Temp 97.0 F 07/19/21 11:00 Pulse 84 07/19/21 11:00 Resp 18 07/19/21 11:00 BP 116/79 07/19/21 11:00 Pulse Ox 96 07/19/21 11:00 BMI result Body Mass Index 35.4 General: Alert, ill appearing Resp: CTA bilateral, no accessory muscles used CVS: S1,S2,RRR GI: soft, non tender, non distended Neuro: alert, diffuse weakness without focal defecit, follows commands, unable to vocalize Psych: appropriate affect, appropriate insight Objective Data Active Medications Aspirin (Aspirin Enteric Coated 81 Mg Tablet.) 81 mg PO DAILY [facility] Last Admin: 07/16/21 08:37 Dose: Not Given Documented by: MATTHEW Non-Admin Reason: NPO Atorvastatin Calcium (Atorvastatin Calcium 80 Mg Tablet) 80 mg PO BEDTIME [facility] Last Admin: 07/15/21 20:59 Dose: Not Given Documented by: RAJESH Non-Admin Reason: Patient Condition Contraindication Clopidogrel Bisulfate (Clopidogrel Bisulfate 75 Mg Tablet) 75 mg PO DAILY [facility] Last Admin: 07/16/21 08:37 Dose: Not Given Documented by: MATTHEW Non-Admin Reason: NPO Enoxaparin Sodium (Enoxaparin Sodium 40 Mg/0.4 Ml Syringe) 40 mg SUBCUT Q24H [facility] Last Admin: 07/18/21 21:22 Dose: 40 mg Documented by: LUIS ANTONIO Famotidine (Famotidine 20 Mg Tablet) 40 mg PO DAILY [facility] Last Admin: 07/16/21 08:37 Dose: Not Given Documented by: MATTHEW Non-Admin Reason: NPO Insulin Glargine (Insulin Glargine,Hum.Rec.Anlog 100 Unit/Ml 10 Ml Vial) 10 unit SUBCUT DAILY [facility] Last Admin: 07/19/21 08:54 Dose: Not Given Documented by: GUY Non-Admin Reason: POC 61 this AM Insulin Human Lispro (Insulin Lispro 100 Unit/Ml 3 Ml Vial) 0 unit SUBCUT Q6H [facility]; Protocol Last Admin: 07/19/21 11:23 Dose: Not Given Documented by: GUY Non-Admin Reason: No Insulin Coverage Levothyroxine Sodium (Levothyroxine Sodium 125 Mcg Tablet) 125 mcg PO DAILY@0600 [facility] Last Admin: 07/19/21 06:32 Dose: 125 mcg Documented by: LUIS ANTONIO Neomycin/Polymyxin/Dexamethasone (Neomy/Polymyx/Dexameth Oph Oin 3.5 Gm Tube) 0.5 inch EYE-BOTH TID [facility] Last Admin: 07/19/21 08:55 Dose: 0.5 inch Documented by: GUY Prednisone (Prednisone 20 Mg Tablet) 20 mg PO DAILY [facility] Last Admin: 07/19/21 08:56 Dose: 20 mg Documented by: GUY Sodium Chloride (0.9 % Sodium Chloride Flush 3 Ml Syringe) 3 ml IVFLUSH QSHIFT [facility] Last Admin: 07/19/21 08:55 Dose: 3 ml Documented by: GUY Labs CBC & Chem 7: 07/19/21 06:10 07/19/21 06:10 Labs: Laboratory Results - last 24 hr 07/18/21 07/18/21 07/18/21 11:52 16:29 20:20 MCV MCH MCHC RDW Plt Count MPV Immature Gran % (Auto) Neut % (Auto) Lymph % (Auto) [place] % (Auto) Eos % (Auto) Baso % (Auto) Lymph # (Auto) [place] # (Auto) Eos # (Auto) Baso # (Auto) Abs Immat Gran (auto) Absolute Neuts (auto) Absolute Nucleated RBC Nucleated RBC % (auto) Anion Gap Estim Creat Clear Calc Estimated GFR POC Glucose 73 84 78 Fasting Glucose Calcium Total Bilirubin AST ALT Alkaline Phosphatase Total Protein Albumin 07/18/21 07/19/21 07/19/21 23:39 05:53 06:10 MCV 90.7 MCH 28.2 MCHC 31.1 RDW 16.5 H Plt Count 148 L MPV 11.1 Immature Gran % (Auto) 1.0 H Neut % (Auto) 59.5 Lymph % (Auto) 24.2 [place] % (Auto) 8.6 Eos % (Auto) 6.5 H Baso % (Auto) 0.2 Lymph # (Auto) 1.4 [place] # (Auto) 0.5 Eos # (Auto) 0.4 Baso # (Auto) 0.0 Abs Immat Gran (auto) 0.06 H Absolute Neuts (auto) 3.5 Absolute Nucleated RBC 0.000 Nucleated RBC % (auto) 0.0 Anion Gap Estim Creat Clear Calc Estimated GFR POC Glucose 73 61 Fasting Glucose Calcium Total Bilirubin AST ALT Alkaline Phosphatase Total Protein Albumin 07/19/21 07/19/21 06:10 11:03 MCV MCH MCHC RDW Plt Count MPV Immature Gran % (Auto) Neut % (Auto) Lymph % (Auto) [place] % (Auto) Eos % (Auto) Baso % (Auto) Lymph # (Auto) [place] # (Auto) Eos # (Auto) Baso # (Auto) Abs Immat Gran (auto) Absolute Neuts (auto) Absolute Nucleated RBC Nucleated RBC % (auto) Anion Gap 14 Estim Creat Clear Calc 106.9 Estimated GFR > 60 POC Glucose 110 Fasting Glucose 75 Calcium 8.8 Total Bilirubin 1.1 H AST 36 ALT 42 H Alkaline Phosphatase 66 Total Protein 6.0 L Albumin 2.9 L Assessment and Plan (1) Acute respiratory failure with hypoxia: Status: Acute (2) SARS-CoV-2 positive: Status: Acute Assessment and Plan: 71M with known covid, presented with syncope, found to be hypoxic; eventually decompensated and was upgraded to ICU 06/29/2022 for bipap, then intubated 06/30/2022. 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
[2021-07-19 13:11] LABS: COVID-19 Test Negative (Negative); IDNOW Serial# 08D9AD1C
[2021-07-19 16:22] LABS: Glucose, Whole Blood 106 mg/dL (60-115)
[2021-07-19 20:23] LABS: Glucose, Whole Blood 88 mg/dL (60-115)
[2021-07-19] MEDS: Enoxaparin Sodium 40 MG/0.4 ML SYRINGE SUBCUT (23:24)
[2021-07-19 23:54] LABS: Glucose, Whole Blood 86 mg/dL (60-115)
[2021-07-20] VITALS (7 sets, daily range): BP systolic 114–158; BP diastolic 69–97; PULSE 62–84; RESP 16–20; TEMP 36.1–37.1; O2SAT 96–100; BMI 34.9
[2021-07-20 06:07] LABS: Glucose, Whole Blood 87 mg/dL (60-115)
[2021-07-20] MEDS: Levothyroxine Sodium 125 MCG TABLET PO (06:10)
--- NOTE | 2021-07-20 10:00 | P.PNIM_ITS ---
Subjective Subjective Date of Service: 07/20/21 Interval History: cc: sob interval history: much stronger than yesterday, able to vocalize today Cardiovascular Cardiovascular: Reports no additional cardiovascular complaints Gastrointestinal Gastrointestinal: Reports no additional gastrointestinal complaints Physical Exam Vital Signs: Vital Signs: Last Vital Signs Temp 97.4 F 07/20/21 07:00 Pulse 69 07/20/21 09:31 Resp 20 07/20/21 07:00 BP 158/97 H 07/20/21 09:31 Pulse Ox 100 07/20/21 09:31 BMI result Body Mass Index 34.9 General: AO X 3, no acute distress, still somewhat frail appearing, but significantly improved Resp: CTA bilateral, no accessory muscles used CVS: S1,S2,RRR GI: soft, non tender, non distended Neuro: motor grossly weak, but significantly improved from yesterday, now able to vocalize Psych: appropriate affect, impaired insight - poor short term memory Objective Data Active Medications Aspirin (Aspirin Enteric Coated 81 Mg Tablet.) 81 mg PO DAILY [facility] Last Admin: 07/16/21 08:37 Dose: Not Given Documented by: MATTHEW Non-Admin Reason: NPO Atorvastatin Calcium (Atorvastatin Calcium 80 Mg Tablet) 80 mg PO BEDTIME [facility] Last Admin: 07/15/21 20:59 Dose: Not Given Documented by: RAJESH Non-Admin Reason: Patient Condition Contraindication Clopidogrel Bisulfate (Clopidogrel Bisulfate 75 Mg Tablet) 75 mg PO DAILY [facility] Last Admin: 07/16/21 08:37 Dose: Not Given Documented by: MATTHEW Non-Admin Reason: NPO Enoxaparin Sodium (Enoxaparin Sodium 40 Mg/0.4 Ml Syringe) 40 mg SUBCUT Q24H [facility] Last Admin: 07/19/21 23:24 Dose: 40 mg Documented by: AMY Famotidine (Famotidine 20 Mg Tablet) 40 mg PO DAILY [facility] Last Admin: 07/16/21 08:37 Dose: Not Given Documented by: MATTHEW Non-Admin Reason: NPO Insulin Glargine (Insulin Glargine,Hum.Rec.Anlog 100 Unit/Ml 10 Ml Vial) 10 unit SUBCUT DAILY [facility] Last Admin: 07/19/21 08:54 Dose: Not Given Documented by: GUY Non-Admin Reason: POC 61 this AM Insulin Human Lispro (Insulin Lispro 100 Unit/Ml 3 Ml Vial) 0 unit SUBCUT Q6H [facility]; Protocol Last Admin: 07/20/21 06:05 Dose: Not Given Documented by: AMY Non-Admin Reason: No Insulin Coverage Levothyroxine Sodium (Levothyroxine Sodium 125 Mcg Tablet) 125 mcg PO DAILY@0600 [facility] Last Admin: 07/20/21 06:10 Dose: 125 mcg Documented by: AMY Neomycin/Polymyxin/Dexamethasone (Neomy/Polymyx/Dexameth Oph Oin 3.5 Gm Tube) 0.5 inch EYE-BOTH TID [facility] Last Admin: 07/19/21 23:25 Dose: 0.5 inch Documented by: AMY Prednisone (Prednisone 20 Mg Tablet) 20 mg PO DAILY [facility] Last Admin: 07/19/21 08:56 Dose: 20 mg Documented by: GUY Sodium Chloride (0.9 % Sodium Chloride Flush 3 Ml Syringe) 3 ml IVFLUSH QSHIFT [facility] Last Admin: 07/19/21 23:25 Dose: 3 ml Documented by: AMY Labs CBC & Chem 7: 07/19/21 06:10 07/19/21 06:10 Labs: Laboratory Results - last 24 hr 07/19/21 07/19/21 07/19/21 11:03 12:41 16:18 POC Glucose 110 106 COVID-19 ([facility]ST[facility]) Negative COVID-19 Clin Com See Note 07/19/21 07/19/21 07/20/21 20:18 23:50 06:03 POC Glucose 88 86 87 COVID-19 (MISTY) COVID-19 Clin Com Assessment and Plan (1) Acute respiratory failure with hypoxia: Status: Acute (2) SARS-CoV-2 positive: Status: Acute Assessment and Plan: 71M with known covid, presented with syncope, found to be hypoxic; eventually decompensated and was upgraded to ICU 06/29/2022 for bipap, then intubated 06/30/2022. 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
[2021-07-20] MEDS: 0.9 % Sodium Chloride Flush 3 ML SYRINGE IVFLUSH ×3 (10:17→22:38)
[2021-07-20] MEDS: predniSONE 20 MG TABLET PO (10:17)
[2021-07-20] MEDS: NeoMY/Polymyx/Dexameth Oph Oin 3.5 GM TUBE 0.5 INCH EYE-BOTH ×3 (10:21→22:35)
[2021-07-20 11:33] LABS: Glucose, Whole Blood 133 mg/dL (60-115)
--- NOTE | 2021-07-20 16:11 | MHC.SL.SWA ---
Speech Pathologist Impression: Risk of Aspiration Oral Phase Dysphagia Risk of Aspiration Due to: Hx of Recent Extubation Dysphasia Diet Status: Upgrade Liquid Consistency and Strategies for Safe Swallow: Liquid Intake Recommendation: Thin Liquid Intake Strategies: Small Sips Solid Food Consistency: Dietary Recommendations: Grnd/Mech Altered (NDD2) Additional Modifications to Solid Foods: Recommend maintain THIN liquid, pills CRUSHED in PUREE, upgrade solids to GROUND/MECH ALTERED (NDD2). Patient is able to feed himself, but displays impulsive, unsafe eating behaviors (taking large bites, continuing to take more bites before clearing oral cavity). For that reason, patient to have total supervision during meals, assistance with tray set up as needed and cues for aspiration precautions: -one bite at a time, small bites -moisten bite of food with sauce/gravy -ensure oral cavity is clear, double swallow if needed to clear oral cavity, before taking more bites -alternate bite of food with sip of liquid -individual sips, avoid sequential sipping -upright 90 degree position during PO intake Diet order in Expanse updated by SNOUT PULLER- sent message to , RD, RN via [facility]. Oral Medication Intake: Crushed with Puree Compensatory Strategies and Precautions to be Taken for Safe Swallow: Sitting Upright (90 deg) Double Swallow Small Bites and Sips Alternate Liquids/Solids Rate of Ingestion Change Oral Check Avoid Specific Foods Supervision While Eating and Drinking for Safe Swallow: Total Supervision (1:1) Foods to Avoid: mixed consistencies, sticky foods Swallowing Recommended Treatments: Compens. Strategy Educat. Recommendation for Speech: Inpatient Speech Therapy Frequency/Duration: M-F Cardroom Supervisor Clinican/Clinical Fellow: No Supervisory Statement: I have reviewed and agree with the student/clinical fellow's documentation: N/A Speech Language Pathologist: Vinita Appiah M.A., CCC-SNOUT PULLER
[2021-07-20 16:39] LABS: Glucose, Whole Blood 141 mg/dL (60-115)
[2021-07-20 20:14] LABS: Glucose, Whole Blood 143 mg/dL (60-115)
[2021-07-20] MEDS: Enoxaparin Sodium 40 MG/0.4 ML SYRINGE SUBCUT (22:35)
[2021-07-21] VITALS (8 sets, daily range): BP systolic 116–147; BP diastolic 65–84; PULSE 70–89; RESP 18–20; TEMP 35.8–37.7; O2SAT 91–98; BMI 35.1
[2021-07-21 00:20] LABS: Glucose, Whole Blood 93 mg/dL (60-115)
[2021-07-21 05:41] LABS: Glucose, Whole Blood 79 mg/dL (60-115)
[2021-07-21] MEDS: Levothyroxine Sodium 125 MCG TABLET PO (06:08)
[2021-07-21 06:12] LABS: Glucose, Whole Blood 82 mg/dL (60-115)
[2021-07-21 07:41] LABS: Glucose, Whole Blood 96 mg/dL (60-115)
[2021-07-21] MEDS: predniSONE 20 MG TABLET PO (09:15)
[2021-07-21] MEDS: NeoMY/Polymyx/Dexameth Oph Oin 3.5 GM TUBE 0.5 INCH EYE-BOTH ×3 (09:15→21:54)
[2021-07-21] MEDS: 0.9 % Sodium Chloride Flush 3 ML SYRINGE IVFLUSH ×3 (09:15→21:55)
[2021-07-21 11:08] LABS: Glucose, Whole Blood 108 mg/dL (60-115)
--- NOTE | 2021-07-21 11:27 | HO.PM.IMPN ---
Subjective Subjective Date of Service: 07/21/21 Interval History: cc: sob interval history: about same as yesterday, weak, but overall much improved Cardiovascular Cardiovascular: Reports no additional cardiovascular complaints Respiratory Respiratory: Reports no additional respiratory complaints Physical Exam Vital Signs: Vital Signs: Last Vital Signs Temp 96.4 F L 07/21/21 11:22 Pulse 81 07/21/21 11:22 Resp 20 07/21/21 11:22 BP 134/80 07/21/21 11:22 Pulse Ox 97 07/21/21 11:22 BMI result Body Mass Index 35.1 General: AO X 3, no acute distress, still somewhat frail appearing, but significantly improved from 2 days ago Resp:? CTA bilateral, no accessory muscles used CVS: S1,S2,RRR GI: soft, non tender, non distended Neuro:? motor grossly weak, but significantly improved, now able to converse Psych: appropriate affect, impaired insight - very poor short term memory, does not remember conversation from yesterday Objective Data Active Medications Aspirin (Aspirin Enteric Coated 81 Mg Tablet.) 81 mg PO DAILY [facility] Last Admin: 07/16/21 08:37 Dose: Not Given Documented by: MATTHEW Non-Admin Reason: NPO Atorvastatin Calcium (Atorvastatin Calcium 80 Mg Tablet) 80 mg PO BEDTIME [facility] Last Admin: 07/15/21 20:59 Dose: Not Given Documented by: RAJESH Non-Admin Reason: Patient Condition Contraindication Clopidogrel Bisulfate (Clopidogrel Bisulfate 75 Mg Tablet) 75 mg PO DAILY [facility] Last Admin: 07/16/21 08:37 Dose: Not Given Documented by: MATTHEW Non-Admin Reason: NPO Enoxaparin Sodium (Enoxaparin Sodium 40 Mg/0.4 Ml Syringe) 40 mg SUBCUT Q24H [facility] Last Admin: 07/20/21 22:35 Dose: 40 mg Documented by: TEETEE Famotidine (Famotidine 20 Mg Tablet) 40 mg PO DAILY [facility] Last Admin: 07/16/21 08:37 Dose: Not Given Documented by: MATTHEW Non-Admin Reason: NPO Insulin Glargine (Insulin Glargine,Hum.Rec.Anlog 100 Unit/Ml 10 Ml Vial) 10 unit SUBCUT DAILY [facility] Last Admin: 07/21/21 08:28 Dose: Not Given Documented by: LANEY Non-Admin Reason: low blood sugar Insulin Human Lispro (Insulin Lispro 100 Unit/Ml 3 Ml Vial) 0 unit SUBCUT Q6H [facility]; Protocol Last Admin: 07/21/21 11:26 Dose: Not Given Documented by: LANEY Non-Admin Reason: No Insulin Coverage Levothyroxine Sodium (Levothyroxine Sodium 125 Mcg Tablet) 125 mcg PO DAILY@0600 [facility] Last Admin: 07/21/21 06:08 Dose: 125 mcg Documented by: DESROA Neomycin/Polymyxin/Dexamethasone (Neomy/Polymyx/Dexameth Oph Oin 3.5 Gm Tube) 0.5 inch EYE-BOTH TID [facility] Last Admin: 07/21/21 09:15 Dose: 0.5 inch Documented by: LANEY Prednisone (Prednisone 20 Mg Tablet) 20 mg PO DAILY [facility] Last Admin: 07/21/21 09:15 Dose: 20 mg Documented by: LANEY Sodium Chloride (0.9 % Sodium Chloride Flush 3 Ml Syringe) 3 ml IVFLUSH QSHIFT [facility] Last Admin: 07/21/21 09:15 Dose: 3 ml Documented by: LANEY Labs CBC & Chem 7: 07/19/21 06:10 07/19/21 06:10 Labs: Laboratory Results - last 24 hr 07/20/21 07/20/21 07/20/21 11:29 16:35 20:06 POC Glucose 133 H 141 H 143 H 07/21/21 07/21/21 07/21/21 00:13 05:37 06:07 POC Glucose 93 79 82 07/21/21 07/21/21 07:25 11:01 POC Glucose 96 108 Assessment and Plan (1) Acute respiratory failure with hypoxia: Status: Acute (2) SARS-CoV-2 positive: Status: Acute Assessment and Plan: 71M with known covid, presented with syncope, found to be hypoxic; eventually decompensated and was upgraded to ICU 06/29/2022 for bipap, then intubated 06/30/2022. 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
--- NOTE | 2021-07-21 12:33 | MHC.SL.SWA ---
Speech Pathologist Impression: Risk of Aspiration Oral Phase Dysphagia Risk of Aspiration Due to: Hx of Recent Extubation Dysphasia Diet Status: No Change Liquid Consistency and Strategies for Safe Swallow: Liquid Intake Recommendation: Thin Liquid Intake Strategies: Small Sips Solid Food Consistency: Dietary Recommendations: Grnd/Mech Altered (NDD2) Additional Modifications to Solid Foods: Recommend continue GROUND/MECH ALTERED (NDD2) solids and THIN liquids, pills CRUSHED in PUREE. Patient is able to feed himself, but displays impulsive, unsafe eating behaviors (taking large bites, continuing to take more bites before clearing oral cavity). For that reason, patient to have total supervision during meals, assistance with tray set up as needed and cues for aspiration precautions: -one bite at a time, small bites -moisten bite of food with sauce/gravy -ensure oral cavity is clear, double swallow if needed to clear oral cavity, before taking more bites -alternate bite of food with sip of liquid -individual sips, avoid sequential sipping -upright 90 degree position during PO intake SOLID WASTE DISPOSAL MANAGER to f/u 1x time to monitor tolerance and re-assess potential for upgrade in solid textures. Oral Medication Intake: Crushed with Puree Compensatory Strategies and Precautions to be Taken for Safe Swallow: Sitting Upright (90 deg) Double Swallow Small Bites and Sips Alternate Liquids/Solids Rate of Ingestion Change Oral Check Avoid Specific Foods Supervision While Eating and Drinking for Safe Swallow: Total Supervision (1:1) Foods to Avoid: mixed consistencies, sticky foods Swallowing Recommended Treatments: Compens. Strategy Educat. Recommendation for Speech: 1 f/u Mold Filler And Drainer Clinican/Clinical Fellow: No Supervisory Statement: I have reviewed and agree with the student/clinical fellow's documentation: N/A Speech Language Pathologist: Vinita Appiah M.A., CCC-SOLID WASTE DISPOSAL MANAGER
[2021-07-21] MEDS: Acetaminophen 325 MG TABLET 650 MG PO (13:17)
--- NOTE | 2021-07-21 14:14 | MHC.CM.PN ---
Patient has been accepted at [facility] pending [facility] authorization. CM spoke with Daughter/HCP/Marychuy @ [phone], who is aware of and in agreement with the dc plan. IMM addressed with Marychuy and jeannine will be mailed certified letter to her and a copy has been placed on the chart.
[2021-07-21 18:20] LABS: Glucose, Whole Blood 130 mg/dL (60-115)
[2021-07-21] MEDS: Enoxaparin Sodium 40 MG/0.4 ML SYRINGE SUBCUT (21:54)
[2021-07-22 00:05] LABS: Glucose, Whole Blood 77 mg/dL (60-115)
[2021-07-22 00:50] LABS: Glucose, Whole Blood 95 mg/dL (60-115)
[2021-07-22 04:00] VITALS: BP 160/83; PULSE 83; RESP 19; TEMP 36.2; O2SAT 94
[2021-07-22] MEDS: Levothyroxine Sodium 125 MCG TABLET PO (05:29)
[2021-07-22 06:00] VITALS: BMI 34.7
[2021-07-22 06:20] LABS: Glucose, Whole Blood 75 mg/dL (60-115)
[2021-07-22 06:20] LABS: Glucose, Whole Blood 87 mg/dL (60-115)
[2021-07-22 07:50] VITALS: BP 155/87; PULSE 78; RESP 20; TEMP 36.4; O2SAT 98
[2021-07-22 09:20] LABS: MANUAL DIFF FLAG NO
[2021-07-22 09:22] LABS: Basophils Percent Auto 0.1 % (0-2); Eosinophils Absolute Auto 0.3 X10*3/uL (0.0-0.4); Eosinophils Percent Auto 4.8 % (0-4); Hematocrit 41.9 % (42.0-52.0); Hemoglobin 13.4 g/dl (14.0-18.0); Imm Gran Abs Auto 0.07 X10*3/uL (0.00-0.03); Lymphocytes Absolute Auto 2.2 X10*3/uL (1.2-4.9); Mean Corpuscular Hemoglobin 28.6 pg (27.0-33.0); Mean Corpuscular Volume 89.5 fL (80.0-98.0); Mean Platelet Volume 10.5 fL (9.4-12.4); Monocytes Absolute Auto 0.5 X10*3/uL (0.1-1.2); Neutrophils Absolute Auto 3.6 x10*3/uL (2.0-8.3); Neutrophils Percent Auto 54.1 % (45-73); Platelet Count 170 X10*3/uL (160-400); Red Blood Count 4.68 X10*6/uL (4.60-5.80); Red Cell Distribution Width 16.6 % (11.0-16.0); White Blood Count 6.7 X10*3/uL (4.8-10.8)
--- NOTE | 2021-07-22 09:26 | MHC.CM.PN ---
Patient will be dc to [facility] today at 1PM, via [facility]. Patient/Daughter/HCP/Marychuy @ [phone] are aware of and in agreement with the dc plan. IMM addressed yesterday.
[2021-07-22 09:52] LABS: Anion Gap 10 (12-20); Blood Urea Nitrogen 14 mg/dL (9-16); Calcium 9.3 mg/dL (8.4-10.2); Carbon Dioxide 30 mmol/L (22-29); Chloride 104 mmol/L (96-108); Creatinine Clr Calc Pharmacy 102.9; Estimated Glomerular Filt Rate > 60; Glucose Random 98 mg/dL (60-115); Potassium 3.3 mmol/L (3.3-5.1); Sodium 141 mmol/L (135-145)
[2021-07-22] MEDS: NeoMY/Polymyx/Dexameth Oph Oin 3.5 GM TUBE 0.5 INCH EYE-BOTH (11:07)
[2021-07-22] MEDS: predniSONE 10 MG TABLET PO (11:07)
[2021-07-22] MEDS: 0.9 % Sodium Chloride Flush 3 ML SYRINGE IVFLUSH (11:07)
[2021-07-22 11:37] LABS: COVID-19 Test Negative (Negative); IDNOW Serial# 9DD0AD1C
[2021-07-22 11:39] LABS: Glucose, Whole Blood 132 mg/dL (60-115)
--- NOTE | 2021-07-22 12:43 | PM.DS ---
DS: Providers Provider Date of Service: 07/22/21 Date of admission: 06/24/21 21:13 Primary care physician: Jf Kwon MD Consults: 06/24/21 21:13 Consult to Infectious Diseases Routine Consulting Provider: Marissa Frey Reason for consultation: COVID positive DS: Diagnosis Discharge Diagnosis (1) Acute respiratory failure with hypoxia: Status: Acute (2) SARS-CoV-2 positive: Status: Acute DS: Summary Hospital Course Hospital Course: This is a 71-year-old male with past medical history of hypertension, hyperlipidemia, diabetes, CAD status post CABG, carotid stenosis, varicose veins, depression, obesity, MICHAEL not on CPAP who presented to the hospital on 06/24/2021 with chief complaint of fall and diarrhea. Patient has had an extensive hospital stay complicated by acute hypoxic respiratory failure requiring intubation on 06/30/2022 Secondary to COVID-19 pneumonia and ARDS.. he has had prolonged stay in ICU, but improved and was extubated 07/15/2021, downgraded to medical floor 07/16/2021 and continues to improve, though with significant myopathy . Patient is now on a prednisone taper, and has remained hemodynamically stable with oxygen being weaned off and currently on 2 L by nasal cannula. 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 anticipated less than 30 day stay at SNF Time Spent with Patient Time attestation: Total time spent providing and/or coordinating discharge services: Discharge coordination time: Greater than 30 minutes Quality: Stroke Does the patient have a stroke diagnosis?: No Physical Exam Vital Signs: Vital Signs: Last Vital Signs Temp 97.5 F 07/22/21 07:50 Pulse 78 07/22/21 07:50 Resp 20 07/22/21 07:50 BP 155/87 H 07/22/21 07:50 Pulse Ox 98 07/22/21 07:50 BMI result Body Mass Index 34.7 Const: General: cooperative and no acute distress Resp: Effort & Inspection: normal respiratory effort Auscultation: clear to auscultation bilaterally Cardio: Rate: regular rate Rhythm: regular rhythm GI: Palpation (GI): Soft to palpation Auscultation: normal bowel sounds Extrem: General: Yes normal to inspection and Yes no pedal edema DS: Data Data Completed and Pending Labs on day of discharge: Laboratory Results - last 24 hr 07/21/21 07/22/21 07/22/21 18:16 00:02 00:45 WBC RBC Hgb Hct MCV MCH MCHC RDW Plt Count MPV Immature Gran % (Auto) Neut % (Auto) Lymph % (Auto) [place] % (Auto) Eos % (Auto) Baso % (Auto) Lymph # (Auto) [place] # (Auto) Eos # (Auto) Baso # (Auto) Abs Immat Gran (auto) Absolute Neuts (auto) Absolute Nucleated RBC Nucleated RBC % (auto) Sodium Potassium Chloride Carbon Dioxide Anion Gap BUN Creatinine Estim Creat Clear Calc Estimated GFR POC Glucose 130 H 77 95 Random Glucose Calcium COVID-19 (MISTY) [employer] 07/22/21 07/22/21 07/22/21 05:28 06:15 09:09 WBC 6.7 RBC 4.68 Hgb 13.4 L Hct 41.9 L MCV 89.5 MCH 28.6 MCHC 32.0 RDW 16.6 H Plt Count 170 MPV 10.5 Immature Gran % (Auto) 1.0 H Neut % (Auto) 54.1 Lymph % (Auto) 33.0 [place] % (Auto) 7.0 Eos % (Auto) 4.8 H Baso % (Auto) 0.1 Lymph # (Auto) 2.2 [place] # (Auto) 0.5 Eos # (Auto) 0.3 Baso # (Auto) 0.0 Abs Immat Gran (auto) 0.07 H Absolute Neuts (auto) 3.6 Absolute Nucleated RBC 0.000 Nucleated RBC % (auto) 0.0 Sodium Potassium Chloride Carbon Dioxide Anion Gap BUN Creatinine Estim Creat Clear Calc Estimated GFR POC Glucose 75 87 Random Glucose Calcium COVID-19 (MITSY) COVID-19 [facility] 07/22/21 07/22/21 07/22/21 09:09 11:00 11:19 WBC RBC Hgb Hct MCV MCH MCHC RDW Plt Count MPV Immature Gran % (Auto) Neut % (Auto) Lymph % (Auto) [place] % (Auto) Eos % (Auto) Baso % (Auto) Lymph # (Auto) [place] # (Auto) Eos # (Auto) Baso # (Auto) Abs Immat Gran (auto) Absolute Neuts (auto) Absolute Nucleated RBC Nucleated RBC % (auto) Sodium 141 Potassium 3.3 D Chloride 104 Carbon Dioxide 30 H Anion Gap 10 L BUN 14 Creatinine 0.71 Estim Creat Clear Calc 102.9 Estimated GFR > 60 POC Glucose 132 H Random Glucose 98 Calcium 9.3 COVID-19 (MISTY) Negative COVID-19 Clin Com See Note Discharge Plan Discharge Patient Disposition: Xfer SNF Discharge Diagnosis: Acute hypoxic resp failure 2/2 COVID 19 PNA [facility]errals[facility]Outside] - 1 Week Jf Kwon MD [Primary Care Provider] - 1 Week Discharge Medications: New prednisone 10 mg Tablet 10 mg PO DAILY Qty: 3 RF: 0 Continued potassium chloride 20 mEq tablet extended release 20 meq PO DAILY Qty: 90 RF: 3 (DME) blood-glucose meter [FreeStyle Lite Meter] Kit See Rx Instructions .ROUTE .MEDSUPPLY Qty: 1 RF: 0 famotidine 40 mg tablet 40 mg PO DAILY Qty: 90 RF: 3 (DME) blood sugar diagnostic Strip See Rx Instructions .ROUTE .MEDSUPPLY Qty: 100 RF: 0 cetirizine 10 mg tablet 10 mg PO DAILY Qty: 90 RF: 0 atorvastatin 80 mg tablet 80 mg PO BEDTIME Qty: 90 RF: 1 clopidogrel [Plavix] 75 mg tablet 75 mg PO DAILY 90 Days Qty: 90 RF: 3 fluticasone propionate 50 mcg/actuation spray,suspension 2 spray intranasal DAILY Qty: 48 RF: 0 (DME) OneTouch Ultra Test Strip See Rx Instructions .Route Qty: 100 RF: 2 pioglitazone 15 mg tablet 15 mg PO DAILY Qty: 90 RF: 0 aspirin 81 mg tablet,delayed release (DR/EC) 81 mg PO DAILY Qty: 90 RF: 0 (DME) lancets [BD Ultra Fine Lancets] 33 gauge misc See Rx Instructions .ROUTE .MEDSUPPLY Qty: 100 RF: 0 levothyroxine 125 mcg tablet 125 mcg PO DAILY Qty: 90 RF: 1 furosemide [Lasix] 40 mg tablet 40 mg PO DAILY Qty: 90 RF: 3 acetaminophen [Tylenol Extra Strength] 500 mg tablet 500 mg PO Q6H PRN (Reason: pain or fever) Qty: 20 RF: 0 Centrum Silver Men 300-600-300 mcg tablet 1 tab PO DAILY RF: 0 trazodone 50 mg tablet 25 mg PO BEDTIME PRN (Reason: sleep) Qty: 30 RF: 0 atenolol 50 mg tablet 50 mg PO DAILY Qty: 60 RF: 3 Discharge Orders: Discharge Order (Routine); Ordered 07/22/21 Ordered By: Harvey Morelos Diet: diabetic diet Activity on Discharge: As tolerated Stand Alone Forms: Patient Portal Discharge page Care Plan Goals: Avoid re-hospitalization Rehab Health Concerns: Hypoxic resp failure Plan of Treatment: Pt was admitted and treated for hypoxic resp failure 2/2 covid19 pna. pt required intubation and has been extubated since 07/15. Will be discharge to rehab Assessment: see above
--- NOTE | 2021-07-22 15:28 | PC.NURSE ---
Patient d/c to [facility], tripple lumen midline removed per facility protocol. Cathater removed intact, site covered with sterile dressing with xeroform and window dressing. Patient monitored for 30 min (in supine position), tolerated procedure well.
== END 2021-07-22 15:12 | disposition skilled nursing facility (03) | DRG 207 ==
LOC: HO.ED 22:22 → HO.EDOVER 22:44 → HO.IMC 06-26 17:24 → HO.ICU 06-29 11:50 → HO.IMC 07-16 18:09
PROVIDERS: Anesthesiology; Hospitalist; Internal Medicine; Internal Medicine Cardiovascular Disease; Internal Medicine Pulmonary Disease; Nurse Practitioner Family; Physician Assistant Medical; Registered Nurse Community Health; Student in an Organized Health Care Education/Training Program; Admitting Provider Hospitalist; Emergency Provider Emergency Medicine; PCP Internal Medicine; Visit Provider Internal Medicine
DX: U07.1 COVID-19 (principal); J12.82 Pneumonia due to coronavirus disease 2019; J80 Acute respiratory distress syndrome; I50.22 Chronic systolic (congestive) heart failure; N17.9 Acute kidney failure, unspecified; I25.110 Atherosclerotic heart disease of native coronary artery with unstable angina pectoris; E78.5 Hyperlipidemia, unspecified; I65.23 Occlusion and stenosis of bilateral carotid arteries; E03.9 Hypothyroidism, unspecified; G47.33 Obstructive sleep apnea (adult) (pediatric); T85.9XXA Unspecified complication of internal prosthetic device, implant and graft, initial encounter; E11.9 Type 2 diabetes mellitus without complications; E66.01 Morbid (severe) obesity due to excess calories; R00.1 Bradycardia, unspecified; Z68.34 Body mass index [BMI] 34.0-34.9, adult; Z95.1 Presence of aortocoronary bypass graft; I25.5 Ischemic cardiomyopathy; Z79.82 Long term (current) use of aspirin; Z79.02 Long term (current) use of antithrombotics/antiplatelets; Z79.51 Long term (current) use of inhaled steroids; Z79.890 Hormone replacement therapy; Z79.899 Other long term (current) drug therapy
CPT/HCPCS: 0241U; 36415; 70450; 71045; 71250; 72125; 80048; 80053; 80076; 80307; 81001; 82040; 82140; 82728; 82803; 82947; 83605; 83615; 83690; 83735; 83880; 84100; 84145; 84484; 85025; 85027; 85379; 85610; 85730; 86140; 87040; 87070; 87077; 87205; 87635; 92526; 92610; 93005; 93880; 94002; 94003; 94640; 94644; 94660; 94799; 96365; 96367; 96375; 97110; 97163; 97167; 97530; 97535; 99285; 99291; C1758; J0295; J0456; J0637; J0696; J1100; J1265; J1450; J1650; J1940; J2060; J2250; J2270; J2997; J3010; J3370; P9047

== ENCOUNTER 2021-08-18 11:34 | Outpatient (REF) | payer MEDICARE, SELFPAY ==
--- NOTE | ~2021-08-18 | US_ITS ---
EXAMINATION: US VENOUS ULTRASOUND WITH DOPPLER LOWER EXTREMITY, LEFT CLINICAL INFORMATION: Left leg edema COMPARISON: September 08, 2019 and February 25, 2019 TECHNIQUE: Ultrasound of the deep veins is performed from the hip to the calf with compression sonography and color and pulse Doppler assessment. Spectral analysis with color-flow imaging is performed. FINDINGS: There is normal venous compression and respiratory variation and augmented flow. The visualized common femoral vein, superficial femoral vein, profunda femoral vein, popliteal vein, and the trifurcation region shows no evidence of deep venous thrombosis. There is no significant popliteal fossa cyst. No popliteal artery aneurysm. US/US venous duplex LE LT IMPRESSION: No acute DVT demonstrated in the left lower extremity.
== END 2021-08-18 11:35 | disposition home or self-care (01) ==
LOC: HO.US 11:34
PROVIDERS: PCP Internal Medicine; Visit Provider Nurse Practitioner Family
DX: R60.0 Localized edema (principal); M79.89 Other specified soft tissue disorders
CPT/HCPCS: 93971

== ENCOUNTER 2021-09-20 09:54 | Outpatient (REF) | payer MEDICARE, SELFPAY ==
--- NOTE | ~2021-09-20 | US_ITS ---
EXAMINATION: RIGHT AND LEFT LOWER EXTREMITY VENOUS ULTRASOUND (Reflux Exam) CLINICAL INDICATION: Leg pain and varicose veins. History of bilateral greater saphenous vein stripping. COMPARISON: None. TECHNIQUE: Color flow triplex imaging and compression Doppler was performed to evaluate both the deep and the superficial systems bilaterally. To evaluate the superficial system, the examination was performed in the upright position. Color-flow Doppler ultrasound and compression ultrasound were utilized. In addition, maneuvers were utilized to demonstrate reflux. FINDINGS: 1. DEEP VENOUS ULTRASOUND OF THE RIGHT LOWER EXTREMITY: Respiratory variation, normal compression and augmented flow are noted in the right common femoral vein as well as the right popliteal vein and there is no evidence of deep venous thrombosis at these locations. There is no evidence of reflux in the deep system in either the common femoral vein or the popliteal vein. There is no evidence of a Toth's cyst. 2. SUPERFICIAL ULTRASOUND WITH DOPPLER OF RIGHT LOWER EXTREMITY: The right great saphenous vein at the saphenofemoral junction measures 0.8 mm, at the mid thigh not seen, gjonl-iks-xhsc 3 mm, pqeju-dgo-pcdm 2 mm, at mid calf 3 mm and at the ankle measures 5 mm. There is no reflux demonstrated in the right great saphenous vein. The right small saphenous vein measures 2-3 mm and shows no reflux. There are 2 perforators seen at the knee and calf that measure 2 and 4 mm and do not demonstrate reflux. There are varicosities in the thigh that measure 4 and 6 mm and do not demonstrate reflux. There is a varicosity in the calf that measures 4 mm and demonstrates greater than 3.5 second reflux. 3. DEEP VENOUS ULTRASOUND OF THE LEFT LOWER EXTREMITY: Respiratory variation, normal compression and augmented flow are noted in the left common femoral vein as well as the left popliteal vein and there is no evidence of deep venous thrombosis at these locations. There is 0.9 second deep venous reflux in the left common femoral vein. There is no evidence of reflux in the deep system in either the superficial femoral vein or the popliteal vein. There is no evidence of a Toth's cyst. 4. SUPERFICIAL ULTRASOUND WITH DOPPLER OF LEFT LOWER EXTREMITY: Left great saphenous vein at the saphenofemoral junction measures 9 mm, at the mid thigh 4 mm, cntpm-dhu-vtta 2 mm, faszg-agl-xbgs 2 mm, at mid calf 3 mm and at the ankle measures 4 mm. There is a 0.8 second reflux in the greater saphenous vein at the knee. There is an accessory lateral greater saphenous vein that measures 4 to 5 mm and does not demonstrate reflux. The left small saphenous vein measures 3 to 4 mm mm and shows no reflux. There are perforators in the thigh and calf that measure 3 to 5 mm and do not demonstrate reflux. There are varicosities in the thigh and calf that measure 2 to 5 mm and do not demonstrate reflux. US/US venous duplex LE BI IMPRESSION: No evidence of deep venous thrombosis. There is 0.9 second deep venous reflux in the left common femoral vein. No other deep venous reflux. No right greater saphenous vein reflux. Reflux in a varicosity in the mid calf measuring greater than 3.5 seconds. 0.8 second reflux in the left greater saphenous vein at the knee.
== END 2021-09-20 09:55 | disposition home or self-care (01) ==
LOC: HO.US 09:54
PROVIDERS: Visit Provider Podiatrist Foot & Ankle Surgery
DX: I83.893 Varicose veins of bilateral lower extremities with other complications (principal); M79.605 Pain in left leg
CPT/HCPCS: 93970

== ENCOUNTER 2021-09-26 13:11 | Outpatient (REF) | payer MEDICARE, SELFPAY ==
--- NOTE | ~2021-09-26 | XR_ITS ---
EXAMINATION: XR FOOT, LEFT CLINICAL INFORMATION: Left foot pain. COMPARISON: None TECHNIQUE: AP, lateral, and oblique views of the left foot. FINDINGS: Mild joint space narrowing with small marginal osteophytes at the first interphalangeal joint. There is mild medial soft tissue swelling. No abnormal soft tissue calcification. No osseous erosion. Mild first metatarsophalangeal joint space narrowing with small marginal osteophytes. Small marginal osteophytes at the dorsal talonavicular joint. Tiny plantar and dorsal calcaneal spurs. No acute fracture or dislocation. Prominent dorsal subcutaneous edema. XR/XR foot LT 2V IMPRESSION: 1. Mild first interphalangeal joint osteoarthritis with medial soft tissue swelling. No associated osseous erosion or soft tissue calcification. 2. Mild first metatarsophalangeal joint osteoarthritis. 3. Prominent dorsal subcutaneous edema.
[2021-09-26 15:23] LABS: MANUAL DIFF FLAG NO
[2021-09-26 15:28] LABS: Basophils Percent Auto 0.3 % (0-2); Eosinophils Absolute Auto 0.4 X10*3/uL (0.0-0.4); Eosinophils Percent Auto 5.7 % (0-4); Hematocrit 40.8 % (42.0-52.0); Hemoglobin 12.3 g/dl (14.0-18.0); Imm Gran Abs Auto 0.05 X10*3/uL (0.00-0.03); Imm Gran Pct Auto 0.8 % (0.0-0.4); Lymphocytes Absolute Auto 1.7 X10*3/uL (1.2-4.9); Lymphocytes Percent Auto 25.9 % (20-40); Mean Corpuscular HGB Conc 30.1 g/dl (31.0-36.0); Mean Corpuscular Hemoglobin 28.1 pg (27.0-33.0); Mean Corpuscular Volume 93.2 fL (80.0-98.0); Mean Platelet Volume 10.3 fL (9.4-12.4); Monocytes Absolute Auto 0.7 X10*3/uL (0.1-1.2); Monocytes Percent Auto 10.9 % (2-11); Neutrophils Absolute Auto 3.7 x10*3/uL (2.0-8.3); Neutrophils Percent Auto 56.4 % (45-73); Platelet Count 210 X10*3/uL (160-400); Red Blood Count 4.38 X10*6/uL (4.60-5.80); Red Cell Distribution Width 16.6 % (11.0-16.0); White Blood Count 6.5 X10*3/uL (4.8-10.8)
[2021-09-26 15:43] LABS: Cholesterol 100 mg/dL; HDL Cholesterol 30 mg/dL; LDL Cholesterol Calculated 51 mg/dl; Triglycerides 96 mg/dL
[2021-09-26 15:46] LABS: Uric Acid 5.5 mg/dL (3.4-7.0)
[2021-09-26 16:02] LABS: TSH reflex Free T4 1.32 uIU/mL (0.32-4.0)
[2021-09-26 17:02] LABS: Creatinine Urine 55.01 mg/dL; Microalbumin Urine < 5.0 mg/L
== END 2021-09-26 13:12 | disposition home or self-care (01) ==
LOC: HO.XRAY 13:11
PROVIDERS: Nurse Practitioner Family; Absent Provider Internal Medicine Cardiovascular Disease; PCP Internal Medicine; Visit Provider Internal Medicine
DX: I10 Essential (primary) hypertension (principal); E78.00 Pure hypercholesterolemia, unspecified; E11.9 Type 2 diabetes mellitus without complications; E03.9 Hypothyroidism, unspecified; M79.672 Pain in left foot; I25.10 Atherosclerotic heart disease of native coronary artery without angina pectoris; R60.0 Localized edema; E66.01 Morbid (severe) obesity due to excess calories; G47.33 Obstructive sleep apnea (adult) (pediatric); R06.00 Dyspnea, unspecified; Z79.899 Other long term (current) drug therapy; Z86.16 Personal history of COVID-19; Z87.891 Personal history of nicotine dependence
CPT/HCPCS: 36415; 73620; 80061; 82043; 84443; 84550; 85025; 93005; 99202; 99212

== ENCOUNTER 2021-10-31 10:40 | Outpatient (REF) | payer MEDICARE, SELFPAY ==
--- NOTE | 2021-10-31 11:44 | PFT_ITS ---
FLOWS: FEV1 64% of predicted at 1.73 L. FVC 51% of predicted at 1.91 L. FEV1 to FVC ratio of 0.91. No bronchodilator response. LUNG VOLUMES: Total lung capacity 51% of predicted at 3.21 L. Residual volume 53% of predicted at 1.22 L. Slow vital capacity 50% of predicted at 1.99 L. Expiratory reserve volume 25% of predicted at 0.26 L. Diffusion capacity is moderately decreased, diffusion capacity corrects to normal after adjustment for alveolar ventilation. IMPRESSION: Moderate restrictive ventilatory defect with no bronchodilator response. Decreased expiratory reserve volume suggests extrathoracic restriction, likely secondary to abdominal obesity. Joselito Ramos MD AP/MODL / [id number]
== END 2021-10-31 10:41 | disposition home or self-care (01) ==
LOC: HO.RESP 10:40
PROVIDERS: PCP Internal Medicine; Visit Provider Internal Medicine
DX: R06.00 Dyspnea, unspecified (principal); G47.33 Obstructive sleep apnea (adult) (pediatric); E66.01 Morbid (severe) obesity due to excess calories
CPT/HCPCS: 94060; 94727; 94729

== ENCOUNTER → 2021-11-07 13:21 | Outpatient (BNVA) | payer MEDICARE, SELFPAY | PROVIDERS: PCP Internal Medicine; Referring Provider Internal Medicine; Visit Provider Internal Medicine Cardiovascular Disease | DX: I50.30 Unspecified diastolic (congestive) heart failure (principal) | CPT/HCPCS: 93005; 99212 ==

== ENCOUNTER → 2021-11-21 13:49 | Outpatient (BNVA) | payer MEDICARE, SELFPAY | PROVIDERS: PCP Internal Medicine; Visit Provider Internal Medicine | DX: G47.33 Obstructive sleep apnea (adult) (pediatric) (principal); J98.4 Other disorders of lung; E66.01 Morbid (severe) obesity due to excess calories | CPT/HCPCS: 99212 ==

== ENCOUNTER 2021-12-01 09:46 | Outpatient (REF) | payer MEDICARE, SELFPAY ==
--- NOTE | ~2021-12-01 | US_ITS ---
EXAMINATION: US EXTRACRANIAL CAROTID DUPLEX, BILATERAL CLINICAL INFORMATION: Occlusion and stenosis of the carotid arteries COMPARISON: Carotid duplex on 07/14/21 TECHNIQUE: Real-time ultrasound and Doppler techniques (integrating B-mode 2-D vascular images, Doppler spectral analysis and color-flow Doppler imaging) were utilized to interrogate the extracranial carotid arteries, the vertebral arteries and proximal subclavian arteries bilaterally. The degree of stenosis is determined by criteria similar to NASCET. FINDINGS: Right Side: 1. There is mild heterogenous atherosclerotic plaque seen in the bifurcation/proximal ICA region. 2. The common carotid artery PSV proximally is 72 cm/s and distally 74 cm/s. 3. The proximal internal carotid artery velocities are 102 cm/s systolic and 38 cm/s diastolic. 4. The proximal external carotid artery PSV is 98 cm/s. 5. The vertebral artery shows antegrade flow. 6. The subclavian artery waveforms are normal. Left Side: 1. There is mild heterogenous atherosclerotic plaque seen in the bifurcation/proximal ICA region. 2. The common carotid artery PSV proximally is 90 cm/s and distally 75 cm/s. 3. The proximal internal carotid artery velocities are 89 cm/s systolic and 21 cm/s diastolic. 4. The proximal external carotid artery PSV is 107 cm/s. 5. The vertebral artery shows antegrade flow. 6. The subclavian artery waveforms are normal. US/US carotid duplex BI IMPRESSION: 1. RIGHT: Minimal, non-hemodynamically significant stenosis of the proximal right internal carotid artery corresponding to a 0-49% stenosis by velocity criteria. 2. LEFT: Minimal, non-hemodynamically significant stenosis of the proximal left internal carotid artery corresponding to a 0-49% stenosis by velocity criteria. 3. There is no change in the category severity of disease when compared to the previous study dated 07/14/21.
== END 2021-12-01 09:47 | disposition home or self-care (01) ==
LOC: HO.US 09:46
PROVIDERS: Visit Provider Surgery Vascular Surgery
DX: I65.23 Occlusion and stenosis of bilateral carotid arteries (principal)
CPT/HCPCS: 93880

== ENCOUNTER → 2021-12-08 09:48 | Outpatient (BNVA) | payer MEDICARE, SELFPAY | PROVIDERS: PCP Internal Medicine; Visit Provider Surgery Vascular Surgery | DX: I77.9 Disorder of arteries and arterioles, unspecified (principal); I83.11 Varicose veins of right lower extremity with inflammation | CPT/HCPCS: 99212 ==

== ENCOUNTER 2022-02-13 10:21 | Outpatient (REF) | payer MEDICARE, SELFPAY | END 2022-02-13 10:22 | disposition home or self-care (01) | LOC: HO.US 10:21 | PROVIDERS: Visit Provider Surgery Vascular Surgery | DX: Z13.89 Encounter for screening for other disorder (principal) ==

== ENCOUNTER → 2022-03-13 09:51 | Outpatient (BNVA) | payer MEDICARE, SELFPAY | PROVIDERS: PCP Internal Medicine; Referring Provider Internal Medicine; Visit Provider Internal Medicine Cardiovascular Disease | DX: I20.8 Other forms of angina pectoris (principal); R60.0 Localized edema | CPT/HCPCS: 99212 ==

== ENCOUNTER → 2022-03-14 10:14 | Outpatient (BNVA) | payer MEDICARE, SELFPAY | PROVIDERS: PCP Internal Medicine; Visit Provider Surgery Vascular Surgery | DX: R60.0 Localized edema (principal); I65.23 Occlusion and stenosis of bilateral carotid arteries; I89.0 Lymphedema, not elsewhere classified | CPT/HCPCS: 99212 ==

== ENCOUNTER 2022-09-28 12:14 | Outpatient (REF) | payer MEDICARE, SELFPAY ==
[2022-09-28 14:18] LABS: TSH reflex Free T4 3.46 uIU/mL (0.32-4.0)
== END 2022-09-28 12:15 | disposition home or self-care (01) ==
LOC: HO.LAB 12:14
PROVIDERS: PCP Internal Medicine; Referring Provider Internal Medicine; Visit Provider Internal Medicine Cardiovascular Disease
DX: E03.9 Hypothyroidism, unspecified (principal); I20.8 Other forms of angina pectoris
CPT/HCPCS: 36415; 84443; 93005; 99212

== ENCOUNTER → 2022-11-28 10:43 | Outpatient (BNVA) | payer MEDICARE, SELFPAY | PROVIDERS: PCP Internal Medicine; Visit Provider Internal Medicine | DX: G47.33 Obstructive sleep apnea (adult) (pediatric) (principal); J98.4 Other disorders of lung; R06.00 Dyspnea, unspecified; E66.01 Morbid (severe) obesity due to excess calories; Z68.41 Body mass index [BMI] 40.0-44.9, adult | CPT/HCPCS: 99212 ==

== ENCOUNTER 2022-12-06 13:01 | Outpatient (REF) | payer MEDICARE, SELFPAY ==
--- NOTE | ~2022-12-06 | US_ITS ---
EXAMINATION: US EXTRACRANIAL CAROTID DUPLEX, BILATERAL CLINICAL INFORMATION: Bilateral carotid artery disease. COMPARISON: Carotid ultrasound 12/01/2021. TECHNIQUE: Real-time ultrasound and Doppler techniques (integrating B-mode 2-D vascular images, Doppler spectral analysis and color-flow Doppler imaging) were utilized to interrogate the extracranial carotid arteries, the vertebral arteries and proximal subclavian arteries bilaterally. The degree of stenosis is determined by criteria similar to NASCET. FINDINGS: Right Side: 1. There is moderate atherosclerotic plaque seen in the bifurcation/proximal ICA region. 2. The common carotid artery PSV proximally is 84 cm/s and distally 65 cm/s. 3. The proximal internal carotid artery velocities are 194 cm/s systolic and 49 cm/s diastolic. 4. The proximal external carotid artery PSV is 132 cm/s. 5. The vertebral artery shows anterior flow with a possible presteal bunny ear waveform. 6. The subclavian artery waveforms are normal triphasic. Left Side: 1. There is moderate atherosclerotic plaque seen in the bifurcation/proximal ICA region. 2. The common carotid artery PSV proximally is 93 cm/s and distally 91 cm/s. 3. The proximal internal carotid artery velocities are 159 cm/s systolic and 28 cm/s diastolic. 4. The proximal external carotid artery PSV is 117 cm/s. 5. The vertebral artery shows antegrade flow. 6. The subclavian artery waveforms are normal biphasic. US/US carotid duplex BI IMPRESSION: 1. RIGHT: Moderate, hemodynamically significant stenosis of the proximal right internal carotid artery corresponding to a 50-79% stenosis by velocity criteria. 2. LEFT: Moderate, hemodynamically significant stenosis of the proximal left internal carotid artery corresponding to a 50-79% stenosis by velocity criteria. 3. There is no change in the category severity of disease when compared to the previous study dated 12/01/2021. 4. Possible presteal waveform in the right vertebral artery. However no evidence of hemodynamically significant stenosis in the visualized right subclavian artery.
== END 2022-12-06 13:02 | disposition home or self-care (01) ==
LOC: HO.US 13:01
PROVIDERS: PCP Internal Medicine; Visit Provider Surgery Vascular Surgery
DX: I65.23 Occlusion and stenosis of bilateral carotid arteries (principal)
CPT/HCPCS: 93880

== ENCOUNTER 2022-12-28 10:12 | Outpatient (AMB) | payer MEDICARE, SELFPAY ==
--- NOTE | 2022-12-28 10:14 | A.OFFPC_ITS ---
Vital Signs 12/28/22 10:16 Height 5 ft 6 in Weight 258 lb 2 oz BMI 41.7 BP 120/70 Blood Pressure Location Lt brachial Position Sitting Pulse 54 Pulse Source Pulse Oximeter Pulse Oximetry (%) 97 Oxygen Delivery Method Room Air Intake Visit Reasons: Annual Physical Intake Note: Patient is here today for a physical. 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 per policy Accompanied by: Self / Same As Patient Allergies No Known Allergies [No Known Allergies*] Allergy (Verified 01/12/23 15:41) Medication List - Last Reconciled 01/12/23 by Jf Kwon MD acetaminophen (Tylenol Extra Strength) 500 mg PO Q6H PRN albuterol sulfate 90 mcg/actuation (ProAir HFA) 2 puffs inhalation Q4-6H PRN aspirin 81 mg PO DAILY atenolol 50 mg PO DAILY atorvastatin 80 mg PO BEDTIME blood sugar diagnostic TEST DAILY blood sugar diagnostic (Hey, Neighbor!Touch Ultra Test strips) Test Daily cetirizine 10 mg PO DAILY clopidogrel 75 mg PO DAILY escitalopram oxalate (Lexapro) 10 mg PO DAILY famotidine 40 mg PO DAILY fluticasone propionate 50 mcg/actuation 2 sprays intranasal DAILY inhalational spacing device (Aerochamber MV spacer) As directed lancets (BD Ultra Fine Lancets) TEST ONCE DAILY levothyroxine 125 mcg PO DAILY wwcxodqf-wqp-LG-lycopen-lutein 300-600-300 mcg (Centrum Silver Men) 1 tab PO DAILY pioglitazone 15 mg PO DAILY pregabalin 50 mg PO DAILY trazodone 25 mg (1/2 x 50 mg) PO BEDTIME PRN Tobacco use date assessed: 12/28/22 Fall risk assessment: No Falls in past year Last assessed Fall Risk: 12/28/22 Dental Screening Dental Screen Date: 12/28/22 Did you have a dental visit in the last 12 months?: No Did you have a dental problem in the last 6 months where you did not have access to dental care?: No Was dental information given to patient?: No HPI Annual Physical HPI Details 72-year-old male presents to the office requesting an annual physical. [facility] Medical History (HFpEF) heart failure with preserved ejection fraction Abnormal electrocardiography Acute respiratory distress syndrome (ARDS) due to COVID-19 virus Acute respiratory failure with hypoxia Annual physical exam Atherosclerotic heart disease of [place] coronary artery with unstable angina pectoris CAD (coronary artery disease) Carotid stenosis, bilateral Depression Diabetes Hyperlipidemia Hypothyroidism Ischemic cardiomyopathy Morbid obesity Morbid obesity Morbid obesity with BMI of 40.0-44.9, adult Nystagmus Obstructive sleep apnea Restrictive lung disease SARS-CoV-2 positive Screening for colon cancer Sleep disorder breathing Varicose veins of right lower extremity with inflammation Surgical History H/O colonoscopy History of cardiac cath (~06/20/19) History of coronary artery bypass graft x 3 (~07/24/19) History of esophagogastroduodenoscopy (EGD) History of knee replacement S/P CABG (coronary artery bypass graft) Family History Father Cardiovascular disease Mother Gastrointestinal malignancy Social History Household Members: Spouse 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 1. Little interest or pleasure in doing things: not at all 2. Feeling down, depressed, or hopeless: not at all 3. Trouble falling or staying asleep, or sleeping too much: not at all 4. Feeling tired or having little energy: not at all 5. Poor appetite or overeating: not at all 6. Feeling bad about yourself - or that you are a failure or have let yourself or your family down: not at all 7. Trouble concentrating on things, such as reading the newspaper or watching television: not at all 8. Moving or speaking so slowly that other people could have noticed. Or the opposite - being so fidgety or restless that you have been moving around a lot more than usual: not at all 9. Thoughts that you would be better off or of hurting yourself in some way: not at all Total score: 0 Depression Screening Interpretation: Negative Source: Developed by Drs. Garrett Martinez, Alexus Israel, Gonzalo Pete and colleagues, with an educational ron from [employer]. Thrive Questionnaire Date Thrive assessed: 12/28/22 I am a: Patient What is your living situation today?: I have a steady place to live Within the past 12 months, did the food you bought not last and you didn't have the money to get more?: Never true Within the past 12 months, did you worry whether your food would run out before you got money to buy more?: Never true Do you have trouble paying for medicines?: No Do you have trouble getting transportation to medical appointments?: No Do you have trouble paying your heating and electricity bill?: No Do you have trouble taking care of your child, family member or friend?: No Do you have trouble with day-to-day activities such as bathing, preparing meals, shopping, managing finances, etc.?: No Are you currently unemployed and looking for a job?: No Are you interested in more education?: No Currently or been in a relationship where the following occur: no concerns reported AUDIT C Alcohol Use Questionnaire (AUDIT-C) 1. How often do you have a drink containing alcohol?: Never Total Score: 0 MALINA-7 AMB Questionnaire MALINA-7 Date MALINA - 7 assessed: 12/28/22 Feeling nervous, anxious, or on edge: 0 = Not at all Not being able to stop or control worryin = Not at all Worrying too much about different things: 0 = Not at all Trouble relaxin = Not at all Being so restless that it is hard to sit still: 0 = Not at all Becoming easily annoyed or irritable: 0 = Not at all Feeling afraid as if something awful might happen: 0 = Not at all Total MALINA-7 score (0-4 normal; 5-9 mild; 10-14 moderate; 15-21 severe): 0 Source: Developed by Alexus Castro Jhonatan, Gonazlo Pete and colleagues, with an educational ron from [employer]. Physical exam (Primary Care) Vital Signs: Last Vital Signs Pulse 54 12/28/22 10:16 BP 120/70 12/28/22 10:16 Pulse Ox 97 12/28/22 10:16 Oxygen Delivery Method Room Air 12/28/22 10:16 Care Plan Goal for BP management: Blood pressure is in range. Continue current medications BMI result Body Mass Index 41.7 BMI Assessment/Plan discussion: High (1 lb per week weight loss suggested.) BMI High, discussed plan: lifestyle, weight reduction and dietary Tobacco/Smoking Status: Tobacco use Status Tobacco use date assessed 12/28/22 12/28/22 10:24 Patient Tobacco Use Status Former Tobacco user 12/28/22 10:24 e-Cigarette/Vaping Use Never Used 12/28/22 10:24 PHQ-9: PHQ-9 Score PHQ-9: Total score 0 12/29/22 12:34 Depression Screening Interpretation: Negative Thrive Assessment: Date of Thrive Assessment Date Thrive assessed 12/28/22 12/28/22 10:24 Currently or been in a relationship where the following occur: no concerns reported Const General: cooperative, healthy appearing and comfortable HENMT Head: Yes normal to inspection and Yes atraumatic Eyes General: appearance normal, both eyes and all related structures Neck Neck: Yes normal visual inspection and Yes full ROM Chest Chest palpation & inspection: normal inspection of the chest Resp Effort & Inspection: normal respiratory effort Auscultation: clear to auscultation bilaterally Cardio Jugular venous distension: no JVD Palpation: normal PMI Rate: regular rate Heart sounds: S1 normal heart sound present and S2 normal heart sound present GI Palpation (GI): Soft to palpation and No hepatosplenomegaly present Extrem General: Yes normal to inspection and Yes full ROM Results AMB Hemoglobin A1c AMB Hemoglobin A1c 5.9 % Last Edit by DARLYN Coffey on 12/28/22 10:45 Results Reviewed Results Reviewed: Laboratory Last Values Hgb A1c (Clinic) 5.9 % (4.0-6.0) 12/28/22 10:45 Assessment and Plan Assessment & Plan (1) Bilateral carotid artery disease: Code(s): I77.9 - Disorder of arteries and arterioles, unspecified Plan: Condition is stable. 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 (3) Morbid obesity: Comment: This is a chronic problem, aggravated due to his recent COVID infection, and also edema of lower extremities. Again stressed that he needs to loose weight . 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
[2022-12-28 10:16] VITALS: BP 120/70; PULSE 54; O2SAT 97; BMI 41.7
== END 2022-12-28 11:02 | disposition home or self-care (01) ==
PROVIDERS: PCP Internal Medicine; Visit Provider Internal Medicine
DX: E11.59 Type 2 diabetes mellitus with other circulatory complications
CPT/HCPCS: 83036; 99397

== ENCOUNTER 2023-01-18 13:13 | Outpatient (AMB) | payer MEDICARE, SELFPAY ==
[2023-01-18 13:13] VITALS: BP 88/48; BMI 41.6
--- NOTE | 2023-01-18 13:13 | MHC.OFFVIS ---
Intake Vital Signs 01/18/23 13:13 01/18/23 13:27 Height 5 ft 6 in Weight 258 lb BMI 41.6 BP 88/48 L 88/44 L Blood Pressure Location Rt brachial Lt brachial Position Sitting Sitting Intake Visit Reasons: 1 year follow up carotid US 12/07/2022 Intake Note: 1 year follow up carotid 12/07/2022. Pt states he gets some blurred vision and loses balance on occasion Accompanied by: Self / Same As Patient Allergies No Known Allergies [No Known Allergies*] Allergy (Verified 01/18/23 13:18) HPI 1 year follow up carotid 12/07/2022 HPI Details Very pleasant 72-year-old gentleman presents for follow-up regarding carotid surveillance. He has been doing relatively well no interval issues. He did see me in the past for lower extremity swelling as well it appears to be doing relatively the same but he is comfortable with his legs at the current time. 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 He is retired from the [employer]. He reports no interval issues. He is now for surveillance follow-up. [facility]LY [facility], [facility]–1983 Medical History (HFpEF) heart failure with preserved ejection fraction Abnormal electrocardiography Acute respiratory distress syndrome (ARDS) due to COVID-19 virus Acute respiratory failure with hypoxia Annual physical exam Atherosclerotic heart disease of [place] coronary artery with unstable angina pectoris CAD (coronary artery disease) Carotid stenosis, bilateral Depression Diabetes Hyperlipidemia Hypothyroidism Ischemic cardiomyopathy Morbid obesity Morbid obesity Morbid obesity with BMI of 40.0-44.9, adult Nystagmus Obstructive sleep apnea Restrictive lung disease SARS-CoV-2 positive Screening for colon cancer Sleep disorder breathing Varicose veins of right lower extremity with inflammation Surgical History H/O colonoscopy History of cardiac cath (~06/20/19) History of coronary artery bypass graft x 3 (~07/24/19) History of esophagogastroduodenoscopy (EGD) History of knee replacement S/P CABG (coronary artery bypass graft) Family History Father Cardiovascular disease Mother Gastrointestinal malignancy Social History Household Members: Spouse 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:: , 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 Housing: House Do you presently have visiting nurse or other home services: No Alcohol intake: current Alcohol intake frequency: holidays/special occasions only Patient Tobacco Use Status: Former Tobacco user e-Cigarette/Vaping Use: Never Used Second Hand Smoke Exposure: No Advance Directives Date on File: 07/07/21 service: No Current occupational status: retired Cognitive needs: Yes (walker) Hearing needs: No Vision needs: Yes (Reading Glasses) Review of Systems Const All systems reviewed & are unremarkable except as noted in HPI and below Reports no additional complaints ENT Reports Normal hearing present Card Denies chest pain, Denies chest pain at rest, Denies chest pain with activity and Denies pedal edema Resp Denies cough GI Denies abdominal pain Musc Denies abnormal gait, Denies muscle cramps and Denies radiating pain into limb Skin/Breast Denies skin ulcer and Denies wounds Neuro Reports Normal hearing present and Denies abnormal gait Psych Reports no additional complaints Physical Exam Vital Signs: Last Vital Signs BP 88/44 L 01/18/23 13:27 BMI result Body Mass Index 41.6 Const General: cooperative, healthy appearing and comfortable Orientation/consciousness: oriented to person, oriented to place and oriented to time HEENT Head: Yes normal to inspection Neck Neck: Yes normal visual inspection Carotids: no bruits Chest Chest palpation & inspection: normal inspection of the chest Resp Effort & Inspection: normal respiratory effort and able to speak in complete sentences Auscultation: clear to auscultation bilaterally, no crackles, no rales, no rhonchi and no wheezes Cardio Rate: regular rate Rhythm: regular rhythm Heart sounds: S1 normal heart sound present and S2 normal heart sound present Bruits: no carotid bruits Peripheral pulses: Peripheral pulses 2+ throughout GI Inspection: Yes normal to inspection Skin Wounds: no wounds Hair: normal Neuro General: oriented to person, oriented to place and oriented to time Cranial nerves: Yes CN's II-XII intact bilaterally and Yes Normal hearing present Cognition (Neuro): normal cognition Motor exam (neuro): 5/5 motor strength present throughout Extrem Other: venous exam: No significant superficial varicosities or spider telangiectasias, minimal edema General: No clubbing, No cyanosis and No edema Psych Appearance: grossly normal Mental Status: mental status grossly normal Speech and movement: Normal speech and movement present Results Reviewed Results Reviewed: Noninvasive carotid testing dated 12/06/2022 demonstrates right side 50-79% stenosis with a peak systolic of 194 and left side 50-79% stenosis with a peak systolic of 159. Written report and images were reviewed. Assessment & Plan Assessment & Plan (1) Carotid stenosis, bilateral: Code(s): I65.23 - Occlusion and stenosis of bilateral carotid arteries Plan: In short patient has asymptomatic carotid disease. We have reviewed signs and symptoms of a stroke. We also discussed risk factor modification inclusive a healthy diet low in cholesterol. The patient will follow up with us with surveillance ultrasound of the carotids 1 year. Should there be any changes or signs or symptoms of a stroke we will be happy to see them back sooner. Thank you for allowing us to participate in this patient's care. If there are any questions or concerns please do not hesitate to contact us. Orders: Orders US carotid duplex BI 364 Days I77.9 - Disorder of arteries and arterioles, unspecified Coding Level of Care Code Est Pt Level 4 (90515) Diagnoses Carotid stenosis, bilateral I65.23
[2023-01-18 13:27] VITALS: BP 88/44
== END 2023-01-18 13:45 | disposition home or self-care (01) ==
PROVIDERS: PCP Internal Medicine; Visit Provider Surgery Vascular Surgery
DX: I65.23 Occlusion and stenosis of bilateral carotid arteries (principal)
CPT/HCPCS: 99213

== ENCOUNTER → 2023-01-18 13:13 | Outpatient (BNVA) | payer MEDICARE, SELFPAY | PROVIDERS: PCP Internal Medicine; Visit Provider Surgery Vascular Surgery ==

== ENCOUNTER 2023-04-02 09:54 | Outpatient (AMB) | payer MEDICARE, SELFPAY ==
[2023-04-02 09:56] VITALS: BP 140/70; PULSE 62; BMI 41.6
--- NOTE | 2023-04-02 09:56 | A.OFFVIS_ITS ---
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 Required: No Accompanied by: Self / Same As Patient Allergies No Known Allergies [No Known Allergies*] Allergy (Verified 04/02/23 09:58) Medication List - Last Reconciled 04/02/23 by Rob Stephens MD acetaminophen (Tylenol Extra Strength) 500 mg PO Q6H PRN albuterol sulfate 90 mcg/actuation (ProAir HFA) 2 puffs inhalation Q4-6H PRN aspirin 81 mg PO DAILY atenolol 50 mg PO DAILY atorvastatin 80 mg PO BEDTIME blood sugar diagnostic TEST DAILY blood sugar diagnostic (CardinalCommerceTouch Ultra Test strips) Test Daily cetirizine 10 mg PO DAILY clopidogrel 75 mg PO DAILY escitalopram oxalate (Lexapro) 10 mg PO DAILY famotidine 40 mg PO DAILY fluticasone propionate 50 mcg/actuation 2 sprays intranasal DAILY inhalational spacing device (Aerochamber MV spacer) As directed lancets (BD Ultra Fine Lancets) TEST ONCE DAILY levothyroxine 125 mcg PO DAILY [id number] 815-34-416-300 mcg (Centrum Silver Men) 1 tab PO DAILY pioglitazone 15 mg PO DAILY pregabalin 50 mg PO DAILY trazodone 25 mg (1/2 x 50 mg) PO BEDTIME PRN HPI HPI Comments History of Present Illness Details Pleasant 73-year-old gentleman here for follow-up. He has background history of multivessel coronary disease with previous bypass surgery. He was seen after prolonged episode of COVID-19 infection and ARDS. He was complaining of bilateral lower extremity edema as well as foot pain. He had x- ray of the foot which showed arthritis. His uric acid level was okay. He was volume overload He was started on furosemide and volume status improved. He was seen in follow- up after that and was doing well. He also has been seeing Dr. Okeefe for venous insufficiency. On subsequent visit he was off Lasix and was doing well and furosemide was stopped. Today he returns for follow-up again. He has been doing well. No chest pain or shortness of breath. 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 Denying any chest discomfort shortness of breath. Is saying he is gaining weight despite cutting back on his caloric intake and increasing activity. He has known hypothyroid and had l last TSH performed a year ago. 04/02/23: Here for follow-up. He is com plaining of left-sided chest pain off and on which happens randomly. He is describing it as a pain which goes across the left side of the chest. He is also getting some pressure in his chest which is a new symptom for him. There is no clear pattern of these symptoms and these are not clearly exertional. At times they happen at rest. He is also asking about weight loss strategies. The blood pressure in the office is elevated. He is saying that he walks and does some activities but has not been very active physically. [facility] Medical History (HFpEF) heart failure with preserved ejection fraction Abnormal electrocardiography Acute respiratory distress syndrome (ARDS) due to COVID-19 virus Acute respiratory failure with hypoxia Annual physical exam Atherosclerotic heart disease of [place] coronary artery with unstable angina pectoris CAD (coronary artery disease) Carotid stenosis, bilateral Depression Diabetes Hyperlipidemia Hypothyroidism Ischemic cardiomyopathy Morbid obesity Morbid obesity Morbid obesity with BMI of 40.0-44.9, adult Nystagmus Obstructive sleep apnea Restrictive lung disease SARS-CoV-2 positive Screening for colon cancer Sleep disorder breathing Varicose veins of right lower extremity with inflammation Surgical History H/O colonoscopy History of cardiac cath (~06/20/19) History of coronary artery bypass graft x 3 (~07/24/19) History of esophagogastroduodenoscopy (EGD) History of knee replacement S/P CABG (coronary artery bypass graft) Family History Father Cardiovascular disease Mother Gastrointestinal malignancy Social History Household Members: Spouse 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:: , 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: House Do you presently have visiting nurse or other home services: No Alcohol intake: current Alcohol intake frequency: holidays/special occasions only Patient Tobacco Use Status: Former Tobacco user e-Cigarette/Vaping Use: Never Used Second Hand Smoke Exposure: No Advance Directives Date on File: 07/07/21 service: No Current occupational status: retired Cognitive needs: Yes (walker) Hearing needs: No Vision needs: Yes (Reading Glasses) Review of Systems Const Denies weakness ENT Denies dizziness Card Denies chest pain, Denies chest pain with activity, Denies syncope, Denies rapid heart rate, Denies pedal edema, Denies edema, Denies leg edema, Denies lightheadedness, Denies palpitations, Denies dyspnea, Denies dyspnea on exertion and Denies orthopnea Resp Denies cough, Denies dyspnea and Denies dyspnea on exertion GI Denies hematochezia and Denies change in stool character Musc Denies abnormal gait, Denies muscle cramps, Denies muscle weakness, Denies numbness, Denies radiating pain into limb and Denies tingling Neuro Denies abnormal gait, Denies dizziness, Denies syncope, Denies numbness, Denies tingling and Denies weakness Endo Denies palpitations Physical Exam GENERAL APPEARANCE: in no acute distress, pleasant. HEART: no murmurs, regular rate and rhythm. LUNGS: clear to auscultation bilaterally. ABDOMEN: soft, nontender. EXTREMITIES: Trace edema. Small sized prominent veins. PERIPHERAL PULSES: equal. NEUROLOGIC: No gross deficits, AAO X 3 Assessment & Plan Assessment & Plan (1) Stable angina: Code(s): I20.8 - Other forms of angina pectoris (2) Essential hypertension: Code(s): I10 - Essential (primary) hypertension (3) Morbid obesity: Comment: HE REMAINS MORBIDLY OBESE, COMPARED TO LAST YEAR HE HAS GAINED A FEW MORE LB. AGAIN TALKED TO HIM IN DETAIL ABOUT IMPORTANCE OF LOSING WEIGHT. HE IS NOT INTERESTED. IN JOINING ANY WEIGHT MANAGEMENT PROGRAM WILL TRY TO CUT DOWN THE CALORIES INTAKE MUCH POSSIBLE. Code(s): E66.01 - Morbid (severe) obesity due to excess calories Plan [age] year gentleman is here for follow-up. He has history of coronary artery bypass surgery in the past. He is complaining of some chest discomfort and chest pressure. Previous to bypass surgery he had no symptoms. In any case given his history of known coronary disease and CABG, we have decided to pursue a stress Mibi. We will arrange that. Blood pressure is mildly elevated and I am adding hydrochlorothiazide 12.5 mg daily. I will discuss with his primary care physician about adding Ozempic or utility of Mounjaro given his history of diabetes. I have advised him to swim and join a gym. Thank you for allowing me to participate in the care of your patient. Please feel free to contact me if you have any questions. Orders: Orders NM cardiolite stress test Today I20.8 - Other forms of angina pectoris Medications: New hydrochlorothiazide 12.5 mg PO DAILY 60 tabs 3RF I10 - Essential (primary) hypertension Coding Level of Care Code Est Pt Level 4 (42461) Diagnoses Stable angina I20.8 Essential hypertension I10 Morbid obesity E66.01
== END 2023-04-02 10:23 | disposition home or self-care (01) ==
PROVIDERS: PCP Internal Medicine; Visit Provider Internal Medicine Cardiovascular Disease
DX: I20.8 Other forms of angina pectoris (principal); I10 Essential (primary) hypertension; E66.01 Morbid (severe) obesity due to excess calories
CPT/HCPCS: 99214

== ENCOUNTER → 2023-04-02 09:54 | Outpatient (BNVA) | payer MEDICARE, SELFPAY | PROVIDERS: PCP Internal Medicine; Visit Provider Internal Medicine Cardiovascular Disease | DX: I20.89 Other forms of angina pectoris (principal); I11.0 Hypertensive heart disease with heart failure; I50.30 Unspecified diastolic (congestive) heart failure; E66.01 Morbid (severe) obesity due to excess calories; Z68.41 Body mass index [BMI] 40.0-44.9, adult; Z95.1 Presence of aortocoronary bypass graft; Z98.890 Other specified postprocedural states | CPT/HCPCS: 99212 ==

== ENCOUNTER 2023-04-12 15:30 | Outpatient (AMB) | payer MEDICARE, SELFPAY ==
--- NOTE | 2023-04-12 15:34 | A.OFFPC_ITS ---
Vital Signs 04/12/23 15:35 Height 5 ft 6 in Weight 255 lb BMI 41.2 BP 110/62 Blood Pressure Location Lt brachial Position Sitting Pulse 62 Pulse Source Pulse Oximeter Pulse Oximetry (%) 94 Oxygen Delivery Method Room Air Intake Visit Reasons: DM/ med review Intake Note: Patient is here to follow up on DM and discuss new medication. 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 per policy Accompanied by: Self / Same As Patient Allergies No Known Allergies [No Known Allergies*] Allergy (Verified 04/13/23 10:25) Medication List - Last Reconciled 04/13/23 by Jf Kwon MD acetaminophen (Tylenol Extra Strength) 500 mg PO Q6H PRN albuterol sulfate 90 mcg/actuation (ProAir HFA) 2 puffs inhalation Q4-6H PRN aspirin 81 mg PO DAILY atenolol 50 mg PO DAILY atorvastatin 80 mg PO BEDTIME blood sugar diagnostic TEST DAILY blood sugar diagnostic ([employer] AppealTouch Ultra Test strips) Test Daily cetirizine 10 mg PO DAILY clopidogrel 75 mg PO DAILY dulaglutide (Trulicity) 0.75 mg (0.5 mL) subcut QWEEK escitalopram oxalate (Lexapro) 10 mg PO DAILY famotidine 40 mg PO DAILY fluticasone propionate 50 mcg/actuation 2 sprays intranasal DAILY hydrochlorothiazide 12.5 mg PO DAILY inhalational spacing device (Aerochamber MV spacer) As directed lancets (BD Ultra Fine Lancets) TEST ONCE DAILY levothyroxine 125 mcg PO DAILY ju-fqe-vahfa-[id number]-[id number]-kyhfuz 154-13-390-300 mcg (Centrum Silver Men) 1 tab PO DAILY pioglitazone 15 mg PO DAILY pregabalin 50 mg PO DAILY trazodone 25 mg (1/2 x 50 mg) PO BEDTIME PRN Tobacco use date assessed: 04/12/23 Dental Screening Dental Screen Date: 04/12/23 Did you have a dental visit in the last 12 months?: Yes Did you have a dental problem in the last 6 months where you did not have access to dental care?: No Was dental information given to patient?: Patient has dentist HPI DM/ med review HPI Details 73-year-old male presents to the office to discuss his chronic medical condition of obesity. Patient was at the [facility] last week and he recommended that he try the new weight loss medications. Patient would like to know the pros and cons of the same medication. [facility] Medical History (HFpEF) heart failure with preserved ejection fraction Abnormal electrocardiography Acute respiratory distress syndrome (ARDS) due to COVID-19 virus Acute respiratory failure with hypoxia Annual physical exam Atherosclerotic heart disease of [place] coronary artery with unstable angina pectoris CAD (coronary artery disease) Carotid stenosis, bilateral Depression Diabetes Hyperlipidemia Hypothyroidism Ischemic cardiomyopathy Morbid obesity Morbid obesity Morbid obesity with BMI of 40.0-44.9, adult Nystagmus Obstructive sleep apnea Restrictive lung disease SARS-CoV-2 positive Screening for colon cancer Sleep disorder breathing Varicose veins of right lower extremity with inflammation Surgical History H/O colonoscopy History of esophagogastroduodenoscopy (EGD) S/P CABG (coronary artery bypass graft) History of coronary artery bypass graft x 3 (~07/24/19) History of cardiac cath (~06/20/19) History of knee replacement Family History Father Cardiovascular disease Mother Gastrointestinal malignancy Social History Household Members: Spouse 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:: , 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: 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 Garrett Martinez, Alexus Israel, Gonzalo Pete and colleagues, with an educational ron from [employer] Physical exam (Primary Care) Vital Signs: Last Vital Signs Pulse 62 04/12/23 15:35 BP 110/62 04/12/23 15:35 Pulse Ox 94 04/12/23 15:35 Oxygen Delivery Method Room Air 04/12/23 15:35 BMI result Body Mass Index 41.2 Tobacco/Smoking Status: Tobacco use Status Tobacco use date assessed 04/12/23 04/12/23 15:39 Patient Tobacco Use Status Former Tobacco user 04/12/23 15:39 e-Cigarette/Vaping Use Never Used 04/12/23 15:39 Thrive Assessment: Date of Thrive Assessment Date Thrive assessed 12/28/22 04/12/23 15:39 Const General: cooperative and healthy appearing Nutritional Appearance: well nourished Orientation/consciousness: patient oriented x3 Limitations: no limitations HENMT Head: Yes normal to inspection Eyes General: appearance normal, both eyes and all related structures Neck Neck: Yes normal visual inspection Chest Chest palpation & inspection: normal palpation of entire chest wall Resp Effort & Inspection: normal respiratory effort Neuro General: patient oriented x3 Assessment and Plan Assessment & Plan (1) Diabetes: Code(s): E11.9 - Type 2 diabetes mellitus without complications Qualifiers: Diabetes mellitus type: type 2 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 Approximately 20 minutes spent on this discussion. Patient's blood sugar is under control but he has an increased body mass index. Pioglitazone will be discontinued and Trulicity started. We will await insurance approval before making the switch. 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
[2023-04-12 15:35] VITALS: BP 110/62; PULSE 62; O2SAT 94; BMI 41.2
== END 2023-04-12 15:50 | disposition home or self-care (01) ==
PROVIDERS: PCP Internal Medicine; Visit Provider Internal Medicine
DX: E11.59 Type 2 diabetes mellitus with other circulatory complications (principal)
CPT/HCPCS: 99214

== ENCOUNTER → 2023-05-10 08:07 | Outpatient (REF) | payer MEDICARE, SELFPAY ==
--- NOTE | ~2023-05-10 | NM_ITS ---
Myocardial perfusion study Indication: Angina pectoris to evaluate for myocardial ischemia Technique: The patient was brought in for a Lexiscan perfusion study on 05/10/2023. Patient performed low-level exercise and was injected 0.4 mg of Lexiscan intravenously. Within a minute of injection, 40 mCi of sestamibi was given intravenously. Images were obtained using the SPECT gamma camera interlaced with the gating device. Images were obtained in supine position. Resting perfusion study was performed on 05/14/2023. Patient was administered 40 mCi of sestamibi intravenously at rest. Images were then obtained in supine position. Images obtained with and without CT attenuation. Total DLP 123 mGy-cm. Images were processed with the software and compared side to side in short axis, horizontal long axis and vertical long axis views. Findings: The stress perfusion study showed non attenuated images show mildly reduced uptake in the distal lateral wall of the LV myocardium. Remainder of the LV myocardium is normally. Attenuation corrected images show minimally reduced uptake in the apex of the LV myocardium. The gated study shows normal LV systolic function with calculated LVEF of 68%. LV cavity is normal size. The gated study shows normal systolic wall thickening and contraction of segments. Resting study shows no change in perfusion study compared to stress perfusion study. Gating at rest was not performed The findings are consistent with no clear reversible defect suggestive of ischemia. Likely normal myocardial perfusion.. NM/NM cardiolite stress test Impression: 1. Myocardial perfusion imaging study shows likely normal myocardial perfusion 2. Gated LVEF is 68% 3. Transient ischemic dilatation not present EKG is nondiagnostic for ischemia
--- NOTE | 2023-05-10 11:19 | CA_ITS ---
Acquisition Time: 2023-05-10 08:13:02 Total Exercise Time: 00:03:05 Test Indications: ABN EKG Medications: SEE H Protocol: KRYSTIN Max HR: 095 BPM 65% of Pred: 146 BPM Max BP: 134/068 mmHG Max Work Load: 4.6 METS Exercise stress test with exercise 3 min 5 sec of Krystin protocol achieving 65% MPHR withrequest to stop due to speed and moderate SOB, without arrhythmias,without chest discomfort, with normotensive response to exercise, with nondiagsnoitic EKGs. Test changed to pharmaoclogical stress test once breathing returned to baseline. Pharmacooogical stress test with lexiscan injeciton while sitting and kicking his legs, without anginal symptoms, without arrhythmias, with normotensive response to injection, with nondiagnoisitic EKGs. Aminophylline 75mg IVp given to reverse Lexiscan. Nuclear images pending. Test reviewed with Dr. Cano Referred By: Rob Stephens Overread By: Jazyln Connor
== END ==
LOC: HO.CARD 08:07
PROVIDERS: PCP Internal Medicine; Visit Provider Internal Medicine Cardiovascular Disease
DX: I20.89 Other forms of angina pectoris (principal); I50.30 Unspecified diastolic (congestive) heart failure; E66.01 Morbid (severe) obesity due to excess calories
CPT/HCPCS: 78452; 93017; A9500; J0280; J2785

== ENCOUNTER → 2023-05-10 11:19 | Outpatient (BNV) | payer MEDICARE, SELFPAY | PROVIDERS: PCP Internal Medicine; Visit Provider Nurse Practitioner | DX: I20.89 Other forms of angina pectoris (principal); I50.30 Unspecified diastolic (congestive) heart failure | CPT/HCPCS: 78452; 93016; 93018 ==

== ENCOUNTER 2023-08-06 08:49 | Outpatient (AMB) | payer MEDICARE, SELFPAY ==
[2023-08-06 08:55] VITALS: BP 110/56; PULSE 64; BMI 39.9
--- NOTE | 2023-08-06 08:55 | MHC.OFFVIS ---
Intake Vital Signs 08/06/23 08:55 Height 5 ft 6 in Weight 247 lb 5.738 oz BMI 39.9 BP 110/56 L Blood Pressure Location Lt brachial Position Sitting Pulse 64 Intake Visit Reasons: 4 mth f/up Intake Note: pt its here for a 4 mnth f/up pt its feeling fine. 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 Accompanied by: Self / Same As Patient Allergies No Known Allergies [No Known Allergies*] Allergy (Verified 04/13/23 10:25) Medication List - Last Reconciled 08/06/23 by Rob Stephens MD acetaminophen (Tylenol Extra Strength) 500 mg PO Q6H PRN albuterol sulfate 90 mcg/actuation (ProAir HFA) 2 puffs inhalation Q4-6H PRN aspirin 81 mg PO DAILY atenolol 50 mg PO DAILY atorvastatin 80 mg PO BEDTIME blood sugar diagnostic TEST DAILY blood sugar diagnostic (Shoutletuch Ultra Test strips) Test Daily cetirizine 10 mg PO DAILY clopidogrel 75 mg PO DAILY dulaglutide (Trulicity) 0.75 mg (0.5 mL) subcut QWEEK escitalopram oxalate (Lexapro) 10 mg PO DAILY famotidine 40 mg PO DAILY fluticasone propionate 50 mcg/actuation 2 sprays intranasal DAILY hydrochlorothiazide 12.5 mg PO DAILY inhalational spacing device (Aerochamber MV spacer) As directed lancets TEST ONCE DAILY levothyroxine 125 mcg PO DAILY [id number]-[id number] 390-54-000-300 mcg (Centrum Silver Men) 1 tab PO DAILY pioglitazone 15 mg PO DAILY pregabalin 50 mg PO DAILY trazodone 25 mg (1/2 x 50 mg) PO BEDTIME PRN HPI HPI Comments History of Present Illness Details Pleasant 73-year-old gentleman here for follow-up. He has background history of multivessel coronary disease with previous bypass surgery. He was seen after prolonged episode of COVID-19 infection and ARDS. He was complaining of bilateral lower extremity edema as well as foot pain. He had x-ray of the foot which showed arthritis. His uric acid level was okay. He was volume overload He was started on furosemide and volume status improved. He was seen in follow-up after that and was doing well. He also has been seeing Dr. Okeefe for venous insufficiency. On subsequent visit he was off Lasix and was doing well and furosemide was stopped. Today he returns for follow-up again. He has been doing well. No chest pain or shortness of breath. 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 Denying any chest discomfort shortness of breath. Is saying he is gaining weight despite cutting back on his caloric intake and increasing activity. He has known hypothyroid and had l last TSH performed a year ago. 04/02/23: Here for follow-up. He is complaining of left-sided chest pain off and on which happens randomly. He is describing it as a pain which goes across the left side of the chest. He is also getting some pressure in his chest which is a new symptom for him. There is no clear pattern of these symptoms and these are not clearly exertional. At times they happen at rest. He is also asking about weight loss strategies. The blood pressure in the office is elevated. He is saying that he walks and does some activities but has not been very active physically. 08/06/23: He returns for f/u/. He has been doing well. Exercising and losing weight. Stress test in 05/2023, perfusion imaging was normal. [facility] Medical History (HFpEF) heart failure with preserved ejection fraction Abnormal electrocardiography Acute respiratory distress syndrome (ARDS) due to COVID-19 virus Acute respiratory failure with hypoxia Annual physical exam Atherosclerotic heart disease of [place] coronary artery with unstable angina pectoris CAD (coronary artery disease) Carotid stenosis, bilateral Depression Diabetes Hyperlipidemia Hypothyroidism Ischemic cardiomyopathy Morbid obesity Morbid obesity Morbid obesity with BMI of 40.0-44.9, adult Nystagmus Obstructive sleep apnea Restrictive lung disease SARS-CoV-2 positive Screening for colon cancer Sleep disorder breathing Varicose veins of right lower extremity with inflammation Surgical History H/O colonoscopy History of esophagogastroduodenoscopy (EGD) S/P CABG (coronary artery bypass graft) History of coronary artery bypass graft x 3 (~07/24/19) History of cardiac cath (~06/20/19) History of knee replacement Family History Father Cardiovascular disease Mother Gastrointestinal malignancy Social History Household Members: Spouse 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:: , 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: House Do you presently have visiting nurse or other home services: No Alcohol intake: current Alcohol intake frequency: holidays/special occasions only Patient Tobacco Use Status: Former Tobacco user e-Cigarette/Vaping Use: Never Used Second Hand Smoke Exposure: No Advance Directives Date on File: 07/07/21 service: No Current occupational status: retired Cognitive needs: Yes (walker) Hearing needs: No Vision needs: Yes (Reading Glasses) Review of Systems Const Denies chills, Denies fatigue, Denies fever(s), Denies frequent falls, Denies weakness, Denies weight gain and Denies weight loss ENT Denies dizziness Card Denies chest pain, Denies leg edema, Denies lightheadedness, Denies palpitations, Denies dyspnea and Denies dyspnea on exertion Resp Denies cough, Denies dyspnea and Denies dyspnea on exertion GI Denies hematochezia Musc Denies abnormal gait, Denies muscle weakness, Denies numbness, Denies radiating pain into limb and Denies tingling Neuro Denies abnormal gait, Denies dizziness, Denies frequent falls, Denies numbness, Denies tingling and Denies weakness Endo Denies fatigue and Denies palpitations Physical Exam Vital Signs: BMI result Body Mass Index 39.9 GENERAL APPEARANCE: in no acute distress, pleasant. HEART: no murmurs, regular rate and rhythm. LUNGS: clear to auscultation bilaterally. ABDOMEN: soft, nontender. EXTREMITIES: Trace edema. Small sized prominent veins. PERIPHERAL PULSES: equal. NEUROLOGIC: No gross deficits, AAO X 3 Office Procedures EKG Details: NSR 64/min, LVH, TWI in precordial leads (old), QTc 422 msec. [id number], Complete Assessment & Plan Assessment & Plan (1) Essential hypertension: Code(s): I10 - Essential (primary) hypertension (2) Stable angina: Code(s): I20.8 - Other forms of angina pectoris (3) Morbid obesity: Comment: HE REMAINS MORBIDLY OBESE, COMPARED TO LAST YEAR HE HAS GAINED A FEW MORE LB. AGAIN TALKED TO HIM IN DETAIL ABOUT IMPORTANCE OF LOSING WEIGHT. HE IS NOT INTERESTED. IN JOINING ANY WEIGHT MANAGEMENT PROGRAM WILL TRY TO CUT DOWN THE CALORIES INTAKE MUCH POSSIBLE. Code(s): E66.01 - Morbid (severe) obesity due to excess calories Plan 73-year-old gentleman is here for follow-up. He has history of coronary artery bypass surgery in the past. Lexican was normal. He has poor functional capacity due to right knee OA. BP better controlled. Stable on f/u. He has lost weight and is feeling good. Same meds. See us back in 6 months. Thank you for allowing me to participate in the care of your patient. Please feel free to contact me if you have any questions. Coding Level of Care Code Est Pt Level 3 (98297) Diagnoses Essential hypertension I10 Stable angina I20.8 Morbid obesity E66.01 CPT Codes EKG - CPT: 52524-[id number], Complete ([id number])
== END 2023-08-06 09:17 | disposition home or self-care (01) ==
LOC: HO.HCS 08:49
PROVIDERS: PCP Internal Medicine; Visit Provider Internal Medicine Cardiovascular Disease
DX: I10 Essential (primary) hypertension (principal); I20.8 Other forms of angina pectoris; E66.01 Morbid (severe) obesity due to excess calories
CPT/HCPCS: 93010; 99213

== ENCOUNTER → 2023-08-06 08:49 | Outpatient (BNVA) | payer MEDICARE, SELFPAY | PROVIDERS: PCP Internal Medicine; Visit Provider Internal Medicine Cardiovascular Disease | DX: I10 Essential (primary) hypertension (principal); I20.89 Other forms of angina pectoris; E66.01 Morbid (severe) obesity due to excess calories; Z68.39 Body mass index [BMI] 39.0-39.9, adult | CPT/HCPCS: 93005; 99212 ==

== ENCOUNTER 2024-01-07 09:54 | Outpatient (REF) | payer MEDICARE, SELFPAY ==
--- NOTE | ~2024-01-07 | US_ITS ---
EXAMINATION: US EXTRACRANIAL CAROTID DUPLEX, BILATERAL CLINICAL INFORMATION: Carotid stenosis, follow-up COMPARISON: Ultrasounds from 12/01/2021 and 12/06/2022 TECHNIQUE: Real-time ultrasound and Doppler techniques (integrating B-mode 2-D vascular images, Doppler spectral analysis and color-flow Doppler imaging) were utilized to interrogate the extracranial carotid arteries, the vertebral arteries and proximal subclavian arteries bilaterally. The degree of stenosis is determined by criteria similar to NASCET. FINDINGS: Right Side: 1. There is moderate atherosclerotic plaque seen in the bifurcation/proximal ICA region. 2. The common carotid artery PSV proximally is 76.2 cm/s and distally 72.7 cm/s. 3. The proximal internal carotid artery velocities are 152 cm/s systolic and 41 cm/s diastolic. 4. The proximal external carotid artery PSV is 119 cm/s. 5. The vertebral artery shows antegrade flow. 6. The subclavian artery waveforms are normal. Left Side: 1. There is moderate atherosclerotic plaque seen in the bifurcation/proximal ICA region. 2. The common carotid artery PSV proximally is 106 cm/s and distally 88.5 cm/s. 3. The proximal internal carotid artery velocities are 175 cm/s systolic and 33.4 cm/s diastolic. 4. The proximal external carotid artery PSV is 177 cm/s. 5. The vertebral artery shows antegrade flow. 6. The subclavian artery waveforms are normal. US/US carotid duplex BI IMPRESSION: 1. RIGHT: Moderate, hemodynamically significant stenosis of the proximal right internal carotid artery corresponding to a 50-79% stenosis by velocity criteria. 2. LEFT: Moderate, hemodynamically significant stenosis of the proximal left internal carotid artery corresponding to a 50-79% stenosis by velocity criteria. 3. There is no change in the category severity of disease when compared to the previous study dated 12/06/2022.
== END 2024-01-07 09:55 | disposition home or self-care (01) ==
LOC: HO.HMGCX 09:54
PROVIDERS: PCP Internal Medicine; Visit Provider Surgery Vascular Surgery
DX: I65.23 Occlusion and stenosis of bilateral carotid arteries (principal)
CPT/HCPCS: 93880

== ENCOUNTER 2024-01-22 07:27 | Outpatient (REF) | payer MEDICARE, SELFPAY ==
[2024-01-22 08:14] LABS: Hematocrit 42.5 % (42.0-52.0); Hemoglobin 13.6 g/dl (14.0-18.0); Mean Corpuscular Hemoglobin 28.4 pg (27.0-33.0); Mean Corpuscular Volume 88.7 fL (80.0-98.0); Mean Platelet Volume 10.3 fL (9.4-12.4); Platelet Count 166 X10*3/uL (160-400); Red Blood Count 4.79 X10*6/uL (4.60-5.80); Red Cell Distribution Width 16.6 % (11.0-16.0)
[2024-01-22 08:19] LABS: Estimated Average Glucose 111 mg/dL; Hemoglobin A1c % 5.5 % (<6.0)
[2024-01-22 08:35] LABS: Appearance Urine Clear; Color Urine Yellow; Glucose Urine UA Negative (Negative); Leukocyte Esterase Urine Moderate (2+) (Negative); Nitrite Urine Negative (Negative); Specific Gravity - Urine 1.015 (1.005-1.025); UMIC TRIGGER UA YES; Urine Blood Negative (Negative); Urine Ketones Negative (Negative); Urine Protein Negative (Neg-Trace)
[2024-01-22 08:40] LABS: Bacteria Urine None Seen (None Seen); Hyaline Casts Urine 0-2 /LPF (0-2); RBC Urine 0-2 /HPF (0-2); Squamous Epithelial Cell Urine 0-2 /HPF (0-2)
[2024-01-22 08:51] LABS: Alanine Aminotransferase 32 U/L (0-40); Albumin Level 3.8 g/dL (3.5-5.0); Alkaline Phosphatase 93 U/L (39-117); Anion Gap 13 (12-20); Aspartate Amino Transferase 26 U/L (5-37); Bilirubin Direct 0.2 mg/dL (0.0-0.5); Bilirubin Total 0.6 mg/dL (0.0-1.0); Blood Urea Nitrogen 18 mg/dL (9-16); Calcium 9.9 mg/dL (8.4-10.2); Carbon Dioxide 28 mmol/L (22-29); Chloride 105 mmol/L (96-108); Cholesterol 93 mg/dL (<200); Estimated Glomerular Filt Rate > 60; Glucose Random 106 mg/dL (60-115); HDL Cholesterol 32 mg/dL (>40); LDL Cholesterol Calculated 49 mg/dL (<100); Potassium 3.9 mmol/L (3.3-5.1); Sodium 142 mmol/L (135-145); Total Protein 6.9 g/dL (6.5-8.0); Triglycerides 63 mg/dL (<150)
[2024-01-22 09:09] LABS: Thyroid Stimulating Hormone 1.34 uIU/mL (0.32-4.0)
== END 2024-01-22 07:28 | disposition home or self-care (01) ==
LOC: HO.LAB 07:27
PROVIDERS: PCP Internal Medicine; Visit Provider Internal Medicine
DX: E11.59 Type 2 diabetes mellitus with other circulatory complications (principal); I77.9 Disorder of arteries and arterioles, unspecified
CPT/HCPCS: 36415; 80048; 80061; 80076; 81001; 83036; 84443; 85027

== ENCOUNTER 2024-01-29 08:49 | Outpatient (AMB) | payer MEDICARE, SELFPAY ==
[2024-01-29 08:51] VITALS: BP 110/62; PULSE 58; O2SAT 97; BMI 39.2
--- NOTE | 2024-01-29 08:51 | MHC.PC.OV ---
Vital Signs 01/29/24 08:51 Height 5 ft 6 in Weight 243 lb BMI 39.2 BP 110/62 Blood Pressure Location Lt brachial Position Sitting Pulse 58 Pulse Source Pulse Oximeter Pulse Oximetry (%) 97 Oxygen Delivery Method Room Air Intake Visit Reasons: DM, lab results [employer]er Required: No Allergies No Known Allergies [No Known Allergies*] Allergy (Verified 01/29/24 08:51) Tobacco use date assessed: 01/29/24 Fall risk assessment: No Falls in past year Last assessed Fall Risk: 01/29/24 Dental Screening Dental Screen Date: 01/29/24 HPI DM, lab results HPI Details 73-year-old male presents to the office to discuss his chronic medical conditions. Patient could not afford the Trulicity and stopped taking it. He reverted back to pioglitazone. Tolerating the medication well. Has run out of pregabalin. Compliant with medications and able to do all activities of daily living. 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 Carotid stenosis, bilateral Ischemic cardiomyopathy Annual physical exam Sleep disorder breathing Diabetes Hypothyroidism Hyperlipidemia Nystagmus Abnormal electrocardiography CAD (coronary artery disease) Surgical History H/O colonoscopy History of esophagogastroduodenoscopy (EGD) S/P CABG (coronary artery bypass graft) History of coronary artery bypass graft x 3 (~07/24/19) History of cardiac cath (~06/20/19) History of knee replacement Family History Father Cardiovascular disease Mother Gastrointestinal malignancy Social History Household Members: Spouse 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:: , 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: House Do you presently have visiting nurse or other home services: No Alcohol intake: current Alcohol intake frequency: holidays/special occasions only Patient Tobacco Use Status: Former Tobacco user e-Cigarette/Vaping Use: Never Used Second Hand Smoke Exposure: No Advance Directives Date on File: 07/07/21 service: No Current occupational status: retired Cognitive needs: Yes (walker) Hearing needs: No Vision needs: Yes (Reading Glasses) Questionnaire Thrive Questionnaire Date Thrive assessed: 01/29/24 I am a: Patient What is your living situation today?: I have a steady place to live Within the past 12 months, did the food you bought not last and you didn't have the money to get more?: Never true Within the past 12 months, did you worry whether your food would run out before you got money to buy more?: Never true Do you have trouble paying for medicines?: No Do you have trouble getting transportation to medical appointments?: No Do you have trouble paying your heating and electricity bill?: No Do you have trouble taking care of your child, family member or friend?: No Do you have trouble with day-to-day activities such as bathing, preparing meals, shopping, managing finances, etc.?: No Are you currently unemployed and looking for a job?: No Are you interested in more education?: No Please select the resources that you would like help with: None Currently or been in a relationship where the following occur: No concerns reported THRIVE Score: 0 AUDIT C Alcohol Use Questionnaire (AUDIT-C) 1. How often do you have a drink containing alcohol?: Never 3. How often do you have six or more drinks on one occasion?: Never Total Score: 0 MALINA-7 AMB Questionnaire MALINA-7 Date MALINA - 7 assessed: 01/29/24 Source: Developed by Drs. Garrett Martinez, Alexus Israel, Gonzalo Pete and colleagues, with an educational ron from [employer]. Physical exam (Primary Care) Vital Signs: Last Vital Signs Pulse 58 01/29/24 08:51 BP 110/62 01/29/24 08:51 Pulse Ox 97 01/29/24 08:51 Oxygen Delivery Method Room Air 01/29/24 08:51 Care Plan Goal for BP management: Blood pressure is in range. Continue medications at same dosage. BMI result Body Mass Index 39.2 BMI Assessment/Plan discussion: High (1 lb per week weight loss suggested.) BMI High, discussed plan: lifestyle, weight reduction and dietary Tobacco/Smoking Status: Tobacco use Status Tobacco use date assessed 01/29/24 01/29/24 08:52 Patient Tobacco Use Status Former Tobacco user 01/29/24 08:52 e-Cigarette/Vaping Use Never Used 01/29/24 08:52 Thrive Assessment: Date of Thrive Assessment Date Thrive assessed 01/29/24 01/29/24 08:52 Currently or been in a relationship where the following occur: No concerns reported Const General: cooperative and healthy appearing Nutritional Appearance: well nourished Orientation/consciousness: patient oriented x3 Limitations: no limitations HENMT Head: Yes normal to inspection Eyes General: appearance normal, both eyes and all related structures Neck Neck: Yes normal visual inspection Chest Chest palpation & inspection: normal palpation of entire chest wall Resp Effort & Inspection: normal respiratory effort Neuro General: patient oriented x3 Assessment and Plan Assessment & Plan (1) Essential hypertension: Code(s): I10 - Essential (primary) hypertension Plan: Blood pressure is in range. Continue medications at same dosage. (2) Diabetes: Code(s): E11.9 - Type 2 diabetes mellitus without complications Qualifiers: Diabetes mellitus type: type 2 Diabetes mellitus prison insulin use: without prison use Diabetes mellitus complication status: with circulatory complication Diabetes mellitus complication detail: with other circulatory complications Qualified Code(s): E11.59 - Type 2 diabetes mellitus with other circulatory complications Plan: A1c is in range. Trulicity has been discontinued. Continue the pregabalin. Medications: Refilled atenolol 50 mg PO DAILY 90 tabs 1RF R53.83 - Other fatigue escitalopram oxalate (Lexapro) 10 mg PO DAILY 90 tabs 1RF pregabalin 50 mg PO DAILY 90 caps 1RF pioglitazone 15 mg PO DAILY 90 tabs 1RF Discontinued dulaglutide (Trulicity) Discontinued Reason: Doctor's Order 0.75 mg (0.5 mL) subcut QWEEK 2 mL 0RF famotidine Discontinued Reason: Doctor's Order 40 mg PO DAILY 90 tabs 3RF Coding Level of Care Code Est Pt Level 4 (42425) Complex EM visit Add On G2211 Diagnoses Essential hypertension I10 Type 2 diabetes mellitus with other circulatory complication, without long-term current use of insulin E11.59 Diabetes mellitus type: type 2 Diabetes mellitus prison insulin use: without prison use Diabetes mellitus complication status: with circulatory complication Diabetes mellitus complication detail: with other circulatory complications
== END 2024-01-29 10:06 | disposition home or self-care (01) ==
PROVIDERS: PCP Internal Medicine; Visit Provider Internal Medicine
DX: E11.59 Type 2 diabetes mellitus with other circulatory complications (principal); I77.9 Disorder of arteries and arterioles, unspecified; I25.110 Atherosclerotic heart disease of native coronary artery with unstable angina pectoris; I10 Essential (primary) hypertension
CPT/HCPCS: 99214; G2211

== ENCOUNTER 2024-02-04 09:11 | Outpatient (AMB) | payer MEDICARE, SELFPAY ==
[2024-02-04 09:12] VITALS: BP 124/60; PULSE 56; BMI 39.8
--- NOTE | 2024-02-04 09:12 | A.OFFVIS_ITS ---
Vital Signs 02/04/24 09:12 Height 5 ft 6 in Weight 246 lb 7.629 oz BMI 39.8 BP 124/60 Blood Pressure Location Lt brachial Position Sitting Pulse 56 Pulse Source Pulse Oximeter Intake Visit Reasons: 6 mth f/up Intake Note: 6 mth f/up Crossing Guard Required: No Accompanied by: Self / Same As Patient Allergies No Known Allergies [No Known Allergies*] Allergy (Verified 01/29/24 08:51) Medication List - Last Reconciled 02/04/24 by Rob Stephens MD acetaminophen (Tylenol Extra Strength) 500 mg PO Q6H PRN albuterol sulfate 90 mcg/actuation (ProAir HFA) 2 puffs inhalation Q4-6H PRN aspirin 81 mg PO DAILY atenolol 50 mg PO DAILY atorvastatin 80 mg PO BEDTIME blood sugar diagnostic TEST DAILY blood sugar diagnostic (TwoTenTouch Ultra Test strips) Test Daily cetirizine 10 mg PO DAILY clopidogrel 75 mg PO DAILY escitalopram oxalate (Lexapro) 10 mg PO DAILY fluticasone propionate 50 mcg/actuation 2 sprays intranasal DAILY hydrochlorothiazide 12.5 mg PO DAILY inhalational spacing device (Aerochamber MV spacer) As directed lancets TEST ONCE DAILY levothyroxine 125 mcg PO DAILY [id number] mcg (Centrum Silver Men) 1 tab PO DAILY pioglitazone 15 mg PO DAILY pregabalin 50 mg PO DAILY trazodone 25 mg (1/2 x 50 mg) PO BEDTIME PRN HPI Comments Details: Pleasant 73-year-old gentleman here for follow-up. He has background history of multivessel coronary disease with previous bypass surgery. He was seen after prolonged episode of COVID-19 infection and ARDS. He was complaining of bilateral lower extremity edema as well as foot pain. He had x- ray of the foot which showed arthritis. His uric acid level was okay. He was volume overload He was started on furosemide and volume status improved. He was seen in follow- up after that and was doing well. He also has been seeing Dr. Okeefe for venous insufficiency. On subsequent visit he was off Lasix and was doing well and furosemide was stopped. Today he returns for follow-up again. He has been doing well. No chest pain or shortness of breath. 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 Denying any chest discomfort shortness of breath. Is saying he is gaining weight despite cutting back on his caloric intake and increasing activity. He has known hypothyroid and had l last TSH performed a year ago. 04/02/23: Here for follow-up. He is complaining of left-sided chest pain off and on which happens randomly. He is describing it as a pain which goes across the left side of the chest. He is also getting some pressure in his chest which is a new symptom for him. There is no clear pattern of these symptoms and these are not clearly exertional. At times they happen at rest. He is also asking about weight loss strategies. The blood pressure in the office is elevated. He is saying that he walks and does some activities but has not been very active physically. 08/06/23: He returns for f/u/. He has been doing well. Exercising and losing weight. Stress test in 05/2023, perfusion imaging was normal. 02/04/24: He is here for follow-up. He has been feeling tired and has no energy. He has gained 20 lb. Previously was using Trulicity but apparently insurance coverage changed and drug conrad went from 49-170 dollars per month. Denying any significant chest discomfort. 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 Carotid stenosis, bilateral Ischemic cardiomyopathy Annual physical exam Sleep disorder breathing Diabetes Hypothyroidism Hyperlipidemia Nystagmus Abnormal electrocardiography CAD (coronary artery disease) Surgical History H/O colonoscopy History of esophagogastroduodenoscopy (EGD) S/P CABG (coronary artery bypass graft) History of coronary artery bypass graft x 3 (~07/24/19) History of cardiac cath (~06/20/19) History of knee replacement Family History Father Cardiovascular disease Mother Gastrointestinal malignancy Social History Household Members: Spouse 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:: , 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: House Do you presently have visiting nurse or other home services: No Alcohol intake: current Alcohol intake frequency: holidays/special occasions only Patient Tobacco Use Status: Former Tobacco user e-Cigarette/Vaping Use: Never Used Second Hand Smoke Exposure: No Advance Directives Date on File: 07/07/21 service: No Current occupational status: retired Cognitive needs: Yes (walker) Hearing needs: No Vision needs: Yes (Reading Glasses) Review of Systems Const Denies chills, Denies fatigue, Denies fever(s), Denies frequent falls, Denies weakness, Denies weight gain and Denies weight loss ENT Denies dizziness Card Denies chest pain, Denies leg edema, Denies lightheadedness, Denies palpitations, Denies dyspnea and Denies dyspnea on exertion Resp Denies cough, Denies dyspnea and Denies dyspnea on exertion GI Denies hematochezia Musc Denies abnormal gait, Denies muscle weakness, Denies numbness, Denies radiating pain into limb and Denies tingling Neuro Denies abnormal gait, Denies dizziness, Denies frequent falls, Denies numbness, Denies tingling and Denies weakness Endo Denies fatigue and Denies palpitations Physical Exam Vital Signs: Last Vital Signs Pulse 56 02/04/24 09:12 BP 124/60 02/04/24 09:12 BMI result Body Mass Index 39.8 GENERAL APPEARANCE: in no acute distress, pleasant. HEART: no murmurs, regular rate and rhythm. LUNGS: clear to auscultation bilaterally. ABDOMEN: soft, nontender. EXTREMITIES: Trace edema. Small sized prominent veins. PERIPHERAL PULSES: equal. NEUROLOGIC: No gross deficits, AAO X 3 Assessment & Plan Assessment & Plan (1) Essential hypertension: Code(s): I10 - Essential (primary) hypertension Category: Medical (2) Stable angina: Code(s): I20.8 - Other forms of angina pectoris Category: Medical (3) Weight gain: Code(s): R63.5 - Abnormal weight gain Category: Medical Plan 73-year-old gentleman who is here for follow-up. He has known history of coronary artery bypass surgery, diabetes and hypothyroidism. He was on Trulicity and was doing well but due to insurance issues he is unable to afford it. He has gained approximately 20 lb and has been feeling quite tired and fatigued. I think symptoms are mostly due to his weight gain at this point. We discussed about weight loss options including surgery. He wishes to explore medical weight loss 1st. I will refer him to weight loss clinic. Blood pressure is well controlled. No other complaints. He will see us back in 6 months. Thank you for allowing me to participate in the care of your patient. Please feel free to contact me if you have any questions. Coding Level of Care Code Est Pt Level 4 (80937) Diagnoses Essential hypertension I10 Stable angina I20.8 Weight gain R63.5
== END 2024-02-04 09:36 | disposition home or self-care (01) ==
PROVIDERS: PCP Internal Medicine; Visit Provider Internal Medicine Cardiovascular Disease
DX: I10 Essential (primary) hypertension (principal); I20.89 Other forms of angina pectoris; R63.5 Abnormal weight gain
CPT/HCPCS: 99214

== ENCOUNTER → 2024-02-04 09:11 | Outpatient (BNVA) | payer MEDICARE, SELFPAY | PROVIDERS: PCP Internal Medicine; Visit Provider Internal Medicine Cardiovascular Disease | DX: I10 Essential (primary) hypertension (principal); I20.89 Other forms of angina pectoris; R63.5 Abnormal weight gain | CPT/HCPCS: 99212 ==

== ENCOUNTER 2024-03-04 09:52 | Outpatient (AMB) | payer MEDICARE, SELFPAY ==
[2024-03-04 09:53] VITALS: BP 110/78; BMI 39.7
--- NOTE | 2024-03-04 09:53 | A.OFFVIS_ITS ---
Vital Signs 03/04/24 09:53 03/04/24 09:59 Height 5 ft 6 in Weight 246 lb BMI 39.7 BP 110/78 112/70 Blood Pressure Location Lt brachial Rt brachial Position Sitting Sitting Intake Visit Reasons: 1 yr follow up carotid US 01/07/24 Intake Note: 1 yr follow up carotid US 01/07/24. Pt states no complaints Accompanied by: Self / Same As Patient Allergies No Known Allergies [No Known Allergies*] Allergy (Verified 03/04/24 09:56) HPI HPI 1 yr follow up carotid US 01/07/24: Details: Very pleasant 73-year-old gentleman presents for routine surveillance follow-up regarding his carotids. He actually turned 74 this Sunday. He reports that he is doing fairly well. 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 He has retired from the [employer]. He reports no interval issues. He is being maintained on aspirin and statin. Now for surveillance follow-up with noninvasive testing. 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 Carotid stenosis, bilateral Ischemic cardiomyopathy Annual physical exam Sleep disorder breathing Diabetes Hypothyroidism Hyperlipidemia Nystagmus Abnormal electrocardiography CAD (coronary artery disease) Surgical History H/O colonoscopy History of esophagogastroduodenoscopy (EGD) S/P CABG (coronary artery bypass graft) History of coronary artery bypass graft x 3 (~07/24/19) History of cardiac cath (~06/20/19) History of knee replacement Family History Father Cardiovascular disease Mother Gastrointestinal malignancy Social History Household Members: Spouse 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:: , 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: House Do you presently have visiting nurse or other home services: No Alcohol intake: current Alcohol intake frequency: holidays/special occasions only Patient Tobacco Use Status: Former Tobacco user e-Cigarette/Vaping Use: Never Used Second Hand Smoke Exposure: No Advance Directives Date on File: 07/07/21 service: No Current occupational status: retired Cognitive needs: Yes (walker) Hearing needs: No Vision needs: Yes (Reading Glasses) Review of Systems Const All systems reviewed & are unremarkable except as noted in HPI and below Reports no additional complaints ENT Reports Normal hearing present Card Denies chest pain, Denies chest pain at rest, Denies chest pain with activity and Denies pedal edema Resp Denies cough GI Denies abdominal pain Musc Denies abnormal gait, Denies muscle cramps and Denies radiating pain into limb Skin/Breast Denies skin ulcer and Denies wounds Neuro Reports Normal hearing present and Denies abnormal gait Psych Reports no additional complaints Physical Exam Vital Signs: Last Vital Signs BP 112/70 03/04/24 09:59 BMI result Body Mass Index 39.7 Const General: cooperative, healthy appearing and comfortable Orientation/consciousness: oriented to person, oriented to place and oriented to time HEENT Head: Yes normal to inspection Neck Neck: Yes normal visual inspection Carotids: no bruits Chest Chest palpation & inspection: normal inspection of the chest Resp Effort & Inspection: normal respiratory effort and able to speak in complete sentences Auscultation: clear to auscultation bilaterally, no crackles, no rales, no rhonchi and no wheezes Cardio Rate: regular rate Rhythm: regular rhythm Heart sounds: S1 normal heart sound present and S2 normal heart sound present Bruits: no carotid bruits Peripheral pulses: Peripheral pulses 2+ throughout GI Inspection: Yes normal to inspection Skin Wounds: no wounds Hair: normal Neuro General: oriented to person, oriented to place and oriented to time Cranial nerves: Yes CN's II-XII intact bilaterally and Yes Normal hearing present Cognition (Neuro): normal cognition Motor exam (neuro): 5/5 motor strength present throughout Extrem Other: venous exam: No significant superficial varicosities or spider telangiectasias, minimal edema General: No clubbing, No cyanosis and No edema Psych Appearance: grossly normal Mental Status: mental status grossly normal Speech and movement: Normal speech and movement present Results Reviewed Results Reviewed: Noninvasive carotid testing demonstrates bilateral 50-79% stenosis with right side peak systolic velocity at 0152 and left side at 175. Written reports and images were reviewed. Assessment & Plan Assessment & Plan (1) Bilateral carotid artery disease: Code(s): I77.9 - Disorder of arteries and arterioles, unspecified Category: Medical Qualifiers: Carotid artery disease type: stenosis Qualified Code(s): I65.23 - Occlusion and stenosis of bilateral carotid arteries Plan: In short patient has asymptomatic carotid disease. We have reviewed signs and symptoms of a stroke. We also discussed risk factor modification inclusive a healthy diet low in cholesterol. The patient will follow up with us with surveillance ultrasound of the carotids 1 year. Should there be any changes or signs or symptoms of a stroke we will be happy to see them back sooner. Thank you for allowing us to participate in this patient's care. If there are any questions or concerns please do not hesitate to contact us. Please note a longitudinal relationship has been created with the patient and we have been following and surveillance this chronic condition. Orders: Orders US carotid duplex BI 1 Year I65.23 - Occlusion and stenosis of bilateral carotid arteries Coding Level of Care Code Est Pt Level 4 (13018) Complex EM visit Add On G2211 Diagnoses Bilateral carotid artery stenosis I65.23 Carotid artery disease type: stenosis
[2024-03-04 09:59] VITALS: BP 112/70
== END 2024-03-04 10:23 | disposition home or self-care (01) ==
PROVIDERS: PCP Internal Medicine; Visit Provider Surgery Vascular Surgery
DX: I65.23 Occlusion and stenosis of bilateral carotid arteries (principal)
CPT/HCPCS: 99213; G2211

== ENCOUNTER → 2024-03-04 09:52 | Outpatient (BNVA) | payer MEDICARE, SELFPAY | PROVIDERS: PCP Internal Medicine; Visit Provider Surgery Vascular Surgery | DX: I65.23 Occlusion and stenosis of bilateral carotid arteries (principal) | CPT/HCPCS: 99212 ==

== ENCOUNTER 2024-08-21 10:54 | Outpatient (AMB) | payer MEDICARE, SELFPAY ==
--- NOTE | 2024-08-21 11:19 | MHC.PC.OV ---
Vital Signs 08/21/24 11:21 Height 5 ft 6 in Weight 259 lb 2 oz BMI 41.8 BP 130/64 Blood Pressure Location Lt brachial Position Sitting Pulse 52 Pulse Source Pulse Oximeter Temp 97.1 F Temp Source Temporal Artery Scan Pulse Oximetry (%) 97 Oxygen Delivery Method Room Air Intake Visit Reasons: 6 month f/u Intake Note: Patient is here to follow up on DM, HTN. 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 Accompanied by: Spouse Allergies No Known Allergies [No Known Allergies*] Allergy (Verified 08/21/24 11:20) Tobacco use date assessed: 08/21/24 Fall risk assessment: No Falls in past year Last assessed Fall Risk: 08/21/24 Dental Screening Dental Screen Date: 08/21/24 Did you have a dental visit in the last 12 months?: Yes Did you have a dental problem in the last 6 months where you did not have access to dental care?: No Was dental information given to patient?: Patient has dentist [facility] Medical History Restrictive lung disease Morbid obesity Morbid obesity (HFpEF) heart failure with preserved ejection fraction Acute respiratory failure with hypoxia Acute respiratory distress syndrome (ARDS) due to COVID-19 virus SARS-CoV-2 positive Depression Obstructive sleep apnea Morbid obesity with BMI of 40.0-44.9, adult Screening for colon cancer 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 Carotid stenosis, bilateral Ischemic cardiomyopathy Annual physical exam Sleep disorder breathing Diabetes Hypothyroidism Hyperlipidemia Nystagmus Abnormal electrocardiography CAD (coronary artery disease) Surgical History H/O colonoscopy History of esophagogastroduodenoscopy (EGD) S/P CABG (coronary artery bypass graft) History of coronary artery bypass graft x 3 (~07/24/19) History of cardiac cath (~06/20/19) History of knee replacement Family History Father Cardiovascular disease Mother Gastrointestinal malignancy Social History Household Members: Spouse 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:: , 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 1. Little interest or pleasure in doing things: not at all 2. Feeling down, depressed, or hopeless: not at all 3. Trouble falling or staying asleep, or sleeping too much: not at all 4. Feeling tired or having little energy: not at all 5. Poor appetite or overeating: not at all 6. Feeling bad about yourself - or that you are a failure or have let yourself or your family down: not at all 7. Trouble concentrating on things, such as reading the newspaper or watching television: not at all 8. Moving or speaking so slowly that other people could have noticed. Or the opposite - being so fidgety or restless that you have been moving around a lot more than usual: not at all 9. Thoughts that you would be better off or of hurting yourself in some way: not at all Total score: 0 Depression Screening Interpretation: Negative Depression Screening Done: Yes Source: Developed by Drs. Garrett Martinez, Alexus Israel, Gonzalo Pete and colleagues, with an educational ron from [employer]. Thrive Questionnaire Date Thrive assessed: 08/21/24 I am a: Patient What is your living situation today?: I have a steady place to live Within the past 12 months, did the food you bought not last and you didn't have the money to get more?: Never true Within the past 12 months, did you worry whether your food would run out before you got money to buy more?: Never true Do you have trouble paying for medicines?: No Do you have trouble getting transportation to medical appointments?: No Do you have trouble paying your heating and electricity bill?: No Do you have trouble taking care of your child, family member or friend?: No Do you have trouble with day-to-day activities such as bathing, preparing meals, shopping, managing finances, etc.?: No Are you currently unemployed and looking for a job?: No Are you interested in more education?: No Please select the resources that you would like help with: None Currently or been in a relationship where the following occur: No concerns reported THRIVE Score: 0 AUDIT C Alcohol Use Questionnaire (AUDIT-C) 1. How often do you have a drink containing alcohol?: Never Total Score: 0 MALINA-7 AMB Questionnaire MALINA-7 Date MALINA - 7 assessed: 08/21/24 Feeling nervous, anxious, or on edge: 0 = Not at all Not being able to stop or control worryin = Not at all Worrying too much about different things: 0 = Not at all Trouble relaxin = Not at all Being so restless that it is hard to sit still: 0 = Not at all Becoming easily annoyed or irritable: 0 = Not at all Feeling afraid as if something awful might happen: 0 = Not at all Total MALINA-7 score (0-4 normal; 5-9 mild; 10-14 moderate; 15-21 severe): 0 Source: Developed by Drs. Garrett Martinez, Alexus Israel, Gonzalo Pete and colleagues, with an educational ron from [employer]. Physical exam (Primary Care) Vital Signs: Last Vital Signs Temp 97.1 F 08/21/24 11:21 Pulse 52 08/21/24 11:21 BP 130/64 08/21/24 11:21 Pulse Ox 97 08/21/24 11:21 Oxygen Delivery Method Room Air 08/21/24 11:21 BMI result Body Mass Index 41.8 Tobacco/Smoking Status: Tobacco use Status Tobacco use date assessed 08/21/24 08/21/24 11:30 Patient Tobacco Use Status Former Tobacco user 08/21/24 11:30 e-Cigarette/Vaping Use Never Used 08/21/24 11:30 PHQ-9: PHQ-9 Score PHQ-9: Total score 0 08/21/24 11:30 Depression Screening Interpretation: Negative Thrive Assessment: Date of Thrive Assessment Date Thrive assessed 08/21/24 08/21/24 11:30 Currently or been in a relationship where the following occur: No concerns reported Results AMB Hemoglobin A1c AMB Hemoglobin A1c 5.6 % Last Edit by DARLYN Coffey on 08/21/24 11:33 Results Reviewed Results Reviewed: Laboratory Last Values Hgb A1c (Clinic) 5.6 % (4.0-6.0) 08/21/24 11:19 Coding Level of Care Code Est Pt Level 4 (50183) Complex EM visit Add On G2211 Diagnoses Essential hypertension I10 Type 2 diabetes mellitus with other circulatory complication, without long-term current use of insulin E11.59 Diabetes mellitus type: type 2 Diabetes mellitus prison insulin use: without terminal computer operator use Diabetes mellitus complication status: with circulatory complication Diabetes mellitus complication detail: with other circulatory complications Bilateral carotid artery stenosis I65.23 Carotid artery disease type: stenosis Restrictive lung disease J98.4 Edema of both legs R60.0 Obstructive sleep apnea G47.33 Dyspnea on exertion R06.00 Tremor of both hands R25.1 Neuropathy G62.9 Screening for colon cancer Z12.11 Assessment & Plan Assessment & Plan (1) Essential hypertension: Code(s): I10 - Essential (primary) hypertension Category: Medical Plan: Goal 130/80 at goal today. Patient to continue aspirin 81 mg daily, atenolol 50 mg daily, Plavix 75 mg daily, hydrochlorothiazide 12.5 mg daily. Condition is chronic and stable continue to monitor. (2) Diabetes: Code(s): E11.9 - Type 2 diabetes mellitus without complications Category: Medical Qualifiers: Diabetes mellitus type: type 2 Diabetes mellitus terminal computer operator insulin use: without prison use Diabetes mellitus complication status: with circulatory complication Diabetes mellitus complication detail: with other circulatory complications Qualified Code(s): E11.59 - Type 2 diabetes mellitus with other circulatory complications Plan: A1c level today 5.6. Goal <7.0. Patient currently on pioglitazone 15 mg daily. Will refill the patient's Trulicity. Condition is chronic and stable continue to monitor. (3) Bilateral carotid artery disease: Code(s): I77.9 - Disorder of arteries and arterioles, unspecified Category: Medical Qualifiers: Carotid artery disease type: stenosis Qualified Code(s): I65.23 - Occlusion and stenosis of bilateral carotid arteries Plan: Patient to continue 81 mg of aspirin and 75 mg of Plavix daily. Patient to continue atorvastatin 80 mg daily. Condition is chronic and stable continue to monitor. (4) Restrictive lung disease: Comment: SPIROMETRY IS INDICATED OF OF MODERATELY SEVERE RESTRICTIVE PULMONARY DISORDER. NO EVIDENCE OF OBSTRUCTIVE AIRWAY DISORDER. PATIENT IS ALREADY AWARE OF THIS. TALKED ABOUT LOSING WEIGHT. HE WILL CONTINUE TO DO DEEP BREATHING EXERCISES THREE TO FOUR TIMES A DAY. Code(s): J98.4 - Other disorders of lung Category: Medical Plan: Patient to continue albuterol inhaler as needed with spacer. Condition is chronic and stable continue to monitor. (5) Edema of both legs: Code(s): R60.0 - Localized edema Category: Medical Plan: Patient to continue hydrochlorothiazide 12.5 mg daily. Condition is chronic and stable continue to monitor. (6) Obstructive sleep apnea: Comment: His last Home-based sleep study on 07/14/2020 did show MICHAEL with total sleep time AHI 28 per hour. HE SAY IS HE DOES NOT HAVE ANY COMPLAINT. HE SLEEPS GOOD. HE WOULD NOT CONSIDER USING CPAP ANYWAY. SLEEP HYGIENE MEASURES ARE DISCUSSED WITH HIM. Code(s): G47.33 - Obstructive sleep apnea (adult) (pediatric) Category: Medical Plan: Instructed patient to utilize his CPAP although patient refusing. Condition is chronic and stable continue to monitor. (7) Dyspnea on exertion: Comment: MILD AND ONLY ON EXERTION. THIS IS DEFINITELY RELATED TO OBESITY AND RESTRICTIVE PULMONARY DISORDER. HE KNOWS VERY WELL. HE WILL EXPEDITE DOING HIS BREATHING EXERCISES. * VERY NICE GENTLEMAN AND LOVES TO HAVE GOOD CONVERSATION. HE WANTS TO COME ONCE A YEAR FOR FOLLOW-UPS. Code(s): R06.00 - Dyspnea, unspecified Category: Medical Plan: Patient to continue utilizing albuterol inhaler. Patient to continue hydrochlorothiazide 12.5 mg. Condition is chronic and stable continue to monitor. (8) Tremor of both hands: Code(s): R25.1 - Tremor, unspecified Category: Medical Plan: Patient to continue pregabalin 50 mg daily. Condition is chronic and stable continue to monitor. (9) Neuropathy: Code(s): G62.9 - Polyneuropathy, unspecified Category: Medical Plan: Patient to continue pregabalin 50 mg daily. Condition is chronic and stable continue to monitor. (10) Screening for colon cancer: Code(s): Z12.11 - Encounter for screening for malignant neoplasm of colon Category: Medical Plan: Patient unsure when his last colonoscopy was. In our system it appears like it was 2016. He did see Gastroenterology in 2020 although unsure if colonoscopy was performed can not find in our system. Will refer back to gastroenterology for colon cancer screening. Plan Plan - Continue all current medications as prescribed. - Make note of medication names and dosages for personal tracking. - Consider insurance options for weight management medications like Trulicity or semaglutide. - recommend repeating sleep study - Schedule a colonoscopy if previous procedure was more than ten years ago. - Follow up for routine lab tests including A1c, lipid panel, thyroid function prior to next visit. Orders: Orders AMB Hemoglobin A1c Today E11.59 - Type 2 diabetes mellitus with other circulatory complications Complete Blood Count Auto Diff Today Z00.00 - Encounter for general adult medical examination without abnormal findings Comprehensive Ward. Panel Fast Today Z00.00 - Encounter for general adult medical examination without abnormal findings Lipid Panel Today Z00.00 - Encounter for general adult medical examination without abnormal findings Liver Panel Today Z00.00 - Encounter for general adult medical examination without abnormal findings Microalbumin, Random (w Creat) Today E11.9 - Type 2 diabetes mellitus without complications Vitamin B1 Today Z00.00 - Encounter for general adult medical examination without abnormal findings Vitamin D 25-OH Total Today Z00.00 - Encounter for general adult medical examination without abnormal findings TSH reflex Free T4 Today Z00.00 - Encounter for general adult medical examination without abnormal findings Magnesium Today Z00.00 - Encounter for general adult medical examination without abnormal findings C Reactive Protein Today Z00.00 - Encounter for general adult medical examination without abnormal findings PSA,Total (Free>4and<10) Today Z00.00 - Encounter for general adult medical examination without abnormal findings Vitamin B12 and Folate Today Z00.00 - Encounter for general adult medical examination without abnormal findings Hemoglobin A1c Today Z00.00 - Encounter for general adult medical examination without abnormal findings Referrals Gastroenterology Referral Z12.11 - Encounter for screening for malignant neoplasm of colon Medications: Refilled dulaglutide (Trulicity) 0.75 mg (0.5 mL) subcut QWEEK 2 mL 1RF Patient Instructions: Patient Instructions - Continue all current medications as prescribed. - Make note of medication names and dosages for personal tracking. - Consider insurance options for weight management medications like Trulicity or semaglutide. - recommend repeating sleep study - Schedule a colonoscopy if previous procedure was more than ten years ago. - Follow up for routine lab tests including A1c, lipid panel, thyroid function prior to next visit. Scribe Plan - Not visible on output: History of Present Illness The patient is a 74-year-old male presenting with a routine six-month follow-up for chronic medical conditions, including essential hypertension, type 2 diabetes mellitus, dyslipidemia, obstructive sleep apnea, and thyroid disease. He has a history of hypertension managed with atenolol, hydrochlorothiazide, and aspirin. His dyslipidemia is controlled with atorvastatin, and he manages his diabetes with pioglitazone. The patient's A1c was 5.5 in December, indicating good control of his diabetes. He also experiences chronic pain, managed with pregabalin and trazodone likely for sleep. The patient noted prior use of Trulicity for weight management, which was discontinued due to cost, and reports issues with obtaining necessary prescriptions due to insurance complications. He additionally suffers from obstructive sleep apnea, for which he has been advised to use CPAP, but compliance is an issue. Chronic leg swelling is present, which decreases after a significantly long seating period and upon waking. Social History - Previously used Trulicity for weight management but discontinued due to cost. - Reports chronic issues obtaining prescriptions due to insurance/pharmacy complications. Review of Systems - Cardiovascular: Reports chronic leg swelling. - Sleep: Reports daytime sleepiness, episodes of falling asleep suddenly. - Pulmonary: Denies any recent exacerbations of sleep apnea. Physical Exam Appearance: Alert. Oriented X3. No acute distress. Head: Normal external exam. Normocephalic. Atraumatic. Eyes: Pupils are equal, round, and reactive to light. Extraocular movements intact. Conjunctiva and sclera normal. Eyelids normal. Ears: External auditory canal normal. Tympanic membranes normal. Throat: Pharynx normal. Uvula midline. Moist mucous membranes. Neck: Normal inspection. Neck supple. Full range of motion. No adenopathy. Thyroid Normal. No meningeal signs. No neck mass noted. Cardiovascular: Normal heart rate and rhythm. Heart sound normal. No murmurs noted. Pulses normal throughout. Respiratory: No respiratory distress. Painless inspiration. Breath sounds normal. No wheezes/rales/rhonchi noted. Chest nontender. No accessory muscle usage noted or decreased air movement noted. Abdomen: Soft and nontender. Bowel sounds normal in all 4 quadrants. No distention noted. No organomegaly noted. No visible injury noted. Back: No costovertebral angle tenderness. Full range of motion noted. Skin: Skin warm and dry. Normal skin color. Normal skin turgor. No rashes/lesions/lacerations noted. Extremities:+ lower extremity edema. No calf tenderness is noted. Extremities exhibit normal range of motion. Extremities nontender. Neuro: Oriented X 3. No motor deficit. No sensory deficit. Reflexes normal. Results - Labs: A1c was 5.5 in December last year. Liver enzymes and thyroid function tests were normal. A1c level today is 5.6. - Imaging and Diagnostics: No new imaging was discussed. Plan - Continue all current medications as prescribed. - Make note of medication names and dosages for personal tracking. - Consider insurance options for weight management medications like Trulicity or semaglutide. - Adhere to CPAP therapy during sleep consistently. - Schedule a colonoscopy if previous procedure was more than ten years ago. - Follow up for routine lab tests including A1c, lipid panel, thyroid function prior to next visit. Patient was informed and verbally consented to the use of an ambient scribe for clinic note documentation during this visit. Discussion Notes I discussed with the patient the importance of continuing his current medication regime to maintain control over his chronic conditions, including hypertension, diabetes, and dyslipidemia. We talked about the option to reconsider Trulicity for weight management, pending cost considerations. The patient and I discussed the challenges he encounters with the insurance over prescription approvals. I emphasized the benefit of using CPAP for his sleep apnea and potential consequences of untreated sleep apnea such as increased cardiovascular risks. We agreed on the necessity of a colonoscopy due to the time elapsed since his last procedure. I addressed his inquiry about pharmaceuticals, confirming and updating his medications as needed. We also covered the importance of understanding his medication regimen. Patient Instructions - Continue all current medications as prescribed. - Make note of medication names and dosages for personal tracking. - Consider insurance options for weight management medications like Trulicity or semaglutide. - Adhere to CPAP therapy during sleep consistently. - Schedule a colonoscopy if previous procedure was more than ten years ago. - Follow up for routine lab tests including A1c, lipid panel, thyroid function prior to next visit.
[2024-08-21 11:21] VITALS: BP 130/64; PULSE 52; TEMP 36.2; O2SAT 97; BMI 41.8
--- OUTSIDE RECORDS SUMMARY | 2024-08-21 12:11 | XMS_ITS ---
Author Organization [facility] Address [address] [address] Care Team Providers Care Validation Technician Name Role Phone Jf Kwon Primary Care Provider ESSIE Richard Unavailable [phone] REASON FOR VISIT 3 month f/u Encounters Encounter Location Date Provider Diagnosis [facility] [address] [address] 03/31/2024 ESSIE SHAFFER Plan Of Treatment Next Appt Details Provider Name:ESSIE SHAFFER, 08/29/2024 11:30:00 AM, [address] [address], [place], [address], Progress Notes * Rancho ORTEGADOB:1950 (74 yo M)Acc No.[id number]:03/31/2024 Progress Note Patient:?Rancho ORTEGA Provider:?Essie Shaffer DPM :1950???Age:74 Y???Sex:Male Clif e:03/31/2024 Address:[address] [id number] Pcp:Jf Kwon Subjective: * Chief Complaints: * ???1. 3 month f/u. * Medical History:? Objective: * Vitals:? Assessment: Plan: * Treatment: * Billing Information: * Visit Code:? * Procedure Codes:? * Electronic signature of TAHIR SHAFFER D.P.M on 08/21/2024 at 12:11 PM EST Sign off status: Pending * Provider:?Essie Shaffer DPM Date:? 03/31/2024 Generated for Nery curtis/Isak/Thanh on:?08/21/2024 12:11 PM EST
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
--- OUTSIDE RECORDS SUMMARY | 2024-08-21 12:11 | XMS_ITS ---
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 Role Phone Jf Kwon Primary Care Provider ESSIE Richard Unavailable [phone] REASON FOR VISIT 3 month f/u Encounters Encounter Location Date Provider Diagnosis [facility] [address] [address] 04/21/2024 ESSIE SHAFFER Plan Of Treatment Next Appt Details Provider Name:ESSIE SHAFFER, 08/29/2024 11:30:00 AM, [address] [address], [place], [address], Progress Notes * Rancho ORTEGADOB:1950 (74 yo M)Acc No.[id number]:04/21/2024 Progress Note Patient:?Rancho ORTEGA Provider:?Essie Shaffer DPM :1950???Age:74 Y???Sex:Male Clif e:04/21/2024 Address[address] [id number] Pcp:Jf Kwon Subjective: * Chief Complaints: * ???1. 3 month f/u. * Medical History:? Objective: * Vitals:? Assessment: Plan: * Treatment: * Billing Information: * Visit Code:? * Procedure Codes:? * Electronic signature of TAHIR SHAFFER D.P.M on 08/21/2024 at 12:11 PM EST Sign off status: Pending * Provider:?Essie Shaffer DPM Date:? 04/21/2024 Generated for Nery curtis/Isak/Thanh on:?08/21/2024 12:11 PM EST
== END 2024-08-21 12:00 | disposition home or self-care (01) ==
PROVIDERS: PCP Internal Medicine; Visit Provider Physician Assistant Medical
DX: E11.59 Type 2 diabetes mellitus with other circulatory complications (principal)

== ENCOUNTER → 2024-08-21 10:54 | Outpatient (BNVA) | payer MEDICARE, SELFPAY | PROVIDERS: PCP Internal Medicine; Visit Provider Physician Assistant Medical | DX: I10 Essential (primary) hypertension (principal); E11.59 Type 2 diabetes mellitus with other circulatory complications; I65.23 Occlusion and stenosis of bilateral carotid arteries; J98.4 Other disorders of lung; R60.0 Localized edema; G47.33 Obstructive sleep apnea (adult) (pediatric); R06.00 Dyspnea, unspecified; R25.1 Tremor, unspecified; G62.9 Polyneuropathy, unspecified | CPT/HCPCS: 83036; 99212 ==

== ENCOUNTER 2025-02-19 10:08 | Outpatient (AMB) | payer MEDICARE, SELFPAY ==
--- OUTSIDE RECORDS SUMMARY | 2024-11-26 07:00 | XMS_ITS ---
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 Name Role Phone Jf Kwon Primary Care Provider MARCIA Richard Unavailable [phone] REASON FOR VISIT 3 month f/u Encounters Encounter Location Date Provider Diagnosis [facility] [address] [address] 11/26/2024 MARCIA SHAFFER Plan Of Treatment Next Appt Details Provider Name:MARCIA SHAFFER, 03/30/2025 10:30:00 AM, [address] [address], [place], [address], Progress Notes * Rancho ORTEGADOB:1950 (74 yo M)Acc No.[id number]:11/26/2024 Progress Note Patient: Rancho ROB Provider: Yaritza Shaffer DPM :1950 A ge:74 Y S ex:Male Date:11/26/2024 Address[address] [place] Pcp:Jf Kwon Subjective: * Chief Complaints: * 1 . 3 month f/u. * Medical History: Objective: * Vitals: Assessment: Plan: * Treatment: * Billing Information: * Visit Code: * Procedure Codes: * Electronic signature of TAHIR SHAFFER D.P.M on 02/19/2025 at 11:34 AM EDT Sign off status: Pending * Provider: Yaritza Shaffer DPM Date: 0 11/26/2024 Generated for Nery curtis/Isak/Thanh on: 0 02/19/2025 11:34 AM EDT
--- NOTE | 2025-02-19 10:22 | A.OFFPC_ITS ---
Vital Signs 02/19/25 10:23 Height 5 ft 6 in Weight 233 lb 6 oz BMI 37.7 BP 132/68 Blood Pressure Location Lt brachial Position Sitting Pulse 52 Pulse Source Pulse Oximeter Temp 97.1 F Temp Source Temporal Artery Scan Pulse Oximetry (%) 93 Oxygen Delivery Method Room Air Intake Visit Reasons: Annual Exam - see comments Intake Note: Patient is here today for a physical. 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: No Clinical Information Systems Director: Not Required per policy Accompanied by: Self / Same As Patient Allergies No Known Allergies (No Known Allergies*) Allergy (Verified 02/19/25 10:45) Medication List - Last Reconciled 02/19/25 by Jf Kwon MD acetaminophen (Tylenol Extra Strength) 500 mg PO Q6H PRN albuterol sulfate 90 mcg/actuation (ProAir HFA) 2 puffs inhalation Q4-6H PRN aspirin 81 mg PO DAILY atenolol 50 mg PO DAILY atorvastatin 80 mg PO BEDTIME blood sugar diagnostic TEST DAILY blood sugar diagnostic (Kantoxuch Ultra Test strips) Test Daily cetirizine 10 mg PO DAILY clopidogrel 75 mg PO DAILY dulaglutide (Trulicity) 0.75 mg (0.5 mL) subcut QWEEK escitalopram oxalate (Lexapro) 10 mg PO DAILY fluticasone propionate 50 mcg/actuation 2 sprays intranasal DAILY hydrochlorothiazide 12.5 mg PO DAILY inhalational spacing device (Aerochamber MV spacer) As directed lancets TEST ONCE DAILY levothyroxine 125 mcg PO DAILY [id number] mcg (Centrum Silver Men) 1 tab PO DAILY pioglitazone 15 mg PO DAILY pregabalin 50 mg PO DAILY trazodone 25 mg (1/2 x 50 mg) PO BEDTIME PRN Tobacco use date assessed: 02/19/25 Fall risk assessment: No Falls in past year Last assessed Fall Risk: 02/19/25 Dental Screening Dental Screen Date: 08/21/24 HPI Annual Exam - see comments HPI Details 74-year-old male presents to the office requesting an annual physical. 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 Carotid stenosis, bilateral Ischemic cardiomyopathy Annual physical exam Sleep disorder breathing Diabetes Hypothyroidism Hyperlipidemia Nystagmus Abnormal electrocardiography CAD (coronary artery disease) Surgical History (Updated 02/19/25 @ 10:28 by DARLYN Coffey) History of YAG laser capsulotomy of lens H/O colonoscopy History of esophagogastroduodenoscopy (EGD) S/P CABG (coronary artery bypass graft) History of coronary artery bypass graft x 3 (~07/24/19) History of cardiac cath (~06/20/19) History of knee replacement Family History Father Cardiovascular disease Mother Gastrointestinal malignancy Social History Household Members: Spouse 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:: , retired [employer] Housing: House Do you presently have visiting nurse or other home services: No Alcohol intake: current Alcohol intake frequency: holidays/special occasions only Patient Tobacco Use Status: Former Tobacco user e-Cigarette/Vaping Use: Never Used Second Hand Smoke Exposure: Yes Advance Directives Date on File: 07/07/21 service: No Current occupational status: retired Cognitive needs: Yes (walker) Hearing needs: Yes (Hearing aide) Vision needs: Yes (Reading Glasses) Questionnaire Thrive Questionnaire Date Thrive assessed: 08/21/24 MALINA-7 AMB Questionnaire MALINA-7 Date MALINA - 7 assessed: 08/21/24 Source: Developed by Drs. Garrett Martinez, Alexus Israel, Gonzalo Pete and colleagues, with an educational ron from [employer]. Physical exam (Primary Care) Vital Signs: Last Vital Signs Temp 97.1 F 02/19/25 10:23 Pulse 52 02/19/25 10:23 BP 132/68 02/19/25 10:23 Pulse Ox 93 02/19/25 10:23 Oxygen Delivery Method Room Air 02/19/25 10:23 BMI result Body Mass Index 37.7 Tobacco/Smoking Status: Tobacco use Status Tobacco use date assessed 02/19/25 02/19/25 10:30 Patient Tobacco Use Status Former Tobacco user 02/19/25 10:30 e-Cigarette/Vaping Use Never Used 02/19/25 10:30 Thrive Assessment: Date of Thrive Assessment Date Thrive assessed 08/21/24 02/19/25 10:30 Results AMB Hemoglobin A1c AMB Hemoglobin A1c 5.5 % Last Edit by DARLYN Coffey on 02/19/25 10:44 Coding Level of Care Code Est Pt Prev Care >65y(16802) Diagnoses Type 2 diabetes mellitus with other circulatory complication, without long-term current use of insulin E11.59 Diabetes mellitus type: type 2 Diabetes mellitus fci insulin use: without fci use Diabetes mellitus complication status: with circulatory complication Diabetes mellitus complication detail: with other circulatory complications (HFpEF) heart failure with preserved ejection fraction I50.30 Stable angina I20.8 Annual physical exam Z00.00 Assessment & Plan Assessment & Plan (1) Diabetes: Code(s): E11.9 - Type 2 diabetes mellitus without complications Category: Medical Qualifiers: Diabetes mellitus type: type 2 Diabetes mellitus intermediate frame tender insulin use: without fci use Diabetes mellitus complication status: with circulatory complication Diabetes mellitus complication detail: with other circulatory c omplications Qualified Code(s): E11.59 - Type 2 diabetes mellitus with other circulatory complications Plan: A1c is in range. (2) (HFpEF) heart failure with preserved ejection fraction: Code(s): I50.30 - Unspecified diastolic (congestive) heart failure Category: Medical Plan: Condition is stable. (3) Stable angina: Code(s): I20.8 - Other forms of angina pectoris Category: Medical Plan: Condition is stable. (4) Annual physical exam: Code(s): Z00.00 - Encounter for general adult medical examination without abnormal findings Plan: History of Present Illness - The patient is a 74-year-old male presenting with dyspnea. - Reports increased difficulty in breathing, attributed to weight gain, and has resumed using albuterol inhaler. - Underwent LASIK surgery 10-15 years ago, with tissue regrowth affecting vision, requiring further corrective procedures. - Recently had one eye corrected and plans to have the other eye treated next week. - Receives an influenza vaccination annually and plans to continue this practice. Social History - The patient is retired and expresses dissatisfaction with [employer]. - He is able to drive during the day but not at night due to vision issues. - Engages in activities such as grocery shopping and walking. Review of Systems - Respiratory: Reports dyspnea. Denies cough or wheezing. - Ophthalmologic: Reports vision changes post-LASIK. - General: Denies pain. Physical Exam General: Cooperative and healthy appearing Nutritional Appearance: Well nourished Orientation/consciousness: Patient oriented x3 Limitations: No limitations Head: Normal to inspection General: Appearance normal, both eyes and all related structures Neck: Normal visual inspection Chest: Normal palpation of entire chest wall Respiratory: Normal respiratory effort Neurology: Patient oriented x3 Results Plan 1. Dyspnea - Continue using albuterol inhaler as needed. - Blood work ordered to assess overall health. 2. Refractive Error Post-Lasik - Underwent corrective procedures for vision changes, with further treatment planned next week. 3. Preventative Care: Influenza Vaccination - Advised to receive influenza vaccination during fall season. Discussion Notes I discussed with the patient the importance of continuing the use of the albuterol inhaler to manage his dyspnea and the need for blood work to monitor his health status. We also talked about his recent vision changes post-LASIK and the corrective procedures he has undergone, with plans for further treatment next week. I advised him to receive the influenza vaccination during the fall season as part of his preventative care. Patient Instructions - Continue using your albuterol inhaler as needed for breathing difficulties. - Complete your blood work as ordered to check your health status. - Plan to receive your flu shot during the fall season. - Follow up with your senior regulatory affairs specialist for the scheduled procedure next week. Orders: Orders AMB Hemoglobin A1c Today E11.59 - Type 2 diabetes mellitus with other circulatory complications
[2025-02-19 10:23] VITALS: BP 132/68; PULSE 52; TEMP 36.2; O2SAT 93; BMI 37.7
== END 2025-02-19 10:43 | disposition home or self-care (01) ==
LOC: HO.HMCH 10:09
PROVIDERS: PCP Internal Medicine; Visit Provider Internal Medicine
DX: E11.59 Type 2 diabetes mellitus with other circulatory complications (principal); I50.30 Unspecified diastolic (congestive) heart failure; I20.89 Other forms of angina pectoris; Z00.00 Encounter for general adult medical examination without abnormal findings

== ENCOUNTER → 2025-02-19 10:08 | Outpatient (BNVA) | payer MEDICARE, SELFPAY | PROVIDERS: PCP Internal Medicine; Visit Provider Internal Medicine | DX: Z00.00 Encounter for general adult medical examination without abnormal findings (principal); I20.89 Other forms of angina pectoris; E11.59 Type 2 diabetes mellitus with other circulatory complications | CPT/HCPCS: 83036; 99397 ==